=== PATIENT | male | born 1935 | race Caucasian/White ===

== ENCOUNTER 2016-08-14 10:29 | Observation (INO) | payer OTHER, BC ==
[2016-08-14] MEDS ORDERED: ASPIRIN 81 MG CHEWABLE TABLETS PO ONE (11:07)
--- NOTE | 2016-08-14 11:07 | PDOC ---
History of Present Illness <Terrell Artis - Last Filed: 08/14/16 15:07> - General History Source: Patient, Primary Care Provider Exam Limitations: No Limitations <Miguel Michael - Last Filed: 08/14/16 16:36> - General Chief Complaint: Chest Pain Stated Complaint: CHEST PRESSURE, NAUSEA Time Seen by Provider: 08/14/16 10:57 - History of Present Illness Initial Comments: 08/14/16 13:35 The patient is a 80 year old male, with a significant past medical history of CAD (11 stents), CHF, diabetes, HTN, hypercholesterolemia, BPH, who presents to the emergency department with chest pain and nausea since last night. He describes his chest pain as a pressure, ranging from mild to moderate, lasting 2 -3 minutes before resolving. He denies radiation or modifying factors. He reports that he saw Dr. Wynne this morning around 10am and an EKG was performed which was nonischemic according to the patient. Dr. Wynne told the patient that he wanted some cardiac enzymes and fluids due to the patient's nausea, and sent the patient to the ED for further evaluation. The patient also reports that he has shortness of breath that has been going on for the last couple of days. He states that he has been noticing some mild lower extremity swelling due to non- compliance with his Lasix. He states that he had similar symptoms last time he had a cardiac stent (3 years ago). He denies any recent illness. The patient denies palpitations, headache and dizziness. Denies fever, chills, vomit, diarrhea and constipation. Denies dysuria, frequency, urgency and hematuria. Allergies: None Past surgical history: 11 cardiac stents Social history: Social alcohol use. Cigarette use (50 daily). No drug use reported PMD - Dr. Varghese Palumbo [facility] - Dr. Lobo Wynne (Miguel Michael) Past History - Past Medical History Anemia: No Asthma: No Cancer: No Cardiac Disorders: Yes (CAD) CVA: No COPD: No CHF: Yes Dementia: No Diabetes: Yes GI Disorders: Yes Disorders: Yes (BPH) HTN: Yes Hypercholesterolemia: Yes Liver Disease: No Seizures: No Thyroid Disease: No - Surgical History Abdominal Surgery: No Appendectomy: No Cardiac Surgery: Yes (CARDIAC STENTS X 11, 1 stent on 02/09/15) Cholecystectomy: No Lung Surgery: No Neurologic Surgery: No Orthopedic Surgery: Yes - Immunization History Immunization Up to Date: Yes - Psycho/Social/Smoking Cessation Hx Anxiety: No Suicidal Ideation: No Smoking History: Former smoker Have you smoked in the past 12 months: No Number of Cigarettes Smoked Daily: 50 If you are a former smoker, when did you quit?: 45 YRS Information on smoking cessation initiated: No 'Breaking Loose' booklet given: 05/01/15 Hx Alcohol Use: Yes (SOCIAL) Drug/Substance Use Hx: No Substance Use Type: None Hx Substance Use Treatment: No <Terrell Artis - Last Filed: 08/14/16 15:07> <Miguel Michael - Last Filed: 08/14/16 16:36> - Past Medical History Allergies/Adverse Reactions: Allergies Allergy/AdvReac Type Severity Reaction Status Date / Time No Known Allergies Allergy Verified 08/14/16 10:37 Home Medications: Ambulatory Orders Aspirin [ASA -] 81 mg PO DAILY 08/14/16 Ezetimibe 10 mg PO DAILY 08/14/16 Folic Acid - 1 mg PO DAILY 08/14/16 Furosemide [Lasix -] 20 mg PO ASDIR 08/14/16 Gabapentin 600 mg PO BID 08/14/16 Methotrexate Sodium [Methotrexate] 6 tab PO ASDIR 08/14/16 Methylprednisolone [Medrol -] 1 mg PO ASDIR 08/14/16 Methylprednisolone [Medrol -] 2 mg PO ASDIR 08/14/16 Ranolazine [Ranexa] 500 mg PO BID 08/14/16 Tamsulosin HCl [Flomax] 0.4 mg PO HS 08/14/16 Timolol 0.5% [Timoptic] 1 drop OD DAILY 08/14/16 Travoprost [Travatan Z] 5 ml OU HS 08/14/16 Cardiac Specific PMH - Complaint Specific PMHX Pacemaker: No <Terrell Artis - Last Filed: 08/14/16 15:07> Review of Systems <Terrell Artis - Last Filed: 08/14/16 15:07> - Review of Systems Able to Perform ROS?: Yes <Miguel Michael - Last Filed: 08/14/16 16:36> - Review of Systems Comments:: 08/14/16 13:36 CONSTITUTIONAL: No reported: Fever, Chills, Diaphoresis, Generalized Weakness, Malaise, Loss of Appetite HEENT: No reported: Rhinorrhea, Nasal Congestion, Throat Pain, Throat Swelling, Difficulty Swallowing, Mouth Swelling, Ear Pain, Eye Pain, Visual Changes CARDIOVASCULAR: Reported: Chest pain. No reported: Syncope, Palpitations, Irregular Heart Rate, Lightheadedness, Peripheral Edema RESPIRATORY: Reported: Shortness of breath. No reported: Cough, SOB with Exertion, Orthopnea, Wheezing, Stridor, Hemoptysis GASTROINTESTINAL: Reported: Nausea. No reported: Abdominal pain, Abdominal Distension, Vomiting, Diarrhea, Constipation, Melena, Hematochezia GENITOURINARY: No reported: Dysuria, Frequency, Urgency, Hesitancy, Flank Pain, Genital Pain MUSCULOSKELETAL: No reported: Myalgia, Arthralgia, Joint Swelling, Back pain, Neck Pain SKIN: No reported: Rash, Itching, Pallor HEMEATOLOGIC/IMMUNOLOGIC: No reported: Easy Bleeding, Easy Bruising, Lymphadenopathy, Frequent infections ENDOCRINE: No reported: Unexplained Weight Gain, Unexplained Weight Loss, Heat Intolerance , Cold Intolerance NEUROLOGIC: No reported: Headache, Focal Weakness, Paresthesias, Vertigo, Lightheadedness, Unsteady Gait, Seizure, Mental Status Changes, Incontinence PSYCHIATRIC: No reported: Anxiety, Depression (Miguel Michael) *Physical Exam <Terrell Artis - Last Filed: 08/14/16 15:07> <Miguel Michael - Last Filed: 08/14/16 16:36> - Vital Signs Last Vital Signs Temp Pulse Resp BP Pulse Ox 98 F 75 16 134/72 98 08/14/16 10:33 08/14/16 11:25 08/14/16 11:25 08/14/16 11:25 08/14/16 11:25 - Physical Exam Comments: 08/14/16 13:36 GENERAL: The patient is awake, alert, and fully oriented, Nontoxic - in no acute distress. HEAD: Normocephalic, atraumatic. EYES: extraocular movements intact, sclera anicteric, conjunctiva clear. ENT: Normal voice, Moist mucous membranes. NECK: Normal range of motion, supple LUNGS: Breath sounds equal, clear to auscultation bilaterally. No wheezes, no rhonchi, no rales. HEART: Regular rate and rhythm, without murmur, rub or gallop. ABDOMEN: Soft, nontender, normoactive bowel sounds. No guarding, no rebound.No CVA tenderness EXTREMITIES: Normal range of motion, trace LE edema. no calf tenderness NEUROLOGICAL: No facial assymetry, Normal speech, PSYCH: Normal mood, normal affect. SKIN: Warm, Dry, normal turgor, (Miguel Michael) Heart Score/ECG Review <Terrell Artis - Last Filed: 08/14/16 15:07> <Miguel Michael - Last Filed: 08/14/16 16:36> - ECG Impressions Comment:: 08/14/16 11:43 Twelve-lead EKG was performed and reviewed by me. There is normal sinus rhythm with a normal rate. Rate of 66 Left axis deviation Artifacts present No ST changes suggestive of acute ischemia No significant change when compared with EKG dated 06/25/2015 (Terrell Artis) ED Treatment Course - LABORATORY CBC & Chemistry Diagram: 08/14/16 11:39 08/14/16 11:27 <Terrell Artis - Last Filed: 08/14/16 15:07> - LABORATORY CBC & Chemistry Diagram: 08/14/16 11:39 08/14/16 11:27 <Miguel Michael - Last Filed: 08/14/16 16:36> - ADDITIONAL ORDERS Additional order review: Laboratory Results 08/14/16 08/14/16 11:27 11:27 INR 1.07 Sodium 140 Potassium 3.7 Chloride 102 Carbon Dioxide 29 Anion Gap 9 BUN 16 D Creatinine 1.0 D Creat Clearance w eGFR > 60 Random Glucose 96 Calcium 8.7 Magnesium 2.0 Total Bilirubin 1.0 D AST 24 D ALT 28 D Alkaline Phosphatase 78 Creatine Kinase 112 Troponin I < 0.02 Total Protein 5.8 L Albumin 3.3 L D 08/14/16 11:39 RBC 3.90 L D MCV 93.8 MCHC 33.1 RDW 16.8 H MPV 8.6 Neutrophils % 59.6 D Lymphocytes % 31.2 D Monocytes % 7.5 Eosinophils % 0.9 D Basophils % 0.8 - RADIOLOGY Radiograph Interpretation: 08/14/16 14:31 Chest X-Ray Reviewed by: Dr. Rhys Watkins Impression: Cardiomegaly. No evidence of active pulmonary disease. (Miugel Michael) - Medications Given in the ED: ED Medications Discontinued Medications Generic Name Dose Route Start Last Admin Trade Name Lynda PRN Reason Stop Dose Admin Al Hydroxide/Mg Hydroxide 30 ml 08/14/16 11:33 08/14/16 11:55 Mylanta Suspension - PO 08/14/16 11:34 30 ml ONCE ONE Administration Aspirin 162 mg 08/14/16 11:07 08/14/16 11:55 Asa - PO 08/14/16 11:08 162 mg ONCE ONE Administration Famotidine/Sodium Chloride 20 50 mls @ 100 mls/hr 08/14/16 11:33 08/14/16 11:55 mg/ Miscellaneous IVPB 08/14/16 12:02 100 mls/hr ONCE ONE Administration Metoclopramide HCl 10 mg 08/14/16 15:01 08/14/16 15:48 Reglan Injection - IVPUSH 08/14/16 15:02 10 mg ONCE ONE Administration Ondansetron HCl 4 mg 08/14/16 11:33 08/14/16 11:55 Zofran Injection IVPB 08/14/16 11:34 4 mg ONCE ONE Administration Medical Decision Making <Terrell Artis - Last Filed: 08/14/16 15:07> <Miguel Michael - Last Filed: 08/14/16 16:36> - Medical Decision Making 08/14/16 11:35 80y M hx of CAD s/p 11 stents, dm, htn, hl, chf, bph, GERD presents with persistent nausea x 3, associated with episode of chest pressure last night approx 9:45pm lasting for a few minutes associated with diaprhosis, pt does endorse some sob/sanders recently. PT went to dr. Del Cid office who referred him to the ED for further evaluation. Pts exam is unremarabkle and pt currently denies any cp, but does endorse persistent nausea. pts vitals are normal. differential includes possiuble acs, gerd/gastritis, will ck labs, trops, ekg, cxr, will give asa zofran pepcid/maalox will reassess and d/w dr. wynne regarding disposition PMD: Ann[place] A portion of this note was documented by scribe services under my direction. I have reviewed the details of the note, within reason, and agree with the documentation with the following case summary and management plan written by me 08/14/16 14:44 labs reviewed and are negative pt feeling better when reclined, but when he gets up and abmulates, he feels midl nausea w/o any chest pain -?anginal equivalent? will lkely admit to observation for further risk stratification. awaiting call back from dr. wynne. 08/14/16 15:[address] palumbo agree with observation for further risk stratification of acs Case discussed in detail with admitting physician including history, physical exam and ancillary studies. Admitting physician has assumed care for the patient, will follow all pending diagnostics and will complete the evaluation and treatment. (Terrell Artis) 08/14/16 16:35 De. Wynne was called regarding the patient at 1:26pm, 2:11pm and 3:06pm [phone] Dr. Palumbo was consulted regarding the patient at 3:04pm [phone] (Miguel Michael) *DC/Admit/Observation/Transfer - Discharge Dispostion Admit: Yes <Terrell Artis - Last Filed: 08/14/16 15:07> <Miguel Michael - Last Filed: 08/14/16 16:36> Diagnosis at time of Disposition: Chest pain Qualifiers: Chest pain type: unspecified Qualified Code(s): R07.9 - Chest pain, unspecified - Referrals - Attestations Scribe Attestion: 08/14/16 13:36 Documentation prepared by Miguel Michael, acting as medical office clerk for Terrell Artis MD (Miguel Michael)
[2016-08-14] MEDS ORDERED: MAG HYDROX/AL HYDROX/SIMETH 355 ML ORAL.SUSP PO ONE (11:33)
[2016-08-14] MEDS ORDERED: ONDANSETRON 4 MG/2 ML VIAL IVPB ONE (11:33)
[2016-08-14] MEDS ORDERED: FAMOTIDINE 20 MG/50 ML IVPB 20 MG in PREMIX 50 IVPB ONE (11:33)
[2016-08-14 11:46] LABS: BASOPHIL 0.8 % (0-2.0); EOSINOPHIL 0.9 % (0-4.5); MCH 31.1 pg (25.7-33.7); MCHC 33.1 g/dl (32.0-35.9); MEAN CELL VOLUME 93.8 fl (80-96); MEAN PLT VOLUME 8.6 fl (7.5-11.1); NEUTROPHILS 59.6 % (42.8-82.8); PLATELET COUNT 166 K/MM3 (134-434); RDW 16.8 % (11.9-15.9); WHITE BLOOD COUNT 5.5 K/mm3 (4.0-10.0)
[2016-08-14] MEDS ORDERED: ASPIRIN 81 MG CHEWABLE TABLETS ONE (11:46)
[2016-08-14] MEDS ORDERED: MAG HYDROX/AL HYDROX/SIMETH 30 ML UNIT-DOSE CUP ONE (11:47)
[2016-08-14] MEDS ORDERED: FAMOTIDINE 20 MG/50 ML IVPB 50 ML IVPB ONE (11:47)
[2016-08-14] MEDS ORDERED: ONDANSETRON 4 MG/2 ML VIAL ONE (11:47)
[2016-08-14 12:11] LABS: ALBUMIN 3.3 g/dl (3.4-5.0); ANION GAP 9 (8-16); CALCIUM 8.7 mg/dL (8.5-10.1); CO2 29 mmol/L (21-32); COCKROFT - GAULT 68; GLUCOSE,RANDOM 96 mg/dL (74-106); SGOT/AST 24 U/L (15-37); SGPT/ALT 28 U/L (12-78)
[2016-08-14 12:16] LABS: ALK PHOS 78 U/L (45-117); TOT PROT 5.8 g/dl (6.4-8.2); TROPONIN I < 0.02 ng/ml (0.00-0.05)
[2016-08-14 12:25] LABS: INR 1.07 (0.82-1.09); PROTHROMBIN TIME (PATIENT) 11.8 SEC (9.98-11.88)
[2016-08-14] MEDS ORDERED: METOCLOPRAMIDE HCL INJECTION 10 MG/2 ML VIAL IVPUSH ONE (15:01)
[2016-08-14] MEDS ORDERED: METOCLOPRAMIDE HCL INJECTION 10 MG/2 ML VIAL ONE (15:40)
--- NOTE | 2016-08-14 17:07 | EKG ---
Test Reason : Blood Pressure : / mmHG Vent. Rate : 066 BPM Atrial Rate : 066 BPM P-R Int : 174 ms QRS Dur : 086 ms QT Int : 386 ms P-R-T Axes : 050 -44 056 degrees QTc Int : 404 ms NORMAL SINUS RHYTHM LEFT AXIS DEVIATION POSSIBLE ANTERIOR INFARCT , AGE UNDETERMINED ABNORMAL ECG WHEN COMPARED WITH ECG OF 25-JUN-2015 23:35, T WAVE VARIATION Confirmed by MEREDITH MUIR MD ([id number]) on 08/14/2016 5:06:38 PM Referred By: Confirmed By:MEREDITH MUIR MD
--- NOTE | 2016-08-14 17:39 | PN ---
Progress Note (short form) - Note Progress Note: See office note (in chart). Seen in office today with 3d of persistent, severe nausea (no vomiting or abd pain). awoke with mild chest pressures x few min last night around 1-2am, with cold sweats; no ekg changes present today incr sob of late over baseline sx GERD/other GI vs atyp angina to ER for serial enzymes, iv zofran/reglan/other plan for nuclear stress test as inpatient or out (depending on clinical course) if enzymes negative VSs stable/WNL in ER labs unremarkable (enzymes neg x 1) plan: repeat enzymes at 6 hrs GI meds per ER and dr palumbo reassess in am (will keep npo after midnight in case want to keep here overnight and stress tomorrow) Laboratory Tests 08/14/16 08/14/16 11:27 11:39 WBC 5.5 D Hgb 12.1 D Plt Count 166 Sodium 140 Potassium 3.7 Carbon Dioxide 29 BUN 16 D Creatinine 1.0 D Total Bilirubin 1.0 D AST 24 D ALT 28 D Creatine Kinase 112 Troponin I < 0.02
[2016-08-14] MEDS ORDERED: METOCLOPRAMIDE HCL INJECTION 10 MG/2 ML VIAL IVPB PRN (18:17)
[2016-08-14 19:01] VITALS: BMI 30.1
[2016-08-14 20:50] LABS: AMYLASE 30 U/L (25-115)
[2016-08-14 20:55] LABS: TROPONIN I < 0.02 ng/ml (0.00-0.05)
[2016-08-14] MEDS: RANOLAZINE E.R. 500 MG TABLET (FP) PO SCH (21:20)
[2016-08-14] MEDS: GABAPENTIN 300 MG CAPSULE (FP) PO SCH (21:21)
[2016-08-14] MEDS: PANTOPRAZOLE SODIUM 40 MG/100 ML PRE-DOCKED IVPB SCH (21:21)
[2016-08-14] MEDS: TAMSULOSIN HCL 0.4 MG CAP.ER.24H (FP) PO SCH (21:21)
[2016-08-14] MEDS: LATANOPROST 0.005% OPHTH SOLN 2.5ML BOTTLE OU SCH (21:23)
[2016-08-14] MEDS ORDERED: PANTOPRAZOLE SODIUM 40 MG in SODIUM CHLORIDE 100 ML IVPB SCH (22:00)
[2016-08-15 06:41] LABS: BASOPHIL 0.8 % (0-2.0); EOSINOPHIL 1.2 % (0-4.5); MCH 31.3 pg (25.7-33.7); MCHC 33.4 g/dl (32.0-35.9); NEUTROPHILS 53.6 % (42.8-82.8); PLATELET COUNT 155 K/MM3 (134-434); RDW 16.6 % (11.9-15.9); WHITE BLOOD COUNT 6.3 K/mm3 (4.0-10.0)
[2016-08-15 07:18] LABS: ANION GAP 9 (8-16); BILIRUBIN,TOTAL 0.8 mg/dL (0.2-1.0); CALCIUM 8.4 mg/dL (8.5-10.1); CO2 30 mmol/L (21-32); COCKROFT - GAULT 67.04; GLUCOSE,RANDOM 89 mg/dL (74-106); SGOT/AST 24 U/L (15-37); SGPT/ALT 25 U/L (12-78); TOT PROT 5.4 g/dl (6.4-8.2)
[2016-08-15 07:20] LABS: ALK PHOS 70 U/L (45-117); TROPONIN I < 0.02 ng/ml (0.00-0.05)
--- NOTE | 2016-08-15 08:50 | HP ---
Admitting History and Physical - Admission History of Present Illness: 80 year old male, with a significant past medical history of CAD (11 stents), CHF, diabetes, HTN, hypercholesterolemia, BPH, who presents to the emergency department with chest pain and nausea since last night. He describes his chest pain as a pressure, ranging from mild to moderate, lasting 2-3 minutes before resolving. He denies radiation or modifying factors. He reports that he saw Dr. Wynne this morning around 10am and an EKG was performed which was nonischemic according to the patient. Dr. Wynne told the patient that he wanted some cardiac enzymes and fluids due to the patient's nausea, and sent the patient to the ED for further evaluation. The patient also reports that he has shortness of breath that has been going on for the last couple of days. He states that he has been noticing some mild lower extremity swelling due to non-compliance with his Lasix. He states that he had similar symptoms last time he had a cardiac stent (3 years ago). He denies any recent illness. THIS AM FEELS BETTER - Past Medical History Cardiovascular: Yes: CAD (s/p multiple stenting), CHF, HTN, Hyperlipdemia Gastrointestinal: Yes: GERD, Hemorrhoids, Other (RECTAL INCONTINENCE THAT HAS RESOLVED WITH FIBER) Renal/: Yes: BPH Musculoskeletal: Yes: Osteoarthritis Endocrine: Yes: Diabetes Mellitus - Past Surgical History Past Surgical History: Yes: Appendectomy, Tonsillectomy, Vein Stripping/Ligation - Smoking History Smoking history: Former smoker Have you smoked in the past 12 months: No Aproximately how many cigarettes per day: 50 If you are a former smoker, when did you quit?: 45 yrs ago - Alcohol/Substance Use Hx Alcohol Use: No - Social History ADL: Support Services History of Recent Travel: No Home Medications - Allergies Allergies/Adverse Reactions: Allergies Allergy/AdvReac Type Severity Reaction Status Date / Time No Known Allergies Allergy Verified 08/14/16 10:37 - Home Medications Home Medications: Ambulatory Orders Aspirin [ASA -] 81 mg PO DAILY 08/14/16 Ezetimibe 10 mg PO DAILY 08/14/16 Folic Acid - 1 mg PO DAILY 08/14/16 Furosemide [Lasix -] 20 mg PO ASDIR 08/14/16 Gabapentin 600 mg PO BID 08/14/16 Methotrexate Sodium [Methotrexate] 6 tab PO ASDIR 08/14/16 Methylprednisolone [Medrol -] 1 mg PO ASDIR 08/14/16 Methylprednisolone [Medrol -] 2 mg PO ASDIR 08/14/16 Ranolazine [Ranexa] 500 mg PO BID 08/14/16 Tamsulosin HCl [Flomax] 0.4 mg PO HS 08/14/16 Timolol 0.5% [Timoptic] 1 drop OD DAILY 08/14/16 Travoprost [Travatan Z] 5 ml OU HS 08/14/16 Review of Systems - Review of Systems Cardiovascular: reports: Chest Pain Respiratory: reports: SOB on Exertion Gastrointestinal: reports: Abdominal Pain, Indigestion, Nausea Genitourinary: reports: No Symptoms Musculoskeletal: reports: Back Pain, Joint Pain Physical Examination Vital Signs: Vital Signs Temperature 98.2 F 08/15/16 06:19 Pulse Rate 64 08/15/16 06:19 Respiratory Rate 18 08/15/16 06:19 Blood Pressure 133/66 08/15/16 06:19 O2 Sat by Pulse Oximetry (%) 99 08/14/16 21:00 Cardiovascular: Yes: Regular Rate and Rhythm Respiratory: Yes: Regular, CTA Bilaterally Gastrointestinal: Yes: Normal Bowel Sounds, Soft. No: Tenderness Edema: No Labs: CBC, BMP 08/15/16 05:35 08/15/16 05:35 Problem List - Problems (1) Chest pain Assessment/Plan: MAYBE ANGINAL R/O GI ETIOLOGY STRESS TEST CE NEG CARDIO ON BOARD Code(s): R07.9 - CHEST PAIN, UNSPECIFIED Qualifiers: Chest pain type: unspecified Qualified Code(s): R07.9 - Chest pain, unspecified (2) CAD (coronary artery disease) Assessment/Plan: ABOVE Code(s): I25.10 - ATHSCL HEART DISEASE OF [place] CORONARY ARTERY W/O ANG PCTRS Qualifiers: Coronary Disease-Associated Artery/Lesion type: unspecified vessel or lesion type [place] vs. transplanted heart: [place] heart Associated angina: with unspecified angina Qualified Code(s): I25.119 - Atherosclerotic heart disease of [place] coronary artery with unspecified angina pectoris (3) CHF (congestive heart failure) Assessment/Plan: STABLE Code(s): I50.9 - HEART FAILURE, UNSPECIFIED (4) DM2 (diabetes mellitus, type 2) Assessment/Plan: BGM Code(s): E11.9 - TYPE 2 DIABETES MELLITUS WITHOUT COMPLICATIONS Qualifiers: Diabetes mellitus complication status: with circulatory complication (5) Gastritis Assessment/Plan: PPI REGLAN Code(s): K29.70 - GASTRITIS, UNSPECIFIED, WITHOUT BLEEDING
[2016-08-15] MEDS: ASPIRIN 81 MG CHEWABLE TABLETS PO SCH ×2 (09:51→17:17)
[2016-08-15] MEDS: FOLIC ACID 1 MG TABLET (FP) PO SCH ×2 (09:51→17:16)
[2016-08-15] MEDS: TIMOLOL 0.5% OPHTHALMIC SOL 5 ML BOTTLE OD SCH (09:52)
[2016-08-15] MEDS: methylPREDNISolone 2 MG TABLET PO SCH ×2 (09:52→17:17)
[2016-08-15] MEDS: PANTOPRAZOLE SODIUM 40 MG/100 ML PRE-DOCKED IVPB SCH ×2 (09:52→21:18)
[2016-08-15] MEDS: RANOLAZINE E.R. 500 MG TABLET (FP) PO SCH ×2 (09:52→21:24)
[2016-08-15] MEDS: GABAPENTIN 300 MG CAPSULE (FP) PO SCH ×2 (09:52→21:18)
[2016-08-15] MEDS: EZETIMIBE 10 MG TABLET (FP) PO SCH ×2 (09:53→17:16)
[2016-08-15] MEDS ORDERED: DIPYRIDAMOLE STRESS TEST IVPB ONE (10:00)
[2016-08-15] MEDS ORDERED: WATER IVPB ONE (10:00)
[2016-08-15] MEDS ORDERED: DEXTROSE 5% IVPB ONE (10:00)
--- NOTE | 2016-08-15 15:42 | CON.CARD ---
Cardiology Consult (text) - Consultation Consultation Note: CC: nausea/vomiting/cp 80 yo with h/o CAD s/p multiple stents, dCHF, HTN, HL, DM, RA, duodenal ulcers, GERD with esophagitis, BPH, here with nausea/cp. very nauseated x 2 days, no vomiting + abdominal discomfort/bloating + episode of diaphoresis x 1 day with associated mild cp--central, mild pressure--resolved on its own after 2-3 min. no radiation (incl to head, neck, arm). Patient with decreased appetite x a few months. + 9 lb weight loss. (Off lasix for the past 2 weeks) He states that his nausea resolved after receiving IV protonix. No further recurrence of CP or nausea. denies palpitations, orthopnea, PND, SOB, transient neurologic symptoms. PMHx: Per HPI Past Surgical History: Appendectomy, Tonsillectomy, Vein Stripping/Ligation Social Hx: Former smoker, no alcohol or illicits. Family hx: No cardiomyopathy ROS: No headache, f/c/s, cough, congestion, visual disturbances, rashes. Ambulatory Orders Aspirin [ASA -] 81 mg PO DAILY 08/14/16 Ezetimibe 10 mg PO DAILY 08/14/16 Folic Acid - 1 mg PO DAILY 08/14/16 Furosemide [Lasix -] 20 mg PO ASDIR 08/14/16 Gabapentin 600 mg PO BID 08/14/16 Methotrexate Sodium [Methotrexate] 6 tab PO ASDIR 08/14/16 Methylprednisolone [Medrol -] 1 mg PO ASDIR 08/14/16 Methylprednisolone [Medrol -] 2 mg PO ASDIR 08/14/16 Ranolazine [Ranexa] 500 mg PO BID 08/14/16 Tamsulosin HCl [Flomax] 0.4 mg PO HS 08/14/16 Timolol 0.5% [Timoptic] 1 drop OD DAILY 08/14/16 Travoprost [Travatan Z] 5 ml OU 08/14/16 Current Medications Aspirin (Asa -) 81 mg PO DAILY [facility] Last Admin: 08/15/16 09:51 Dose: Not Given Ezetimibe (Zetia -) 10 mg PO DAILY [facility] Last Admin: 08/15/16 09:53 Dose: Not Given Folic Acid (Folic Acid -) 1 mg PO DAILY [facility] Last Admin: 08/15/16 09:51 Dose: Not Given Gabapentin (Neurontin -) 600 mg PO BID [facility] Last Admin: 08/15/16 09:52 Dose: Not Given Latanoprost (Xalatan 0.005% Eye Drops -) 1 drop OU HS [facility] Last Admin: 08/14/16 21:23 Dose: 1 drop Methylprednisolone (Medrol -) 2 mg PO DAILY [facility] Last Admin: 08/15/16 09:52 Dose: Not Given Metoclopramide HCl (Reglan Injection -) 10 mg IVPB Q6H PRN PRN Reason: NAUSEA AND/OR VOMITING Pantoprazole Sodium (Protonix 40mg Ivpb (Pre-Docked)) 40 mg IVPB BID [facility] Last Admin: 08/15/16 09:52 Dose: Not Given Ranolazine (Ranexa -) 500 mg PO BID [facility] Last Admin: 08/15/16 09:52 Dose: Not Given Tamsulosin HCl (Flomax -) 0.[address] [facility] Last Admin: 08/14/16 21:21 Dose: 0.4 mg Timolol Maleate (Timoptic 0.5%) 1 drop OD DAILY [facility] Last Admin: 08/15/16 09:52 Dose: Not Given Vital Signs - 24 hr 08/14/16 08/14/16 08/14/16 17:25 18:26 21:00 Temperature 98 F 98.1 F 98.2 F Pulse Rate 67 66 Pulse Rate [ 76 Right Radial] Respiratory 16 18 18 Rate Blood Pressure 146/72 159/75 Blood Pressure 136/60 [Left Arm] O2 Sat by Pulse 98 98 99 Oximetry (%) 08/15/16 08/15/16 08/15/16 01:58 06:19 09:20 Temperature 98.3 F 98.2 F 98.2 F Pulse Rate 76 64 72 Pulse Rate [ Right Radial] Respiratory 18 18 17 Rate Blood Pressure 116/65 133/66 122/66 Blood Pressure [Left Arm] O2 Sat by Pulse Oximetry (%) 08/15/16 08/15/16 10:20 14:10 Temperature 97.7 F Pulse Rate 78 Pulse Rate [ Right Radial] Respiratory 16 Rate Blood Pressure 126/65 Blood Pressure [Left Arm] O2 Sat by Pulse 98 Oximetry (%) Intake & Output 08/13/16 08/14/16 08/15/16 08/16/16 07:59 07:59 07:59 07:59 Intake Total 300 620 Balance 300 620 Weight 177 lb 6 oz Constitutional: No Distress, sleepy Eyes: No: Sclera Icterus HENT: No: Nasal Congestion Neck: No: Decreased ROM Respiratory: Yes: trace rales Gastrointestinal: Yes: Normal Bowel Sounds. No: Distention, Hepatomegaly, Palpable Mass, Tenderness Cardiovascular: Yes: Regular Rate and Rhythm JVD: No Carotid Bruit: No PMI: Non-Displaced Heart Sounds: Yes: S1, S2. No: Gallop Murmur: No: Systolic Murmur, Diastolic Murmur Musculoskeletal: Yes: Other (No kyphosis) Edema: no edema Peripheral Pulses: 2+ Left Carotid, 2+ Right Carotid, 2+ Left Doralis Pedis, 2+ Right Dorsalis Pedis Integumentary: No: Jaundice Neurological: Yes: Alert, Oriented (x3) Psychiatric: No: Agitated - Other Data Labs, Other Data: CBC, BMP 08/15/16 05:35 08/15/16 05:35 Laboratory Tests 08/14/16 08/14/16 08/15/16 11:27 19:30 05:35 Magnesium 2.0 Troponin I < 0.02 < 0.02 < 0.02 Albumin 3.0 L EKG: NSR, LAD, inf q waves. non-specific t wave ab tele: SR with brief episode of SVT, intermittent pvc. stress here: No ekg changes or anginal sx's. mod sized mild intensity posterolateral ischemia. EF 81 % LHC 02/13: EDP 16, EF nl; patent stents: pRCA, dLAD (30-50%), OM1, OM2; 70-80% pLAD ISR--Promus; 70-80% D1 (moderate size)--PTCA; residual diffuse mild dz all 3 vessels MIBI 2012 (franko): no STs; minimal apical ischemia; nl EF Echo 06/14: nl LV/EF; mild LVH; nl RV; valves WNL cath 2010 with Xience SRINIVAS to OM1 (70-80% ISR of prior Cypher stent) then unstable angina with cath 02/13 showing ISR of pLAD treated with SRINIVAS, ISR of D1 treated with PTCA alone; residual nonobstructive, diffuse dz: patent stents in pRCA, pLAD, dLAD, D1 and OM2 (was seeing Dr. Gale) Unstable angina with cath 02/13 showing ISR of pLAD treated with SRINIVAS, ISR of D1 treated with PTCA alone; no sig residual dz, all other stents patent Assessment/Plan 80 yo with h/o CAD s/p multiple stents, dCHF, HTN, HL, DM, RA, duodenal ulcers, GERD with esophagitis, BPH, here with nausea/cp. CAD, h/o mult stents: - Current sx's similar atypical for angina and resolved after IV PPI. However, symptoms similar to past anginal symtoms. Stress with mild area of posterolateral ischemia. - Discussed with patient. Low risk area of ischemia with uncertainty regarding anginal nature of symptoms and not on maximal anti-anginal therapy. There is risk of DAPT at his age. - Will first give trial of increased anginal therapy. Increase ranexa to 1000 mg bid. Had fatigue to bystolic but previously tolerated metoprolol. Also with ectopy, run of SVT on tele. Will start low dose metoprolol. - con't ASA, zetia. Off statin due to myalgias. - Monitor for recurrence presumed diastolic dysfunction - currently euvolemic off of lasix. HTN: -controlled off anti-hypertensive. Monitor on metoprolol. HPL: - previous statin dosing limited by severe muscle pains, continue zetia.
[2016-08-15] MEDS ORDERED: PT OWN MED DRAWER 7, Y5N ONE ×2 (17:08→21:12)
--- NOTE | 2016-08-15 20:53 | CON.GI ---
Consult Consult Specialty:: Gastroenterology - History of Present Illness Chief Complaint: chief complaint of nausea chest pain History of Present Illness: This is an 80-year-old white male with a history of coronary artery disease ( status post 11 stents) congestive heart failure duodenal ulcers gastritis and esophagitis admitted to the hospital with nausea for a couple of days (started on Mother's Day)that progressed to chest pain shortness of breath lasted for about 2-3 minutes. Patient went to see his ballroom dance instructor Dr. Wynne who advised the patient to come to the emergency room and get admitted for fluids and troponin checks.. The patient just returned for his new from his nuclear stress test. He states that his nausea has resolved and is feeling a little bit better. He did not vomit any blood there is no melena or rectal bleeding he currently has no abdominal pain. - History Source History Provided By: Patient Limitations to Obtaining History: No Limitations - Past Medical History Cardio/Vascular: Yes: CAD (s/p multiple stenting), CHF, HTN, Hyperlipdemia Gastrointestinal: Yes: Constipation, GERD (esophagitis), Hemorrhoids, Other ( RECTAL INCONTINENCE THAT HAS RESOLVED WITH FIBER) Renal/: Yes: BPH Musculoskeletal: Yes: Osteoarthritis Endocrine: Yes: Diabetes Mellitus - Past Surgical History Past Surgical History: Yes: Appendectomy, Tonsillectomy, Vein Stripping/Ligation - Alcohol/Substance Use Hx Alcohol Use: No - Smoking History Smoking history: Former smoker Have you smoked in the past 12 months: No Aproximately how many cigarettes per day: 50 If you are a former smoker, when did you quit?: 45 yrs ago - Social History Usual Living Arrangement: With Spouse ADL: Support Services History of Recent Travel: No Home Medications - Allergies Allergies/Adverse Reactions: Allergies Allergy/AdvReac Type Severity Reaction Status Date / Time No Known Allergies Allergy Verified 08/14/16 10:37 - Home Medications Home Medications: Ambulatory Orders Aspirin [ASA -] 81 mg PO DAILY 08/14/16 Ezetimibe 10 mg PO DAILY 08/14/16 Folic Acid - 1 mg PO DAILY 08/14/16 Furosemide [Lasix -] 20 mg PO ASDIR 08/14/16 Gabapentin 600 mg PO BID 08/14/16 Methotrexate Sodium [Methotrexate] 6 tab PO ASDIR 08/14/16 Methylprednisolone [Medrol -] 1 mg PO ASDIR 08/14/16 Methylprednisolone [Medrol -] 2 mg PO ASDIR 08/14/16 Ranolazine [Ranexa] 500 mg PO BID 08/14/16 Tamsulosin HCl [Flomax] 0.4 mg PO HS 08/14/16 Timolol 0.5% [Timoptic] 1 drop OD DAILY 08/14/16 Travoprost [Travatan Z] 5 ml OU HS 08/14/16 Family Disease History - Family Disease History Family History: Denies Review of Systems - Review of Systems Constitutional: reports: Loss of Appetite, Weakness Eyes: reports: No Symptoms HENT: reports: No Symptoms Neck: reports: No Symptoms Cardiovascular: reports: Chest Pain, Shortness of Breath Respiratory: reports: No Symptoms Gastrointestinal: reports: Abdominal Pain, Nausea Genitourinary: reports: No Symptoms Musculoskeletal: reports: No Symptoms Integumentary: reports: No Symptoms Neurological: reports: No Symptoms Endocrine: reports: No Symptoms Hematology/Lymphatic: reports: No Symptoms Psychiatric: reports: No Symptoms Physical Exam-GI Vital Signs: Vital Signs Temperature 98.4 F 08/15/16 18:00 Pulse Rate 76 08/15/16 18:00 Respiratory Rate 18 08/15/16 18:00 Blood Pressure 135/76 08/15/16 18:00 O2 Sat by Pulse Oximetry (%) 98 08/15/16 10:20 Constitutional: Yes: No Distress, Calm Eyes: Yes: Conjunctiva Clear HENT: Yes: Atraumatic Neck: Yes: Supple Cardiovascular: Yes: Regular Rate and Rhythm, Murmur Respiratory: Yes: Regular Gastrointestinal Inspection: Yes: Distention ...Auscultate: Yes: Normoactive Bowel Sounds ...Palpate: Yes: Soft Extremities: Yes: WNL Neurological: Yes: WNL Psychiatric: Yes: WNL Labs: CBC, BMP 08/15/16 05:35 08/15/16 05:35 INR, PTT INR 1.07 (0.82-1.09) 08/14/16 11:27 Laboratory Tests 08/14/16 08/14/16 08/14/16 11:27 11:27 19:30 WBC RBC Hgb Hct MCV MCHC RDW Plt Count MPV Neutrophils % Lymphocytes % Monocytes % Eosinophils % Basophils % INR 1.07 Sodium Potassium Chloride Carbon Dioxide Anion Gap BUN Creatinine Creat Clearance w eGFR Random Glucose Calcium Magnesium Total Bilirubin AST ALT Alkaline Phosphatase Troponin I < 0.02 < 0.02 Total Amylase 30 Lipase 67 L 08/15/16 08/15/16 05:35 05:35 WBC 6.3 RBC 3.80 L Hgb 11.9 Hct 35.7 MCV 94.0 MCHC 33.4 RDW 16.6 H Plt Count 155 MPV 9.0 Neutrophils % 53.6 Lymphocytes % 35.6 Monocytes % 8.8 Eosinophils % 1.2 Basophils % 0.8 INR Sodium 144 Potassium 4.1 Chloride 105 Carbon Dioxide 30 Anion Gap 9 BUN 14 Creatinine 1.0 Creat Clearance w eGFR > 60 Random Glucose 89 Calcium 8.4 L Magnesium 2.0 Total Bilirubin 0.8 AST 24 ALT 25 Alkaline Phosphatase 70 Troponin I < 0.02 Total Amylase Lipase Imaging - Results Other: Pending Problem List - Problems (1) Nausea Assessment/Plan: I believe the nausea and chest pain are cardiac in origin. I cannot however rule out gastroparesis given his long-standing diabetes and the presentation of his symptoms. He just had a nuclear stress test were waiting for the results of that study. In the meantime I have placed an order for gastric emptying scan that can be performed tomorrow. In the meantime I would continue the current management Code(s): R11.0 - NAUSEA (2) Chest pain Assessment/Plan: possible cardiac in origin. Could be some reflux symptomatology also. Await the results of nuclear stress test. Code(s): R07.9 - CHEST PAIN, UNSPECIFIED Qualifiers: Chest pain type: unspecified Qualified Code(s): R07.9 - Chest pain, unspecified
[2016-08-15] MEDS: LATANOPROST 0.005% OPHTH SOLN 2.5ML BOTTLE OU SCH (21:18)
[2016-08-15] MEDS: TAMSULOSIN HCL 0.4 MG CAP.ER.24H (FP) PO SCH (21:18)
--- NOTE | 2016-08-16 08:09 | DS ---
Physical Examination Vital Signs: Vital Signs Temperature 98.6 F 08/16/16 05:43 Pulse Rate 60 08/16/16 05:43 Respiratory Rate 18 08/16/16 05:43 Blood Pressure 134/58 08/16/16 05:43 O2 Sat by Pulse Oximetry (%) 99 08/15/16 21:00 Findings/Remarks: FEELS BETTER WANTS TO GO HOME Cardiovascular: Yes: Regular Rate and Rhythm Respiratory: Yes: Regular, CTA Bilaterally Gastrointestinal: Yes: Normal Bowel Sounds, Soft. No: Tenderness Labs: CBC, BMP 08/15/16 05:35 08/15/16 05:35 Discharge Summary Reason For Visit: CHEST PAIN Current Active Problems Chest pain (Acute) Gastritis (Acute) Nausea (Acute) Hospital Course: 80 year old male, with a significant past medical history of CAD (11 stents), CHF, diabetes, HTN, hypercholesterolemia, BPH, who presents to the emergency department with chest pain and nausea since last night. He describes his chest pain as a pressure, ranging from mild to moderate, lasting 2-3 minutes before resolving. He denies radiation or modifying factors. He reports that he saw Dr. Wynne this morning around 10am and an EKG was performed which was nonischemic according to the patient. Dr. Wynne told the patient that he wanted some cardiac enzymes and fluids due to the patient's nausea, and sent the patient to the ED for further evaluation. The patient also reports that he has shortness of breath that has been going on for the last couple of days. He states that he has been noticing some mild lower extremity swelling due to non-compliance with his Lasix. He states that he had similar symptoms last time he had a cardiac stent (3 years ago). He denies any recent illness. THIS AM FEELS BETTER - Past Medical History Cardiovascular: Yes: CAD (s/p multiple stenting), CHF, HTN, Hyperlipdemia Gastrointestinal: Yes: GERD, Hemorrhoids, Other (RECTAL INCONTINENCE THAT HAS RESOLVED WITH FIBER) Renal/: Yes: BPH Musculoskeletal: Yes: Osteoarthritis Endocrine: Yes: Diabetes Mellitus - Past Surgical History Past Surgical History: Yes: Appendectomy, Tonsillectomy, Vein Stripping/Ligation - Problems (1) Chest pain Assessment/Plan: MAYBE ANGINAL R/O GI ETIOLOGY STRESS TEST CE NEG CARDIO ON BOARD Code(s): R07.9 - CHEST PAIN, UNSPECIFIED Qualifiers: Chest pain type: unspecified Qualified Code(s): R07.9 - Chest pain, unspecified (2) CAD (coronary artery disease) Assessment/Plan: CARDIO CONSULT 80 yo with h/o CAD s/p multiple stents, dCHF, HTN, HL, DM, RA, duodenal ulcers, GERD with esophagitis, BPH, here with nausea/cp. CAD, h/o mult stents: - Current sx's similar atypical for angina and resolved after IV PPI. However, symptoms similar to past anginal symtoms. Stress with mild area of posterolateral ischemia. - Discussed with patient. Low risk area of ischemia with uncertainty regarding anginal nature of symptoms and not on maximal anti-anginal therapy. There is risk of DAPT at his age. - Will first give trial of increased anginal therapy. Increase ranexa to 1000 mg bid. Had fatigue to bystolic but previously tolerated metoprolol. Also with ectopy, run of SVT on tele. Will start low dose metoprolol. - con't ASA, zetia. Off statin due to myalgias. - Monitor for recurrence Code(s): I25.10 - ATHSCL HEART DISEASE OF [place] CORONARY ARTERY W/O ANG PCTRS Qualifiers: Coronary Disease-Associated Artery/Lesion type: unspecified vessel or lesion type [place] vs. transplanted heart: [place] heart Associated angina: with unspecified angina Qualified Code(s): I25.119 - Atherosclerotic heart disease of [place] coronary artery with unspecified angina pectoris (3) CHF (congestive heart failure) Assessment/Plan: STABLE Code(s): I50.9 - HEART FAILURE, UNSPECIFIED (4) DM2 (diabetes mellitus, type 2) Assessment/Plan: BGM Code(s): E11.9 - TYPE 2 DIABETES MELLITUS WITHOUT COMPLICATIONS Qualifiers: Diabetes mellitus complication status: with circulatory complication (5) Gastritis--NAUSEA --RESOLVED Assessment/Plan: PPI GI CONSULT Assessment/Plan: I believe the nausea and chest pain are cardiac in origin. I cannot however rule out gastroparesis given his long-standing diabetes and the presentation of his symptoms. He just had a nuclear stress test were waiting for the results of that study. In the meantime I have placed an order for gastric emptying scan that can be performed tomorrow. In the meantime I would continue the current management Code(s): K29.70 - GASTRITIS, UNSPECIFIED, WITHOUT BLEEDING Condition: Improved - Instructions Referrals: Varghese Barakat MD [Primary Care Provider] - Disposition: HOME - Home Medications Comprehensive Discharge Medication List: Ambulatory Orders Aspirin [ASA -] 81 mg PO DAILY 08/14/16 Ezetimibe 10 mg PO DAILY 08/14/16 Folic Acid - 1 mg PO DAILY 08/14/16 Furosemide [Lasix -] 20 mg PO ASDIR 08/14/16 Gabapentin 600 mg PO BID 08/14/16 Methotrexate Sodium [Methotrexate] 6 tab PO ASDIR 08/14/16 Methylprednisolone [Medrol -] 1 mg PO ASDIR 08/14/16 Methylprednisolone [Medrol -] 2 mg PO ASDIR 08/14/16 Tamsulosin HCl [Flomax] 0.4 mg PO HS 08/14/16 Timolol 0.5% [Timoptic] 1 drop OD DAILY 08/14/16 Travoprost [Travatan Z] 5 ml OU HS 08/14/16 Metoprolol Succinate [Toprol XL -] 25 mg PO DAILY #30 tab 08/16/16 Pantoprazole Sodium [Protonix -] 40 mg PO DAILY #30 tab 08/16/16 Ranolazine [Ranexa -] 1,000 mg PO BID #60 tab 08/16/16
[2016-08-16] MEDS ORDERED: PT OWN MED DRAWER 7, Y5N ONE ×4 (09:11→11:59)
[2016-08-16 09:37] VITALS: BP 113/64; PULSE 78; TEMP 98.4
[2016-08-16] MEDS: RANOLAZINE E.R. 500 MG TABLET (FP) PO SCH (09:38)
[2016-08-16] MEDS: ASPIRIN 81 MG CHEWABLE TABLETS PO SCH (09:39)
[2016-08-16] MEDS: EZETIMIBE 10 MG TABLET (FP) PO SCH (09:39)
[2016-08-16] MEDS: GABAPENTIN 300 MG CAPSULE (FP) PO SCH (09:39)
[2016-08-16] MEDS: methylPREDNISolone 2 MG TABLET PO SCH (09:40)
[2016-08-16] MEDS: FOLIC ACID 1 MG TABLET (FP) PO SCH (09:44)
[2016-08-16] MEDS: TIMOLOL 0.5% OPHTHALMIC SOL 5 ML BOTTLE OD SCH (09:50)
[2016-08-16] MEDS ORDERED: METOPROLOL SUCCINATE 25 MG TAB.SR.24H (FP) PO SCH (10:00)
[2016-08-16] MEDS ORDERED: PANTOPRAZOLE 40 MG TABLET (FP) PO SCH (10:00)
--- NOTE | 2016-08-16 10:48 | PN ---
Progress Note (short form) - Note Progress Note: s: no cp sob palps dizzy; abd pain resolved as well with iv ppi o: Vital Signs Period Temp Pulse Resp BP Sys/Jeffrey Pulse Ox Last 24 Hr 97.7 F-98.6 F 60-78 16-18 113-153/58-83 99 Constitutional: No Distress Eyes: No: Sclera Icterus Respiratory: Yes: cta bl nl eff Gastrointestinal: Yes: Normal Bowel Sounds. No: Distention, Hepatomegaly, Palpable Mass, Tenderness Cardiovascular: Yes: Regular Rate and Rhythm JVD: No Heart Sounds: Yes: S1, S2. No: Gallop Murmur: No: Systolic Murmur, Diastolic Murmur Edema: no edema Integumentary: No: Jaundice diaphoresis Neurological: Yes: Alert, Oriented (x3) Psychiatric: No: Agitated Current Medications Generic Name Dose Route Start Last Admin Trade Name Freq PRN Reason Stop Dose Admin Aspirin 81 mg 08/15/16 10:00 08/16/16 09:39 Asa - PO 81 mg DAILY BLADIMIR Administration Ezetimibe 10 mg 08/15/16 10:00 08/16/16 09:39 Zetia - PO 10 mg DAILY BLADIMIR Administration Folic Acid 1 mg 08/15/16 10:00 08/16/16 09:44 Folic Acid - PO 1 mg DAILY BLADIMIR Administration Gabapentin 600 mg 08/14/16 22:00 08/16/16 09:39 Neurontin - PO 600 mg BID BLADIMIR Administration Latanoprost 1 drop 08/14/16 22:00 08/15/16 21:18 Xalatan 0.005% Eye Drops - OU 1 drop HS BLADIMIR Administration Methylprednisolone 2 mg 08/15/16 10:00 08/16/16 09:40 Medrol - PO 2 mg DAILY BLADIMIR Administration Metoprolol Succinate 25 mg 08/16/16 10:00 08/16/16 09:39 Toprol Xl - PO 25 mg DAILY BLADIMIR Administration Pantoprazole Sodium 40 mg 08/16/16 10:00 08/16/16 09:39 Protonix - PO 40 mg DAILY BLADIMIR Administration Ranolazine 1,000 mg 08/15/16 22:00 08/16/16 09:38 Ranexa - PO 1,000 mg BID BLADIMIR Administration Tamsulosin HCl 0.4 mg 08/14/16 22:00 08/15/16 21:18 Flomax - PO 0.4 mg HS BLADIMIR Administration Timolol Maleate 1 drop 08/15/16 10:00 08/16/16 09:50 Timoptic 0.5% OD 1 drop DAILY BLADIMIR Administration - Other Data Labs, Other Data: CBC, BMP 08/15/16 05:35 08/15/16 05:35 EKG: NSR, LAD, inf q waves. non-specific t wave ab tele: SR with brief episode of SVT, intermittent pvc. stress here: No ekg changes or anginal sx's. mod sized mild intensity posterolateral ischemia. EF 81 % LHC 02/13: EDP 16, EF nl; patent stents: pRCA, dLAD (30-50%), OM1, OM2; 70-80% pLAD ISR--Promus; 70-80% D1 (moderate size)--PTCA; residual diffuse mild dz all 3 vessels MIBI 2012 (franko): no STs; minimal apical ischemia; nl EF Echo 06/14: nl LV/EF; mild LVH; nl RV; valves WNL cath 2010 with Xience SRINIVAS to OM1 (70-80% ISR of prior [place] stent) then unstable angina with cath 02/13 showing ISR of pLAD treated with SRINIVAS, ISR of D1 treated with PTCA alone; residual nonobstructive, diffuse dz: patent stents in pRCA, pLAD, dLAD, D1 and OM2 (was seeing Dr. Gale) Unstable angina with cath 02/13 showing ISR of pLAD treated with SRINIVAS, ISR of D1 treated with PTCA alone; no sig residual dz, all other stents patent tele: sr Assessment/Plan 80 yo with h/o CAD s/p multiple stents, dCHF, HTN, HL, DM, RA, duodenal ulcers, GERD with esophagitis, BPH, here with nausea/cp. CAD, h/o mult stents: - Current sx's similar atypical for angina and resolved after IV PPI. However, symptoms similar to past anginal symtoms. Stress with mild area of posterolateral ischemia. - Discussed with patient. Low risk area of ischemia with uncertainty regarding anginal nature of symptoms and not on maximal anti-anginal therapy. There is risk of DAPT at his age. - Will first give trial of increased anginal therapy. Increase ranexa to 1000 mg bid. Had fatigue to bystolic but previously tolerated metoprolol so started here. - con't ASA, zetia. Off statin due to myalgias. - Monitor for recurrence. Feeling well today. presumed diastolic dysfunction - currently euvolemic off of lasix. HTN: -stable on meds HPL: - previous statin dosing limited by severe muscle pains, continue zetia. cardiac villarreal stable for dc, should f/u with cardiology in 2 weeks
== END 2016-08-16 14:03 | disposition home or self-care (01) ==
LOC: JER 10:29 → JERBED 15:06 → J4S 17:55
PROVIDERS: ADMIT Family Medicine; ATTEND Family Medicine
PROC: 3E033GC Introduction of Other Therapeutic Substance into Peripheral Vein, Percutaneous Approach (ICD-10-PCS; principal; 2016-08-14)
DX: R07.9 Chest pain, unspecified (principal); I10 Essential (primary) hypertension; I50.9 Heart failure, unspecified; I25.119 Atherosclerotic heart disease of native coronary artery with unspecified angina pectoris; Z95.5 Presence of coronary angioplasty implant and graft; E11.59 Type 2 diabetes mellitus with other circulatory complications; E78.00 Pure hypercholesterolemia, unspecified; K21.9 Gastro-esophageal reflux disease without esophagitis; K29.70 Gastritis, unspecified, without bleeding; N40.0 Benign prostatic hyperplasia without lower urinary tract symptoms; Z91.14 Patient's other noncompliance with medication regimen; Z87.891 Personal history of nicotine dependence; Z79.82 Long term (current) use of aspirin; Z90.89 Acquired absence of other organs; R11.0 Nausea
CPT/HCPCS: 36415; 71020-TC; 74020-TC; 74176; 78452-TC; 80053; 82150; 82550; 83690; 83735; 84484; 85025; 85610; 93005; 93010; 93017; 99285-25; A9502; G0378; J1245

== ENCOUNTER 2016-08-24 09:28 | Inpatient (IN) | payer OTHER, BC ==
[2016-08-24] MEDS ORDERED: SODIUM CHLORIDE 500 ML IV STA (10:41)
--- NOTE | 2016-08-24 10:41 | PDOC ---
History of Present Illness - General History Source: Patient Exam Limitations: No Limitations - History of Present Illness Initial Comments: 08/24/16 11:29 The patient is an 80-year-old male, with a significant past medical history of CAD (11 stents), CHF, diabetes, HTN, hypercholesterolemia, BPH, who was sent to the emergency department by his PCP (Dr. Palumbo) for lithotripsy or stone removal today. Pt was recently seen in the ED on 08/14/16 for chest pain with nuclear study. A CT scan was performed that revealed that the pt had a right renal stone. He reports receiving another sonogram yesterday that showed that the stone had moved and pt was placed on levaquin. He also reports experiencing intermittent right-sided abdominal pain for a few weeks now. Pt felt light- headed this morning as he was walking down a flight of stairs but his and grandson were there to grab him. He states that his symptoms are alleviated when he is lying down. Pts last meal was at 8:30 this morning. Pt reports having chills at baseline. The patient denied any fever, chills, nausea, vomiting, or diarrhea. Denies any dysuria or hematuria. Urology: Dr. Pina <Libia Diaz - Last Filed: 08/24/16 11:29> <Shilpi Sethi - Last Filed: 08/24/16 12:06> <Padmini Campos - Last Filed: 08/24/16 18:41> - General Chief Complaint: Pain Stated Complaint: PRE-OP (PCP SENT) Time Seen by Provider: 08/24/16 10:38 Past History <Libia Diaz - Last Filed: 08/24/16 11:29> <Shilpi Sethi - Last Filed: 08/24/16 12:06> - Past Medical History Anemia: No Asthma: No Cancer: No Cardiac Disorders: Yes (CAD) CVA: No COPD: No CHF: Yes Dementia: No Diabetes: Yes (NIDDM) GI Disorders: No Disorders: Yes (BPH) HTN: Yes Hypercholesterolemia: Yes Kidney Stones: Yes Liver Disease: No Seizures: No Thyroid Disease: No - Surgical History Abdominal Surgery: No Appendectomy: No Cardiac Surgery: Yes (CARDIAC STENTS X 11, 1 stent on 02/09/15) Cholecystectomy: No Lung Surgery: No Neurologic Surgery: No Orthopedic Surgery: Yes - Immunization History Immunization Up to Date: Yes - Psycho/Social/Smoking Cessation Hx Anxiety: No Suicidal Ideation: No Smoking History: Former smoker Have you smoked in the past 12 months: No Number of Cigarettes Smoked Daily: 50 If you are a former smoker, when did you quit?: 45 yrs ago Information on smoking cessation initiated: No 'Breaking Loose' booklet given: 05/01/15 Hx Alcohol Use: No Drug/Substance Use Hx: No Substance Use Type: None Hx Substance Use Treatment: No <Padmini Campos - Last Filed: 08/24/16 18:41> - Past Medical History Allergies/Adverse Reactions: Allergies Allergy/AdvReac Type Severity Reaction Status Date / Time No Known Allergies Allergy Verified 08/24/16 09:30 Home Medications: Ambulatory Orders Aspirin [ASA -] 81 mg PO DAILY 08/14/16 Ezetimibe 10 mg PO HS 08/14/16 Folic Acid - 1 mg PO DAILY 08/14/16 Furosemide [Lasix -] 20 mg PO ASDIR 08/14/16 Gabapentin 800 mg PO BID 08/14/16 Methotrexate Sodium [Methotrexate] 6 tab PO ASDIR 08/14/16 Methylprednisolone [Medrol -] 1 mg PO ASDIR 08/14/16 Methylprednisolone [Medrol -] 2 mg PO ASDIR 08/14/16 Tamsulosin HCl [Flomax] 0.4 mg PO HS 08/14/16 Travoprost [Travatan Z] 5 ml OU HS 08/14/16 Metoprolol Succinate [Toprol XL -] 25 mg PO DAILY #30 tab 08/16/16 Pantoprazole Sodium [Protonix -] 40 mg PO DAILY #30 tab 08/16/16 Ranolazine [Ranexa -] 1,000 mg PO BID #60 tab 08/16/16 Ibuprofen [Motrin -] 400 mg PO PRN 08/24/16 Review of Systems - Review of Systems Able to Perform ROS?: Yes Comments:: 08/24/16 11:31 GENERAL/CONSTITUTIONAL: No fever. No weakness. (+)Chills HEAD, EYES, EARS, NOSE AND THROAT: No change in vision. No ear pain or discharge. No sore throat. CARDIOVASCULAR: No chest pain or shortness of breath. RESPIRATORY: No cough, wheezing, or hemoptysis. GASTROINTESTINAL: No nausea, vomiting, diarrhea or constipation. (+) right- sided abdominal pain GENITOURINARY: No dysuria, frequency, or change in urination. MUSCULOSKELETAL: No joint or muscle swelling or pain. No neck or back pain. SKIN: No rash NEUROLOGIC: No headache, vertigo, loss of consciousness, or change in strength/ sensation. (+)light-headedness ENDOCRINE: No increased thirst. No abnormal weight change. HEMATOLOGIC/LYMPHATIC: No anemia, easy bleeding, or history of blood clots. ALLERGIC/IMMUNOLOGIC: No hives or skin allergy. <Libia Diaz - Last Filed: 08/24/16 11:29> *Physical Exam - Vital Signs Last Vital Signs Temp Pulse Resp BP Pulse Ox 97.6 F 56 L 18 113/60 94 L 08/24/16 09:31 08/24/16 11:06 08/24/16 11:06 08/24/16 11:06 08/24/16 11:06 - Physical Exam Comments: 08/24/16 11:38 GENERAL: Awake, alert, and fully oriented, in no acute distress HEAD: No signs of trauma EYES: PERRLA, EOMI, sclera anicteric, conjunctiva clear ENT: Auricles normal inspection, hearing grossly normal, nares patent, oropharynx clear without exudates. Moist mucosa. NECK: Normal ROM, supple, no lymphadenopathy, JVD, or masses LUNGS: Breath sounds equal, clear to auscultation bilaterally. No wheezes, and no crackles HEART: Regular rate and rhythm, normal S1 and S2, no murmurs, rubs or gallops ABDOMEN: Soft, nontender, normoactive bowel sounds. No guarding, no rebound. No masses EXTREMITIES: (+)1+ nonpitting edema bilaterally NEUROLOGICAL: Normal speech. SKIN: Warm, Dry, normal turgor, no rashes or lesions noted <Libia Diaz - Last Filed: 08/24/16 11:29> - Vital Signs Last Vital Signs Temp Pulse Resp BP Pulse Ox 97.6 F 63 16 95/53 100 08/24/16 09:31 08/24/16 09:31 08/24/16 09:31 08/24/16 09:31 08/24/16 09:31 <Shilpi Sethi - Last Filed: 08/24/16 12:06> - Vital Signs Last Vital Signs Temp Pulse Resp BP Pulse Ox 97.6 F 63 16 95/53 100 08/24/16 09:31 08/24/16 09:31 08/24/16 09:31 08/24/16 09:31 08/24/16 09:31 <Padmini Campos - Last Filed: 08/24/16 18:41> Heart Score/ECG Review #1 General ECG Interpretation: Sinus Rhythm (sinus bradycardia 54 bpm), Normal Rate , Normal Intervals, No acute ischemic changes <Shilpi Sethi - Last Filed: 08/24/16 12:06> ED Treatment Course - LABORATORY CBC & Chemistry Diagram: 08/24/16 10:48 08/24/16 10:48 - ADDITIONAL ORDERS Additional order review: 08/24/16 10:48 RBC 3.85 L MCV 93.0 MCHC 33.8 RDW 16.5 H MPV 9.0 Neutrophils % 61.8 Lymphocytes % 29.2 Monocytes % 7.3 Eosinophils % 0.8 Basophils % 0.9 - Medications Given in the ED: ED Medications Discontinued Medications Generic Name Dose Route Start Last Admin Trade Name Freq PRN Reason Stop Dose Admin Sodium Chloride 500 mls @ 1,000 mls/hr 08/24/16 10:41 08/24/16 11:16 Normal Saline - IV 08/24/16 11:10 1,000 mls/hr ASDIR STA Administration <Libia Diaz - Last Filed: 08/24/16 11:29> - LABORATORY CBC & Chemistry Diagram: 08/24/16 10:48 08/24/16 10:48 <Shilpi Sethi - Last Filed: 08/24/16 12:06> - LABORATORY CBC & Chemistry Diagram: 08/24/16 10:48 08/24/16 10:48 <Padmini Campos - Last Filed: 08/24/16 18:41> Medical Decision Making - Medical Decision Making 08/24/16 10:59 80 yo h/o CAD multiplet stents, DM HLD HTN CHF on lasix, here today for lithotripsy or stone retrieval. pt recently was evaluated for chest pain with nuclear study, and subsequently a ct a/p was incicently found to have a right renal stone. pt states has been having right sided abd pain intermittently for weeks. no f/c no current cp no sob. today did feel lightheaded with near syncopal episode while walking down stairs, sat down and sxs resolved. no hematuria no dysuria. yesterday had a ultrasound in urologist office, noted stone had moved. 5mm stone right side. no current c/o pain. did get dose of levaquin yesterday . last meal this am 8:30 on exam awake , alert, NAD lungs CTAB no wheeze no crackles. heart RRR no m/r/ g. abd soft NT no CVA tendernes. skin warm and dry. legs bilat nonpitting edema. PLan: will d/w pt urologist, iv hydration due to low bp, ekg cardiac labs, ua urine culture r/o coexisting infection. likely admit dr. palumbo for management of stone. 08/24/16 12:06 <Shilpi Sethi - Last Filed: 08/24/16 12:06> *DC/Admit/Observation/Transfer - Attestations Scribe Attestion: 08/24/16 11:40 Documentation prepared by Libia Diaz, acting as medical insurance clerk for Shilpi Sethi MD. <Libia Diaz - Last Filed: 08/24/16 11:29> - Discharge Dispostion Admit: Yes <Shilpi Sethi - Last Filed: 08/24/16 12:06> <Padmini Campos - Last Filed: 08/24/16 18:41> Diagnosis at time of Disposition: Renal colic on right side - Referrals
[2016-08-24 11:22] LABS: BASOPHIL 0.9 % (0-2.0); EOSINOPHIL 0.8 % (0-4.5); MCH 31.4 pg (25.7-33.7); MCHC 33.8 g/dl (32.0-35.9); NEUTROPHILS 61.8 % (42.8-82.8); PLATELET COUNT 153 K/MM3 (134-434); RDW 16.5 % (11.9-15.9)
[2016-08-24 11:56] LABS: ALBUMIN 3.4 g/dl (3.4-5.0); ANION GAP 8 (8-16); BILIRUBIN,TOTAL 0.5 mg/dL (0.2-1.0); CALCIUM 8.8 mg/dL (8.5-10.1); CO2 32 mmol/L (21-32); COCKROFT - GAULT 47.78; CREATININE 1.4 mg/dL (0.7-1.3); GLUCOSE,RANDOM 106 mg/dL (74-106); SGPT/ALT 28 U/L (12-78); TOT PROT 6.4 g/dl (6.4-8.2)
[2016-08-24 11:59] LABS: ALK PHOS 80 U/L (45-117); TROPONIN I < 0.02 ng/ml (0.00-0.05)
[2016-08-24 12:09] LABS: SGOT/AST 34 U/L (15-37)
[2016-08-24 12:15] LABS: INR 1.14 (0.82-1.09); PROTHROMBIN TIME (PATIENT) 12.6 SEC (9.98-11.88)
[2016-08-24 12:18] LABS: ACTIVATED PTT 28.2 SECONDS (26.9-34.4)
[2016-08-24 14:39] VITALS: BMI 28.5
[2016-08-24 16:59] LABS: URINE APPEARANCE CLEAR; URINE BILIRUBIN NEGATIVE (NEGATIVE); URINE BLOOD NEGATIVE (NEGATIVE); URINE COLOR AMBER; URINE GLUCOSE (UA) NEGATIVE (NEGATIVE); URINE KETONE NEGATIVE (NEGATIVE); URINE NITRITE NEGATIVE (NEGATIVE); URINE PROTEIN NEGATIVE (NEGATIVE); URINE UROBILINOGEN NEGATIVE E.U./dl (0.2-1.0)
[2016-08-24 17:00] LABS: URINE LEUK ESTERASE 1+ (NEGATIVE)
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
[2016-08-24 17:41] LABS: URINE BACTERIA RARE /hpf (NONE SEEN); URINE RBC 2 /hpf (0-3); URINE WBC 24 /hpf (3-5)
[2016-08-24] MEDS ORDERED: FUROSEMIDE 20 MG TABLET (FP) PO SCH ×2 (17:45→19:45)
[2016-08-24] MEDS ORDERED: METHOTREXATE 2.5 MG TABLET PO SCH ×3 (17:45→23:00)
[2016-08-24] MEDS ORDERED: IBUPROFEN 400 MG TABLET (FP) PO SCH ×2 (17:45→19:45)
--- NOTE | 2016-08-24 18:09 | CONSULT ---
Consult - text type - Consultation Consultation Note: Patient with right hydro with obstructive stone with worsening renal function taken emergently to the operating room discussed with patient and family x 30 minutes.
[2016-08-24] MEDS ORDERED: PROPOFOL 20 ML ONE (18:10)
[2016-08-24] MEDS ORDERED: KETOROLAC TROMETHAMINE 30 MG/1 ML VIAL ONE (18:10)
[2016-08-24] MEDS ORDERED: DEXAMETHASONE SOD PHOSPHATE 4 MG/1 ML VIAL ONE (18:10)
[2016-08-24] MEDS ORDERED: SUCCINYLCHOLINE CHLORIDE 200 MG/10 ML VIAL ONE (18:11)
[2016-08-24] MEDS ORDERED: ceFAZolin SODIUM 1 GM VIAL IVPB ONE (18:27)
[2016-08-24] MEDS ORDERED: LEVOFLOXACIN 500 MG PREMIX BAG IVPB ONE (18:40)
[2016-08-24] MEDS ORDERED: ePHEDrine SULFATE 50 MG/1 ML AMPULE ONE (19:04)
--- NOTE | 2016-08-24 19:33 | OP ---
Operative Note - Note: Operative Date: 08/24/16 Pre-Operative Diagnosis: right hydronephrosis/right ureteral stone/acute renal insufficiency Operation: cystoscopy/right retrograde pyelogram/right ureteroscopic laser lithotripsy/right ureteral stone basketing/right ureteral stent placement Findings: 8+mm right upper ureteral stone with high grade hydronephrosis Post-Operative Diagnosis: Same as Pre-op Surgeon: Jason Pina Anesthesia: General Drains & Tubes with Location: 6fr/24cm right ureteral stent
[2016-08-24] MEDS ORDERED: ONDANSETRON 4 MG/2 ML VIAL IVPUSH PRN (19:39)
[2016-08-24] MEDS ORDERED: PROMETHAZINE HCL 25 MG/1 ML VIAL IVPUSH PRN (19:39)
[2016-08-24] MEDS ORDERED: oxyCODONE HCL 5 MG TABLET PO PRN (19:39)
[2016-08-24] MEDS ORDERED: EZETIMIBE 10 MG TABLET (FP) PO SCH ×2 (22:00)
[2016-08-24] MEDS ORDERED: TAMSULOSIN HCL 0.4 MG CAP.ER.24H (FP) PO SCH ×2 (22:00)
[2016-08-24] MEDS ORDERED: LATANOPROST 0.005% OPHTH SOLN 2.5ML BOTTLE OU SCH ×2 (22:00)
[2016-08-24] MEDS ORDERED: GABAPENTIN 400 MG CAPSULE (FP) PO SCH (22:00)
[2016-08-24] MEDS ORDERED: RANOLAZINE E.R. 500 MG TABLET (FP) PO SCH (22:00)
[2016-08-24] MEDS ORDERED: PATIENT'S OWN MEDICATION (NON-FORMULARY) (Gabapentin [Gabapentin] 800 MG) PO SCH (22:00)
[2016-08-24] MEDS ORDERED: PATIENT'S OWN MEDICATION (NON-FORMULARY) (Travoprost [Travatan Z] 5 ML) OU SCH (22:00)
[2016-08-24] MEDS: GABAPENTIN 400 MG CAPSULE (FP) PO SCH (22:50)
[2016-08-24] MEDS: RANOLAZINE E.R. 500 MG TABLET (FP) PO SCH (22:51)
[2016-08-25 07:48] VITALS: TEMP 97.8
[2016-08-25 08:30] LABS: MCH 31.4 pg (25.7-33.7); MCHC 34.4 g/dl (32.0-35.9); MEAN CELL VOLUME 91.5 fl (80-96); MEAN PLT VOLUME 8.8 fl (7.5-11.1); PLATELET COUNT 164 K/MM3 (134-434); RDW 16.5 % (11.9-15.9); WHITE BLOOD COUNT 6.9 K/mm3 (4.0-10.0)
[2016-08-25 09:45] VITALS: PULSE 80
[2016-08-25] MEDS ORDERED: PANTOPRAZOLE 40 MG TABLET (FP) PO SCH ×2 (10:00)
[2016-08-25] MEDS ORDERED: SIMBRINZA OS SCH (10:00)
[2016-08-25] MEDS ORDERED: METOPROLOL SUCCINATE 25 MG TAB.SR.24H (FP) PO SCH ×2 (10:00)
[2016-08-25] MEDS ORDERED: FOLIC ACID 1 MG TABLET (FP) PO SCH ×2 (10:00)
[2016-08-25] MEDS ORDERED: ASPIRIN 81 MG CHEWABLE TABLETS PO SCH ×2 (10:00)
[2016-08-25 10:06] LABS: ALBUMIN 3.1 g/dl (3.4-5.0); BILIRUBIN,TOTAL 0.6 mg/dL (0.2-1.0); CALCIUM 8.9 mg/dL (8.5-10.1); MAGNESIUM 1.9 mg/dL (1.8-2.4); TOT PROT 5.7 g/dl (6.4-8.2)
--- NOTE | 2016-08-25 10:23 | CONSULT ---
Consult - text type - Consultation Consultation Note: s/p right stent and stone basketing/ doing well cleared for discharge.
[2016-08-25 10:56] LABS: COCKROFT - GAULT 42.85; CREATININE 1.6 mg/dL (0.7-1.3)
--- NOTE | 2016-08-25 10:57 | OP ---
DATE OF OPERATION: 08/24/2016 PREOPERATIVE DIAGNOSES: Right ureteral stone, right hydronephrosis, acute renal insufficiency. POSTOPERATIVE DIAGNOSES: Right ureteral stone, right hydronephrosis, acute renal insufficiency. PROCEDURE: Cystoscopy, right retrograde pyelogram, right ureteroscopic laser lithotripsy, right ureteroscopic stone basketing, right ureteral stent placement. ATTENDING: Bakari Warren MD ANESTHESIA: General. OPERATION: Patient was brought in the operating room and placed in the supine position on the operating room table. General anesthesia and preoperative antibiotics were administered. The patient was then placed in the dorsal lithotomy position and prepped and draped in the usual sterile manner. Cystoscopy was performed and an obstructive prostate with 2+ bladder trabeculation was noted. No evidence of stones or neoplasm within the bladder was seen. A retrograde pyelogram showed a filling defect in the upper ureter with significant hydroureteronephrosis. A wire was placed up to the kidney under fluoroscopic guidance. Ureteroscopy was then performed and a filling defect previously noted was consistent with an 8-plus-mm right upper ureteral stone. Because of the size of the stone, it was decided to laser lithotripsy the stone and remove it in fragments. The holmium laser was utilized and under direct vision via the ureteroscope the stone was fragmented. With adequate fragmentation, the ureteral stone basketing was performed under direct visualization with all fragments removed. At this point, the ureteroscope was removed and a 6-[place] 24-cm stent was placed over the wire utilizing the Seldinger technique. No complications were noted. The disposition of the patient was to the recovery room. BAKARI WARREN M.D. [id number]
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
[2016-08-25] MEDS: RANOLAZINE E.R. 500 MG TABLET (FP) PO SCH (12:13)
[2016-08-25] MEDS: GABAPENTIN 400 MG CAPSULE (FP) PO SCH (12:15)
[2016-08-25 12:28] VITALS: BP 97/50
--- NOTE | 2016-08-25 18:22 | PN ---
Progress Note (short form) - Note Progress Note: Anesthesiology post op note: Patient seen at bedside, no acute distress. s/p cystoscopy lithtripsy under general anesthesia post op day one. The patient reported no adverse effects from the anesthetic other than one episode of nausea over night that resolved without intervention. Dept of anesthesia will sign off care at this time.
[2016-08-26] MEDS ORDERED: methylPREDNISolone 2 MG TABLET PO SCH ×2 (10:00)
--- NOTE | 2016-08-26 21:55 | EKG ---
Test Reason : Blood Pressure : / mmHG Vent. Rate : 054 BPM Atrial Rate : 054 BPM P-R Int : 192 ms QRS Dur : 106 ms QT Int : 454 ms P-R-T Axes : 022 -30 036 degrees QTc Int : 430 ms SINUS BRADYCARDIA LEFT AXIS DEVIATION INFERIOR INFARCT , AGE UNDETERMINED NONSPECIFIC T WAVE ABNORMALITY ABNORMAL ECG WHEN COMPARED WITH ECG OF 14-AUG-2016 10:41, NONSPECIFIC T WAVE ABNORMALITY NOW EVIDENT IN ANTERIOR LEADS Confirmed by BYRON CONTE, MICHELLE ([id number]) on 08/26/2016 9:55:13 PM Referred By: Confirmed By:MICHELLE MATTHEWS MD
--- NOTE | 2016-08-29 13:24 | PATH ---
Surgical Pathology Report Patient Name: SABRINA GREEN Med. Rec. #: [id number] /Age/Gender: 1935 (Age: 80) / M Account: [id number] Location: [address] [place] [address]/[facility] Taken: 08/24/2016 Received: 08/28/2016 Reported: 08/29/2016 Physicians: Jason Pina Specimen(s) Received RIGHT URETERAL STONES Clinical History Right hydronephrosis, acute renal insufficiency, right ureteral stone Final Diagnosis STONES, RIGHT URETER, EXTRACTION: CALCULI (GROSS EXAM). SPECIMEN SENT FOR CHEMICAL ANALYSIS. Electronically Signed Brandon Villalba M.D. Gross Description Received fresh labeled "right ureteral stone" is a 0.6 x 0.4 x 0.1 cm aggregate of ryder irregular calculi. The specimen is sent for chemical analysis. /08/28/2016 saudi/08/28/2016
== END 2016-08-25 14:50 | disposition home or self-care (01) | DRG 669 ==
LOC: JER 09:28 → JERBED 11:28 → J5S 13:51
PROVIDERS: ADMIT Family Medicine; ATTEND Family Medicine
PROC: 0T768DZ Dilation of Right Ureter with Intraluminal Device, Via Natural or Artificial Opening Endoscopic (ICD-10-PCS; 2016-08-24)
PROC: BT1DZZZ Fluoroscopy of Right Kidney, Ureter and Bladder (ICD-10-PCS; 2016-08-24)
PROC: 0TC68ZZ Extirpation of Matter from Right Ureter, Via Natural or Artificial Opening Endoscopic (ICD-10-PCS; principal; 2016-08-24 18:07)
DX: N13.2 Hydronephrosis with renal and ureteral calculous obstruction (principal); I25.10 Atherosclerotic heart disease of native coronary artery without angina pectoris; I11.0 Hypertensive heart disease with heart failure; I50.9 Heart failure, unspecified; E11.9 Type 2 diabetes mellitus without complications; N40.0 Benign prostatic hyperplasia without lower urinary tract symptoms; I25.2 Old myocardial infarction; K21.9 Gastro-esophageal reflux disease without esophagitis; M06.80 Other specified rheumatoid arthritis, unspecified site; M48.00 Spinal stenosis, site unspecified; K59.09 Other constipation; K64.8 Other hemorrhoids; M19.90 Unspecified osteoarthritis, unspecified site; E53.8 Deficiency of other specified B group vitamins; Z87.891 Personal history of nicotine dependence; Z95.5 Presence of coronary angioplasty implant and graft; N28.9 Disorder of kidney and ureter, unspecified
CPT/HCPCS: 36415; 71010-TC; 78708-TC; 80053; 81003; 81015; 82360; 82550; 83735; 84484; 85025; 85027; 85610; 85730; 86850; 86900; 86901; 88300-TC; 93005; 93010; 94760; 99285-25; A9562

== ENCOUNTER 2017-03-31 12:27 | Inpatient (IN) | payer OTHER, BC ==
--- NOTE | 2017-03-31 12:46 | PDOC ---
History of Present Illness - History of Present Illness Initial Comments: 03/31/17 13:29 81 y/o M with a PMH of appendectomy, CAD (11 stents), CHF, DM, HTN, HLD, BPH, CO presents to the ED with pleuritic chest pain today. He reports associated SOB and nausea. He states he woke up with this pain. The pain radiates up to his neck and jaw and down his left arm. The pain is similar to his last CO. Denies fever, chills. Denies headache, dizziness. PCP: Dr. Baraakt Room Service Food Service Attendant: Dr. Ricci Azar; former smoker <Francisca Farnsworth - Last Filed: 03/31/17 14:05> - General History Source: Patient, Family, Old Records Exam Limitations: No Limitations <Mik Gonzales - Last Filed: 03/31/17 16:44> - General Chief Complaint: Chest Pain Stated Complaint: CHEST PAIN Time Seen by Provider: 03/31/17 12:34 Past History <Francisca Farnsworth - Last Filed: 03/31/17 14:05> - Past Medical History Anemia: No Asthma: No Cancer: No Cardiac Disorders: Yes (CAD) CVA: No COPD: No CHF: Yes Dementia: No Diabetes: Yes (NIDDM) GI Disorders: No Disorders: Yes (BPH) HTN: Yes Hypercholesterolemia: Yes Kidney Stones: Yes Liver Disease: No Seizures: No Thyroid Disease: No - Surgical History Abdominal Surgery: No Appendectomy: No Cardiac Surgery: Yes (CARDIAC STENTS X 11, 1 stent on 02/09/15) Cholecystectomy: No Lung Surgery: No Neurologic Surgery: No Orthopedic Surgery: Yes - Immunization History Immunization Up to Date: Yes - Suicide/Smoking/Psychosocial Hx Smoking History: Former smoker Have you smoked in the past 12 months: No Number of Cigarettes Smoked Daily: 50 If you are a former smoker, when did you quit?: 45 yrs ago 'Breaking Loose' booklet given: 05/01/15 Hx Alcohol Use: No Drug/Substance Use Hx: No Substance Use Type: None Hx Substance Use Treatment: No <Mik Gonzales - Last Filed: 03/31/17 16:44> - Past Medical History Allergies/Adverse Reactions: Allergies Allergy/AdvReac Type Severity Reaction Status Date / Time No Known Allergies Allergy Verified 03/31/17 12:49 Home Medications: Ambulatory Orders Aspirin [ASA -] 81 mg PO DAILY 08/14/16 Ezetimibe 10 mg PO HS 08/14/16 Folic Acid - 1 mg PO DAILY 08/14/16 Furosemide [Lasix -] 20 mg PO ASDIR 08/14/16 Gabapentin 800 mg PO BID 08/14/16 Methotrexate Sodium [Methotrexate] 6 tab PO ASDIR 08/14/16 Methylprednisolone [Medrol -] 2 mg PO ASDIR 08/14/16 Tamsulosin HCl [Flomax] 0.4 mg PO HS 08/14/16 Travoprost [Travatan Z] 5 ml OU HS 08/14/16 Ranolazine [Ranexa -] 1,000 mg PO BID #60 tab 08/16/16 Brinzolamide/Brimonidine Tart [Simbrinza 1%-0.2% Eye Drops] 1 drop OS BID Levomefolate/B6/B12/Algal Oil [Foltanx Rf Capsule] 1 each PO BID 03/31/17 Review of Systems - Review of Systems Comments:: 03/31/17 13:29 GENERAL/CONSTITUTIONAL: No fever or chills. No weakness. HEAD, EYES, EARS, NOSE AND THROAT: No change in vision. No ear pain or discharge. No sore throat. CARDIOVASCULAR: (+) chest pain, shortness of breath RESPIRATORY: No cough, wheezing, or hemoptysis. GASTROINTESTINAL: (+) nausea, No vomiting, diarrhea or constipation. GENITOURINARY: No dysuria, frequency, or change in urination. MUSCULOSKELETAL: No joint or muscle swelling or pain. No neck or back pain. SKIN: No rash NEUROLOGIC: No headache, vertigo, loss of consciousness, or change in strength/ sensation. ENDOCRINE: No increased thirst. No abnormal weight change. HEMATOLOGIC/LYMPHATIC: No anemia, easy bleeding, or history of blood clots. ALLERGIC/IMMUNOLOGIC: No hives or skin allergy. <Francisca Farnsworth - Last Filed: 03/31/17 14:05> *Physical Exam - Vital Signs Last Vital Signs Temp Pulse Resp BP Pulse Ox 97.5 F L 58 L 26 H 153/87 100 03/31/17 12:27 03/31/17 12:27 03/31/17 12:27 03/31/17 12:27 03/31/17 12:27 - Physical Exam Comments: 03/31/17 13:29 GENERAL: Awake, alert, and fully oriented, in no acute distress HEAD: No signs of trauma EYES: PERRLA, EOMI, sclera anicteric, conjunctiva clear ENT: Auricles normal inspection, hearing grossly normal, nares patent, oropharynx clear without exudates. Moist mucosa NECK: Normal ROM, supple, no lymphadenopathy, JVD, or masses LUNGS: Breath sounds equal, clear to auscultation bilaterally. No wheezes, and no crackles HEART: Regular rate and rhythm, normal S1 and S2, no murmurs, rubs or gallops ABDOMEN: Soft, nontender, normoactive bowel sounds. No guarding, no rebound. No masses EXTREMITIES: Normal range of motion, no edema. No clubbing or cyanosis. No cords, erythema, or tenderness NEUROLOGICAL: Cranial nerves II through XII grossly intact. Normal speech, normal gait SKIN: Warm, Dry, normal turgor, no rashes or lesions noted. <Francisca Farnsworth - Last Filed: 03/31/17 14:05> Heart Score/ECG Review - History History: Highly suspicious - Electrocardiogram EKG: Non specific repolarization disturbance - Age Age: >/= 65 - Risk Factors Based on the list above the patient has:: >/=3 risk factors or Hx atherosclerotic disease #1 ECG reviewed & interpreted by me at: 12:45 03/31/17 12:45 NSR 64, T wave flat II, III, avF, V2-V6, no std/rafia, QTC 478 msec <Mik Gonzales - Last Filed: 03/31/17 16:44> ED Treatment Course - LABORATORY CBC & Chemistry Diagram: 03/31/17 13:05 03/31/17 13:05 - ADDITIONAL ORDERS Additional order review: 03/31/17 13:05 RBC 4.31 MCV 92.0 MCHC 32.7 RDW 16.9 H MPV 9.0 Neutrophils % 71.9 Lymphocytes % 18.7 D Monocytes % 8.1 Eosinophils % 0.9 Basophils % 0.4 - Medications Given in the ED: ED Medications Discontinued Medications Generic Name Dose Route Start Last Admin Trade Name Freq PRN Reason Stop Dose Admin Nitroglycerin 0.4 mg 03/31/17 13:11 03/31/17 13:21 Nitrostat - SL 03/31/17 13:12 0.4 mg ONCE ONE Administration Ondansetron HCl 4 mg 03/31/17 13:11 03/31/17 13:21 Zofran Injection IVPB 03/31/17 13:12 4 mg ONCE ONE Administration - Additional Consults Time Called: 13:55 (paged Dr. Wynne. Dr Sanford choe.) Time Called: 14:06 (paged Dr. Barakat) <Francisca Farnsworth - Last Filed: 03/31/17 14:05> - LABORATORY CBC & Chemistry Diagram: 03/31/17 13:05 03/31/17 13:05 - RADIOLOGY Radiology Studies Ordered: Category Date Time Status CHEST X-RAY PORTABLE* [RAD] Stat Radiology 03/31/17 12:44 Ordered <Mik Gonzales - Last Filed: 03/31/17 16:44> Medical Decision Making - Medical Decision Making 03/31/17 12:45 A portion of this note was documented by scribe services under my direction. I have reviewed the details of the note, within reason, and agree with the documentation with the following case summary and management plan written by me. Patient treated in the ED. Patient arrives by ambulance to the emergency department. Nursing notes are reviewed and incorporated into the medical decision-making. Vital signs reviewed. Peripheral IV access obtained by the nurse, laboratory studies are drawn and sent, reviewed and interpreted by myself. 81-year-old male with past medical history of hypertension, diabetes, hyperlipidemia, congestive heart failure, coronary disease status post 11 stents , kidney stones, basal cell carcinoma status post removal presents to the emergency department for chest pressure on the left side. The patient reports that he woke up with this pain. States it feels like his last CO radiates up to his neck and jaw and left arm reports associated short of breath and nausea. States that the pain is constant. Denies recent illnesses, fevers, chills, cough. Patient's manager administrative services is Dr. Wynne. Patient's history and prior medical history is concerning for rule out myocardial infarction. We'll obtain troponin, chest x-ray. Patient took a baby aspirin and EMS had completed the aspirin. Ultimately, we'll need to consult patient's cardiology is Dr. Wynne. 03/31/17 14:09 Chest xray reviewed. Enlarged heart, no acute findings. CBC, BMP 03/31/17 13:05 03/31/17 13:05 CMP Sodium 140 mmol/L (136-145) 03/31/17 13:05 Potassium 3.8 mmol/L (3.5-5.1) 03/31/17 13:05 Chloride 102 mmol/L (98-107) 03/31/17 13:05 Carbon Dioxide 28 mmol/L (21-32) 03/31/17 13:05 Anion Gap 10 (8-16) 03/31/17 13:05 BUN 25 mg/dL (7-18) H D 03/31/17 13:05 Creatinine 1.2 mg/dL (0.7-1.3) D 03/31/17 13:05 Creat Clearance w eGFR 58.11 (>60) 03/31/17 13:05 Random Glucose 118 mg/dL (74-106) H D 03/31/17 13:05 Calcium 8.8 mg/dL (8.5-10.1) 03/31/17 13:05 Phosphorus 2.9 mg/dL (2.5-4.9) 03/31/17 13:05 Magnesium 2.0 mg/dL (1.8-2.4) 03/31/17 13:05 Total Bilirubin 0.7 mg/dL (0.2-1.0) 03/31/17 13:05 AST 19 U/L (15-37) 03/31/17 13:05 ALT 24 U/L (12-78) 03/31/17 13:05 Alkaline Phosphatase 90 U/L (45-117) 03/31/17 13:05 Creatine Kinase 53 IU/L (39-308) 03/31/17 13:05 Troponin I < 0.02 ng/ml (0.00-0.05) 03/31/17 13:05 Total Protein 6.9 g/dl (6.4-8.2) D 03/31/17 13:05 Albumin 3.6 g/dl (3.4-5.0) 03/31/17 13:05 Lipase 83 U/L (73-393) 03/31/17 13:05 Pt's chest pain improved drastically with nitroglycerin. Case discussed Dr. Alfonso who recommends adding 75 mg plavix. Plavix was ordered. States she will follow along as cards consult. Case discussed with Dr. Barakat's PALEOLOGIST. Case accepted to telemetry admission. Case discussed in detail with admitting physician including history, physical exam and ancillary studies. Admitting physician has assumed care for the patient, will follow all pending diagnostics and will complete the evaluation and treatment. 03/31/17 16:44 Pt still with nausea. Will order RUQ ultrasound as well. <Mik Gonzales - Last Filed: 03/31/17 16:44> *DC/Admit/Observation/Transfer - Attestations Scribe Attestion: 03/31/17 13:30 Documentation prepared by Francisca Farnsworth, acting as medical record clerk for Mik Gonzales MD. <Francisca Farnsworth - Last Filed: 03/31/17 14:05> - Discharge Dispostion Admit: Yes <Mik Gonzales - Last Filed: 03/31/17 16:44> Diagnosis at time of Disposition: Chest pain Qualifiers: Chest pain type: unspecified Qualified Code(s): R07.9 - Chest pain, unspecified - Discharge Dispostion Condition at time of disposition: Stable
[2017-03-31 12:49] VITALS: BMI 29.2
[2017-03-31 13:11] LABS: BASO % 0.4 % (0-2.0); EOS % 0.9 % (0-4.5); HEMATOCRIT 39.7 % (35.4-49); LYMPH % 18.7 % (8-40); MCH 30.1 pg (25.7-33.7); MCHC 32.7 g/dl (32.0-35.9); MONO % 8.1 % (3.8-10.2); NEUT % 71.9 % (42.8-82.8); PLATELET COUNT 145 K/MM3 (134-434); RBC 4.31 M/mm3 (4.00-5.60); RDW 16.9 % (11.9-15.9); WHITE BLOOD COUNT 10.4 K/mm3 (4.0-10.0)
[2017-03-31] MEDS ORDERED: NITROGLYCERIN SUBLINGUAL 1/150 0.4 MG TAB SL ONE ×2 (13:11→13:33)
[2017-03-31] MEDS ORDERED: ONDANSETRON 4 MG/2 ML VIAL IVPB ONE ×2 (13:11→13:33)
[2017-03-31] MEDS ORDERED: NITROGLYCERIN SUBLINGUAL 1/150 0.4 MG TAB ONE (13:14)
[2017-03-31] MEDS ORDERED: ONDANSETRON 4 MG/2 ML VIAL ONE ×2 (13:14→13:34)
[2017-03-31 13:43] LABS: ALBUMIN 3.6 g/dl (3.4-5.0); ANION GAP 10 (8-16); BILIRUBIN,TOTAL 0.7 mg/dL (0.2-1.0); BLOOD UREA NITROGEN 25 mg/dL (7-18); CALCIUM 8.8 mg/dL (8.5-10.1); CHLORIDE 102 mmol/L (98-107); CO2 28 mmol/L (21-32); CREATININE 1.2 mg/dL (0.7-1.3); GLUCOSE,RANDOM 118 mg/dL (74-106); LIPASE 83 U/L (73-393); PHOSPHOROUS 2.9 mg/dL (2.5-4.9); POTASSIUM 3.8 mmol/L (3.5-5.1); SGOT/AST 19 U/L (15-37); SGPT/ALT 24 U/L (12-78); SODIUM 140 mmol/L (136-145); TOT PROT 6.9 g/dl (6.4-8.2)
[2017-03-31 13:44] LABS: ALK PHOS 90 U/L (45-117)
[2017-03-31 14:06] LABS: INR 1.01 (0.82-1.09)
[2017-03-31] MEDS ORDERED: CLOPIDOGREL BISULFATE 75 MG TABLET (FP) PO ONE ×2 (14:10→17:21)
[2017-03-31] MEDS ORDERED: CLOPIDOGREL BISULFATE 75 MG TABLET (FP) ONE (14:14)
--- NOTE | 2017-03-31 14:48 | EKG ---
Test Reason : Blood Pressure : / mmHG Vent. Rate : 063 BPM Atrial Rate : 063 BPM P-R Int : 178 ms QRS Dur : 088 ms QT Int : 450 ms P-R-T Axes : 023 -28 031 degrees QTc Int : 460 ms NORMAL SINUS RHYTHM NONSPECIFIC T WAVE ABNORMALITY ABNORMAL ECG WHEN COMPARED WITH ECG OF 24-AUG-2016 11:43, NO SIGNIFICANT CHANGE WAS FOUND BASELINE ARTIFACT Confirmed by BOAZ CONTE, NEELIMA ([id number]) on 03/31/2017 2:47:55 PM Referred By: Confirmed By:NEELIMA SANDRA MD
[2017-03-31] MEDS ORDERED: morphine CARPU-JECT 2 MG/1 ML DISP.SYRIN IVPUSH ONE ×3 (14:52→17:06)
[2017-03-31] MEDS ORDERED: morphine CARPU-JECT 10 MG/1 ML DISP.SYRIN ONE ×2 (14:54→16:38)
[2017-03-31] MEDS ORDERED: SODIUM CHLORIDE 250 ML IV STA (15:01)
[2017-03-31] MEDS ORDERED: NITROGLYCERIN SUBLINGUAL 1/150 0.4 MG TAB SL PRN (17:05)
[2017-03-31] MEDS ORDERED: methylPREDNISolone 2 MG TABLET PO SCH (17:15)
[2017-03-31] MEDS ORDERED: CLOPIDOGREL BISULFATE 75 MG TABLET (FP) PO STA (17:21)
--- NOTE | 2017-03-31 17:58 | CON.CARD ---
Cardiology Consult (text) - Consultation Consultation Note: CC: cp/weakness 81 yo with h/o CAD s/p multiple stents, dCHF, HTN, HL, DM, RA, duodenal ulcers, GERD with esophagitis, BPH, here with cp. Per report patient woke up with CP. The pain radiated up to his neck and jaw and down his left arm. The pain was similar to his last MT. Associated SOB and nausea. Per report, in ER, pain improved with SL NTG x 2. Patient with hx of multiple ISR, given additional plavix. In ER patient also required multiple doses of zofran for nausea. SBP came down to 90's after NTG --> given 500 cc bolus. Subsequently patient also given morphine 2 mg IV x 3. Upon evaluation on floor patient denies CP but endorses profound weakness. Appears lethargic, but not confused. Febrile. BP, HR, O2 sat checked and within normal limits. EKG repeated, no sig change. Unclear if patient weak/ lethargic from morphine or from fever. Limited hx but patient denies palpitations, orthopnea, PND, SOB, le edema, bleeding, transient neurologic symptoms. PMHx: Per HPI Past Surgical History: Appendectomy, Tonsillectomy, Vein Stripping/Ligation Social Hx: Former smoker, no alcohol or illicits. Family hx: No cardiomyopathy ROS: Per hpi. Per report patient denied headache, f/c/s, diarhea, cough, congestion, visual disturbances, rashes. history limited due to weakness. Ambulatory Orders Aspirin [ASA -] 81 mg PO DAILY 08/14/16 Ezetimibe 10 mg PO HS 08/14/16 Folic Acid - 1 mg PO DAILY 08/14/16 Furosemide [Lasix -] 20 mg PO ASDIR 08/14/16 Gabapentin 800 mg PO BID 08/14/16 Methotrexate Sodium [Methotrexate] 6 tab PO ASDIR 08/14/16 Methylprednisolone [Medrol -] 2 mg PO ASDIR 08/14/16 Tamsulosin HCl [Flomax] 0.4 mg PO HS 08/14/16 Travoprost [Travatan Z] 5 ml OU HS 08/14/16 Ranolazine [Ranexa -] 1,000 mg PO BID #60 tab 08/16/16 Brinzolamide/Brimonidine Tart [Simbrinza 1%-0.2% Eye Drops] 1 drop OS BID Levomefolate/B6/B12/Algal Oil [Foltanx Rf Capsule] 1 each PO BID 03/31/17 Current Medications Aspirin (Asa -) 81 mg PO DAILY [facility] Clopidogrel Bisulfate (Plavix -) 75 mg PO DAILY [facility] Ezetimibe (Zetia -) 10 mg PO HS [facility] Folic Acid (Folic Acid -) 1 mg PO DAILY [facility] Gabapentin (Neurontin -) 800 mg PO BID [facility] Heparin Sodium (Porcine) (Heparin -) 5,000 unit SQ BID [facility] Methotrexate (Mexate -) 15 mg PO ASDIR [facility] Metoprolol Tartrate (Lopressor -) 25 mg PO BID [facility] Nitroglycerin (Nitrostat -) 0.4 mg SL Q5M PRN PRN Reason: FOR CHEST PAIN Non-Formulary Medication (Brinzolamide/Brimonidine Tart [Simbrinza 1%-0.2% Eye Drops]) 1 drop OS BID [facility] Non-Formulary Medication (Levomefolate/B6/B12/Algal Oil [Foltanx Rf Capsule]) 1 each PO BID [facility] Non-Formulary Medication (Travoprost [Travatan Z]) 5 ml OU HS [facility] Pantoprazole Sodium (Protonix -) 40 mg PO DAILY [facility] Ranolazine (Ranexa -) 1,000 mg PO BID [facility] Tamsulosin HCl (Flomax -) 0.4 mg PO HS [facility] Vital Signs - 24 hr 03/31/17 03/31/17 03/31/17 12:27 13:25 13:42 Temperature 97.5 F L Pulse Rate 58 L Pulse Rate [ 68 Apical] Respiratory 26 H 18 Rate Blood Pressure 153/87 Blood Pressure 116/69 [Left Arm] O2 Sat by Pulse 100 100 Oximetry (%) 03/31/17 03/31/17 03/31/17 13:59 15:00 16:25 Temperature Pulse Rate Pulse Rate [ 65 65 68 Apical] Respiratory 19 18 18 Rate Blood Pressure Blood Pressure 95/61 99/49 104/64 [Left Arm] O2 Sat by Pulse 94 L 95 98 Oximetry (%) 03/31/17 17:26 Temperature 101.7 F H Pulse Rate 80 Pulse Rate [ Apical] Respiratory 20 Rate Blood Pressure 123/62 Blood Pressure [Left Arm] O2 Sat by Pulse Oximetry (%) Intake & Output 03/29/17 03/30/17 03/31/17 04/01/17 07:59 07:59 07:59 07:59 Weight 181 lb Constitutional: No Distress, weak, lethargic Eyes: No: Sclera Icterus HENT: No: Nasal Congestion Neck: No: Decreased ROM Respiratory: Yes: bibasilar rales, nl effort Gastrointestinal: Yes: Normal Bowel Sounds. No: Distention, Hepatomegaly, Palpable Mass, Tenderness Cardiovascular: Yes: Regular Rate and Rhythm JVD: No Carotid Bruit: No PMI: Non-Displaced Heart Sounds: Yes: S1, S2. No: Gallop Murmur: No: Systolic Murmur, Diastolic Murmur Musculoskeletal: Yes: Other (No kyphosis) Edema: no edema Peripheral Pulses: 2+ Left Carotid, 2+ Right Carotid, 2+ Left Doralis Pedis, 2+ Right Dorsalis Pedis Integumentary: No: Jaundice Neurological: Yes: lethargic, Oriented Psychiatric: No: Agitated - Other Data Labs, Other Data: CBC, BMP 03/31/17 13:05 03/31/17 13:05 Laboratory Tests 03/31/17 03/31/17 03/31/17 13:05 13:05 21:00 INR 1.01 Magnesium 2.0 Total Bilirubin 0.7 AST 19 ALT 24 Alkaline Phosphatase 90 Creatine Kinase 53 53 Troponin I < 0.02 < 0.02 B-Natriuretic Peptide 567.09 H Albumin 3.6 Lipase 83 EKG: NSR, Leftward axis, inf q waves. inferior q waves. non-specific t wave flattening, similar to priors. tele: SR with brief episode of SVT, intermittent pvc. cxr: per report basilar atelectasis. by my review, increased lung markings ( infiltrate vs. congestion?), Lt base not well seen. stress SJR 07/2016: No ekg changes or anginal sx's. mod sized mild intensity posterolateral ischemia. EF 81 % LHC 02/13: EDP 16, EF nl; patent stents: pRCA, dLAD (30-50%), OM1, OM2; 70-80% pLAD ISR--Promus; 70-80% D1 (moderate size)--PTCA; residual diffuse mild dz all 3 vessels MIBI 2012 (franko): no STs; minimal apical ischemia; nl EF Echo 3/16: nl LV/EF; mild LVH; nl RV; valves WNL cath 2010 with Xience SRINIVAS to OM1 (70-80% ISR of prior Cypher stent) then unstable angina with cath 02/13 (for unstable angina): ISR of pLAD treated with SRINIVAS, ISR of D1 treated with PTCA alone; no sig residual disease. patent stents in pRCA, pLAD, dLAD, D1 and OM2 (was seeing Dr. Gale) Assessment/Plan 81 yo with h/o CAD s/p multiple stents, dCHF, HTN, HL, DM, RA, duodenal ulcers, GERD with esophagitis, BPH, here with cp. CP - ischemic work up as mentioned below - now also febrile, concern for infectious etiology. Unclear if weakness/ decrease in bp from infection vs. medications (morphine, ntg). Monitor closely for further decompensation - patient also with h/o CP 2/2 GI etiology/gerd. home meds per pmd. CAD, h/o mult stents: - 07/2016 Stress with mild area of low risk ischemia. Patient thought to be high risk for recurrent ISR based on past behavior. Given low risk ischemia, plan has been for medical managment unless symptoms became refractory to medical mgm't. - per report patient p/w cp similar to prior anginal sx's and responsive to ntg. Currently cp free s/p ntg, morphine. - On asa therapy, given additional plavix in ER. Con't DAPT until ruled out for MT. If no elevation in enzymes can resume ASA monotherapy (last stent 2014 ). - CE's neg x 1, EKG without acute ischemic changes. Con't regina. - con't zetia. Off statin due to myalgias. - con't home anti-anginal regimen: ranexa to 1000 mg bid. Con't lopressor, bp currently running on low end, monitor closely for worsening hypotension. Will clarify dosing with office records. presumed diastolic dysfunction - appears euvolemic. would defer lasix in setting of fever and low bp's. HTN: - meds as above. HPL: - previous statin dosing limited by severe muscle pains, continue zetia.
[2017-03-31] MEDS ORDERED: ALBUTEROL SO4 0.083% IH SOL 2.5 MG/3 ML VIAL.NEB. NEB PRN (19:09)
[2017-03-31] MEDS: PANTOPRAZOLE 40 MG TABLET (FP) PO SCH (19:16)
[2017-03-31] MEDS: ACETAMINOPHEN 325 MG TABLET (FP) PO PRN (19:32)
--- NOTE | 2017-03-31 21:26 | HP ---
Admitting History and Physical - Primary Care Physician PCP: Varghese Barakat - Admission Chief Complaint: Chest Pain History Source: Medical Record Limitations to Obtaining History: Clinical Condition - Past Medical History Cardiovascular: Yes: CAD (s/p multiple stenting), CHF, HTN, Hyperlipdemia, SD Gastrointestinal: Yes: Constipation, GERD (esophagitis), Hemorrhoids, Other ( RECTAL INCONTINENCE THAT HAS RESOLVED WITH FIBER) Renal/: Yes: BPH, Renal Calculi Heme/Onc: Yes: Other (Folic acid deficiency) Musculoskeletal: Yes: Osteoarthritis, Other (RA, Spinal stenosis) Endocrine: Yes: Diabetes Mellitus Dermatology: Yes: Basal Cell - Past Surgical History Past Surgical History: Yes: Appendectomy, Stent (x 11), Tonsillectomy, Vein Stripping/Ligation - Smoking History Smoking history: Former smoker Have you smoked in the past 12 months: No Aproximately how many cigarettes per day: 50 If you are a former smoker, when did you quit?: 45 yrs ago - Alcohol/Substance Use Hx Alcohol Use: No History of Substance Use: reports: None - Social History ADL: Support Services History of Recent Travel: No Home Medications - Allergies Allergies/Adverse Reactions: Allergies Allergy/AdvReac Type Severity Reaction Status Date / Time No Known Allergies Allergy Verified 03/31/17 12:49 - Home Medications Home Medications: Ambulatory Orders Aspirin [ASA -] 81 mg PO DAILY 08/14/16 Ezetimibe 10 mg PO HS 08/14/16 Folic Acid - 1 mg PO DAILY 08/14/16 Furosemide [Lasix -] 20 mg PO ASDIR 08/14/16 Gabapentin 800 mg PO BID 08/14/16 Methotrexate Sodium [Methotrexate] 6 tab PO ASDIR 08/14/16 Methylprednisolone [Medrol -] 2 mg PO ASDIR 08/14/16 Tamsulosin HCl [Flomax] 0.4 mg PO HS 08/14/16 Travoprost [Travatan Z] 5 ml OU HS 08/14/16 Ranolazine [Ranexa -] 1,000 mg PO BID #60 tab 08/16/16 Brinzolamide/Brimonidine Tart [Simbrinza 1%-0.2% Eye Drops] 1 drop OS BID Levomefolate/B6/B12/Algal Oil [Foltanx Rf Capsule] 1 each PO BID 03/31/17 Family Disease History - Family Disease History Family Disease History: Heart Disease: Father (SD), Mother (HTN, HYPERLIPIDEMIA , DEMENTIA) Review of Systems Findings/Remarks: 81 y/o M with a PMH of appendectomy, CAD (11 stents), CHF, DM, HTN, HLD, BPH, SD presents to the ED with pleuritic chest pain today. He reports associated SOB and nausea. He states he woke up with this pain. The pain radiates up to his neck and jaw and down his left arm. The pain is similar to his last SD. Denies fever, chills. Denies headache, dizziness. - Review of Systems Constitutional: reports: No Symptoms Eyes: reports: No Symptoms HENT: reports: No Symptoms Neck: reports: No Symptoms Cardiovascular: reports: Chest Pain, Shortness of Breath Respiratory: reports: SOB, SOB on Exertion Gastrointestinal: reports: Nausea Genitourinary: reports: No Symptoms Breasts: reports: No Symptoms Reported Musculoskeletal: reports: No Symptoms Integumentary: reports: No Symptoms Neurological: reports: No Symptoms Endocrine: reports: No Symptoms Hematology/Lymphatic: reports: No Symptoms Psychiatric: reports: No Symptoms Physical Examination Vital Signs: Vital Signs Temperature 101.7 F H 03/31/17 17:26 Pulse Rate 80 03/31/17 17:26 Respiratory Rate 20 03/31/17 17:26 Blood Pressure 123/62 03/31/17 17:26 O2 Sat by Pulse Oximetry (%) 98 03/31/17 18:05 Constitutional: Yes: Well Nourished, No Distress, Calm Cardiovascular: Yes: Regular Rate and Rhythm Respiratory: Yes: Regular Gastrointestinal: Yes: Normal Bowel Sounds Musculoskeletal: Yes: WNL Extremities: Yes: WNL Edema: No Peripheral Pulses WNL: Yes Neurological: Yes: Alert, Oriented Psychiatric: Yes: Alert, Oriented Labs: CBC, BMP 03/31/17 13:05 03/31/17 13:05 Imaging - Results Chest X-ray: Report Reviewed Problem List - Problems (1) Chest pain Assessment/Plan: -cardiology consult -repeat EKG -tele monitoring -Trop Q8H -Nitro and morphine PRN -Nasal o2 -BB Code(s): R07.9 - CHEST PAIN, UNSPECIFIED Qualifiers: Chest pain type: unspecified Qualified Code(s): R07.9 - Chest pain, unspecified (2) Atelectasis pulmonary Assessment/Plan: -atelectasis on CXR -chest pain pulmonary etiology? -Pulmonary consult -neb tx prn if SOB Code(s): J98.11 - ATELECTASIS (3) CAD (coronary artery disease) Assessment/Plan: -although an extensive cardiac history, CK/Trops negative -seen by Cardiology -Plavix, aspirin, BB, statin Code(s): I25.10 - ATHSCL HEART DISEASE OF [place] CORONARY ARTERY W/O ANG PCTRS Qualifiers: Coronary Disease-Associated Artery/Lesion type: unspecified vessel or lesion type [place] vs. transplanted heart: [place] heart Associated angina: with unspecified angina Qualified Code(s): I25.119 - Atherosclerotic heart disease of [place] coronary artery with unspecified angina pectoris (4) Leukocytosis Assessment/Plan: -repeat labs in AM -afebrile earlier, now febrile -tylenol for fever over 100.0 F, cooling blanket for fever over 102.0F -repeat CXR in AM -repeat labs in AM -, UC Code(s): D72.829 - ELEVATED WHITE BLOOD CELL COUNT, UNSPECIFIED (5) Nausea Assessment/Plan: -U/S abd pending Code(s): R11.0 - NAUSEA Assessment/Plan see problem list DVT and GI prophylaxis
[2017-03-31 21:36] LABS: N-TERMINAL BNP 567.09 pg/ml (5-450)
[2017-03-31] MEDS ORDERED: PATIENT'S OWN MEDICATION (NON-FORMULARY) (Gabapentin [Gabapentin] 800 MG) PO SCH (22:00)
[2017-03-31] MEDS: TAMSULOSIN HCL 0.4 MG CAP.ER.24H (FP) PO SCH (22:13)
[2017-03-31] MEDS: GABAPENTIN 400 MG CAPSULE (FP) PO SCH (22:13)
[2017-03-31] MEDS: HEPARIN NA (PORCINE) 5,000 UNITS/ML 1ML VIAL SQ SCH (22:13)
[2017-03-31] MEDS: RANOLAZINE E.R. 1,000 MG TABLET (FP) PO SCH (22:13)
[2017-03-31] MEDS: METOPROLOL TARTRATE 25 MG TABLET (FP) PO SCH (22:13)
[2017-03-31] MEDS: EZETIMIBE 10 MG TABLET (FP) PO SCH (22:14)
[2017-04-01 02:15] LABS: URINE APPEARANCE SLCLOUDY; URINE BILIRUBIN NEGATIVE (NEGATIVE); URINE BLOOD NEGATIVE (NEGATIVE); URINE COLOR AMBER; URINE GLUCOSE (UA) NEGATIVE (NEGATIVE); URINE KETONE NEGATIVE (NEGATIVE); URINE LEUK ESTERASE NEGATIVE (NEGATIVE); URINE NITRITE NEGATIVE (NEGATIVE); URINE PROTEIN NEGATIVE (NEGATIVE); URINE UROBILINOGEN NEGATIVE mg/dL (0.2-1.0)
[2017-04-01 07:37] LABS: BASO % 0.3 % (0-2.0); EOS % 0.2 % (0-4.5); HEMATOCRIT 38.6 % (35.4-49); HEMOGLOBIN 12.4 GM/dL (11.7-16.9); LYMPH % 19.4 % (8-40); MCH 29.9 pg (25.7-33.7); MCHC 32.1 g/dl (32.0-35.9); MEAN CELL VOLUME 93.1 fl (80-96); MEAN PLT VOLUME 9.7 fl (7.5-11.1); MONO % 7.6 % (3.8-10.2); NEUT % 72.5 % (42.8-82.8); PLATELET COUNT 126 K/MM3 (134-434); RBC 4.14 M/mm3 (4.00-5.60); RDW 16.9 % (11.9-15.9); WHITE BLOOD COUNT 9.7 K/mm3 (4.0-10.0)
[2017-04-01 08:04] LABS: ALBUMIN 3.1 g/dl (3.4-5.0); ANION GAP 10 (8-16); BLOOD UREA NITROGEN 34 mg/dL (7-18); CHLORIDE 103 mmol/L (98-107); CO2 26 mmol/L (21-32); GLUCOSE,RANDOM 122 mg/dL (74-106); POTASSIUM 4.1 mmol/L (3.5-5.1); SGOT/AST 20 U/L (15-37); SGPT/ALT 19 U/L (12-78); SODIUM 139 mmol/L (136-145)
[2017-04-01 08:06] LABS: ALK PHOS 72 U/L (45-117); BILIRUBIN,TOTAL 0.8 mg/dL (0.2-1.0); CALCIUM 8.2 mg/dL (8.5-10.1); CREATININE 1.6 mg/dL (0.7-1.3); MAGNESIUM 2.1 mg/dL (1.8-2.4); TOT PROT 6.1 g/dl (6.4-8.2)
[2017-04-01] MEDS ORDERED: ASPIRIN 81 MG CHEWABLE TABLETS PO SCH (10:00)
[2017-04-01] MEDS ORDERED: CLOPIDOGREL BISULFATE 75 MG TABLET (FP) PO SCH ×2 (10:00)
[2017-04-01] MEDS: METOPROLOL TARTRATE 25 MG TABLET (FP) PO SCH ×2 (10:20→22:18)
[2017-04-01] MEDS: RANOLAZINE E.R. 1,000 MG TABLET (FP) PO SCH ×2 (10:20→22:18)
[2017-04-01] MEDS: GABAPENTIN 400 MG CAPSULE (FP) PO SCH ×2 (10:20→22:18)
[2017-04-01] MEDS: PANTOPRAZOLE 40 MG TABLET (FP) PO SCH (10:20)
[2017-04-01] MEDS: ACETAMINOPHEN 325 MG TABLET (FP) PO PRN (10:20)
[2017-04-01] MEDS: FOLIC ACID 1 MG TABLET (FP) PO SCH (10:22)
[2017-04-01] MEDS: ASPIRIN 81 MG CHEWABLE TABLETS PO SCH (10:22)
[2017-04-01] MEDS: HEPARIN NA (PORCINE) 5,000 UNITS/ML 1ML VIAL SQ SCH ×2 (10:22→22:19)
--- NOTE | 2017-04-01 11:37 | PN ---
Progress Note, Physician Chief Complaint: ID Full note dicated Severe onset of headaches with anterior chest pain with pleuritic and positional component with SOB NO couph but febrile 102 Declined Iinfluenza vaccine previuosly. - Current Medication List Current Medications: Active Medications Acetaminophen (Tylenol -) 650 mg PO Q4H PRN PRN Reason: FEVER OR PAIN Last Admin: 04/01/17 10:20 Dose: 650 mg Albuterol Sulfate (Ventolin 0.083% Nebulizer Soln -) 1 amp NEB Q4H PRN PRN Reason: SHORT OF BREATH/WHEEZING Last Admin: 03/31/17 22:10 Dose: 1 amp Aspirin (Asa -) 81 mg PO DAILY [facility] Last Admin: 04/01/17 10:22 Dose: 81 mg Ezetimibe (Zetia -) 10 mg PO HS [facility] Last Admin: 03/31/17 22:14 Dose: 10 mg Folic Acid (Folic Acid -) 1 mg PO DAILY [facility] Last Admin: 04/01/17 10:22 Dose: 1 mg Gabapentin (Neurontin -) 800 mg PO BID [facility] Last Admin: 04/01/17 10:20 Dose: 800 mg Heparin Sodium (Porcine) (Heparin -) 5,000 unit SQ BID [facility] Last Admin: 04/01/17 10:22 Dose: 5,000 unit Methotrexate (Mexate -) 15 mg PO ASDIR [facility] Metoprolol Tartrate (Lopressor -) 25 mg PO BID [facility] Last Admin: 04/01/17 10:20 Dose: 25 mg Nitroglycerin (Nitrostat -) 0.4 mg SL Q5M PRN PRN Reason: FOR CHEST PAIN Non-Formulary Medication (Brinzolamide/Brimonidine Tart [Simbrinza 1%-0.2% Eye Drops]) 1 drop OS BID [facility] Non-Formulary Medication (Levomefolate/B6/B12/Algal Oil [Foltanx Rf Capsule]) 1 each PO BID [facility] Non-Formulary Medication (Travoprost [Travatan Z]) 5 ml OU HS [facility] Pantoprazole Sodium (Protonix -) 40 mg PO DAILY [facility] Last Admin: 04/01/17 10:20 Dose: 40 mg Ranolazine (Ranexa -) 1,000 mg PO BID [facility] Last Admin: 04/01/17 10:20 Dose: 1,000 mg Tamsulosin HCl (Flomax -) 0.4 mg PO HS [facility] Last Admin: 03/31/17 22:13 Dose: 0.4 mg - Objective Vital Signs: Vital Signs Temperature 98.1 F 04/01/17 09:17 Pulse Rate 63 04/01/17 09:17 Respiratory Rate 20 04/01/17 09:17 Blood Pressure 114/57 04/01/17 09:17 O2 Sat by Pulse Oximetry (%) 97 03/31/17 21:00 Constitutional: Yes: No Distress HENT: Yes: Other (Dentures) Cardiovascular: Yes: Regular Rate and Rhythm, S2, Other. No: Murmur Respiratory: Yes: WNL, Regular, CTA Bilaterally, Rales, Other (Bilateral rales) Gastrointestinal: Yes: Soft. No: Tenderness, Epigastrium Edema: No Labs: CBC, BMP 04/01/17 06:25 04/01/17 06:25 INR, PTT INR 1.01 (0.82-1.09) 03/31/17 13:05 Problem List - Problems (1) Fever Code(s): R50.9 - FEVER, UNSPECIFIED Qualifiers: Fever type: unspecified Qualified Code(s): R50.9 - Fever, unspecified (2) Pneumonia Code(s): J18.9 - PNEUMONIA, UNSPECIFIED ORGANISM Qualifiers: Pneumonia type: due to unspecified organism Laterality: right Lung location: lower lobe of lung Qualified Code(s): J18.9 - Pneumonia, unspecified organism Assessment/Plan Microbiology Laboratory Tests 03/31/17 04/01/17 04/01/17 13:05 01:40 06:25 WBC 10.4 H D 9.7 RBC 4.31 Hgb 12.4 Plt Count 145 126 L BUN Creat Clearance w eGFR Total Bilirubin AST ALT Alkaline Phosphatase Ur Leukocyte Esterase Negative 04/01/17 06:25 WBC RBC Hgb Plt Count BUN 34 H D Creat Clearance w eGFR 41.69 Total Bilirubin 0.8 AST 20 ALT 19 D Alkaline Phosphatase 72 Ur Leukocyte Esterase Assessment Suspect pneumonia rule out pleural effusion Influenza ?? Plan Start Oseltamivir Ceftriaxone and Azithromycin CT imaging chest Discussed with cardiology CRP LGA Influenza screening Martin CONTE
--- NOTE | 2017-04-01 12:05 | PN ---
Progress Note (short form) - Note Progress Note: s: no palps, sob , dizzy; +pleuritic cp, +cough Current Medications Generic Name Dose Route Start Last Admin Trade Name Freq PRN Reason Stop Dose Admin Acetaminophen 650 mg 03/31/17 19:04 04/01/17 10:20 Tylenol - PO 650 mg Q4H PRN Administration FEVER OR PAIN Albuterol Sulfate 1 amp 03/31/17 19:09 03/31/17 22:10 Ventolin 0.083% Nebulizer Soln - NEB 1 amp Q4H PRN Administration SHORT OF BREATH/WHEEZING Aspirin 81 mg 03/31/17 18:06 04/01/17 10:22 Asa - PO 81 mg DAILY [facility] Administration Ezetimibe 10 mg 03/31/17 22:00 03/31/17 22:14 Zetia - PO 10 mg HS [facility] Administration Folic Acid 1 mg 04/01/17 10:00 04/01/17 10:22 Folic Acid - PO 1 mg DAILY [facility] Administration Gabapentin 800 mg 03/31/17 22:00 04/01/17 10:20 Neurontin - PO 800 mg BID [facility] Administration Heparin Sodium (Porcine) 5,000 unit 03/31/17 22:00 04/01/17 10:22 Heparin - SQ 5,000 unit BID [facility] Administration Ceftriaxone Sodium 2 gm/ 100 mls @ 200 mls/hr 04/02/17 10:00 Dextrose IVPB DAILY [facility] Azithromycin 500 mg/ Dextrose 250 mls @ 250 mls/hr 04/02/17 10:00 IVPB DAILY [facility] Methotrexate 15 mg 03/31/17 17:15 Mexate - PO ASDIR [facility] Metoprolol Tartrate 25 mg 03/31/17 22:00 04/01/17 10:20 Lopressor - PO 25 mg BID [facility] Administration Nitroglycerin 0.4 mg 03/31/17 17:05 Nitrostat - SL Q5M PRN FOR CHEST PAIN Non-Formulary Medication 1 drop 03/31/17 22:00 Brinzolamide/Brimonidine Tart [Simbrinza 1%-0.2% Eye Drops] OS BID [facility] Non-Formulary Medication 1 each 03/31/17 22:00 Levomefolate/B6/B12/Algal Oil [Foltanx Rf Capsule] PO BID [facility] Non-Formulary Medication 5 ml 03/31/17 22:00 Travoprost [Travatan Z] OU HS [facility] Oseltamivir Phosphate 75 mg 04/02/17 10:00 Tamiflu - PO 04/07/17 09:59 DAILY [facility] Pantoprazole Sodium 40 mg 03/31/17 17:30 04/01/17 10:20 Protonix - PO 40 mg DAILY [facility] Administration Ranolazine 1,000 mg 03/31/17 22:00 04/01/17 10:20 Ranexa - PO 1,000 mg BID [facility] Administration Tamsulosin HCl 0.4 mg 03/31/17 22:00 03/31/17 22:13 Flomax - PO 0.4 mg HS [facility] Administration Vital Signs Period Temp Pulse Resp BP Sys/Jeffrey Pulse Ox Last 24 Hr 97.5 F-101.7 F 56-81 18-26 88-153/43-87 94-100 Constitutional: No Distress, weak, lethargic Eyes: No: Sclera Icterus Respiratory: Yes: cta bl nl effort Gastrointestinal: Yes: Normal Bowel Sounds. No: Distention, Hepatomegaly, Palpable Mass, Tenderness Cardiovascular: Yes: Regular Rate and Rhythm JVD: No Heart Sounds: Yes: S1, S2. No: Gallop Murmur: No: Systolic Murmur, Diastolic Murmur Edema: no edema Integumentary: No: Jaundice Neurological: Yes: lethargic, Oriented Psychiatric: No: Agitated - Other Data Labs, Other Data: CBC, BMP 04/01/17 06:25 04/01/17 06:25 EKG: NSR, Leftward axis, inf q waves. inferior q waves. non-specific t wave flattening, similar to priors. tele: SR cxr: per report basilar atelectasis. by my review, increased lung markings ( infiltrate vs. congestion?), Lt base not well seen. stress SJR 07/2016: No ekg changes or anginal sx's. mod sized mild intensity posterolateral ischemia. EF 81 % LHC 02/13: EDP 16, EF nl; patent stents: pRCA, dLAD (30-50%), OM1, OM2; 70-80% pLAD ISR--Promus; 70-80% D1 (moderate size)--PTCA; residual diffuse mild dz all 3 vessels MIBI 2012 (franko): no STs; minimal apical ischemia; nl EF Echo 06/14: nl LV/EF; mild LVH; nl RV; valves WNL cath 2010 with Xience SRINIVAS to OM1 (70-80% ISR of prior Cypher stent) then unstable angina with cath 02/13 (for unstable angina): ISR of pLAD treated with SRINIVAS, ISR of D1 treated with PTCA alone; no sig residual disease. patent stents in pRCA, pLAD, dLAD, D1 and OM2 (was seeing Dr. Gale) Assessment/Plan 81 yo with h/o CAD s/p multiple stents, dCHF, HTN, HL, DM, RA, duodenal ulcers, GERD with esophagitis, BPH, here with cp. CAD, h/o mult stents, cp, pna: - 07/2016 Stress with mild area of low risk ischemia. Patient thought to be high risk for recurrent ISR based on past behavior. Given low risk ischemia, plan has been for medical managment unless symptoms became refractory to medical mgm't. - CE's neg, EKG without acute ischemic changes. sxs are pleuritic, seem related to PNA. - con't zetia. Off statin due to myalgias. - con't home anti-anginal regimen - abx per ID presumed diastolic dysfunction - appears euvolemic. would defer lasix in setting of fever and low bp's. HTN: - meds as above. HPL: - previous statin dosing limited by severe muscle pains, continue zetia.
--- NOTE | 2017-04-01 12:08 | CONS ---
DATE OF CONSULTATION: DATE OF DICTATION: 04/01/2017 This is an 81-year-old male with a history of severe coronary artery disease with 11 stents, and diabetes and hypertension, admitted after he experienced what he described as sudden onset of left anterior chest pain which started in the moment as a severe headache and then spread down to his anterior chest and back. He also noted associated shortness of breath but denied any fevers, chills, or cough. He was given 2 sublingual nitroglycerin in the emergency room and experienced severe nausea, requiring multiple doses of Zofran. EKG reported no significant change from previous. The patient was noted to be 102 upon admission. I am asked to see him for further evaluation regarding fever. He elected not to get an influenza vaccine this and past seasons. He lives at home with his , who is well and not ill. He has a pet dog and no history of recent travel. He does not drink and is a former heavy smoker, but gave this up years ago. PAST MEDICAL HISTORY: CHF, coronary stents, hypertension, hyperlipidemia, diabetes, rheumatoid arthritis, duodenal ulcers. MEDICATIONS: Aspirin, ezetimibe, folic acid, Lasix, gabapentin, methotrexate, tamsulosin, Ranexa. ALLERGIES: None known. SOCIAL HISTORY: He lives with his , , former smoker, no alcohol. Family history reviewed and noncontributory. REVIEW OF SYSTEMS: Respiratory: Shortness of breath on admission. No cough, hemoptysis. Chest: Positive left anterior chest pain radiating to his back, pleuritic component. Gastrointestinal: Positive nausea. No abdominal pain, diarrhea, vomiting. Genitourinary: No dysuria, hematuria, or urinary frequency. PHYSICAL EXAMINATION: General: He was an alert male in no acute distress. Vital Signs: The temperature max was 101.7, pulse 63, blood pressure 114/57, respirations 20. Neck: Supple. Lungs: Clear to percussion with bilateral rales at the bases. Heart: S1, S2. Regular rhythm without audible murmur. Abdomen: Soft, nontender, without hepatosplenomegaly. Extremities: Without clubbing, cyanosis or edema. White count 10.4, hemoglobin 13, platelets 145, normal differential. BUN 34, creatinine 1.6, liver enzymes within normal limits. Troponin less than 0.02. Urinalysis: Screening negative for leukocyte esterase. Two sets of blood cultures thus far no growth. Urine culture pending. Chest x-ray reviewed shows increased markings in the right base with possible left infiltrate versus effusion. ASSESSMENT: An 81-year-old male with abrupt onset of headache and severe pleuritic chest pain associated with fever and shortness of breath. Clinical findings seem most consistent with an infectious etiology, probable pneumonia from a community setting. Discussed with Cardiology, Dr. Groves, who does not feel his pain is cardiac at this time, though certainly given his history, the possibility of coronary-related pain considered. PLAN: Will treat him empirically with ceftriaxone and azithromycin. Blood cultures pending. Obtain Legionella urinary antigen, CRP. Will send him for a CT scan of his chest to see if there is pleural effusion and further delineate the infiltrates. Lastly, will treat him for influenza based on clinical picture of fever, headaches. ISSA MATA M.D. [id number]
--- NOTE | 2017-04-01 12:25 | CON.PULM ---
Consult Consult Specialty:: PULMONARY Referred by:: PAULIE Reason for Consultation:: CHEST PAIN - History of Present Illness Chief Complaint: HEADACHE/CHEST PAIN History of Present Illness: 81 y/o M with a PMH of appendectomy, CAD (11 stents), CHF, DM, HTN, HLD, BPH , ME presents to the ED with pleuritic chest pain today. He reports associated SOB and nausea. He states he woke up with this pain. The pain radiates up to his neck and jaw and down his left arm. The pain is similar to his last ME. Patient states he has mid sternal chest discomfort with deep breath and improving headache. Former smoker quit 55 years ago, worked as postal service mail processor in residential. - History Source History Provided By: Patient, Medical Record Limitations to Obtaining History: No Limitations - Past Medical History Cardio/Vascular: Yes: CAD (s/p multiple stenting), CHF, HTN, Hyperlipdemia, ME Gastrointestinal: Yes: Constipation, GERD (esophagitis), Hemorrhoids, Other ( RECTAL INCONTINENCE THAT HAS RESOLVED WITH FIBER) Renal/: Yes: BPH, Renal Calculi Musculoskeletal: Yes: Osteoarthritis, Other (RA, Spinal stenosis) Endocrine: Yes: Diabetes Mellitus Dermatology: Yes: Basal Cell - Past Surgical History Past Surgical History: Yes: Appendectomy, Stent (x 11), Tonsillectomy, Vein Stripping/Ligation - Alcohol/Substance Use Hx Alcohol Use: No History of Substance Use: reports: None - Smoking History Smoking history: Former smoker Have you smoked in the past 12 months: No Aproximately how many cigarettes per day: 50 If you are a former smoker, when did you quit?: 45 yrs ago - Social History Usual Living Arrangement: With Spouse ADL: Support Services History of Recent Travel: No Home Medications - Allergies Allergies/Adverse Reactions: Allergies Allergy/AdvReac Type Severity Reaction Status Date / Time No Known Allergies Allergy Verified 03/31/17 12:49 - Home Medications Home Medications: Ambulatory Orders Aspirin [ASA -] 81 mg PO DAILY 08/14/16 Ezetimibe 10 mg PO HS 08/14/16 Folic Acid - 1 mg PO DAILY 08/14/16 Furosemide [Lasix -] 20 mg PO ASDIR 08/14/16 Gabapentin 800 mg PO BID 08/14/16 Methotrexate Sodium [Methotrexate] 6 tab PO ASDIR 08/14/16 Methylprednisolone [Medrol -] 2 mg PO ASDIR 08/14/16 Tamsulosin HCl [Flomax] 0.4 mg PO HS 08/14/16 Travoprost [Travatan Z] 5 ml OU HS 08/14/16 Ranolazine [Ranexa -] 1,000 mg PO BID #60 tab 08/16/16 Brinzolamide/Brimonidine Tart [Simbrinza 1%-0.2% Eye Drops] 1 drop OS BID Levomefolate/B6/B12/Algal Oil [Foltanx Rf Capsule] 1 each PO BID 03/31/17 Family Disease History - Family Disease History Family Disease History: Heart Disease: Father (ME), Mother (HTN, HYPERLIPIDEMIA , DEMENTIA) Review of Systems - Review of Systems Constitutional: reports: Fever Eyes: reports: Blind Spots HENT: reports: Difficult Swallowing Neck: reports: Decreased ROM Cardiovascular: reports: Chest Pain, Shortness of Breath Respiratory: reports: Cough, Exercise Intolerance, SOB, SOB on Exertion. denies : Hemoptysis, Wheezing Gastrointestinal: denies: Abdominal Pain Genitourinary: reports: Burning Breasts: reports: No Symptoms Reported Musculoskeletal: reports: No Symptoms Integumentary: reports: No Symptoms Neurological: reports: No Symptoms Endocrine: reports: No Symptoms Physical Exam Vital Sings: Vital Signs Temperature 98.1 F 04/01/17 09:17 Pulse Rate 63 04/01/17 09:17 Respiratory Rate 20 04/01/17 09:17 Blood Pressure 114/57 04/01/17 09:17 O2 Sat by Pulse Oximetry (%) 97 03/31/17 21:00 Constitutional: Yes: Calm Eyes: Yes: EOM Intact HENT: Yes: Normocephalic Neck: Yes: Trachea Midline Cardiovascular: Yes: Regular Rate and Rhythm, S1, S2 Respiratory: Yes: CTA Bilaterally (left base), Diminished Gastrointestinal: Yes: Normal Bowel Sounds Edema: No Neurological: Yes: Alert Labs: CBC, BMP 04/01/17 06:25 04/01/17 06:25 reviewed Imaging - Results Chest X-ray: Report Reviewed, Image Reviewed EKG: Report Reviewed, Image Reviewed Problem List - Problems (1) Pneumonia Code(s): J18.9 - PNEUMONIA, UNSPECIFIED ORGANISM (2) Chest pain Code(s): R07.9 - CHEST PAIN, UNSPECIFIED Qualifiers: Chest pain type: unspecified Qualified Code(s): R07.9 - Chest pain, unspecified (3) CAD (coronary artery disease) Code(s): I25.10 - ATHSCL HEART DISEASE OF [place] CORONARY ARTERY W/O ANG PCTRS Qualifiers: Coronary Disease-Associated Artery/Lesion type: unspecified vessel or lesion type [place] vs. transplanted heart: [place] heart Associated angina: with unspecified angina Qualified Code(s): I25.119 - Atherosclerotic heart disease of [place] coronary artery with unspecified angina pectoris (4) CHF (congestive heart failure) Code(s): I50.9 - HEART FAILURE, UNSPECIFIED Assessment/Plan FEVER/CXR FINDINGS AND ELEVATED WBC COUNT POINT TO A CABP HOWEVER PLEURITIC NATURE OF CHEST PAIN LENDS A MODERATE INDEX OF SUSPICION FOR PE NL TROPS AND EKG SPEAK AGAINST ACS AGREE WITH PANCULTURE/INFLU SWAB/URINARY ANTIGENS EMPIRIC ANTIBIOTICS/ID FOLLOW UP WOULD SUGGEST CTA WHEN CR IMPROVES(INITIALLY 1.2 NOW 1.6) D-DIMER WOULD ONLY BE HELPFUL IF NORMAL SINUS XRAY [place] BRONCHODILATORS/O2 SUPPLEMENTATION NEEDED WILL FOLLOW Deepika CAST MD
--- NOTE | 2017-04-01 12:38 | PN ---
Progress Note, Physician History of Present Illness: pain on deep inspiration - Current Medication List Current Medications: Active Medications Acetaminophen (Tylenol -) 650 mg PO Q4H PRN PRN Reason: FEVER OR PAIN Last Admin: 04/01/17 10:20 Dose: 650 mg Albuterol Sulfate (Ventolin 0.083% Nebulizer Soln -) 1 amp NEB Q4H PRN PRN Reason: SHORT OF BREATH/WHEEZING Last Admin: 03/31/17 22:10 Dose: 1 amp Aspirin (Asa -) 81 mg PO DAILY [facility] Last Admin: 04/01/17 10:22 Dose: 81 mg Ezetimibe (Zetia -) 10 mg PO HS [facility] Last Admin: 03/31/17 22:14 Dose: 10 mg Folic Acid (Folic Acid -) 1 mg PO DAILY [facility] Last Admin: 04/01/17 10:22 Dose: 1 mg Gabapentin (Neurontin -) 800 mg PO BID [facility] Last Admin: 04/01/17 10:20 Dose: 800 mg Heparin Sodium (Porcine) (Heparin -) 5,000 unit SQ BID [facility] Last Admin: 04/01/17 10:22 Dose: 5,000 unit CEFTRIAXONE IN IS-OSM DEXTROSE (Ceftriaxone 2 Gm-D5w Bag) 2 gm in 50 mls @ 200 mls/hr IVPB DAILY [facility] Azithromycin 500 mg/ Dextrose 250 mls @ 250 mls/hr IVPB DAILY [facility] Methotrexate (Mexate -) 15 mg PO ASDIR [facility] Metoprolol Tartrate (Lopressor -) 25 mg PO BID [facility] Last Admin: 04/01/17 10:20 Dose: 25 mg Nitroglycerin (Nitrostat -) 0.4 mg SL Q5M PRN PRN Reason: FOR CHEST PAIN Non-Formulary Medication (Brinzolamide/Brimonidine Tart [Simbrinza 1%-0.2% Eye Drops]) 1 drop OS BID [facility] Non-Formulary Medication (Levomefolate/B6/B12/Algal Oil [Foltanx Rf Capsule]) 1 each PO BID [facility] Non-Formulary Medication (Travoprost [Travatan Z]) 5 ml OU HS [facility] Oseltamivir Phosphate (Tamiflu -) 75 mg PO DAILY [facility] Stop: 04/10/17 10:01 Pantoprazole Sodium (Protonix -) 40 mg PO DAILY [facility] Last Admin: 04/01/17 10:20 Dose: 40 mg Ranolazine (Ranexa -) 1,000 mg PO BID [facility] Last Admin: 04/01/17 10:20 Dose: 1,000 mg Tamsulosin HCl (Flomax -) 0.4 mg PO HS [facility] Last Admin: 03/31/17 22:13 Dose: 0.4 mg - Objective Vital Signs: Vital Signs Temperature 98.1 F 04/01/17 09:17 Pulse Rate 63 04/01/17 09:17 Respiratory Rate 20 04/01/17 09:17 Blood Pressure 114/57 04/01/17 09:17 O2 Sat by Pulse Oximetry (%) 97 03/31/17 21:00 Cardiovascular: Yes: Murmur, S1, S2 Respiratory: Yes: Diminished, Rales Gastrointestinal: Yes: Normal Bowel Sounds, Soft Edema: No Labs: CBC, BMP 04/01/17 06:25 04/01/17 06:25 INR, PTT INR 1.01 (0.82-1.09) 03/31/17 13:05 Assessment/Plan - Problems (1) Chest pain Assessment/Plan: -cardiology consult -repeat EKG -tele monitoring -Trop X6C--Rkcvtfju -Nitro and morphine PRN -Nasal o2 -BB Code(s): R07.9 - CHEST PAIN, UNSPECIFIED Qualifiers: Chest pain type: unspecified Qualified Code(s): R07.9 - Chest pain, unspecified (2) Atelectasis pulmonary Assessment/Plan: -atelectasis on CXR--ct of chest -chest pain pulmonary etiology? -Pulmonary consult notes' -IV Abx -neb tx prn if SOB Code(s): J98.11 - ATELECTASIS (3) CAD (coronary artery disease) Assessment/Plan: -although an extensive cardiac history, CK/Trops negative -seen by Cardiology -Plavix, aspirin, BB, statin Code(s): I25.10 - ATHSCL HEART DISEASE OF [place] CORONARY ARTERY W/O ANG PCTRS Qualifiers: Coronary Disease-Associated Artery/Lesion type: unspecified vessel or lesion type [place] vs. transplanted heart: [place] heart Associated angina: with unspecified angina Qualified Code(s): I25.119 - Atherosclerotic heart disease of [place] coronary artery with unspecified angina pectoris (4) Leukocytosis Assessment/Plan: -repeat labs in AM -afebrile earlier, now febrile -tylenol for fever over 100.0 F, cooling blanket for fever over 102.0F -repeat CXR in AM -repeat labs in AM -BC, UC -On IV Abx Code(s): D72.829 - ELEVATED WHITE BLOOD CELL COUNT, UNSPECIFIED (5) Nausea Assessment/Plan: -U/S abd pending Code(s): R11.0 - NAUSEA
--- NOTE | 2017-04-01 14:14 | EKG ---
Test Reason : Blood Pressure : / mmHG Vent. Rate : 076 BPM Atrial Rate : 076 BPM P-R Int : 174 ms QRS Dur : 100 ms QT Int : 380 ms P-R-T Axes : 037 -35 028 degrees QTc Int : 427 ms NORMAL SINUS RHYTHM LEFT AXIS DEVIATION INFERIOR INFARCT (CITED ON OR BEFORE 31-MAR-2017) ABNORMAL ECG WHEN COMPARED WITH ECG OF 31-MAR-2017 18:26, NO SIGNIFICANT CHANGE WAS FOUND Confirmed by NEELIMA SANDRA MD ([id number]) on 04/01/2017 2:14:06 PM Referred By: Confirmed By:NEELIMA SANDRA MD
--- NOTE | 2017-04-01 14:15 | EKG ---
Test Reason : Blood Pressure : / mmHG Vent. Rate : 080 BPM Atrial Rate : 080 BPM P-R Int : 184 ms QRS Dur : 100 ms QT Int : 380 ms P-R-T Axes : 041 -36 023 degrees QTc Int : 438 ms NORMAL SINUS RHYTHM LEFT AXIS DEVIATION INFERIOR INFARCT , AGE UNDETERMINED ABNORMAL ECG WHEN COMPARED WITH ECG OF 31-MAR-2017 12:47, NO SIGNIFICANT CHANGE WAS FOUND Confirmed by BOAZ CONTE, NEELIMA ([id number]) on 04/01/2017 2:14:36 PM Referred By: REGIS Confirmed By:NEELIMA SANDRA MD
[2017-04-01] MEDS: [UNRECOGNIZED DRUG - OTHER] PO SCH ×3 (15:46→22:19)
[2017-04-01] MEDS: LEVOMEFOLATE PO SCH ×3 (15:46→22:19)
[2017-04-01] MEDS: ALGAL OIL PO SCH ×3 (15:46→22:19)
[2017-04-01] MEDS: B12 PO SCH ×3 (15:46→22:19)
[2017-04-01] MEDS: B6 PO SCH ×3 (15:46→22:19)
[2017-04-01] MEDS ORDERED: PT OWN MED DRAWER 7, Y5N ONE (16:23)
[2017-04-01] MEDS: PATIENT'S OWN MEDICATION (NON-FORMULARY) (Brinzolamide/Brimonidine Tart [Simbrinza 1%-0.2% OS SCH ×2 (16:32→22:27)
[2017-04-01] MEDS: PATIENT'S OWN MEDICATION (NON-FORMULARY) (Travoprost [Travatan Z] 5 ML) OU SCH ×2 (16:33→22:19)
[2017-04-01] MEDS: CEFTRIAXONE IN IS-OSM DEXTROSE 2 GM/50 ML BAG IVPB SCH (16:34)
[2017-04-01] MEDS: OSELTAMIVIR PHOSPHATE 75 MG CAPSULE PO SCH (16:34)
[2017-04-01] MEDS: AZITHROMYCIN IVPB 500 MG in DEXTROSE 5%-WATER - 250 ML IVPB SCH (16:56)
[2017-04-01] MEDS: TAMSULOSIN HCL 0.4 MG CAP.ER.24H (FP) PO SCH (22:18)
[2017-04-01] MEDS: EZETIMIBE 10 MG TABLET (FP) PO SCH (22:18)
--- NOTE | 2017-04-02 10:14 | PN ---
Progress Note, Physician History of Present Illness: c/o sob no cp - Current Medication List Current Medications: Active Medications Acetaminophen (Tylenol -) 650 mg PO Q4H PRN PRN Reason: FEVER OR PAIN Last Admin: 04/01/17 10:20 Dose: 650 mg Albuterol Sulfate (Ventolin 0.083% Nebulizer Soln -) 1 amp NEB Q4H PRN PRN Reason: SHORT OF BREATH/WHEEZING Last Admin: 03/31/17 22:10 Dose: 1 amp Aspirin (Asa -) 81 mg PO DAILY [facility] Last Admin: 04/01/17 10:22 Dose: 81 mg Ezetimibe (Zetia -) 10 mg PO HS [facility] Last Admin: 04/01/17 22:18 Dose: 10 mg Folic Acid (Folic Acid -) 1 mg PO DAILY [facility] Last Admin: 04/01/17 10:22 Dose: 1 mg Gabapentin (Neurontin -) 800 mg PO BID [facility] Last Admin: 04/01/17 22:18 Dose: 800 mg Heparin Sodium (Porcine) (Heparin -) 5,000 unit SQ BID [facility] Last Admin: 04/01/17 22:19 Dose: 5,000 unit CEFTRIAXONE IN IS-OSM DEXTROSE (Ceftriaxone 2 Gm-D5w Bag) 2 gm in 50 mls @ 200 mls/hr IVPB DAILY [facility] Last Admin: 04/01/17 16:34 Dose: 200 mls/hr Azithromycin 500 mg/ Dextrose 250 mls @ 250 mls/hr IVPB DAILY [facility] Last Admin: 04/01/17 16:56 Dose: 250 mls/hr Methotrexate (Mexate -) 15 mg PO Sa@1000 [facility] Metoprolol Tartrate (Lopressor -) 25 mg PO BID [facility] Last Admin: 04/01/17 22:18 Dose: 25 mg Nitroglycerin (Nitrostat -) 0.4 mg SL Q5M PRN PRN Reason: FOR CHEST PAIN Non-Formulary Medication (Brinzolamide/Brimonidine Tart [Simbrinza 1%-0.2% Eye Drops]) 1 drop OS BID [facility] Last Admin: 04/01/17 22:27 Dose: 1 drop Non-Formulary Medication (Levomefolate/B6/B12/Algal Oil [Foltanx Rf Capsule]) 1 each PO BID [facility] Last Admin: 04/01/17 22:19 Dose: 1 each Non-Formulary Medication (Travoprost [Travatan Z]) 5 ml OU HS [facility] Last Admin: 04/01/17 22:19 Dose: 5 ml Oseltamivir Phosphate (Tamiflu -) 75 mg PO DAILY [facility] Stop: 04/10/17 10:01 Last Admin: 04/01/17 16:34 Dose: 75 mg Pantoprazole Sodium (Protonix -) 40 mg PO DAILY [facility] Last Admin: 04/01/17 10:20 Dose: 40 mg Ranolazine (Ranexa -) 1,000 mg PO BID [facility] Last Admin: 04/01/17 22:18 Dose: 1,000 mg Tamsulosin HCl (Flomax -) 0.4 mg PO HS [facility] Last Admin: 04/01/17 22:18 Dose: 0.4 mg - Objective Vital Signs: Vital Signs Temperature 98.0 F 04/02/17 02:00 Pulse Rate 66 04/02/17 05:49 Respiratory Rate 20 04/02/17 05:49 Blood Pressure 94/53 04/02/17 05:49 O2 Sat by Pulse Oximetry (%) 97 04/01/17 21:00 Cardiovascular: Yes: S1, S2 Respiratory: Yes: On Nasal O2, Rales Gastrointestinal: Yes: Normal Bowel Sounds, Soft Labs: CBC, BMP 04/01/17 06:25 04/01/17 06:25 INR, PTT INR 1.01 (0.82-1.09) 03/31/17 13:05 Assessment/Plan - Problems (1) Chest pain Assessment/Plan: -cardiology consult -repeat EKG no change -tele monitoring -Trop L3B--[place] -Nitro and morphine PRN -Nasal o2 -BB Code(s): R07.9 - CHEST PAIN, UNSPECIFIED Qualifiers: Chest pain type: unspecified Qualified Code(s): R07.9 - Chest pain, unspecified (2) Atelectasis pulmonary Assessment/Plan: -atelectasis on CXR--ct of chest -chest pain pulmonary etiology? -Pulmonary consult noted -IV Abx for possible PNA -neb tx prn if SOB Code(s): J98.11 - ATELECTASIS (3) CAD (coronary artery disease) Assessment/Plan: -although an extensive cardiac history, CK/Trops negative -seen by Cardiology -Plavix, aspirin, BB, statin Code(s): I25.10 - ATHSCL HEART DISEASE OF [place] CORONARY ARTERY W/O ANG PCTRS Qualifiers: Coronary Disease-Associated Artery/Lesion type: unspecified vessel or lesion type [place] vs. transplanted heart: [place] heart Associated angina: with unspecified angina Qualified Code(s): I25.119 - Atherosclerotic heart disease of [place] coronary artery with unspecified angina pectoris (4) Leukocytosis Assessment/Plan: -repeat labs in AM -afebrile earlier, now febrile -tylenol for fever over 100.0 F, cooling blanket for fever over 102.0F -repeat labs -, -On IV Abx Code(s): D72.829 - ELEVATED WHITE BLOOD CELL COUNT, UNSPECIFIED (5) Nausea Assessment/Plan: -U/S abd pending Code(s): R11.0 - NAUSEA
[2017-04-02] MEDS ORDERED: PT OWN MED DRAWER 7, Y5N ONE ×2 (10:26→18:00)
[2017-04-02] MEDS: PATIENT'S OWN MEDICATION (NON-FORMULARY) (Brinzolamide/Brimonidine Tart [Simbrinza 1%-0.2% OS SCH ×2 (10:46→22:13)
[2017-04-02] MEDS: HEPARIN NA (PORCINE) 5,000 UNITS/ML 1ML VIAL SQ SCH ×2 (10:46→22:14)
[2017-04-02] MEDS: RANOLAZINE E.R. 1,000 MG TABLET (FP) PO SCH ×2 (10:46→22:15)
[2017-04-02] MEDS: ASPIRIN 81 MG CHEWABLE TABLETS PO SCH (10:46)
[2017-04-02] MEDS: GABAPENTIN 400 MG CAPSULE (FP) PO SCH ×2 (10:47→22:15)
[2017-04-02] MEDS: CEFTRIAXONE IN IS-OSM DEXTROSE 2 GM/50 ML BAG IVPB SCH (10:47)
[2017-04-02] MEDS: METOPROLOL TARTRATE 25 MG TABLET (FP) PO SCH ×2 (10:47→22:15)
[2017-04-02] MEDS: FOLIC ACID 1 MG TABLET (FP) PO SCH (10:47)
[2017-04-02] MEDS: PANTOPRAZOLE 40 MG TABLET (FP) PO SCH (10:47)
[2017-04-02] MEDS: LEVOMEFOLATE PO SCH ×2 (10:48→22:15)
[2017-04-02] MEDS: B6 PO SCH ×2 (10:48→22:15)
[2017-04-02] MEDS: ALGAL OIL PO SCH ×2 (10:48→22:15)
[2017-04-02] MEDS: OSELTAMIVIR PHOSPHATE 75 MG CAPSULE PO SCH (10:48)
[2017-04-02] MEDS: B12 PO SCH ×2 (10:48→22:15)
[2017-04-02] MEDS: [UNRECOGNIZED DRUG - OTHER] PO SCH ×2 (10:48→22:15)
[2017-04-02] MEDS ORDERED: FUROSEMIDE 40 MG/4 ML INJECTABLE VIAL ONE (11:07)
--- NOTE | 2017-04-02 11:13 | PN ---
Progress Note, Physician History of Present Illness: PULMONARY ALERT,FEELING BETTER,-CP,-SOB - Current Medication List Current Medications: Active Medications Acetaminophen (Tylenol -) 650 mg PO Q4H PRN PRN Reason: FEVER OR PAIN Last Admin: 04/01/17 10:20 Dose: 650 mg Albuterol Sulfate (Ventolin 0.083% Nebulizer Soln -) 1 amp NEB Q4H PRN PRN Reason: SHORT OF BREATH/WHEEZING Last Admin: 03/31/17 22:10 Dose: 1 amp Aspirin (Asa -) 81 mg PO DAILY [facility] Last Admin: 04/02/17 10:46 Dose: 81 mg Ezetimibe (Zetia -) 10 mg PO HS [facility] Last Admin: 04/01/17 22:18 Dose: 10 mg Folic Acid (Folic Acid -) 1 mg PO DAILY [facility] Last Admin: 04/02/17 10:47 Dose: 1 mg Furosemide (Lasix Injection -) 40 mg IVPUSH ONCE ONE Stop: 04/02/17 11:16 Gabapentin (Neurontin -) 800 mg PO BID [facility] Last Admin: 04/02/17 10:47 Dose: 800 mg Heparin Sodium (Porcine) (Heparin -) 5,000 unit SQ BID [facility] Last Admin: 04/02/17 10:46 Dose: 5,000 unit CEFTRIAXONE IN IS-OSM DEXTROSE (Ceftriaxone 2 Gm-D5w Bag) 2 gm in 50 mls @ 200 mls/hr IVPB DAILY [facility] Last Admin: 04/02/17 10:47 Dose: 200 mls/hr Azithromycin 500 mg/ Dextrose 250 mls @ 250 mls/hr IVPB DAILY [facility] Last Admin: 04/01/17 16:56 Dose: 250 mls/hr Methotrexate (Mexate -) 15 mg PO Sa@1000 [facility] Metoprolol Tartrate (Lopressor -) 25 mg PO BID [facility] Last Admin: 04/02/17 10:47 Dose: 25 mg Nitroglycerin (Nitrostat -) 0.4 mg SL Q5M PRN PRN Reason: FOR CHEST PAIN Non-Formulary Medication (Brinzolamide/Brimonidine Tart [Simbrinza 1%-0.2% Eye Drops]) 1 drop OS BID [facility] Last Admin: 04/02/17 10:46 Dose: 1 drop Non-Formulary Medication (Levomefolate/B6/B12/Algal Oil [Foltanx Rf Capsule]) 1 each PO BID [facility] Last Admin: 04/02/17 10:48 Dose: 1 each Non-Formulary Medication (Travoprost [Travatan Z]) 5 ml OU HS [facility] Last Admin: 04/01/17 22:19 Dose: 5 ml Oseltamivir Phosphate (Tamiflu -) 75 mg PO DAILY [facility] Stop: 04/10/17 10:01 Last Admin: 04/02/17 10:48 Dose: 75 mg Pantoprazole Sodium (Protonix -) 40 mg PO DAILY [facility] Last Admin: 04/02/17 10:47 Dose: 40 mg Ranolazine (Ranexa -) 1,000 mg PO BID [facility] Last Admin: 04/02/17 10:46 Dose: 1,000 mg Tamsulosin HCl (Flomax -) 0.4 mg PO HS [facility] Last Admin: 04/01/17 22:18 Dose: 0.4 mg - Objective Vital Signs: Vital Signs Temperature 98.0 F 04/02/17 02:00 Pulse Rate 66 04/02/17 05:49 Respiratory Rate 20 04/02/17 05:49 Blood Pressure 94/53 04/02/17 05:49 O2 Sat by Pulse Oximetry (%) 97 04/01/17 21:00 Constitutional: Yes: Well Nourished, Calm Eyes: Yes: WNL HENT: Yes: WNL Neck: Yes: WNL Cardiovascular: Yes: Regular Rate and Rhythm, S1, S2 Respiratory: Yes: Rhonchi (FEW RHONCHI) Gastrointestinal: Yes: Normal Bowel Sounds, Soft Extremities: Yes: WNL Edema: No Labs: CBC, BMP 04/01/17 06:25 04/01/17 06:25 INR, PTT INR 1.01 (0.82-1.09) 03/31/17 13:05 Assessment/Plan Problem List - Problems (1) Pneumonia Code(s): J18.9 - PNEUMONIA, UNSPECIFIED ORGANISM (2) Chest pain Code(s): R07.9 - CHEST PAIN, UNSPECIFIED Qualifiers: Chest pain type: unspecified Qualified Code(s): R07.9 - Chest pain, unspecified (3) CAD (coronary artery disease) Code(s): I25.10 - ATHSCL HEART DISEASE OF [place] CORONARY ARTERY W/O ANG PCTRS Qualifiers: Coronary Disease-Associated Artery/Lesion type: unspecified vessel or lesion type [place] vs. transplanted heart: [place] heart Associated angina: with unspecified angina Qualified Code(s): I25.119 - Atherosclerotic heart disease of [place] coronary artery with unspecified angina pectoris (4) CHF (congestive heart failure) Code(s): I50.9 - HEART FAILURE, UNSPECIFIED Assessment/Plan CABP ASHD S/P STENTS CHF CP HTN EMPIRIC ANTIBIOTICS/ID FOLLOW UP WOULD SUGGEST CTA WHEN RENAL FUNCTION IMPROVES BRONCHODILATORS O[address] PERES
[2017-04-02] MEDS ORDERED: FUROSEMIDE 40 MG/4 ML INJECTABLE VIAL IVPUSH ONE (11:15)
[2017-04-02] MEDS: AZITHROMYCIN IVPB 500 MG in DEXTROSE 5%-WATER - 250 ML IVPB SCH (11:17)
--- NOTE | 2017-04-02 12:31 | PN ---
Progress Note (short form) - Note Progress Note: CC: cp s: no palps, sob , dizzy; +pleuritic cp, +cough Current Medications Acetaminophen (Tylenol -) 650 mg PO Q4H PRN PRN Reason: FEVER OR PAIN Last Admin: 04/01/17 10:20 Dose: 650 mg Albuterol Sulfate (Ventolin 0.083% Nebulizer Soln -) 1 amp NEB Q4H PRN PRN Reason: SHORT OF BREATH/WHEEZING Last Admin: 03/31/17 22:10 Dose: 1 amp Aspirin (Asa -) 81 mg PO DAILY [facility] Last Admin: 04/02/17 10:46 Dose: 81 mg Ezetimibe (Zetia -) 10 mg PO HS [facility] Last Admin: 04/01/17 22:18 Dose: 10 mg Folic Acid (Folic Acid -) 1 mg PO DAILY [facility] Last Admin: 04/02/17 10:47 Dose: 1 mg Gabapentin (Neurontin -) 800 mg PO BID [facility] Last Admin: 04/02/17 10:47 Dose: 800 mg Heparin Sodium (Porcine) (Heparin -) 5,000 unit SQ BID [facility] Last Admin: 04/02/17 10:46 Dose: 5,000 unit CEFTRIAXONE IN IS-OSM DEXTROSE (Ceftriaxone 2 Gm-D5w Bag) 2 gm in 50 mls @ 200 mls/hr IVPB DAILY [facility] Last Admin: 04/02/17 10:47 Dose: 200 mls/hr Azithromycin 500 mg/ Dextrose 250 mls @ 250 mls/hr IVPB DAILY [facility] Last Admin: 04/02/17 11:17 Dose: 250 mls/hr Methotrexate (Mexate -) 15 mg PO Sa@1000 [facility] Metoprolol Tartrate (Lopressor -) 25 mg PO BID [facility] Last Admin: 04/02/17 10:47 Dose: 25 mg Nitroglycerin (Nitrostat -) 0.4 mg SL Q5M PRN PRN Reason: FOR CHEST PAIN Non-Formulary Medication (Brinzolamide/Brimonidine Tart [Simbrinza 1%-0.2% Eye Drops]) 1 drop OS BID [facility] Last Admin: 04/02/17 10:46 Dose: 1 drop Non-Formulary Medication (Levomefolate/B6/B12/Algal Oil [Foltanx Rf Capsule]) 1 each PO BID [facility] Last Admin: 04/02/17 10:48 Dose: 1 each Non-Formulary Medication (Travoprost [Travatan Z]) 5 ml OU HS [facility] Last Admin: 04/01/17 22:19 Dose: 5 ml Oseltamivir Phosphate (Tamiflu -) 75 mg PO DAILY [facility] Stop: 04/10/17 10:01 Last Admin: 04/02/17 10:48 Dose: 75 mg Pantoprazole Sodium (Protonix -) 40 mg PO DAILY [facility] Last Admin: 04/02/17 10:47 Dose: 40 mg Ranolazine (Ranexa -) 1,000 mg PO BID [facility] Last Admin: 04/02/17 10:46 Dose: 1,000 mg Tamsulosin HCl (Flomax -) 0.4 mg PO HS [facility] Last Admin: 04/01/17 22:18 Dose: 0.4 mg Vital Signs - 24 hr 04/01/17 04/01/17 04/01/17 14:00 18:00 21:00 Temperature 98.2 F 97.3 F L Pulse Rate 57 L 58 L Respiratory 20 20 Rate Blood Pressure 102/50 118/56 O2 Sat by Pulse 97 Oximetry (%) 04/01/17 04/02/17 04/02/17 22:00 02:00 05:49 Temperature 98.4 F 98.0 F Pulse Rate 64 68 66 Respiratory 20 20 20 Rate Blood Pressure 121/54 87/47 94/53 O2 Sat by Pulse Oximetry (%) 04/02/17 04/02/17 09:00 10:00 Temperature 98.8 F Pulse Rate 68 Respiratory 20 20 Rate Blood Pressure 101/57 O2 Sat by Pulse 94 L Oximetry (%) Intake & Output 03/31/17 04/01/17 04/02/17 04/03/17 07:59 07:59 07:59 07:59 Intake Total 200 300 Output Total 200 Balance 0 300 Weight 177 lb 175 lb 4 oz Constitutional: No Distress, weak, lethargic Eyes: No: Sclera Icterus Respiratory: Yes: cta bl nl effort Gastrointestinal: Yes: Normal Bowel Sounds. No: Distention, Hepatomegaly, Palpable Mass, Tenderness Cardiovascular: Yes: Regular Rate and Rhythm JVD: No Heart Sounds: Yes: S1, S2. No: Gallop Murmur: No: Systolic Murmur, Diastolic Murmur Edema: no edema Integumentary: No: Jaundice Neurological: Yes: lethargic, Oriented Psychiatric: No: Agitated - Other Data Labs, Other Data: no CBC, BMP EKG: NSR, Leftward axis, inf q waves. inferior q waves. non-specific t wave flattening, similar to priors. tele: SR/SB chest CT: pending cxr: per report basilar atelectasis. by my review, increased lung markings ( infiltrate vs. congestion?), Lt base not well seen. stress SJR 07/2016: No ekg changes or anginal sx's. mod sized mild intensity posterolateral ischemia. EF 81 % LHC 02/13: EDP 16, EF nl; patent stents: pRCA, dLAD (30-50%), OM1, OM2; 70-80% pLAD ISR--Promus; 70-80% D1 (moderate size)--PTCA; residual diffuse mild dz all 3 vessels MIBI 2012 (franko): no STs; minimal apical ischemia; nl EF Echo 06/14: nl LV/EF; mild LVH; nl RV; valves WNL cath 2010 with Xience SRINIVAS to OM1 (70-80% ISR of prior [place] stent) then unstable angina with cath 02/13 (for unstable angina): ISR of pLAD treated with SRINIVAS, ISR of D1 treated with PTCA alone; no sig residual disease. patent stents in pRCA, pLAD, dLAD, D1 and OM2 (was seeing Dr. Gale) Assessment/Plan 81 yo with h/o CAD s/p multiple stents, dCHF, HTN, HL, DM, RA, duodenal ulcers, GERD with esophagitis, BPH, here with cp. CAD, h/o mult stents, cp, pna: - 07/2016 Stress with mild area of low risk ischemia. Patient thought to be high risk for recurrent ISR based on past behavior. Given low risk ischemia, plan has been for medical managment unless symptoms became refractory to medical mgm't. - CE's neg, EKG without acute ischemic changes. sxs are pleuritic, seem related to PNA. Chest CT pending. - con't asa, zetia. Off statin due to myalgias. - con't home anti-anginal regimen - abx per ID presumed diastolic dysfunction - appears euvolemic. would defer lasix in setting of fever and low bp's, possible pna. HTN: - meds as above (bp on low end will decrease lopressor dose). HPL: - previous statin dosing limited by severe muscle pains, continue zetia.
--- NOTE | 2017-04-02 16:31 | PN ---
Progress Note, Physician History of Present Illness: Feeling better reports less dyspnea/ cough/ pleuritic chest pain Temps, WBC down Blood c/s , legionella/pneumococcal ag, Flu screen negative - Current Medication List Current Medications: Active Medications Acetaminophen (Tylenol -) 650 mg PO Q4H PRN PRN Reason: FEVER OR PAIN Last Admin: 04/01/17 10:20 Dose: 650 mg Albuterol Sulfate (Ventolin 0.083% Nebulizer Soln -) 1 amp NEB Q4H PRN PRN Reason: SHORT OF BREATH/WHEEZING Last Admin: 03/31/17 22:10 Dose: 1 amp Aspirin (Asa -) 81 mg PO DAILY [facility] Last Admin: 04/02/17 10:46 Dose: 81 mg Ezetimibe (Zetia -) 10 mg PO HS [facility] Last Admin: 04/01/17 22:18 Dose: 10 mg Folic Acid (Folic Acid -) 1 mg PO DAILY [facility] Last Admin: 04/02/17 10:47 Dose: 1 mg Gabapentin (Neurontin -) 800 mg PO BID [facility] Last Admin: 04/02/17 10:47 Dose: 800 mg Heparin Sodium (Porcine) (Heparin -) 5,000 unit SQ BID [facility] Last Admin: 04/02/17 10:46 Dose: 5,000 unit CEFTRIAXONE IN IS-OSM DEXTROSE (Ceftriaxone 2 Gm-D5w Bag) 2 gm in 50 mls @ 200 mls/hr IVPB DAILY [facility] Last Admin: 04/02/17 10:47 Dose: 200 mls/hr Azithromycin 500 mg/ Dextrose 250 mls @ 250 mls/hr IVPB DAILY [facility] Last Admin: 04/02/17 11:17 Dose: 250 mls/hr Methotrexate (Mexate -) 15 mg PO Sa@1000 [facility] Metoprolol Tartrate (Lopressor -) 25 mg PO BID [facility] Last Admin: 04/02/17 10:47 Dose: 25 mg Nitroglycerin (Nitrostat -) 0.4 mg SL Q5M PRN PRN Reason: FOR CHEST PAIN Non-Formulary Medication (Brinzolamide/Brimonidine Tart [Simbrinza 1%-0.2% Eye Drops]) 1 drop OS BID [facility] Last Admin: 04/02/17 10:46 Dose: 1 drop Non-Formulary Medication (Levomefolate/B6/B12/Algal Oil [Foltanx Rf Capsule]) 1 each PO BID [facility] Last Admin: 04/02/17 10:48 Dose: 1 each Non-Formulary Medication (Travoprost [Travatan Z]) 5 ml OU HS [facility] Last Admin: 04/01/17 22:19 Dose: 5 ml Oseltamivir Phosphate (Tamiflu -) 75 mg PO DAILY [facility] Stop: 04/10/17 10:01 Last Admin: 04/02/17 10:48 Dose: 75 mg Pantoprazole Sodium (Protonix -) 40 mg PO DAILY [facility] Last Admin: 04/02/17 10:47 Dose: 40 mg Ranolazine (Ranexa -) 1,000 mg PO BID [facility] Last Admin: 04/02/17 10:46 Dose: 1,000 mg Tamsulosin HCl (Flomax -) 0.4 mg PO HS [facility] Last Admin: 04/01/17 22:18 Dose: 0.4 mg - Objective Vital Signs: Vital Signs Temperature 97.7 F 04/02/17 14:00 Pulse Rate 58 L 04/02/17 14:00 Respiratory Rate 20 04/02/17 10:00 Blood Pressure 100/51 04/02/17 14:00 O2 Sat by Pulse Oximetry (%) 94 L 04/02/17 09:00 Constitutional: Yes: No Distress Cardiovascular: Yes: Regular Rate and Rhythm, S1, S2 Respiratory: Yes: Other (+ Crepitations at bases bilaterally) Gastrointestinal: Yes: Normal Bowel Sounds, Soft. No: Tenderness Edema: Yes Labs: CBC, BMP 04/01/17 06:25 04/01/17 06:25 INR, PTT INR 1.01 (0.82-1.09) 03/31/17 13:05 Assessment/Plan Bibasilar pneumonia Fever/ leukocytosis- improved ? Influenza Continue ceftriaxone/ zithromax/ Tamiflu
[2017-04-02] MEDS: TAMSULOSIN HCL 0.4 MG CAP.ER.24H (FP) PO SCH (22:13)
[2017-04-02] MEDS: PATIENT'S OWN MEDICATION (NON-FORMULARY) (Travoprost [Travatan Z] 5 ML) OU SCH (22:16)
[2017-04-02] MEDS: EZETIMIBE 10 MG TABLET (FP) PO SCH (22:16)
--- NOTE | 2017-04-03 09:10 | PN ---
Progress Note, Physician History of Present Illness: c/o less sob no cp - Current Medication List Current Medications: Active Medications Acetaminophen (Tylenol -) 650 mg PO Q4H PRN PRN Reason: FEVER OR PAIN Last Admin: 04/01/17 10:20 Dose: 650 mg Albuterol Sulfate (Ventolin 0.083% Nebulizer Soln -) 1 amp NEB Q4H PRN PRN Reason: SHORT OF BREATH/WHEEZING Last Admin: 03/31/17 22:10 Dose: 1 amp Aspirin (Asa -) 81 mg PO DAILY [facility] Last Admin: 04/02/17 10:46 Dose: 81 mg Ezetimibe (Zetia -) 10 mg PO HS [facility] Last Admin: 04/02/17 22:16 Dose: 10 mg Folic Acid (Folic Acid -) 1 mg PO DAILY [facility] Last Admin: 04/02/17 10:47 Dose: 1 mg Gabapentin (Neurontin -) 800 mg PO BID [facility] Last Admin: 04/02/17 22:15 Dose: 800 mg Heparin Sodium (Porcine) (Heparin -) 5,000 unit SQ BID [facility] Last Admin: 04/02/17 22:14 Dose: 5,000 unit CEFTRIAXONE IN IS-OSM DEXTROSE (Ceftriaxone 2 Gm-D5w Bag) 2 gm in 50 mls @ 200 mls/hr IVPB DAILY [facility] Last Admin: 04/02/17 10:47 Dose: 200 mls/hr Azithromycin 500 mg/ Dextrose 250 mls @ 250 mls/hr IVPB DAILY [facility] Last Admin: 04/02/17 11:17 Dose: 250 mls/hr Methotrexate (Mexate -) 15 mg PO Sa@1000 [facility] Metoprolol Tartrate (Lopressor -) 12.5 mg PO BID [facility] Nitroglycerin (Nitrostat -) 0.4 mg SL Q5M PRN PRN Reason: FOR CHEST PAIN Non-Formulary Medication (Brinzolamide/Brimonidine Tart [Simbrinza 1%-0.2% Eye Drops]) 1 drop OS BID [facility] Last Admin: 04/02/17 22:13 Dose: 1 drop Non-Formulary Medication (Levomefolate/B6/B12/Algal Oil [Foltanx Rf Capsule]) 1 each PO BID [facility] Last Admin: 04/02/17 22:15 Dose: 1 each Non-Formulary Medication (Travoprost [Travatan Z]) 5 ml OU HS [facility] Last Admin: 04/02/17 22:16 Dose: 5 ml Oseltamivir Phosphate (Tamiflu -) 75 mg PO DAILY [facility] Stop: 04/10/17 10:01 Last Admin: 04/02/17 10:48 Dose: 75 mg Pantoprazole Sodium (Protonix -) 40 mg PO DAILY [facility] Last Admin: 04/02/17 10:47 Dose: 40 mg Ranolazine (Ranexa -) 1,000 mg PO BID [facility] Last Admin: 04/02/17 22:15 Dose: 1,000 mg Tamsulosin HCl (Flomax -) 0.4 mg PO HS [facility] Last Admin: 04/02/17 22:13 Dose: 0.4 mg - Objective Vital Signs: Vital Signs Temperature 98.6 F 04/03/17 06:00 Pulse Rate 58 L 04/03/17 06:00 Respiratory Rate 20 04/03/17 06:00 Blood Pressure 126/59 04/03/17 06:00 O2 Sat by Pulse Oximetry (%) 95 04/02/17 21:00 Cardiovascular: Yes: S1, S2 Respiratory: Yes: On Nasal O2, Rales Gastrointestinal: Yes: Normal Bowel Sounds, Soft Labs: CBC, BMP 04/01/17 06:25 04/01/17 06:25 INR, PTT INR 1.01 (0.82-1.09) 03/31/17 13:05 Assessment/Plan - Problems (1) Chest pain Assessment/Plan: -cardiology consult -repeat EKG no change -tele monitoring -Trop H0K--Ptefcjkx -Nitro and morphine PRN -Nasal o2 -BB Code(s): R07.9 - CHEST PAIN, UNSPECIFIED Qualifiers: Chest pain type: unspecified Qualified Code(s): R07.9 - Chest pain, unspecified (2) Atelectasis pulmonary Assessment/Plan: -atelectasis on CXR--ct of chest--c/w pneumonia -chest pain pulmonary etiology? -Pulmonary consult noted -IV Abx for possible PNA -neb tx prn if SOB Code(s): J98.11 - ATELECTASIS (3) CAD (coronary artery disease) Assessment/Plan: -although an extensive cardiac history, CK/Trops negative -seen by Cardiology -Plavix, aspirin, BB, statin Code(s): I25.10 - ATHSCL HEART DISEASE OF [place] CORONARY ARTERY W/O ANG PCTRS Qualifiers: Coronary Disease-Associated Artery/Lesion type: unspecified vessel or lesion type [place] vs. transplanted heart: [place] heart Associated angina: with unspecified angina Qualified Code(s): I25.119 - Atherosclerotic heart disease of [place] coronary artery with unspecified angina pectoris (4) Leukocytosis Assessment/Plan: -repeat labs NL Laboratory Tests 03/31/17 04/01/17 13:05 06:25 WBC 10.4 H D 9.7 -febrile earlier, now febrile -tylenol for fever over 100.0 F, cooling blanket for fever over 102.0F -repeat labs -BC, UC NEGATIVE -On IV Abx Code(s): D72.829 - ELEVATED WHITE BLOOD CELL COUNT, UNSPECIFIED (5) Nausea Assessment/Plan: -U/S abd pending Code(s): R11.0 - NAUSEA (6) Pneumonia Assessment/Plan: -IV ABX
[2017-04-03] MEDS: CEFTRIAXONE IN IS-OSM DEXTROSE 2 GM/50 ML BAG IVPB SCH (10:27)
[2017-04-03] MEDS: AZITHROMYCIN IVPB 500 MG in DEXTROSE 5%-WATER - 250 ML IVPB SCH (10:27)
[2017-04-03] MEDS: ASPIRIN 81 MG CHEWABLE TABLETS PO SCH (10:28)
[2017-04-03] MEDS: ALGAL OIL PO SCH ×2 (10:28→22:12)
[2017-04-03] MEDS: HEPARIN NA (PORCINE) 5,000 UNITS/ML 1ML VIAL SQ SCH ×2 (10:28→22:14)
[2017-04-03] MEDS: B6 PO SCH ×2 (10:28→22:12)
[2017-04-03] MEDS: [UNRECOGNIZED DRUG - OTHER] PO SCH ×2 (10:28→22:12)
[2017-04-03] MEDS: B12 PO SCH ×2 (10:28→22:12)
[2017-04-03] MEDS: LEVOMEFOLATE PO SCH ×2 (10:28→22:12)
[2017-04-03] MEDS: RANOLAZINE E.R. 1,000 MG TABLET (FP) PO SCH ×2 (10:28→22:12)
[2017-04-03] MEDS: PANTOPRAZOLE 40 MG TABLET (FP) PO SCH (10:28)
[2017-04-03] MEDS: FOLIC ACID 1 MG TABLET (FP) PO SCH (10:29)
[2017-04-03] MEDS: GABAPENTIN 400 MG CAPSULE (FP) PO SCH ×2 (10:29→22:12)
[2017-04-03] MEDS ORDERED: PT OWN MED DRAWER 7, Y5N ONE ×2 (10:35→11:00)
[2017-04-03] MEDS: OSELTAMIVIR PHOSPHATE 75 MG CAPSULE PO SCH (10:36)
[2017-04-03] MEDS: PATIENT'S OWN MEDICATION (NON-FORMULARY) (Brinzolamide/Brimonidine Tart [Simbrinza 1%-0.2% OS SCH ×2 (10:37→22:14)
[2017-04-03] MEDS: METOPROLOL TARTRATE 25 MG TABLET (FP) PO SCH ×2 (10:45→22:12)
--- NOTE | 2017-04-03 11:11 | PN ---
Progress Note, Physician History of Present Illness: pulmonary alert,oob-chair,feeling better,-cp,-sob - Current Medication List Current Medications: Active Medications Acetaminophen (Tylenol -) 650 mg PO Q4H PRN PRN Reason: FEVER OR PAIN Last Admin: 04/01/17 10:20 Dose: 650 mg Albuterol Sulfate (Ventolin 0.083% Nebulizer Soln -) 1 amp NEB Q4H PRN PRN Reason: SHORT OF BREATH/WHEEZING Last Admin: 03/31/17 22:10 Dose: 1 amp Aspirin (Asa -) 81 mg PO DAILY [facility] Last Admin: 04/03/17 10:28 Dose: 81 mg Ezetimibe (Zetia -) 10 mg PO HS [facility] Last Admin: 04/02/17 22:16 Dose: 10 mg Folic Acid (Folic Acid -) 1 mg PO DAILY [facility] Last Admin: 04/03/17 10:29 Dose: 1 mg Gabapentin (Neurontin -) 800 mg PO BID [facility] Last Admin: 04/03/17 10:29 Dose: 800 mg Heparin Sodium (Porcine) (Heparin -) 5,000 unit SQ BID [facility] Last Admin: 04/03/17 10:28 Dose: 5,000 unit CEFTRIAXONE IN IS-OSM DEXTROSE (Ceftriaxone 2 Gm-D5w Bag) 2 gm in 50 mls @ 200 mls/hr IVPB DAILY [facility] Last Admin: 04/03/17 10:27 Dose: 200 mls/hr Azithromycin 500 mg/ Dextrose 250 mls @ 250 mls/hr IVPB DAILY [facility] Last Admin: 04/03/17 10:27 Dose: 250 mls/hr Methotrexate (Mexate -) 15 mg PO Sa@1000 [facility] Metoprolol Tartrate (Lopressor -) 12.5 mg PO BID [facility] Last Admin: 04/03/17 10:45 Dose: Not Given Nitroglycerin (Nitrostat -) 0.4 mg SL Q5M PRN PRN Reason: FOR CHEST PAIN Non-Formulary Medication (Brinzolamide/Brimonidine Tart [Simbrinza 1%-0.2% Eye Drops]) 1 drop OS BID [facility] Last Admin: 04/03/17 10:37 Dose: 1 drop Non-Formulary Medication (Levomefolate/B6/B12/Algal Oil [Foltanx Rf Capsule]) 1 each PO BID [facility] Last Admin: 04/03/17 10:28 Dose: 1 each Non-Formulary Medication (Travoprost [Travatan Z]) 5 ml OU HS [facility] Last Admin: 04/02/17 22:16 Dose: 5 ml Oseltamivir Phosphate (Tamiflu -) 75 mg PO DAILY [facility] Stop: 04/10/17 10:01 Last Admin: 04/03/17 10:36 Dose: 75 mg Pantoprazole Sodium (Protonix -) 40 mg PO DAILY [facility] Last Admin: 04/03/17 10:28 Dose: 40 mg Ranolazine (Ranexa -) 1,000 mg PO BID [facility] Last Admin: 04/03/17 10:28 Dose: 1,000 mg Tamsulosin HCl (Flomax -) 0.4 mg PO HS [facility] Last Admin: 04/02/17 22:13 Dose: 0.4 mg - Objective Vital Signs: Vital Signs Temperature 98.6 F 04/03/17 06:00 Pulse Rate 58 L 04/03/17 06:00 Respiratory Rate 20 04/03/17 06:00 Blood Pressure 126/59 04/03/17 06:00 O2 Sat by Pulse Oximetry (%) 95 04/02/17 21:00 Constitutional: Yes: Well Nourished, Calm Eyes: Yes: WNL HENT: Yes: WNL Neck: Yes: WNL Cardiovascular: Yes: Regular Rate and Rhythm, S1, S2 Respiratory: Yes: CTA Bilaterally Gastrointestinal: Yes: Normal Bowel Sounds, Soft Extremities: Yes: WNL Edema: No Labs: Assessment/Plan Problem List - Problems (1) Pneumonia Code(s): J18.9 - PNEUMONIA, UNSPECIFIED ORGANISM (2) Chest pain Code(s): R07.9 - CHEST PAIN, UNSPECIFIED Qualifiers: Chest pain type: unspecified Qualified Code(s): R07.9 - Chest pain, unspecified (3) CAD (coronary artery disease) Code(s): I25.10 - ATHSCL HEART DISEASE OF [place] CORONARY ARTERY W/O ANG PCTRS Qualifiers: Coronary Disease-Associated Artery/Lesion type: unspecified vessel or lesion type [place] vs. transplanted heart: [place] heart Associated angina: with unspecified angina Qualified Code(s): I25.119 - Atherosclerotic heart disease of [place] coronary artery with unspecified angina pectoris (4) CHF (congestive heart failure) Code(s): I50.9 - HEART FAILURE, UNSPECIFIED Assessment/Plan CABP ASHD S/P STENTS CHF CP HTN EMPIRIC ANTIBIOTICS/ID FOLLOW UP BRONCHODILATORS O[address] PERES
--- NOTE | 2017-04-03 11:48 | PN ---
Progress Note (short form) - Note Progress Note: s: no palps, sob , dizzy, cp Current Medications Generic Name Dose Route Start Last Admin Trade Name Freq PRN Reason Stop Dose Admin Acetaminophen 650 mg 03/31/17 19:04 04/01/17 10:20 Tylenol - PO 650 mg Q4H PRN Administration FEVER OR PAIN Albuterol Sulfate 1 amp 03/31/17 19:09 03/31/17 22:10 Ventolin 0.083% Nebulizer Soln - NEB 1 amp Q4H PRN Administration SHORT OF BREATH/WHEEZING Aspirin 81 mg 03/31/17 18:06 04/03/17 10:28 Asa - PO 81 mg DAILY [facility] Administration Ezetimibe 10 mg 03/31/17 22:00 04/02/17 22:16 Zetia - PO 10 mg HS [facility] Administration Folic Acid 1 mg 04/01/17 10:00 04/03/17 10:29 Folic Acid - PO 1 mg DAILY [facility] Administration Gabapentin 800 mg 03/31/17 22:00 04/03/17 10:29 Neurontin - PO 800 mg BID [facility] Administration Heparin Sodium (Porcine) 5,000 unit 03/31/17 22:00 04/03/17 10:28 Heparin - SQ 5,000 unit BID [facility] Administration CEFTRIAXONE IN IS-OSM DEXTROSE 2 gm in 50 mls @ 200 mls/hr 04/01/17 12:45 06/16 10:27 Ceftriaxone 2 Gm-D5w Bag IVPB 200 mls/hr DAILY [facility] Administration Azithromycin 500 mg/ Dextrose 250 mls @ 250 mls/hr 04/01/17 12:45 04/03/17 10 :27 IVPB 250 mls/hr DAILY [facility] Administration Methotrexate 15 mg 04/06/17 10:00 Mexate - PO Sa@1000 [facility] Metoprolol Tartrate 12.5 mg 04/03/17 10:00 04/03/17 10:45 Lopressor - PO Not Given BID [facility] Nitroglycerin 0.4 mg 03/31/17 17:05 Nitrostat - SL Q5M PRN FOR CHEST PAIN Non-Formulary Medication 1 drop 03/31/17 22:00 04/03/17 10:37 Brinzolamide/Brimonidine Tart [Simbrinza 1%-0.2% Eye Drops] OS 1 drop BID [facility] Administration Non-Formulary Medication 1 each 03/31/17 22:00 04/03/17 10:28 Levomefolate/B6/B12/Algal Oil [Foltanx Rf Capsule] PO 1 each BID [facility] Administration Non-Formulary Medication 5 ml 03/31/17 22:00 04/02/17 22:16 Travoprost [Travatan Z] OU 5 ml HS [facility] Administration Oseltamivir Phosphate 75 mg 04/01/17 12:45 04/03/17 10:36 Tamiflu - PO 04/10/17 10:01 75 mg DAILY [facility] Administration Pantoprazole Sodium 40 mg 03/31/17 17:30 04/03/17 10:28 Protonix - PO 40 mg DAILY [facility] Administration Ranolazine 1,000 mg 03/31/17 22:00 04/03/17 10:28 Ranexa - PO 1,000 mg BID [facility] Administration Tamsulosin HCl 0.4 mg 03/31/17 22:00 04/02/17 22:13 Flomax - PO 0.4 mg HS [facility] Administration Vital Signs Period Temp Pulse Resp BP Sys/Jeffrey Pulse Ox Last 24 Hr 97.4 F-99.0 F 57-64 20-26 100-126/51-72 95-95 Constitutional: No Distress Eyes: No: Sclera Icterus Respiratory: Yes: cta bl nl effort Gastrointestinal: Yes: Normal Bowel Sounds. No: Distention, Hepatomegaly, Palpable Mass, Tenderness Cardiovascular: Yes: Regular Rate and Rhythm JVD: No Heart Sounds: Yes: S1, S2. No: Gallop Murmur: No: Systolic Murmur, Diastolic Murmur Edema: no edema Integumentary: No: Jaundice Neurological: Yes: lethargic, Oriented Psychiatric: No: Agitated - Other Data Labs, Other Data: CBC, BMP 04/01/17 06:25 04/01/17 06:25 EKG: NSR, Leftward axis, inf q waves. inferior q waves. non-specific t wave flattening, similar to priors. tele: SR cxr: per report basilar atelectasis. by my review, increased lung markings ( infiltrate vs. congestion?), Lt base not well seen. stress SJR 07/2016: No ekg changes or anginal sx's. mod sized mild intensity posterolateral ischemia. EF 81 % LHC 02/13: EDP 16, EF nl; patent stents: pRCA, dLAD (30-50%), OM1, OM2; 70-80% pLAD ISR--Promus; 70-80% D1 (moderate size)--PTCA; residual diffuse mild dz all 3 vessels MIBI 2012 (franko): no STs; minimal apical ischemia; nl EF Echo 06/14: nl LV/EF; mild LVH; nl RV; valves WNL echo 04/2017: mild lvh, nl lv/rv, nl rvsp, no sig valve path cath 2010 with Xience SRINIVAS to OM1 (70-80% ISR of prior Cypher stent) then unstable angina with cath 02/13 (for unstable angina): ISR of pLAD treated with SRINIVAS, ISR of D1 treated with PTCA alone; no sig residual disease. patent stents in pRCA, pLAD, dLAD, D1 and OM2 (was seeing Dr. Gale) Assessment/Plan 81 yo with h/o CAD s/p multiple stents, dCHF, HTN, HL, DM, RA, duodenal ulcers, GERD with esophagitis, BPH, here with cp. CAD, h/o mult stents, cp, pna: - 07/2016 Stress with mild area of low risk ischemia. Patient thought to be high risk for recurrent ISR based on past behavior. Given low risk ischemia, plan has been for medical managment unless symptoms became refractory to medical mgm't. - CE's neg, EKG without acute ischemic changes. sxs are pleuritic, seem related to PNA, cp now resolved. - con't zetia. Off statin due to myalgias. - con't home anti-anginal regimen - abx per ID presumed diastolic dysfunction - appears euvolemic. would defer lasix in setting of pna, low bp HTN: - meds as above. HPL: - previous statin dosing limited by severe muscle pains, continue zetia. dc tele
--- NOTE | 2017-04-03 12:53 | PN ---
Progress Note, Physician History of Present Illness: Feels and looks better reports less dyspnea/ cough. No pleuritic chest pain Temps, WBC down Blood c/s , legionella/pneumococcal ag, Flu screen negative - Current Medication List Current Medications: Active Medications Acetaminophen (Tylenol -) 650 mg PO Q4H PRN PRN Reason: FEVER OR PAIN Last Admin: 04/01/17 10:20 Dose: 650 mg Albuterol Sulfate (Ventolin 0.083% Nebulizer Soln -) 1 amp NEB Q4H PRN PRN Reason: SHORT OF BREATH/WHEEZING Last Admin: 03/31/17 22:10 Dose: 1 amp Aspirin (Asa -) 81 mg PO DAILY [facility] Last Admin: 04/03/17 10:28 Dose: 81 mg Ezetimibe (Zetia -) 10 mg PO HS [facility] Last Admin: 04/02/17 22:16 Dose: 10 mg Folic Acid (Folic Acid -) 1 mg PO DAILY [facility] Last Admin: 04/03/17 10:29 Dose: 1 mg Gabapentin (Neurontin -) 800 mg PO BID [facility] Last Admin: 04/03/17 10:29 Dose: 800 mg Heparin Sodium (Porcine) (Heparin -) 5,000 unit SQ BID [facility] Last Admin: 04/03/17 10:28 Dose: 5,000 unit CEFTRIAXONE IN IS-OSM DEXTROSE (Ceftriaxone 2 Gm-D5w Bag) 2 gm in 50 mls @ 200 mls/hr IVPB DAILY [facility] Last Admin: 04/03/17 10:27 Dose: 200 mls/hr Azithromycin 500 mg/ Dextrose 250 mls @ 250 mls/hr IVPB DAILY [facility] Last Admin: 04/03/17 10:27 Dose: 250 mls/hr Methotrexate (Mexate -) 15 mg PO Sa@1000 [facility] Metoprolol Tartrate (Lopressor -) 12.5 mg PO BID [facility] Last Admin: 04/03/17 10:45 Dose: Not Given Nitroglycerin (Nitrostat -) 0.4 mg SL Q5M PRN PRN Reason: FOR CHEST PAIN Non-Formulary Medication (Brinzolamide/Brimonidine Tart [Simbrinza 1%-0.2% Eye Drops]) 1 drop OS BID [facility] Last Admin: 04/03/17 10:37 Dose: 1 drop Non-Formulary Medication (Levomefolate/B6/B12/Algal Oil [Foltanx Rf Capsule]) 1 each PO BID [facility] Last Admin: 04/03/17 10:28 Dose: 1 each Non-Formulary Medication (Travoprost [Travatan Z]) 5 ml OU HS [facility] Last Admin: 04/02/17 22:16 Dose: 5 ml Oseltamivir Phosphate (Tamiflu -) 75 mg PO DAILY [facility] Stop: 04/10/17 10:01 Last Admin: 04/03/17 10:36 Dose: 75 mg Pantoprazole Sodium (Protonix -) 40 mg PO DAILY [facility] Last Admin: 04/03/17 10:28 Dose: 40 mg Ranolazine (Ranexa -) 1,000 mg PO BID [facility] Last Admin: 04/03/17 10:28 Dose: 1,000 mg Tamsulosin HCl (Flomax -) 0.4 mg PO HS [facility] Last Admin: 04/02/17 22:13 Dose: 0.4 mg - Objective Vital Signs: Vital Signs Temperature 97.4 F L 04/03/17 10:00 Pulse Rate 64 04/03/17 10:00 Respiratory Rate 26 H 04/03/17 10:00 Blood Pressure 104/58 04/03/17 10:00 O2 Sat by Pulse Oximetry (%) 95 04/03/17 09:00 Constitutional: Yes: No Distress Eyes: Yes: Conjunctiva Clear Cardiovascular: Yes: Regular Rate and Rhythm, S1, S2 Respiratory: Yes: CTA Bilaterally Gastrointestinal: Yes: Normal Bowel Sounds, Soft Edema: Yes Edema: LLE: 1+, RLE: 1+ Labs: CBC, BMP 04/01/17 06:25 04/01/17 06:25 INR, PTT INR 1.01 (0.82-1.09) 03/31/17 13:05 Assessment/Plan Bibasilar pneumonia clinically improved Fever/ leukocytosis- improved ? Influenza Continue ceftriaxone/ zithromax/ Tamiflu
[2017-04-03] MEDS: TAMSULOSIN HCL 0.4 MG CAP.ER.24H (FP) PO SCH (22:12)
[2017-04-03] MEDS: PATIENT'S OWN MEDICATION (NON-FORMULARY) (Travoprost [Travatan Z] 5 ML) OU SCH (22:13)
[2017-04-03] MEDS: EZETIMIBE 10 MG TABLET (FP) PO SCH (22:14)
[2017-04-04] MEDS: GABAPENTIN 400 MG CAPSULE (FP) PO SCH ×2 (10:20→21:26)
[2017-04-04] MEDS: METOPROLOL TARTRATE 25 MG TABLET (FP) PO SCH ×2 (10:21→21:26)
[2017-04-04] MEDS: PANTOPRAZOLE 40 MG TABLET (FP) PO SCH (10:22)
[2017-04-04] MEDS: CEFTRIAXONE IN IS-OSM DEXTROSE 2 GM/50 ML BAG IVPB SCH (10:22)
[2017-04-04] MEDS: ASPIRIN 81 MG CHEWABLE TABLETS PO SCH (10:22)
[2017-04-04] MEDS: FOLIC ACID 1 MG TABLET (FP) PO SCH (10:22)
[2017-04-04] MEDS: RANOLAZINE E.R. 1,000 MG TABLET (FP) PO SCH ×2 (10:22→21:26)
[2017-04-04] MEDS: HEPARIN NA (PORCINE) 5,000 UNITS/ML 1ML VIAL SQ SCH ×2 (10:22→21:29)
[2017-04-04] MEDS: LEVOMEFOLATE PO SCH ×2 (10:26→21:28)
[2017-04-04] MEDS: ALGAL OIL PO SCH ×2 (10:26→21:28)
[2017-04-04] MEDS: [UNRECOGNIZED DRUG - OTHER] PO SCH ×2 (10:26→21:28)
[2017-04-04] MEDS: B6 PO SCH ×2 (10:26→21:28)
[2017-04-04] MEDS: B12 PO SCH ×2 (10:26→21:28)
--- NOTE | 2017-04-04 11:07 | PN ---
Progress Note, Physician History of Present Illness: PULMONARY ALERT,OOB-CHAIR,+C/O BANKS,-SOB AT REST,-CP - Current Medication List Current Medications: Active Medications Acetaminophen (Tylenol -) 650 mg PO Q4H PRN PRN Reason: FEVER OR PAIN Last Admin: 04/01/17 10:20 Dose: 650 mg Albuterol Sulfate (Ventolin 0.083% Nebulizer Soln -) 1 amp NEB Q4H PRN PRN Reason: SHORT OF BREATH/WHEEZING Last Admin: 03/31/17 22:10 Dose: 1 amp Aspirin (Asa -) 81 mg PO DAILY [facility] Last Admin: 04/04/17 10:22 Dose: 81 mg Ezetimibe (Zetia -) 10 mg PO HS [facility] Last Admin: 04/03/17 22:14 Dose: 10 mg Folic Acid (Folic Acid -) 1 mg PO DAILY [facility] Last Admin: 04/04/17 10:22 Dose: 1 mg Gabapentin (Neurontin -) 800 mg PO BID [facility] Last Admin: 04/04/17 10:20 Dose: 800 mg Heparin Sodium (Porcine) (Heparin -) 5,000 unit SQ BID [facility] Last Admin: 04/04/17 10:22 Dose: 5,000 unit CEFTRIAXONE IN IS-OSM DEXTROSE (Ceftriaxone 2 Gm-D5w Bag) 2 gm in 50 mls @ 200 mls/hr IVPB DAILY [facility] Last Admin: 04/04/17 10:22 Dose: 200 mls/hr Azithromycin 500 mg/ Dextrose 250 mls @ 250 mls/hr IVPB DAILY [facility] Last Admin: 04/03/17 10:27 Dose: 250 mls/hr Methotrexate (Mexate -) 15 mg PO Sa@1000 [facility] Metoprolol Tartrate (Lopressor -) 12.5 mg PO BID [facility] Last Admin: 04/04/17 10:21 Dose: 12.5 mg Nitroglycerin (Nitrostat -) 0.4 mg SL Q5M PRN PRN Reason: FOR CHEST PAIN Non-Formulary Medication (Brinzolamide/Brimonidine Tart [Simbrinza 1%-0.2% Eye Drops]) 1 drop OS BID [facility] Last Admin: 04/03/17 22:14 Dose: 1 drop Non-Formulary Medication (Levomefolate/B6/B12/Algal Oil [Foltanx Rf Capsule]) 1 each PO BID [facility] Last Admin: 04/04/17 10:26 Dose: 1 each Non-Formulary Medication (Travoprost [Travatan Z]) 5 ml OU HS [facility] Last Admin: 04/03/17 22:13 Dose: 5 ml Oseltamivir Phosphate (Tamiflu -) 75 mg PO DAILY [facility] Stop: 04/10/17 10:01 Last Admin: 04/03/17 10:36 Dose: 75 mg Pantoprazole Sodium (Protonix -) 40 mg PO DAILY [facility] Last Admin: 04/04/17 10:22 Dose: 40 mg Ranolazine (Ranexa -) 1,000 mg PO BID [facility] Last Admin: 04/04/17 10:22 Dose: 1,000 mg Tamsulosin HCl (Flomax -) 0.4 mg PO HS [facility] Last Admin: 04/03/17 22:12 Dose: 0.4 mg - Objective Vital Signs: Vital Signs Temperature 97.3 F L 04/04/17 01:00 Pulse Rate 69 04/04/17 05:00 Respiratory Rate 20 04/04/17 05:00 Blood Pressure 131/62 04/04/17 05:00 O2 Sat by Pulse Oximetry (%) 94 L 04/03/17 20:58 Constitutional: Yes: Well Nourished, Calm Eyes: Yes: WNL HENT: Yes: WNL Neck: Yes: WNL Cardiovascular: Yes: Regular Rate and Rhythm, S1, S2 Respiratory: Yes: Diminished, Rales (FEW BIBASILAR CRACKLES) Gastrointestinal: Yes: Normal Bowel Sounds, Soft Extremities: Yes: WNL Edema: No Labs: CBC, BMP Assessment/Plan Problem List - Problems (1) Pneumonia Code(s): J18.9 - PNEUMONIA, UNSPECIFIED ORGANISM (2) Chest pain Code(s): R07.9 - CHEST PAIN, UNSPECIFIED Qualifiers: Chest pain type: unspecified Qualified Code(s): R07.9 - Chest pain, unspecified (3) CAD (coronary artery disease) Code(s): I25.10 - ATHSCL HEART DISEASE OF [place] CORONARY ARTERY W/O ANG PCTRS Qualifiers: Coronary Disease-Associated Artery/Lesion type: unspecified vessel or lesion type [place] vs. transplanted heart: [place] heart Associated angina: with unspecified angina Qualified Code(s): I25.119 - Atherosclerotic heart disease of [place] coronary artery with unspecified angina pectoris (4) CHF (congestive heart failure) Code(s): I50.9 - HEART FAILURE, UNSPECIFIED Assessment/Plan CABP ASHD S/P STENTS CHF CP HTN ANTIBIOTICS PER ID INHALED BRONCHODILATORS O2 SUPPLEMENTATION [address]ED DR PERES
[2017-04-04] MEDS: OSELTAMIVIR PHOSPHATE 75 MG CAPSULE PO SCH (11:22)
--- NOTE | 2017-04-04 11:22 | PN ---
Progress Note, Physician History of Present Illness: OOB in chair Feels better No c/o dyspnea/ cough. No pleuritic chest pain Temps, WBC down Blood c/s , legionella/pneumococcal ag, Flu screen negative - Current Medication List Current Medications: Active Medications Acetaminophen (Tylenol -) 650 mg PO Q4H PRN PRN Reason: FEVER OR PAIN Last Admin: 04/01/17 10:20 Dose: 650 mg Albuterol Sulfate (Ventolin 0.083% Nebulizer Soln -) 1 amp NEB Q4H PRN PRN Reason: SHORT OF BREATH/WHEEZING Last Admin: 03/31/17 22:10 Dose: 1 amp Aspirin (Asa -) 81 mg PO DAILY [facility] Last Admin: 04/04/17 10:22 Dose: 81 mg Ezetimibe (Zetia -) 10 mg PO HS [facility] Last Admin: 04/03/17 22:14 Dose: 10 mg Folic Acid (Folic Acid -) 1 mg PO DAILY [facility] Last Admin: 04/04/17 10:22 Dose: 1 mg Gabapentin (Neurontin -) 800 mg PO BID [facility] Last Admin: 04/04/17 10:20 Dose: 800 mg Heparin Sodium (Porcine) (Heparin -) 5,000 unit SQ BID [facility] Last Admin: 04/04/17 10:22 Dose: 5,000 unit CEFTRIAXONE IN IS-OSM DEXTROSE (Ceftriaxone 2 Gm-D5w Bag) 2 gm in 50 mls @ 200 mls/hr IVPB DAILY [facility] Last Admin: 04/04/17 10:22 Dose: 200 mls/hr Azithromycin 500 mg/ Dextrose 250 mls @ 250 mls/hr IVPB DAILY [facility] Last Admin: 04/03/17 10:27 Dose: 250 mls/hr Methotrexate (Mexate -) 15 mg PO Sa@1000 [facility] Metoprolol Tartrate (Lopressor -) 12.5 mg PO BID [facility] Last Admin: 04/04/17 10:21 Dose: 12.5 mg Nitroglycerin (Nitrostat -) 0.4 mg SL Q5M PRN PRN Reason: FOR CHEST PAIN Non-Formulary Medication (Brinzolamide/Brimonidine Tart [Simbrinza 1%-0.2% Eye Drops]) 1 drop OS BID [facility] Last Admin: 04/03/17 22:14 Dose: 1 drop Non-Formulary Medication (Levomefolate/B6/B12/Algal Oil [Foltanx Rf Capsule]) 1 each PO BID [facility] Last Admin: 04/04/17 10:26 Dose: 1 each Non-Formulary Medication (Travoprost [Travatan Z]) 5 ml OU HS [facility] Last Admin: 04/03/17 22:13 Dose: 5 ml Oseltamivir Phosphate (Tamiflu -) 75 mg PO DAILY [facility] Stop: 04/10/17 10:01 Last Admin: 04/03/17 10:36 Dose: 75 mg Pantoprazole Sodium (Protonix -) 40 mg PO DAILY [facility] Last Admin: 04/04/17 10:22 Dose: 40 mg Ranolazine (Ranexa -) 1,000 mg PO BID [facility] Last Admin: 04/04/17 10:22 Dose: 1,000 mg Tamsulosin HCl (Flomax -) 0.4 mg PO HS [facility] Last Admin: 04/03/17 22:12 Dose: 0.4 mg - Objective Vital Signs: Vital Signs Temperature 97.3 F L 04/04/17 01:00 Pulse Rate 69 04/04/17 05:00 Respiratory Rate 20 04/04/17 05:00 Blood Pressure 131/62 04/04/17 05:00 O2 Sat by Pulse Oximetry (%) 94 L 04/03/17 20:58 Constitutional: Yes: No Distress Eyes: Yes: Conjunctiva Clear Cardiovascular: Yes: Regular Rate and Rhythm, S1, S2 Respiratory: Yes: Other (+ fine crepitations at bases bilaterally) Gastrointestinal: Yes: Normal Bowel Sounds, Soft, Abdomen, Obese. No: Tenderness Edema: Yes Edema: LLE: 1+, RLE: 1+ Labs: CBC, BMP 04/01/17 06:25 04/01/17 06:25 INR, PTT INR 1.01 (0.82-1.09) 03/31/17 13:05 Assessment/Plan Bibasilar pneumonia clinically improved Fever/ leukocytosis- improved ? Influenza Continue ceftriaxone/ zithromax/ Tamiflu
[2017-04-04] MEDS: PATIENT'S OWN MEDICATION (NON-FORMULARY) (Brinzolamide/Brimonidine Tart [Simbrinza 1%-0.2% OS SCH ×2 (11:25→21:28)
--- NOTE | 2017-04-04 11:46 | PN ---
Progress Note, Physician Chief Complaint: SOB,chest pain History of Present Illness: sitting in chair, NAD self ambulatory, walked in the hallway earlier, tiring easily seen by Cardiology, Pulmonary and ID on IV abx and tamiflu - Current Medication List Current Medications: Active Medications Acetaminophen (Tylenol -) 650 mg PO Q4H PRN PRN Reason: FEVER OR PAIN Last Admin: 04/01/17 10:20 Dose: 650 mg Albuterol Sulfate (Ventolin 0.083% Nebulizer Soln -) 1 amp NEB Q4H PRN PRN Reason: SHORT OF BREATH/WHEEZING Last Admin: 03/31/17 22:10 Dose: 1 amp Aspirin (Asa -) 81 mg PO DAILY [facility] Last Admin: 04/04/17 10:22 Dose: 81 mg Ezetimibe (Zetia -) 10 mg PO HS [facility] Last Admin: 04/03/17 22:14 Dose: 10 mg Folic Acid (Folic Acid -) 1 mg PO DAILY [facility] Last Admin: 04/04/17 10:22 Dose: 1 mg Gabapentin (Neurontin -) 800 mg PO BID [facility] Last Admin: 04/04/17 10:20 Dose: 800 mg Heparin Sodium (Porcine) (Heparin -) 5,000 unit SQ BID [facility] Last Admin: 04/04/17 10:22 Dose: 5,000 unit CEFTRIAXONE IN IS-OSM DEXTROSE (Ceftriaxone 2 Gm-D5w Bag) 2 gm in 50 mls @ 200 mls/hr IVPB DAILY [facility] Last Admin: 04/04/17 10:22 Dose: 200 mls/hr Azithromycin 500 mg/ Dextrose 250 mls @ 250 mls/hr IVPB DAILY [facility] Last Admin: 04/03/17 10:27 Dose: 250 mls/hr Methotrexate (Mexate -) 15 mg PO Sa@1000 [facility] Metoprolol Tartrate (Lopressor -) 12.5 mg PO BID [facility] Last Admin: 04/04/17 10:21 Dose: 12.5 mg Nitroglycerin (Nitrostat -) 0.4 mg SL Q5M PRN PRN Reason: FOR CHEST PAIN Non-Formulary Medication (Brinzolamide/Brimonidine Tart [Simbrinza 1%-0.2% Eye Drops]) 1 drop OS BID [facility] Last Admin: 04/04/17 11:25 Dose: 1 drop Non-Formulary Medication (Levomefolate/B6/B12/Algal Oil [Foltanx Rf Capsule]) 1 each PO BID [facility] Last Admin: 04/04/17 10:26 Dose: 1 each Non-Formulary Medication (Travoprost [Travatan Z]) 5 ml OU HS [facility] Last Admin: 04/03/17 22:13 Dose: 5 ml Oseltamivir Phosphate (Tamiflu -) 75 mg PO DAILY [facility] Stop: 04/10/17 10:01 Last Admin: 04/04/17 11:22 Dose: 75 mg Pantoprazole Sodium (Protonix -) 40 mg PO DAILY [facility] Last Admin: 04/04/17 10:22 Dose: 40 mg Ranolazine (Ranexa -) 1,000 mg PO BID [facility] Last Admin: 04/04/17 10:22 Dose: 1,000 mg Tamsulosin HCl (Flomax -) 0.4 mg PO HS [facility] Last Admin: 04/03/17 22:12 Dose: 0.4 mg - Objective Vital Signs: Vital Signs Temperature 97.3 F L 04/04/17 01:00 Pulse Rate 69 04/04/17 05:00 Respiratory Rate 20 04/04/17 05:00 Blood Pressure 131/62 04/04/17 05:00 O2 Sat by Pulse Oximetry (%) 94 L 04/03/17 20:58 Constitutional: Yes: Well Nourished, No Distress, Calm Cardiovascular: Yes: Regular Rate and Rhythm Respiratory: Yes: Regular Gastrointestinal: Yes: WNL Musculoskeletal: Yes: WNL Extremities: Yes: WNL Edema: No Peripheral Pulses WNL: Yes Neurological: Yes: Alert, Oriented Psychiatric: Yes: Alert, Oriented Labs: CBC, BMP 04/01/17 06:25 04/01/17 06:25 INR, PTT INR 1.01 (0.82-1.09) 03/31/17 13:05 Problem List - Problems (1) Chest pain Assessment/Plan: -cardiology consult appreciated -Atypical CP- resolved now Code(s): R07.9 - CHEST PAIN, UNSPECIFIED Qualifiers: Chest pain type: unspecified Qualified Code(s): R07.9 - Chest pain, unspecified (2) Atelectasis pulmonary Assessment/Plan: -atelectasis on CXR -CT chest confirmed PNE -chest pain pulmonary etiology- resolved now -Pulmonary consult appreciated -neb tx prn if SOB Code(s): J98.11 - ATELECTASIS (3) CAD (coronary artery disease) Assessment/Plan: -although an extensive cardiac history, CK/Trops negative -seen by Cardiology -On Zetia, aspirin, BB, had statin intolerance in the past Code(s): I25.10 - ATHSCL HEART DISEASE OF [place] CORONARY ARTERY W/O ANG PCTRS Qualifiers: Coronary Disease-Associated Artery/Lesion type: unspecified vessel or lesion type [place] vs. transplanted heart: [place] heart Associated angina: with unspecified angina Qualified Code(s): I25.119 - Atherosclerotic heart disease of [place] coronary artery with unspecified angina pectoris (4) Leukocytosis Assessment/Plan: -normalised -afebrile Code(s): D72.829 - ELEVATED WHITE BLOOD CELL COUNT, UNSPECIFIED (5) Nausea Assessment/Plan: -negative Code(s): R11.0 - NAUSEA Assessment/Plan see problem list DVT and GI prophylaxis
--- NOTE | 2017-04-04 12:05 | PN ---
Progress Note (short form) - Note Progress Note: s: no palps, sob , dizzy, cp Current Medications Generic Name Dose Route Start Last Admin Trade Name Freq PRN Reason Stop Dose Admin Acetaminophen 650 mg 03/31/17 19:04 04/01/17 10:20 Tylenol - PO 650 mg Q4H PRN Administration FEVER OR PAIN Albuterol Sulfate 1 amp 03/31/17 19:09 03/31/17 22:10 Ventolin 0.083% Nebulizer Soln - NEB 1 amp Q4H PRN Administration SHORT OF BREATH/WHEEZING Aspirin 81 mg 03/31/17 18:06 04/04/17 10:22 Asa - PO 81 mg DAILY [facility] Administration Ezetimibe 10 mg 03/31/17 22:00 04/03/17 22:14 Zetia - PO 10 mg HS [facility] Administration Folic Acid 1 mg 04/01/17 10:00 04/04/17 10:22 Folic Acid - PO 1 mg DAILY [facility] Administration Gabapentin 800 mg 03/31/17 22:00 04/04/17 10:20 Neurontin - PO 800 mg BID [facility] Administration Heparin Sodium (Porcine) 5,000 unit 03/31/17 22:00 04/04/17 10:22 Heparin - SQ 5,000 unit BID [facility] Administration CEFTRIAXONE IN IS-OSM DEXTROSE 2 gm in 50 mls @ 200 mls/hr 04/01/17 12:45 07/17 10:22 Ceftriaxone 2 Gm-D5w Bag IVPB 200 mls/hr DAILY [facility] Administration Azithromycin 500 mg/ Dextrose 250 mls @ 250 mls/hr 04/01/17 12:45 04/03/17 10 :27 IVPB 250 mls/hr DAILY [facility] Administration Methotrexate 15 mg 04/06/17 10:00 Mexate - PO Sa@1000 [facility] Metoprolol Tartrate 12.5 mg 04/03/17 10:00 04/04/17 10:21 Lopressor - PO 12.5 mg BID [facility] Administration Nitroglycerin 0.4 mg 03/31/17 17:05 Nitrostat - SL Q5M PRN FOR CHEST PAIN Non-Formulary Medication 1 drop 03/31/17 22:00 04/04/17 11:25 Brinzolamide/Brimonidine Tart [Simbrinza 1%-0.2% Eye Drops] OS 1 drop BID [facility] Administration Non-Formulary Medication 1 each 03/31/17 22:00 04/04/17 10:26 Levomefolate/B6/B12/Algal Oil [Foltanx Rf Capsule] PO 1 each BID [facility] Administration Non-Formulary Medication 5 ml 03/31/17 22:00 04/03/17 22:13 Travoprost [Travatan Z] OU 5 ml HS [facility] Administration Oseltamivir Phosphate 75 mg 04/01/17 12:45 04/04/17 11:22 Tamiflu - PO 04/10/17 10:01 75 mg DAILY [facility] Administration Pantoprazole Sodium 40 mg 03/31/17 17:30 04/04/17 10:22 Protonix - PO 40 mg DAILY [facility] Administration Ranolazine 1,000 mg 03/31/17 22:00 04/04/17 10:22 Ranexa - PO 1,000 mg BID [facility] Administration Tamsulosin HCl 0.4 mg 03/31/17 22:00 04/03/17 22:12 Flomax - PO 0.4 mg HS [facility] Administration Vital Signs Period Temp Pulse Resp BP Sys/Jeffrey Pulse Ox Last 24 Hr 97.3 F-98.2 F 62-82 20-20 110-131/41-69 94 Constitutional: No Distress Eyes: No: Sclera Icterus Respiratory: Yes: cta bl nl effort Gastrointestinal: Yes: Normal Bowel Sounds. No: Distention, Hepatomegaly, Palpable Mass, Tenderness Cardiovascular: Yes: Regular Rate and Rhythm JVD: No Heart Sounds: Yes: S1, S2. No: Gallop Murmur: No: Systolic Murmur, Diastolic Murmur Edema: no edema Integumentary: No: Jaundice Neurological: Yes: lethargic, Oriented Psychiatric: No: Agitated - Other Data Labs, Other Data: CBC WBC 9.7 K/mm3 (4.0-10.0) 04/01/17 06:25 RBC 4.14 M/mm3 (4.00-5.60) 04/01/17 06:25 Hgb 12.4 GM/dL (11.7-16.9) 04/01/17 06:25 Hct 38.6 % (35.4-49) 04/01/17 06:25 MCV 93.1 fl (80-96) 04/01/17 06:25 MCH 29.9 pg (25.7-33.7) 04/01/17 06:25 MCHC 32.1 g/dl (32.0-35.9) 04/01/17 06:25 RDW 16.9 % (11.9-15.9) H 04/01/17 06:25 Plt Count 126 K/MM3 (134-434) L 04/01/17 06:25 MPV 9.7 fl (7.5-11.1) 04/01/17 06:25 Neutrophils % 72.5 % (42.8-82.8) 04/01/17 06:25 Lymphocytes % 19.4 % (8-40) 04/01/17 06:25 Monocytes % 7.6 % (3.8-10.2) 04/01/17 06:25 Eosinophils % 0.2 % (0-4.5) 04/01/17 06:25 Basophils % 0.3 % (0-2.0) 04/01/17 06:25 EKG: NSR, Leftward axis, inf q waves. inferior q waves. non-specific t wave flattening, similar to priors. tele: sr cxr: per report basilar atelectasis. by my review, increased lung markings ( infiltrate vs. congestion?), Lt base not well seen. stress SJR 07/2016: No ekg changes or anginal sx's. mod sized mild intensity posterolateral ischemia. EF 81 % [facility] 02/13: EDP 16, EF nl; patent stents: pRCA, dLAD (30-50%), OM1, OM2; 70-80% pLAD ISR--Promus; 70-80% D1 (moderate size)--PTCA; residual diffuse mild dz all 3 vessels MIBI 2012 (franko): no STs; minimal apical ischemia; nl EF Echo 06/14: nl LV/EF; mild LVH; nl RV; valves WNL echo 04/2017: mild lvh, nl lv/rv, nl rvsp, no sig valve path cath 2010 with Xience SRINIVAS to OM1 (70-80% ISR of prior Cypher stent) then unstable angina with cath 02/13 (for unstable angina): ISR of pLAD treated with SRINIVAS, ISR of D1 treated with PTCA alone; no sig residual disease. patent stents in pRCA, pLAD, dLAD, D1 and OM2 (was seeing Dr. Gale) Assessment/Plan 81 yo with h/o CAD s/p multiple stents, dCHF, HTN, HL, DM, RA, duodenal ulcers, GERD with esophagitis, BPH, here with cp. CAD, h/o mult stents, cp, pna: - 07/2016 Stress with mild area of low risk ischemia. Patient thought to be high risk for recurrent ISR based on past behavior. Given low risk ischemia, plan has been for medical managment unless symptoms became refractory to medical mgm't. - CE's neg, EKG without acute ischemic changes. sxs are pleuritic, seem related to PNA, cp now resolved. - con't zetia. Off statin due to myalgias. - con't home anti-anginal regimen - abx per ID presumed diastolic dysfunction - appears euvolemic. would defer lasix in setting of pna, low bp HTN: - meds as above. HPL: - previous statin dosing limited by severe muscle pains, continue zetia. dc tele
[2017-04-04 12:06] LABS: BASO % 0.8 % (0-2.0); HEMOGLOBIN 11.7 GM/dL (11.7-16.9); LYMPH % 35.4 % (8-40); MCH 29.8 pg (25.7-33.7); MCHC 32.6 g/dl (32.0-35.9); MEAN CELL VOLUME 91.6 fl (80-96); MEAN PLT VOLUME 8.7 fl (7.5-11.1); MONO % 10.9 % (3.8-10.2); NEUT % 49.9 % (42.8-82.8); PLATELET COUNT 178 K/MM3 (134-434); RBC 3.93 M/mm3 (4.00-5.60); RDW 16.1 % (11.9-15.9); WHITE BLOOD COUNT 5.2 K/mm3 (4.0-10.0)
[2017-04-04 12:30] LABS: ALBUMIN 2.7 g/dl (3.4-5.0); ALK PHOS 70 U/L (45-117); ANION GAP 4 (8-16); BILIRUBIN,TOTAL 0.4 mg/dL (0.2-1.0); BLOOD UREA NITROGEN 18 mg/dL (7-18); CALCIUM 8.4 mg/dL (8.5-10.1); CHLORIDE 103 mmol/L (98-107); CO2 31 mmol/L (21-32); CREATININE 1.1 mg/dL (0.7-1.3); GLUCOSE,RANDOM 111 mg/dL (74-106); POTASSIUM 3.5 mmol/L (3.5-5.1); SGOT/AST 20 U/L (15-37); SGPT/ALT 21 U/L (12-78); SODIUM 138 mmol/L (136-145); TOT PROT 6.3 g/dl (6.4-8.2)
[2017-04-04] MEDS: TAMSULOSIN HCL 0.4 MG CAP.ER.24H (FP) PO SCH (21:26)
[2017-04-04] MEDS: EZETIMIBE 10 MG TABLET (FP) PO SCH (21:27)
[2017-04-04] MEDS: PATIENT'S OWN MEDICATION (NON-FORMULARY) (Travoprost [Travatan Z] 5 ML) OU SCH (21:28)
[2017-04-05] MEDS ORDERED: PT OWN MED DRAWER 7, Y5N ONE (05:52)
--- NOTE | 2017-04-05 08:47 | DS ---
Physical Examination Vital Signs: Vital Signs Temperature 98.0 F 04/05/17 05:48 Pulse Rate 65 04/05/17 05:48 Respiratory Rate 20 04/05/17 05:48 Blood Pressure 141/65 04/05/17 05:48 O2 Sat by Pulse Oximetry (%) 94 L 04/03/17 20:58 Findings/Remarks: feels better Cardiovascular: Yes: S1, S2 Respiratory: Yes: Regular, CTA Bilaterally Gastrointestinal: Yes: Normal Bowel Sounds, Soft Labs: CBC, BMP 04/04/17 12:02 04/04/17 12:02 Discharge Summary Reason For Visit: CHEST PAIN Current Active Problems Chest pain (Acute) Leukocytosis (Acute) Pneumonia (Acute) Hospital Course: - Problems (1) Chest pain Assessment/Plan: -cardiology consult appreciated -Atypical CP- resolved now Code(s): R07.9 - CHEST PAIN, UNSPECIFIED Qualifiers: Chest pain type: unspecified Qualified Code(s): R07.9 - Chest pain, unspecified (2) Atelectasis pulmonary Assessment/Plan: -atelectasis on CXR -CT chest confirmed PNE--po abx -chest pain pulmonary etiology- resolved now -Pulmonary consult appreciated -neb tx prn if SOB Code(s): J98.11 - ATELECTASIS (3) CAD (coronary artery disease) Assessment/Plan: -although an extensive cardiac history, CK/Trops negative -seen by Cardiology -On Zetia, aspirin, BB, had statin intolerance in the past Code(s): I25.10 - ATHSCL HEART DISEASE OF [place] CORONARY ARTERY W/O ANG PCTRS Qualifiers: Coronary Disease-Associated Artery/Lesion type: unspecified vessel or lesion type [place] vs. transplanted heart: [place] heart Associated angina: with unspecified angina Qualified Code(s): I25.119 - Atherosclerotic heart disease of [place] coronary artery with unspecified angina pectoris (4) Leukocytosis Assessment/Plan: -normalised -afebrile Code(s): D72.829 - ELEVATED WHITE BLOOD CELL COUNT, UNSPECIFIED (5) Nausea Assessment/Plan: -negative Code(s): R11.0 - NAUSEA Condition: Improved - Instructions Referrals: Varghese Barakat MD [Primary Care Provider] - 1 Week Disposition: HOME - Home Medications Comprehensive Discharge Medication List: Ambulatory Orders Aspirin [ASA -] 81 mg PO DAILY 08/14/16 Ezetimibe 10 mg PO HS 08/14/16 Folic Acid - 1 mg PO DAILY 08/14/16 Furosemide [Lasix -] 20 mg PO [facility] 08/14/16 Gabapentin 800 mg PO BID 08/14/16 Methotrexate Sodium [Methotrexate] 6 tab PO [facility] 08/14/16 Methylprednisolone [Medrol -] 2 mg PO ASDIR 08/14/16 Tamsulosin HCl [Flomax] 0.4 mg PO HS 08/14/16 Travoprost [Travatan Z] 5 ml OU HS 08/14/16 Ranolazine [Ranexa -] 1,000 mg PO BID #60 tab 08/16/16 Brinzolamide/Brimonidine Tart [Simbrinza 1%-0.2% Eye Drops] 1 drop OS BID Levomefolate/B6/B12/Algal Oil [Foltanx Rf Capsule] 1 each PO BID 03/31/17 Acetaminophen [Tylenol .Regular Strength -] 650 mg PO Q4H PRN tablet 04/05/17 Cefuroxime Axetil [Ceftin -] 500 mg PO Q12H #10 tablet 04/05/17 Pantoprazole Sodium [Protonix -] 40 mg PO DAILY #30 tablet.ec 04/05/17
[2017-04-05] MEDS: OSELTAMIVIR PHOSPHATE 75 MG CAPSULE PO SCH (09:43)
[2017-04-05] MEDS: [UNRECOGNIZED DRUG - OTHER] PO SCH (09:43)
[2017-04-05] MEDS: PANTOPRAZOLE 40 MG TABLET (FP) PO SCH (09:43)
[2017-04-05] MEDS: ALGAL OIL PO SCH (09:43)
[2017-04-05] MEDS: FOLIC ACID 1 MG TABLET (FP) PO SCH (09:43)
[2017-04-05] MEDS: B12 PO SCH (09:43)
[2017-04-05] MEDS: ASPIRIN 81 MG CHEWABLE TABLETS PO SCH (09:43)
[2017-04-05] MEDS: METOPROLOL TARTRATE 25 MG TABLET (FP) PO SCH (09:43)
[2017-04-05] MEDS: LEVOMEFOLATE PO SCH (09:43)
[2017-04-05] MEDS: GABAPENTIN 400 MG CAPSULE (FP) PO SCH (09:43)
[2017-04-05] MEDS: RANOLAZINE E.R. 1,000 MG TABLET (FP) PO SCH (09:43)
[2017-04-05] MEDS: B6 PO SCH (09:43)
[2017-04-05] MEDS: PATIENT'S OWN MEDICATION (NON-FORMULARY) (Brinzolamide/Brimonidine Tart [Simbrinza 1%-0.2% OS SCH (09:44)
[2017-04-05 10:02] VITALS: BP 128/60; PULSE 68; TEMP 98
[2017-04-06] MEDS ORDERED: METHOTREXATE 2.5 MG TABLET PO SCH (10:00)
== END 2017-04-05 10:21 | disposition home or self-care (01) | DRG 194 ==
LOC: JER 12:27 → JERBED 14:12 → J4W 18:04
PROVIDERS: ADMIT Family Medicine; ATTEND Family Medicine
DX: J18.9 Pneumonia, unspecified organism (principal); I50.32 Chronic diastolic (congestive) heart failure; J98.11 Atelectasis; I25.10 Atherosclerotic heart disease of native coronary artery without angina pectoris; N40.0 Benign prostatic hyperplasia without lower urinary tract symptoms; E78.5 Hyperlipidemia, unspecified; I25.2 Old myocardial infarction; I11.0 Hypertensive heart disease with heart failure; E11.9 Type 2 diabetes mellitus without complications; Z87.891 Personal history of nicotine dependence; K21.9 Gastro-esophageal reflux disease without esophagitis; D72.829 Elevated white blood cell count, unspecified; R11.0 Nausea; M06.9 Rheumatoid arthritis, unspecified
CPT/HCPCS: 36415; 71010-TC; 71045-TC; 71250-TC; 76705-TC; 80053; 81003; 82550; 82553; 83690; 83735; 83880; 84100; 84484; 85025; 85610; 85730; 86140; 87040; 87086; 87804; 87899; 93005; 93010; 93306-TC; 94640; 97116-GP; 97161-GP; 99285-25; J1644

== ENCOUNTER 2017-04-21 15:39 | Inpatient (IN) | payer OTHER, BC ==
[2017-04-21 16:36] VITALS: BMI 26.6
[2017-04-21] MEDS ORDERED: SODIUM CHLORIDE 0.9% 1000 ML INFUS.BAG IV ONE (16:50)
[2017-04-21 17:32] LABS: BASO % 0.4 % (0-2.0); EOS % 0.1 % (0-4.5); HEMATOCRIT 35.5 % (35.4-49); HEMOGLOBIN 11.6 GM/dL (11.7-16.9); LYMPH % 17.8 % (8-40); MCH 29.1 pg (25.7-33.7); MCHC 32.7 g/dl (32.0-35.9); MEAN CELL VOLUME 88.9 fl (80-96); MEAN PLT VOLUME 8.9 fl (7.5-11.1); MONO % 9.1 % (3.8-10.2); NEUT % 72.6 % (42.8-82.8); PLATELET COUNT 360 K/MM3 (134-434); RBC 3.99 M/mm3 (4.00-5.60); RDW 16.1 % (11.9-15.9); WHITE BLOOD COUNT 9.1 K/mm3 (4.0-10.0)
--- NOTE | 2017-04-21 17:41 | PDOC ---
Attending Attestation - HPI HPI: 04/21/17 18:16 The patient is a 81 year old male, with a significant past medical history of CAD (stents x11), Appendectomy, CHF, DM, HTN, HLD, [place], BPH , who presents to the emergency department with chest pain for about a week. The patient reports having a constant chest pain localized in the center of his chest that is not made worse with exertion. He also notes recent weight loss and being unable to tolerate food secondary to nausea. He denies any recent fevers, chills, headache or dizziness. He denies any recent vomit, diarrhea or constipation. He denies any recent chest pain. He denies any recent dysuria, frequency, urgency or hematuria. Past surgical history: See HPI PCP: Director Health: Social: Former Smoker - Medical Decision Making 04/21/17 18:16 Documentation prepared by Paras Rogers, acting as medical science liaison for Mercy Mariano MD, MD/DO. <Paras Rogers - Last Filed: 04/21/17 18:17> - Physicial Exam PE: 04/29/17 07:16 Agree with resident exam. Patient is in no acute distress. Lungs are clear. Heart regular rate and rhythm. - Medical Decision Making 04/29/17 07:17 Pt presents to the ED complaining of chest pain, decreased appetite and nausea. Patient is at high risk for cardiac disease---will admit to rule out ACS. Also concerned for recurrent PNA, CHF, gastritis, billiary disease. Unlikely PE or aortic dissection. <Mercy Mariano - Last Filed: 04/29/17 07:19>
[2017-04-21] MEDS ORDERED: FAMOTIDINE 20 MG/50 ML IVPB 20 MG/50 ML MG IVPB ONE ×2 (17:45→17:52)
[2017-04-21 17:46] LABS: INR 1.32 (0.82-1.09); PROTHROMBIN TIME (PATIENT) 14.9 SEC (9.98-11.88)
[2017-04-21 17:48] LABS: ACTIVATED PTT 29.4 SECONDS (26.9-34.4)
[2017-04-21 18:24] LABS: ARTERIAL BLD GAS O2 SATURATION 97.9 % (90-98.9); ARTERIAL BLOOD GAS BASE EXCESS -0.3 meq/l (-2-2); ARTERIAL BLOOD GAS PCO2 30.5 mmHg (35-45); ARTERIAL BLOOD GAS PO2 95.7 mmHg (68-100); ARTERIAL BLOOD GAS pH 7.47 (7.35-7.45); CARBOXYHEMOGLOBIN 1.6 gm% (0.5-2.0)
[2017-04-21 18:24] LABS: ALBUMIN 2.7 g/dl (3.4-5.0); ANION GAP 10 (8-16); BLOOD UREA NITROGEN 19 mg/dL (7-18); CHLORIDE 101 mmol/L (98-107); CO2 25 mmol/L (21-32); GLUCOSE,RANDOM 110 mg/dL (74-106); POTASSIUM 4.3 mmol/L (3.5-5.1); SGOT/AST 45 U/L (15-37); SGPT/ALT 39 U/L (12-78); SODIUM 136 mmol/L (136-145)
[2017-04-21 18:27] LABS: ALK PHOS 87 U/L (45-117); BILIRUBIN,TOTAL 0.9 mg/dL (0.2-1.0); TOT PROT 6.9 g/dl (6.4-8.2)
[2017-04-21 18:27] LABS: ALLENS TEST POSITIVE
--- NOTE | 2017-04-21 18:41 | PDOC ---
History of Present Illness - General Chief Complaint: Chest Pain Stated Complaint: CHEST PAIN Time Seen by Provider: 04/21/17 16:26 History Source: Patient Exam Limitations: No Limitations - History of Present Illness Initial Comments: 04/21/17 18:30 The patient is an 81M with a PMH of CAD (11 stents), CHF, DM, HTN, HLD, BPH, AL who presents to the ED with 1 week of nausea. The patient states that he has been unable to eat anything for the past few days. The patient is also endorsing a chest pressure which is retrosternal, does not radiate, and has been present for a few days. He denies active chest pain. He denies any fever, chills, constipation, SOB. He states that he was recently diagnosed with PNA and treated with an antibiotic which he is not sure about. Past History - Past Medical History Allergies/Adverse Reactions: Allergies Allergy/AdvReac Type Severity Reaction Status Date / Time Cshrcfs-Wfa-Dic Reductase AdvReac Severe Verified 04/04/17 11:45 Inhibitor Home Medications: Ambulatory Orders Aspirin [ASA -] 81 mg PO DAILY 08/14/16 Folic Acid - 1 mg PO DAILY 08/14/16 Furosemide [Lasix -] 20 mg PO ASDIR 08/14/16 Gabapentin 800 mg PO BID 08/14/16 Methotrexate Sodium [Methotrexate] 6 tab PO ASDIR 08/14/16 Methylprednisolone [Medrol -] 2 mg PO ASDIR 08/14/16 Tamsulosin HCl [Flomax] 0.4 mg PO HS 08/14/16 Travoprost [Travatan Z] 5 ml OU HS 08/14/16 Ranolazine [Ranexa -] 1,000 mg PO BID #60 tab 08/16/16 Brinzolamide/Brimonidine Tart [Simbrinza 1%-0.2% Eye Drops] 1 drop OS BID Levomefolate/B6/B12/Algal Oil [Foltanx Rf Capsule] 1 each PO BID 03/31/17 Acetaminophen [Tylenol .Regular Strength -] 650 mg PO Q4H PRN tablet 04/05/17 Pantoprazole Sodium [Protonix -] 40 mg PO DAILY #30 tablet.ec 04/05/17 Metoprolol Succinate [Toprol Xl] 25 mg PO DAILY 04/21/17 Rabeprazole Sodium [Aciphex] 20 mg PO DAILY 04/21/17 Anemia: No Asthma: No Cancer: No Cardiac Disorders: Yes (CAD) CVA: No COPD: No CHF: Yes Dementia: No Diabetes: Yes (NIDDM) GI Disorders: No Disorders: Yes (BPH) HTN: Yes Hypercholesterolemia: Yes Kidney Stones: Yes Liver Disease: No Seizures: No Thyroid Disease: No - Surgical History Abdominal Surgery: No Appendectomy: No Cardiac Surgery: Yes (CARDIAC STENTS X 11, 1 stent on 02/09/15) Cholecystectomy: No Gastric Stapling: No GI Surgery: No Lung Surgery: No Neurologic Surgery: No Orthopedic Surgery: Yes - Immunization History Immunization Up to Date: Yes - Suicide/Smoking/Psychosocial Hx Smoking History: Former smoker Have you smoked in the past 12 months: No Number of Cigarettes Smoked Daily: 50 If you are a former smoker, when did you quit?: 45 yrs ago Information on smoking cessation initiated: No 'Breaking Loose' booklet given: 05/01/15 Hx Alcohol Use: No Drug/Substance Use Hx: No Substance Use Type: None Hx Substance Use Treatment: No Review of Systems - Review of Systems Able to Perform ROS?: Yes Comments:: 04/21/17 18:42 GENERAL/CONSTITUTIONAL: No fever or chills. No weakness. HEAD, EYES, EARS, NOSE AND THROAT: No change in vision. No ear pain or discharge. No sore throat. GASTROINTESTINAL: Positive for nausea and vomiting. No diarrhea, constipation, or abdominal pain. GENITOURINARY: No dysuria, frequency, hematuria, or change in urination. CARDIOVASCULAR: Positive for chest pressure. No chest pain, palpitations, or lightheadedness. RESPIRATORY: No cough, wheezing, shortness of breath, or hemoptysis. MUSCULOSKELETAL: No joint or muscle swelling or pain. No neck or back pain. SKIN: No rash or lesions. NEUROLOGIC: No headache, numbness, tingling, weakness, loss of consciousness, or change in strength/sensation. ENDOCRINE: No increased thirst. No abnormal weight change. HEMATOLOGIC/LYMPHATIC: No anemia, easy bleeding, or history of blood clots. ALLERGIC/IMMUNOLOGIC: No hives or skin allergy. Is the patient limited Wallisian proficient: No *Physical Exam - Vital Signs Last Vital Signs Temp Pulse Resp BP Pulse Ox 97.8 F 72 22 131/74 98 04/21/17 16:20 04/21/17 18:00 04/21/17 18:00 04/21/17 18:00 04/21/17 18:00 - Physical Exam Comments: 04/21/17 18:43 GENERAL: Well developed, well nourished. Awake and alert. No acute distress. HEENT: Normocephalic, atraumatic. Hearing grossly normal. Moist mucous membranes. PERRLA, EOMI. No conjunctival pallor. NECK: Supple. Full ROM. No JVD. CARDIOVASCULAR: Regular rate and rhythm. No murmurs, rubs, or gallops. PULMONARY: No evidence of respiratory distress. Lungs clear to auscultation bilaterally. No wheezing, rales or rhonchi. ABDOMINAL: Soft. Non-tender. Non-distended. No rebound or guarding. GENITOURINARY: No CVA tenderness bilaterally. MUSCULOSKELETAL: Normal range of motion at all joints. No bony deformities or tenderness. EXTREMITIES: No cyanosis. No clubbing. No edema. No calf tenderness. SKIN: Warm and dry. Normal capillary refill. No rashes. No jaundice. NEUROLOGICAL: Alert, awake, appropriate. Cranial nerves 2-12 intact. Normal speech. PSYCHIATRIC: Cooperative. Good eye contact. Appropriate mood and affect. Heart Score/ECG Review #1 ECG reviewed & interpreted by me at: 16:35 Compared to previous ECG there are: Changes noted (New T wave inversions in V3- V6) ED Treatment Course - LABORATORY CBC & Chemistry Diagram: 04/21/17 17:06 04/21/17 17:06 - ADDITIONAL ORDERS Additional order review: Laboratory Results 04/21/17 04/21/17 04/21/17 18:11 17:13 17:06 PT with INR 14.90 H INR 1.32 H D PTT (Actin FS) 29.4 Anticoagulation Therapy No Result Required. Puncture Site Right radial ABG pH 7.47 H ABG pCO2 at Pt Temp 30.5 L ABG pO2 at Pt Temp 95.7 ABG HCO3 22.1 ABG O2 Sat (Measured) 97.9 ABG O2 Content 16.4 ABG Base Excess -0.3 Jeremy Test Positive Carboxyhemoglobin 1.6 Methemoglobin 0.6 O2 Delivery Device Nasal cannula Oxygen Flow Rate 2l Vent Mode No Result Required. Vent Rate No Result Required. Mechanical Rate No Result Required. Pressure Support Vent No Result Required. Lactic Acid 1.3 04/21/17 17:06 RBC 3.99 L MCV 88.9 MCHC 32.7 RDW 16.1 H MPV 8.9 Neutrophils % 72.6 D Lymphocytes % 17.8 D Monocytes % 9.1 Eosinophils % 0.1 D Basophils % 0.4 - RADIOLOGY Radiology Studies Ordered: Category Date Time Status CHEST X-RAY PORTABLE* [RAD] Stat Radiology 04/21/17 16:50 Taken - Medications Given in the ED: ED Medications Discontinued Medications Generic Name Dose Route Start Last Admin Trade Name Freq PRN Reason Stop Dose Admin Famotidine/Sodium Chloride 20 mg in 50 mls @ 100 mls/hr 04/21/17 17:45 18:01 Pepcid 20 Mg Premixed Ivpb - IVPB 04/21/17 18:14 100 mls/hr ONCE ONE Administration Sodium Chloride 1,000 ml 04/21/17 16:50 04/21/17 17:51 Normal Saline - IV 04/21/17 16:51 1,000 ml ONCE ONE Administration Medical Decision Making - Medical Decision Making 04/21/17 19:06 The patient is an 81M with an extensive cardiac PMH who presents with intractable nausea, inability to eat, and chest pressure. I am concerned for a worsening cardiac process. Pending labs/imaging. Labs imaging have returned. Microblogged for admission to hospital. 04/21/17 19:25 Dr. Gonzáles accepts admission to a [facility] bed. *DC/Admit/Observation/Transfer Diagnosis at time of Disposition: Intractable nausea and vomiting Qualifiers: Vomiting type: unspecified Qualified Code(s): R11.2 - Nausea with vomiting, unspecified - Discharge Dispostion Condition at time of disposition: Stable Admit: Yes - Referrals Referrals: Varghese Barakat MD [Primary Care Provider] - - Patient Instructions - Post Discharge Activity
[2017-04-21] MEDS ORDERED: ASPIRIN COATED 81 MG TABLET.EC PO ONE (19:15)
--- NOTE | 2017-04-21 19:35 | PN ---
Teaching Attending Note Name of Resident: Shaan Damon ATTENDING PHYSICIAN STATEMENT I saw and evaluated the patient. I reviewed the resident's note and discussed the case with the resident. I agree with the resident's findings and plan as documented. SUBJECTIVE: 81 yo M with pmhx. of CAD s/p 11 stents, appendectomy, CHF, RA, DM, HTN, HLD, IA , BPH who presents with chest pain for one more week. Chest pain is in the center and has been there for one week. States his chest pain has now resolved. Denies any nausea and vomiting. OBJECTIVE: Physical: VS: Vital Signs Period Temp Pulse Resp BP Sys/Jeffrey Pulse Ox Last 24 Hr 97.8 F 72-74 18-22 124-131/74-78 98-100 GEN: NAD, Resting in bed, AA0X3 HEENT: NCAT, PERRL, Throat without erythema or exudates CARD: RRR S1, S2 RESP: Decreased breath sounds at bases ABD: BSx4, NTD to palpation, soft, non-distended EXT: Trace pitting edema CBCD WBC 9.1 K/mm3 (4.0-10.0) D 04/21/17 17:06 RBC 3.99 M/mm3 (4.00-5.60) L 04/21/17 17:06 Hgb 11.6 GM/dL (11.7-16.9) L 04/21/17 17:06 Hct 35.5 % (35.4-49) 04/21/17 17:06 MCV 88.9 fl (80-96) 04/21/17 17:06 MCHC 32.7 g/dl (32.0-35.9) 04/21/17 17:06 RDW 16.1 % (11.9-15.9) H 04/21/17 17:06 Plt Count 360 K/MM3 (134-434) D 04/21/17 17:06 MPV 8.9 fl (7.5-11.1) 04/21/17 17:06 CMP Sodium 136 mmol/L (136-145) 04/21/17 17:06 Potassium 4.3 mmol/L (3.5-5.1) D 04/21/17 17:06 Chloride 101 mmol/L (98-107) 04/21/17 17:06 Carbon Dioxide 25 mmol/L (21-32) 04/21/17 17:06 Anion Gap 10 (8-16) 04/21/17 17:06 BUN 19 mg/dL (7-18) H 04/21/17 17:06 Creatinine 1.0 mg/dL (0.7-1.3) 04/21/17 17:06 Creat Clearance w eGFR > 60 (>60) 04/21/17 17:06 Random Glucose 110 mg/dL (74-106) H 04/21/17 17:06 Calcium 8.0 mg/dL (8.5-10.1) L 04/21/17 17:06 Total Bilirubin 0.9 mg/dL (0.2-1.0) D 04/21/17 17:06 AST 45 U/L (15-37) H D 04/21/17 17:06 ALT 39 U/L (12-78) D 04/21/17 17:06 Alkaline Phosphatase 87 U/L (45-117) D 04/21/17 17:06 Total Protein 6.9 g/dl (6.4-8.2) 04/21/17 17:06 Albumin 2.7 g/dl (3.4-5.0) L 04/21/17 17:06 CARDIAC ENZYMES Creatine Kinase 49 IU/L (39-308) 04/21/17 17:06 Troponin I < 0.02 ng/ml (0.00-0.05) 04/21/17 17:06 CXR- Cardiomegaly, EKG- TWI V3-V6, Prolonged QtC HEART: 6 ECHO 04/18- EF 68%m Mild LVH, mild Home Medications Medication Instructions Recorded Aspirin [ASA -] 81 mg PO DAILY 08/14/16 Folic Acid - 1 mg PO DAILY 08/14/16 Furosemide [Lasix -] 20 mg PO ASDIR 08/14/16 Gabapentin 800 mg PO BID 08/14/16 Methotrexate Sodium [Methotrexate] 6 tab PO ASDIR 08/14/16 Methylprednisolone [Medrol -] 2 mg PO ASDIR 08/14/16 Tamsulosin HCl [Flomax] 0.4 mg PO HS 08/14/16 Travoprost [Travatan Z] 5 ml OU HS 08/14/16 Ranolazine [Ranexa -] 1,000 mg PO BID #60 tab 08/16/16 Brinzolamide/Brimonidine Tart 1 drop OS BID 08/25/16 [Simbrinza 1%-0.2% Eye Drops] Levomefolate/B6/B12/Algal Oil 1 each PO BID 03/31/17 [Foltanx Rf Capsule] Acetaminophen [Tylenol .Regular 650 mg PO Q4H PRN tablet 04/05/17 Strength -] Pantoprazole Sodium [Protonix -] 40 mg PO DAILY #30 tablet.ec 04/05/17 Metoprolol Succinate [Toprol Xl] 25 mg PO DAILY 04/21/17 Rabeprazole Sodium [Aciphex] 20 mg PO DAILY 04/21/17 ASSESSMENT AND PLAN: 81 yo M with pmhx. of CAD s/p 11 stents, appendectomy, CHF, DM, HTN, HLD, IA, BPH who presents with chest pain for one more wee 1.) Chest Pain- RO ACS - Trend Trop/EKG - ASA - Statin Allergy - Recent Echo 04/18- A Above - C/W toprol - Zetia - Cardio consult - 02 - Morphine prn - C/W Ranexa 2.) Shortness of Breath - Acute Diastolic CHF Exacerbation -C/W Lasix congestion on cxr - Lasix 20 IV with close monitoring - Wells Score 0 - Last Echo as above 3.) RA - C/W Home meds - FS / RAISS due to steriods 4.) Prolonged QtC - Avoid QT Prolonging agents - Monitor on Tele 5.) HTN - C/W Toprol 6.) DM - FS - RAISS Monitor on Tele OBS
[2017-04-21] MEDS ORDERED: ASPIRIN 325 MG ENTERIC COATED TABLET (FP) ONE (19:51)
--- NOTE | 2017-04-21 20:58 | HP ---
CHIEF COMPLAINT: chest pressure PCP:Yuval Cardiology: Ricci HISTORY OF PRESENT ILLNESS: Pt is an 81 year old man with PMH CAD (s/p 11 stents), CHF, HTN, HLD, DM who presents to ED with nausea and vomiting since 10 Apr 2017 and with chest pressure today. Pt states he was admitted to [facility] with PNA on Apr and went home with 7d ABx. 2 days after finishing the ABx he began feeling SOB, nauseated , and has been vomiting since then. Vomit has been nonbloody and nonbilious. Pt has been able to eat and drink small amounts and had some food today. His chest pressure started today while he was lying down and has been constant, nonradiating, and unrelated to activity. He states he has had cardiac symptoms in the past, and this chest pressure feels different. No other complaints. Pt denies diarrhea, fever, chills, cough, headache, body aches. ER course was notable for: (1) WBC 9.1, Hb 11.6, Tn neg (2) CXR: large cardiac shadow, hilar fullness, ? L pleural effusion, EKG: lateral TWI (3) ASA 325 given Recent Travel: denies PAST MEDICAL HISTORY: CAD (s/p 11 stents), CF, HTN, HLD, DM, BPH, Kidney stones, RA, basal cell CA (s/ p Mohs surgery with flap from chin), L4-L5 spinal stenosis (followed by Dr. Barragan), GERD PAST SURGICAL HISTORY: Social History: Smokin cig/day, quit 45-50 years ago Alcohol: denies Drugs: denies Family History: denies Allergies Ufyntsz-Evt-Eiz Reductase Inhibitor Adverse Reaction (Severe, Verified 04/04/17 11:45) HOME MEDICATIONS: Home Medications Medication Instructions Recorded Aspirin [ASA -] 81 mg PO DAILY 08/14/16 Folic Acid - 1 mg PO DAILY 08/14/16 Furosemide [Lasix -] 20 mg PO ASDIR 08/14/16 Gabapentin 800 mg PO BID 08/14/16 Methotrexate Sodium [Methotrexate] 6 tab PO ASDIR 08/14/16 Methylprednisolone [Medrol -] 2 mg PO ASDIR 08/14/16 Tamsulosin HCl [Flomax] 0.4 mg PO HS 08/14/16 Travoprost [Travatan Z] 5 ml OU HS 08/14/16 Ranolazine [Ranexa -] 1,000 mg PO BID #60 tab 08/16/16 Brinzolamide/Brimonidine Tart 1 drop OS BID 08/25/16 [Simbrinza 1%-0.2% Eye Drops] Levomefolate/B6/B12/Algal Oil 1 each PO BID 03/31/17 [Foltanx Rf Capsule] Acetaminophen [Tylenol .Regular 650 mg PO Q4H PRN tablet 04/05/17 Strength -] Pantoprazole Sodium [Protonix -] 40 mg PO DAILY #30 tablet.ec 04/05/17 Metoprolol Succinate [Toprol Xl] 25 mg PO DAILY 04/21/17 Rabeprazole Sodium [Aciphex] 20 mg PO DAILY 04/21/17 REVIEW OF SYSTEMS CONSTITUTIONAL: loss of appetite Absent: fever, chills, diaphoresis, generalized weakness, malaise, , weight change HEENT: rhinorrhea, nasal congestion Absent: , throat pain, throat swelling, difficulty swallowing, mouth swelling, ear pain, eye pain, visual changes CARDIOVASCULAR: chest pressure, peripheral edema (pt normally has edema for which Dr. Wynne is giving him Lasix) Absent: chest pain, syncope, palpitations, irregular heart rate, lightheadedness RESPIRATORY: shortness of breath Absent: cough, , dyspnea with exertion, orthopnea, wheezing, stridor, hemoptysis GASTROINTESTINAL:nausea, vomiting Absent: abdominal pain, abdominal distension, , diarrhea, constipation, melena, hematochezia GENITOURINARY: Absent: dysuria, frequency, urgency, hesitancy, hematuria, flank pain, genital pain MUSCULOSKELETAL: Absent: myalgia, arthralgia, joint swelling, back pain, neck pain SKIN: Absent: rash, itching, pallor HEMATOLOGIC/IMMUNOLOGIC: Absent: easy bleeding, easy bruising, lymphadenopathy, frequent infections ENDOCRINE: Absent: unexplained weight gain, unexplained weight loss, heat intolerance, cold intolerance NEUROLOGIC: Absent: headache, focal weakness or paresthesias, dizziness, unsteady gait, seizure, mental status changes, bladder or bowel incontinence PSYCHIATRIC: Absent: anxiety, depression, suicidal or homicidal ideation, hallucinations. PHYSICAL EXAMINATION Vital Signs - 24 hr 04/21/17 04/21/17 04/21/17 16:20 17:00 18:00 Temperature 97.8 F Pulse Rate 74 Pulse Rate [ 72 Radial] Respiratory 18 22 Rate Blood Pressure 124/78 Blood Pressure 131/74 [Left Arm] O2 Sat by Pulse 100 98 98 Oximetry (%) 04/21/17 20:09 Temperature Pulse Rate Pulse Rate [ 67 Radial] Respiratory 20 Rate Blood Pressure Blood Pressure 137/77 [Left Arm] O2 Sat by Pulse 98 Oximetry (%) GENERAL: Awake, alert, and fully oriented, in no acute distress. HEAD: Normal with no signs of trauma. EYES: Pupils equal, round and reactive to light, extraocular movements intact, sclera anicteric, conjunctiva clear. No lid lag. EARS, NOSE, THROAT: Healing lesion from previous surgery on R tip of nose, oropharynx clear without exudates. Moist mucous membranes. NECK: Normal range of motion, supple without lymphadenopathy, JVD, or masses. No carotid bruits LUNGS: Breath sounds equal, clear to auscultation bilaterally. No wheezes, and no crackles appreciated. No accessory muscle use. HEART: Regular rate and rhythm, normal S1 and S2 without murmur, rub or gallop. ABDOMEN: Soft, nontender, not distended, normoactive bowel sounds, no guarding, no rebound, no masses. No hepatomegaly or splenomegaly. MUSCULOSKELETAL: Normal range of motion at all joints. No bony deformities or tenderness. No CVA tenderness. UPPER EXTREMITIES: 2+ pulses, warm, well-perfused. No cyanosis. No clubbing. No peripheral edema. LOWER EXTREMITIES: 2+ DP left, 1+ DP right, warm, well-perfused. No calf tenderness. Trace peripheral edema. NEUROLOGICAL: Cranial nerves II-XII intact. Normal speech. PSYCHIATRIC: Cooperative. Good eye contact. Appropriate mood and affect. SKIN: Warm, dry, normal turgor, no rashes or lesions noted, normal capillary refill. Laboratory Results - last 24 hr 04/21/17 04/21/17 04/21/17 17:06 17:06 17:06 WBC 9.1 D RBC 3.99 L Hgb 11.6 L Hct 35.5 MCV 88.9 MCH 29.1 MCHC 32.7 RDW 16.1 H Plt Count 360 D MPV 8.9 Neutrophils % 72.6 D Lymphocytes % 17.8 D Monocytes % 9.1 Eosinophils % 0.1 D Basophils % 0.4 PT with INR 14.90 H INR 1.32 H D PTT (Actin FS) 29.4 Anticoagulation Therapy Puncture Site ABG pH ABG pCO2 at Pt Temp ABG pO2 at Pt Temp ABG HCO3 ABG O2 Sat (Measured) ABG O2 Content ABG Base Excess Jeremy Test Carboxyhemoglobin Methemoglobin O2 Delivery Device Oxygen Flow Rate Vent Mode Vent Rate Mechanical Rate Pressure Support Vent Sodium 136 Potassium 4.3 D Chloride 101 Carbon Dioxide 25 Anion Gap 10 BUN 19 H Creatinine 1.0 Creat Clearance w eGFR > 60 Random Glucose 110 H Lactic Acid Calcium 8.0 L Total Bilirubin 0.9 D AST 45 H D ALT 39 D Alkaline Phosphatase 87 D Creatine Kinase 49 Troponin I < 0.02 Total Protein 6.9 Albumin 2.7 L Blood Type Antibody Screen 04/21/17 04/21/17 04/21/17 17:06 17:13 18:11 WBC RBC Hgb Hct MCV MCH MCHC RDW Plt Count MPV Neutrophils % Lymphocytes % Monocytes % Eosinophils % Basophils % PT with INR INR PTT (Actin FS) Anticoagulation Therapy No Result Required. Puncture Site Right radial ABG pH 7.47 H ABG pCO2 at Pt Temp 30.5 L ABG pO2 at Pt Temp 95.7 ABG HCO3 22.1 ABG O2 Sat (Measured) 97.9 ABG O2 Content 16.4 ABG Base Excess -0.3 Jeremy Test Positive Carboxyhemoglobin 1.6 Methemoglobin 0.6 O2 Delivery Device Nasal cannula Oxygen Flow Rate 2l Vent Mode No Result Required. Vent Rate No Result Required. Mechanical Rate No Result Required. Pressure Support Vent No Result Required. Sodium Potassium Chloride Carbon Dioxide Anion Gap BUN Creatinine Creat Clearance w eGFR Random Glucose Lactic Acid 1.3 Calcium Total Bilirubin AST ALT Alkaline Phosphatase Creatine Kinase Troponin I Total Protein Albumin Blood Type A POSITIVE Antibody Screen Negative ASSESSMENT/PLAN: Pt is a pleasant 81 y/o M with extensive cardiac history who presents to ED with 10d nausea/vomiting and 1 day constant chest pressure. #CAD R/O ACS -pt states chest pressure is unlike previous cardiac symptoms and has subsided -EKG with lateral TWI -CXR with signs of congestion -Tn neg x1 -Echo in Apr 2017 showing mild LV concentric hypertrophy with normal LV and RV function -Pt took ASA 81 this morning and received 325mg in ED -ASA 81qDaily -c/w Ranexa -f/u troponin -monitor EKG -admit to Tele #CHF -pt complains of SOB -congestion on CXR -on Lasix 20mg PO. 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 He is amenable to trying here. -Lasix IV 20mg -f/u BNP #DM -BGM ACHS -ISS #RA -Pt on Methotrexate 15mg (6x 2.5mg) q weekly on Sat -Pt on Methylprednisolone alternating 1mg and 2mg dose daily #HTN -BP controlled now -c/w home meds Toprol & Lasix #BPH -c/w Tamsulosin #GERD -c/w protonix,Rabeprazole #FEN -not on fluids -lytes wnl -DM diet #PPx -Hep SubQ #Dispo -admit to Tele Shaan Damon MD PGY-1 IM Visit type - Emergency Visit Emergency Visit: Yes ED Registration Date: 04/21/17 Care time: The patient presented to the Emergency Department on the above date and was hospitalized for further evaluation of their emergent condition. - New Patient This patient is new to me today: Yes Date on this admission: 04/21/17 - Critical Care Critical Care patient: No
[2017-04-21] MEDS ORDERED: methylPREDNISolone 2 MG TABLET PO SCH (21:00)
[2017-04-21] MEDS ORDERED: FUROSEMIDE 40 MG/4 ML INJECTABLE VIAL IVPUSH ONE (21:15)
[2017-04-21 21:19] LABS: URINE APPEARANCE CLEAR; URINE BILIRUBIN NEGATIVE (NEGATIVE); URINE BLOOD NEGATIVE (NEGATIVE); URINE COLOR AMBER; URINE GLUCOSE (UA) NEGATIVE (NEGATIVE); URINE KETONE TRACE (NEGATIVE); URINE LEUK ESTERASE NEGATIVE (NEGATIVE); URINE NITRITE NEGATIVE (NEGATIVE); URINE PROTEIN NEGATIVE (NEGATIVE); URINE UROBILINOGEN NEGATIVE mg/dL (0.2-1.0)
[2017-04-21] MEDS ORDERED: B12 PO SCH (22:00)
[2017-04-21] MEDS: INSULIN SLIDING SCALE (NOVOLOG) 1 VIAL SQ SCH (22:00)
[2017-04-21] MEDS ORDERED: [UNRECOGNIZED DRUG - OTHER] PO SCH (22:00)
[2017-04-21] MEDS ORDERED: ALGAL OIL PO SCH (22:00)
[2017-04-21] MEDS ORDERED: LEVOMEFOLATE PO SCH (22:00)
[2017-04-21] MEDS ORDERED: B6 PO SCH (22:00)
[2017-04-21] MEDS: HEPARIN NA (PORCINE) 5,000 UNITS/ML 1ML VIAL SQ SCH (23:00)
[2017-04-21] MEDS: GABAPENTIN 400 MG CAPSULE (FP) PO SCH (23:00)
[2017-04-21] MEDS: RANOLAZINE E.R. 500 MG TABLET (FP) PO SCH (23:00)
[2017-04-21] MEDS: LATANOPROST 0.005% OPHTH SOLN 2.5ML BOTTLE OU SCH (23:00)
[2017-04-22] MEDS ORDERED: ASPIRIN 325 MG TABLET ONE (00:48)
[2017-04-22] MEDS ORDERED: ATORVASTATIN CA 40 MG TABLET (FP) ONE (00:48)
[2017-04-22] MEDS ORDERED: LABETALOL HCL 100 MG TABLET (FP) ONE (00:48)
[2017-04-22] MEDS ORDERED: hydrALAZINE HCL 25 MG TABLET (FP) ONE (00:48)
[2017-04-22] MEDS ORDERED: HEPARIN NA (PORCINE) 5,000 UNITS/ML 1ML VIAL ONE ×4 (00:49→23:01)
[2017-04-22] MEDS ORDERED: FUROSEMIDE 40 MG/4 ML INJECTABLE VIAL ONE (01:54)
[2017-04-22] MEDS ORDERED: INSULIN (NOVOLOG) ASPART 100 UNITS/ML 10ML VIAL ONE ×2 (02:58→17:00)
[2017-04-22] MEDS: INSULIN SLIDING SCALE (NOVOLOG) 1 VIAL SQ SCH ×4 (06:28→23:10)
[2017-04-22] MEDS: HEPARIN NA (PORCINE) 5,000 UNITS/ML 1ML VIAL SQ SCH ×3 (06:30→23:00)
[2017-04-22 07:35] LABS: BASO % 0.6 % (0-2.0); EOS % 0.9 % (0-4.5); HEMATOCRIT 35.1 % (35.4-49); HEMOGLOBIN 11.5 GM/dL (11.7-16.9); MCH 29.1 pg (25.7-33.7); MCHC 32.6 g/dl (32.0-35.9); MEAN CELL VOLUME 89.2 fl (80-96); MEAN PLT VOLUME 8.6 fl (7.5-11.1); NEUT % 61.5 % (42.8-82.8); PLATELET COUNT 312 K/MM3 (134-434); RBC 3.94 M/mm3 (4.00-5.60); WHITE BLOOD COUNT 7.7 K/mm3 (4.0-10.0)
[2017-04-22 08:03] LABS: ALBUMIN 2.6 g/dl (3.4-5.0); ANION GAP 9 (8-16); BLOOD UREA NITROGEN 17 mg/dL (7-18); CALCIUM 8.3 mg/dL (8.5-10.1); CHLORIDE 104 mmol/L (98-107); CHOLESTEROL 183 mg/dL (50-200); CO2 26 mmol/L (21-32); GLUCOSE,RANDOM 95 mg/dL (74-106); MAGNESIUM 1.9 mg/dL (1.8-2.4); PHOSPHOROUS 3.7 mg/dL (2.5-4.9); POTASSIUM 4.1 mmol/L (3.5-5.1); SGOT/AST 32 U/L (15-37); SGPT/ALT 35 U/L (12-78); SODIUM 139 mmol/L (136-145); TOT PROT 6.4 g/dl (6.4-8.2); TRIGLYCERIDES 154 mg/dL (35-160)
[2017-04-22 08:04] LABS: ALK PHOS 75 U/L (45-117); BILIRUBIN,TOTAL 0.7 mg/dL (0.2-1.0); HDL CHOLESTEROL 40 mg/dL (40-60); LDL CHOLESTEROL (ONLY SJRH) 110 mg/dL (5-100)
--- NOTE | 2017-04-22 08:54 | EKG ---
Test Reason : Blood Pressure : / mmHG Vent. Rate : 075 BPM Atrial Rate : 075 BPM P-R Int : 162 ms QRS Dur : 092 ms QT Int : 434 ms P-R-T Axes : 000 -38 270 degrees QTc Int : 484 ms NORMAL SINUS RHYTHM LEFT AXIS DEVIATION PROLONGED QT ABNORMAL ECG WHEN COMPARED WITH ECG OF 31-MAR-2017 19:54, SIGNIFICANT CHANGES HAVE OCCURRED Confirmed by Mega Ojeda ([id number]) on 04/22/2017 8:54:16 AM Referred By: Confirmed By:Mega Ojeda
--- NOTE | 2017-04-22 09:24 | CON.CARD ---
Consult Consult Specialty:: cardio Referred by:: deepali Reason for Consultation:: cp - History of Present Illness Chief Complaint: nausea, vomiting History of Present Illness: 81 yo male here with nausea and vomiting (nonbloody and nonbilious). began noticing frequent nausea, with occasional dry heaves about 2 wks ago. notes profuse sinus congestion/phlegm during this time, dripping down his throat. has had some episodes vomiting as well. +recent weight loss and being unable to tolerate food secondary to nausea. during this time he has also noticed episodic sob, and daily chest pressure in center of chest. the cp is present every day, pretty much all day he says--no radiation, no burning/acid feeling. no severe cp episodes, doesn't feel like prior angina (radiated to head/neck). no cp today so far. hasn't tried SL nitro prn at home PMH: CAD HTN HPL GERD, sweeney's h/o PUD RA - Past Medical History Cardio/Vascular: Yes: CAD (s/p multiple stenting), CHF, HTN, Hyperlipdemia, MT Gastrointestinal: Yes: Constipation, GERD (esophagitis), Hemorrhoids, Other ( RECTAL INCONTINENCE THAT HAS RESOLVED WITH FIBER) Renal/: Yes: BPH, Renal Calculi Musculoskeletal: Yes: Osteoarthritis, Other (RA, Spinal stenosis) Endocrine: Yes: Diabetes Mellitus Dermatology: Yes: Basal Cell - Past Surgical History Past Surgical History: Yes: Appendectomy, Stent (x 11), Tonsillectomy, Vein Stripping/Ligation - Alcohol/Substance Use Hx Alcohol Use: No History of Substance Use: reports: None - Smoking History Smoking history: Former smoker Have you smoked in the past 12 months: No Aproximately how many cigarettes per day: 50 If you are a former smoker, when did you quit?: 45 yrs ago - Social History Usual Living Arrangement: With Spouse ADL: Support Services History of Recent Travel: No Home Medications - Allergies Allergies/Adverse Reactions: Allergies Allergy/AdvReac Type Severity Reaction Status Date / Time [id number] Reductase AdvReac Severe Verified 04/04/17 11:45 Inhibitor - Home Medications Home Medications: Ambulatory Orders Aspirin [ASA -] 81 mg PO DAILY 08/14/16 Folic Acid - 1 mg PO DAILY 08/14/16 Furosemide [Lasix -] 20 mg PO ASDIR 08/14/16 Gabapentin 800 mg PO BID 08/14/16 Methotrexate Sodium [Methotrexate] 6 tab PO ASDIR 08/14/16 Methylprednisolone [Medrol -] 2 mg PO ASDIR 08/14/16 Tamsulosin HCl [Flomax] 0.4 mg PO HS 08/14/16 Travoprost [Travatan Z] 5 ml OU HS 08/14/16 Ranolazine [Ranexa -] 1,000 mg PO BID #60 tab 08/16/16 Brinzolamide/Brimonidine Tart [Simbrinza 1%-0.2% Eye Drops] 1 drop OS BID Levomefolate/B6/B12/Algal Oil [Foltanx Rf Capsule] 1 each PO BID 03/31/17 Acetaminophen [Tylenol .Regular Strength -] 650 mg PO Q4H PRN tablet 04/05/17 Pantoprazole Sodium [Protonix -] 40 mg PO DAILY #30 tablet.ec 04/05/17 Metoprolol Succinate [Toprol Xl] 25 mg PO DAILY 04/21/17 Rabeprazole Sodium [Aciphex] 20 mg PO DAILY 04/21/17 Family Disease History - Family Disease History Family Disease History: Heart Disease: Father (MT), Mother (HTN, HYPERLIPIDEMIA , DEMENTIA) Review of Systems - Review of Systems Constitutional: denies: Chills, Fever Eyes: denies: Eye Pain HENT: denies: Nasal Congestion Neck: denies: Stiffness Cardiovascular: denies: Palpitations Respiratory: denies: Orthopnea, PND Gastrointestinal: denies: Diarrhea, Rectal Bleeding Genitourinary: denies: Burning, Hematuria Musculoskeletal: denies: Muscle Pain Integumentary: denies: Rash Neurological: denies: Numbness, Seizure, Syncope Endocrine: denies: Excessive Sweating Hematology/Lymphatic: denies: Excessive Bleeding Vital Signs: Vital Signs Temperature 97.7 F 04/22/17 06:00 Pulse Rate 76 04/22/17 08:00 Respiratory Rate 18 04/22/17 08:00 Blood Pressure 145/79 04/22/17 08:00 O2 Sat by Pulse Oximetry (%) 98 04/22/17 08:00 Constitutional: Yes: Well Nourished, No Distress Eyes: No: Sclera Icterus HENT: No: Nasal Congestion Neck: No: Decreased ROM Respiratory: Yes: CTA Bilaterally, Rales (bases). No: Accessory Muscle Use, Wheezes Gastrointestinal: Yes: Normal Bowel Sounds. No: Distention, Hepatomegaly, Palpable Mass, Tenderness Cardiovascular: Yes: Regular Rate and Rhythm JVD: No Carotid Bruit: No PMI: Non-Displaced Heart Sounds: Yes: S1, S2. No: Gallop Murmur: No: Systolic Murmur, Diastolic Murmur Musculoskeletal: Yes: Other (No kyphosis) Extremities: No: Cool, Cyanosis Edema: No Peripheral Pulses: 2+ Left Carotid, 2+ Right Carotid, 2+ Left Doralis Pedis, 2+ Right Dorsalis Pedis Integumentary: No: Jaundice Neurological: Yes: Alert, Oriented (x3) Psychiatric: No: Agitated - Other Data Labs, Other Data: CBC, BMP 04/22/17 06:52 04/22/17 06:52 INR, PTT INR 1.32 (0.82-1.09) H D 04/21/17 17:06 Troponin, BNP 04/21/17 04/22/17 04/22/17 17:06 02:00 02:00 Troponin I < 0.02 < 0.02 B-Natriuretic Peptide 607.21 H Troponin, BNP 04/21/17 04/22/17 04/22/17 17:06 02:00 02:00 Troponin I < 0.02 < 0.02 B-Natriuretic Peptide 607.21 H Laboratory Tests 04/21/17 04/22/17 04/22/17 17:06 02:00 06:52 WBC 7.7 Hgb 11.5 L Plt Count 312 Sodium Potassium Carbon Dioxide BUN Creatinine AST ALT Troponin I < 0.02 < 0.02 04/22/17 06:52 WBC Hgb Plt Count Sodium 139 Potassium 4.1 Carbon Dioxide 26 BUN 17 Creatinine 1.0 AST 32 D ALT 35 Troponin I Assessment/Plan MPI in [facility] 07/2016: No ekg changes or anginal sx's. mod sized mild intensity posterolateral ischemia. EF 81 % Echo 04/2017: mild lvh, nl lv/rv, nl rvsp, no sig valve path [facility] 02/13: EDP 16, EF nl; patent stents: pRCA, dLAD (30-50%), OM1, OM2; 70-80% pLAD ISR--Promus; 70-80% D1 (moderate size)--PTCA; residual diffuse mild dz all 3 vessels EKG 04/21 (16:22): NSR, diffuse ST-Ts anterior and inferior, new vs prior rpt 04/22 x 2: same as 04/21 CXR 04/21 images and report reviewed: decr inspiratory effort vs prior--? incr in prior baseline interstitial markings vs tissue crowding. vs 04/01, L base eff vs atx same, R small effusion present CT chest 04/18: bibasilar consolidation/air bronchogram, small bilat effusions Assessment/Plan 81 yo with h/o CAD s/p multiple stents, dCHF, HTN, HL, DM, RA, duodenal ulcers, GERD with esophagitis, BPH, here with cp. atypical CP, nausea and vomiting/hx GERD with Sweeney's/h/o CAD with mult prior stents: - last cath 2014 with ISR of pLAD s/p Promus SRINIVAS, and stenosis of D1 s/p PTCA at that time (moderate sized diag vessel) - 07/2016 stress with low risk ischemia findings (mild posterolateral), equivocal sx's at that time, ? anginal. medically managed given >10 prior stents , including previous ISR's requiring re-intervention (ranexa incr'd, toprol added)--no angina since. - here with atyp cp in setting of nausea and vomiting, not like prior anginal sx 's. however diffuse, possibly ischemic ST-T changes vs prior. - trop neg x 2 - CT abdomen 02/15 unremarkable. check amylase/lipase - nausea/dry heaves > vomiting may be secondary to his described post-nasal drip. - will consider rpt cath in light of new ekg changes. however pt is clinically stable with no signif chf findings, no hypotension, no severe angina sx's, with negative troponins. - given h/o GERD with Sweeney's (says last EGD around 4.5 yrs ago, soon due for routine surveillance), rec he have GI consult here--prefer he have EGD prior to considering stent to r/o esophageal mass, PUD, or other hi risk for bleeding on prolonged DAPT therapy (d/w'd dr fischer). - con't zetia. h/o statin myalgias with all prior regimens tried, complicates tx (incl crestor 10). - will try crestor 5mg qd--if recurrent pains, will try livalo as outpt. - con't home regimen (ASA, toprol 25 qd, ranexa 1000 BID, zetia 10) ? diastolic dysfunction, venous ins'y with edema - uses prn low dose lasix (10-20mg qd) at home - CXR and bnp here underwhelming. small bilat effusions persist vs CT chest/CXR earlier this month, at which time may have been parapneumonic - BNP 600 (prior range 300-560). small R effusion, ? L as well (obscured). no volume on phys exam. - incr sob at home ? due to post-nasal drip? received lasix 20 ivp in ER. - defer further lasix, observe sx's/exam HTN: - well controlled, same meds
[2017-04-22] MEDS ORDERED: PATIENT'S OWN MEDICATION (NON-FORMULARY) (Rabeprazole Sodium [Aciphex] 20 MG) PO SCH (10:00)
[2017-04-22] MEDS: RANOLAZINE E.R. 500 MG TABLET (FP) PO SCH ×2 (10:37→23:00)
[2017-04-22] MEDS: GABAPENTIN 400 MG CAPSULE (FP) PO SCH ×2 (10:37→23:00)
[2017-04-22] MEDS: methylPREDNISolone 2 MG TABLET PO SCH (10:38)
[2017-04-22] MEDS: metoPROLOL SUCCINATE 25 MG TAB.SR.24H (FP) PO SCH (10:38)
[2017-04-22] MEDS: FOLIC ACID 1 MG TABLET (FP) PO SCH (10:38)
[2017-04-22] MEDS: TAMSULOSIN HCL 0.4 MG CAP.ER.24H (FP) PO SCH (10:38)
[2017-04-22] MEDS: PANTOPRAZOLE 40 MG TABLET (FP) PO SCH (10:38)
[2017-04-22] MEDS: ASPIRIN 81 MG CHEWABLE TABLETS PO SCH (10:38)
--- NOTE | 2017-04-22 12:04 | PN ---
Progress Note, Physician Chief Complaint: patient awake and alert seen in ED nasal congestion'came in for nausea vomitting and dry heaves - Current Medication List Current Medications: Active Medications Acetaminophen (Tylenol -) 650 mg PO Q4H PRN PRN Reason: FEVER Aspirin (Asa -) 81 mg PO DAILY [facility] Last Admin: 04/22/17 10:38 Dose: 81 mg Folic Acid (Folic Acid -) 1 mg PO DAILY [facility] Last Admin: 04/22/17 10:38 Dose: 1 mg Gabapentin (Neurontin -) 800 mg PO BID [facility] Last Admin: 04/22/17 10:37 Dose: 800 mg Heparin Sodium (Porcine) (Heparin -) 5,000 unit SQ TID [facility] Last Admin: 04/22/17 06:30 Dose: 5,000 unit Insulin Aspart (Novolog Vial Sliding Scale -) 1 vial SQ ACHS [facility] PRN Reason: Protocol Last Admin: 04/22/17 11:43 Dose: Not Given Latanoprost (Xalatan 0.005% Eye Drops -) 1 drop OU HS [facility] Last Admin: 04/21/17 23:00 Dose: Not Given Methotrexate (Mexate -) 15 mg PO Sa@1000 [facility] Methylprednisolone (Medrol -) 2 mg PO Q48H [facility] Last Admin: 04/22/17 10:38 Dose: 2 mg Methylprednisolone (Medrol -) 1 mg PO Q48H [facility] Metoprolol Succinate (Toprol Xl -) 25 mg PO DAILY [facility] Last Admin: 04/22/17 10:38 Dose: 25 mg Non-Formulary Medication (Brinzolamide/Brimonidine Tart [Simbrinza 1%-0.2% Eye Drops]) 1 drop OS BID [facility] Non-Formulary Medication (Levomefolate/B6/B12/Algal Oil [Foltanx Rf Capsule]) 1 each PO BID [facility] Pantoprazole Sodium (Protonix -) 40 mg PO DAILY [facility] Last Admin: 04/22/17 10:38 Dose: 40 mg Ranolazine (Ranexa -) 1,000 mg PO BID [facility] Last Admin: 04/22/17 10:37 Dose: 1,000 mg Rosuvastatin Calcium (Crestor -) 5 mg PO HS [facility] Tamsulosin HCl (Flomax -) 0.4 mg PO DAILY@0830 [facility] Last Admin: 04/22/17 10:38 Dose: 0.4 mg - Objective Vital Signs: Vital Signs Temperature 97.7 F 04/22/17 06:00 Pulse Rate 74 04/22/17 11:44 Respiratory Rate 18 04/22/17 11:44 Blood Pressure 128/70 04/22/17 11:44 O2 Sat by Pulse Oximetry (%) 100 04/22/17 11:44 Constitutional: Yes: Calm Cardiovascular: Yes: Regular Rate and Rhythm, S1, S2 Respiratory: Yes: CTA Bilaterally Gastrointestinal: Yes: Normal Bowel Sounds, Soft Neurological: Yes: Alert, Oriented Labs: CBC, BMP 04/22/17 06:52 04/22/17 06:52 INR, PTT INR 1.32 (0.82-1.09) H D 04/21/17 17:06 Problem List - Problems (1) Intractable nausea and vomiting Assessment/Plan: GI evaluation amylase lipase orderd ct unremarkable h/o gerd and barrets to get GI to see him for EGD prior to angio post nasal drip start claritin Code(s): R11.2 - NAUSEA WITH VOMITING, UNSPECIFIED Qualifiers: Vomiting type: unspecified Qualified Code(s): R11.2 - Nausea with vomiting , unspecified (2) CAD (coronary artery disease) Assessment/Plan: aspirin,toprol,crestor and ranexa seen by Cardio plan for repeat cath after EGD Code(s): I25.10 - ATHSCL HEART DISEASE OF [place] CORONARY ARTERY W/O ANG PCTRS Qualifiers: Coronary Disease-Associated Artery/Lesion type: unspecified vessel or lesion type [place] vs. transplanted heart: [place] heart Associated angina: with unspecified angina Qualified Code(s): I25.119 - Atherosclerotic heart disease of [place] coronary artery with unspecified angina pectoris (3) BPH (benign prostatic hyperplasia) Assessment/Plan: flomax Code(s): N40.0 - BENIGN PROSTATIC HYPERPLASIA WITHOUT LOWER URINRY TRACT SYMP (4) GERD (gastroesophageal reflux disease) Assessment/Plan: GI evaluation Code(s): K21.9 - GASTRO-ESOPHAGEAL REFLUX DISEASE WITHOUT ESOPHAGITIS
[2017-04-22 12:06] LABS: AMYLASE 25 U/L (25-115); LIPASE 76 U/L (73-393)
--- NOTE | 2017-04-22 15:10 | EKG ---
Test Reason : Blood Pressure : / mmHG Vent. Rate : 059 BPM Atrial Rate : 059 BPM P-R Int : 156 ms QRS Dur : 112 ms QT Int : 494 ms P-R-T Axes : 014 -24 -72 degrees QTc Int : 489 ms SINUS BRADYCARDIA WITH MARKED SINUS ARRHYTHMIA ABNORMAL ECG WHEN COMPARED WITH ECG OF 31-MAR-2017 19:54, T WAVE INVERSION NOW EVIDENT IN INFERIOR LEADS T WAVE INVERSION NOW EVIDENT IN ANTEROLATERAL LEADS QT HAS LENGTHENED Confirmed by Mega Ojeda ([id number]) on 04/22/2017 3:10:08 PM Referred By: Confirmed By:Mega Ojeda
[2017-04-22] MEDS: ROSUVASTATIN CA 5 MG TABLET (FP) PO SCH (22:57)
[2017-04-22] MEDS: LATANOPROST 0.005% OPHTH SOLN 2.5ML BOTTLE OU SCH (22:58)
[2017-04-23] MEDS: HEPARIN NA (PORCINE) 5,000 UNITS/ML 1ML VIAL SQ SCH ×3 (05:26→21:31)
[2017-04-23] MEDS: INSULIN SLIDING SCALE (NOVOLOG) 1 VIAL SQ SCH ×4 (06:03→21:36)
[2017-04-23 07:34] LABS: CHLORIDE 104 mmol/L (98-107); POTASSIUM 4.2 mmol/L (3.5-5.1); SODIUM 139 mmol/L (136-145)
--- NOTE | 2017-04-23 08:47 | PN ---
Progress Note, Physician - Current Medication List Current Medications: Active Medications Acetaminophen (Tylenol -) 650 mg PO Q4H PRN PRN Reason: FEVER Aspirin (Asa -) 81 mg PO DAILY [facility] Last Admin: 04/22/17 10:38 Dose: 81 mg Folic Acid (Folic Acid -) 1 mg PO DAILY [facility] Last Admin: 04/22/17 10:38 Dose: 1 mg Gabapentin (Neurontin -) 800 mg PO BID [facility] Last Admin: 04/22/17 23:00 Dose: 800 mg Heparin Sodium (Porcine) (Heparin -) 5,000 unit SQ TID [facility] Last Admin: 04/23/17 05:26 Dose: 5,000 unit Insulin Aspart (Novolog Vial Sliding Scale -) 1 vial SQ ACHS [facility] PRN Reason: Protocol Last Admin: 04/23/17 06:03 Dose: Not Given Latanoprost (Xalatan 0.005% Eye Drops -) 1 drop OU HS [facility] Last Admin: 04/22/17 22:58 Dose: 1 drop Loratadine (Claritin -) 10 mg PO DAILY [facility] Methotrexate (Mexate -) 15 mg PO Sa@1000 [facility] Methylprednisolone (Medrol -) 2 mg PO Q48H [facility] Last Admin: 04/22/17 10:38 Dose: 2 mg Methylprednisolone (Medrol -) 1 mg PO Q48H [facility] Metoprolol Succinate (Toprol Xl -) 25 mg PO DAILY [facility] Last Admin: 04/22/17 10:38 Dose: 25 mg Non-Formulary Medication (Brinzolamide/Brimonidine Tart [Simbrinza 1%-0.2% Eye Drops]) 1 drop OS BID [facility] Non-Formulary Medication (Levomefolate/B6/B12/Algal Oil [Foltanx Rf Capsule]) 1 each PO BID [facility] Pantoprazole Sodium (Protonix -) 40 mg PO DAILY [facility] Last Admin: 04/22/17 10:38 Dose: 40 mg Ranolazine (Ranexa -) 1,000 mg PO BID [facility] Last Admin: 04/22/17 23:00 Dose: 1,000 mg Rosuvastatin Calcium (Crestor -) 5 mg PO HS [facility] Last Admin: 04/22/17 22:57 Dose: 5 mg Tamsulosin HCl (Flomax -) 0.4 mg PO DAILY@0830 [facility] Last Admin: 04/22/17 10:38 Dose: 0.4 mg - Objective Vital Signs: Vital Signs Temperature 98.3 F 04/23/17 06:00 Pulse Rate 82 04/23/17 06:00 Respiratory Rate 20 04/23/17 06:00 Blood Pressure 124/58 04/23/17 06:00 O2 Sat by Pulse Oximetry (%) 95 04/23/17 00:42 Labs: CBC, BMP 04/22/17 06:52 04/23/17 05:35 INR, PTT INR 1.32 (0.82-1.09) H D 04/21/17 17:06 Problem List - Problems (1) Intractable nausea and vomiting Assessment/Plan: GI evaluation amylase lipase orderd ct unremarkable h/o gerd and barrets to get GI to see him for EGD prior to angio post nasal drip start claritin Code(s): R11.2 - NAUSEA WITH VOMITING, UNSPECIFIED Qualifiers: Vomiting type: unspecified Qualified Code(s): R11.2 - Nausea with vomiting , unspecified (2) GERD (gastroesophageal reflux disease) Assessment/Plan: as above Code(s): K21.9 - GASTRO-ESOPHAGEAL REFLUX DISEASE WITHOUT ESOPHAGITIS (3) Atelectasis of both lungs Assessment/Plan: ct scan noted id consult Code(s): J98.11 - ATELECTASIS (4) CAD (coronary artery disease) Assessment/Plan: same meds cardio consult noted for cath Code(s): I25.10 - ATHSCL HEART DISEASE OF [place] CORONARY ARTERY W/O ANG PCTRS Qualifiers: Coronary Disease-Associated Artery/Lesion type: unspecified vessel or lesion type [place] vs. transplanted heart: [place] heart Associated angina: with unspecified angina Qualified Code(s): I25.119 - Atherosclerotic heart disease of [place] coronary artery with unspecified angina pectoris (5) CHF (congestive heart failure) Assessment/Plan: continue with lasix Code(s): I50.9 - HEART FAILURE, UNSPECIFIED
[2017-04-23 09:12] LABS: ALBUMIN 2.5 g/dl (3.4-5.0); ALK PHOS 78 U/L (45-117); AMYLASE 22 U/L (25-115); ANION GAP 12 (8-16); BLOOD UREA NITROGEN 20 mg/dL (7-18); CALCIUM 8.4 mg/dL (8.5-10.1); CO2 26 mmol/L (21-32); GLUCOSE,RANDOM 84 mg/dL (74-106); LIPASE 65 U/L (73-393); TOT PROT 6.4 g/dl (6.4-8.2)
[2017-04-23 09:15] LABS: BILIRUBIN,TOTAL 0.6 mg/dL (0.2-1.0); SGOT/AST 47 U/L (15-37); SGPT/ALT 53 U/L (12-78)
[2017-04-23] MEDS: RANOLAZINE E.R. 500 MG TABLET (FP) PO SCH ×2 (10:20→21:29)
[2017-04-23] MEDS: metoPROLOL SUCCINATE 25 MG TAB.SR.24H (FP) PO SCH (10:21)
[2017-04-23] MEDS: LORATADINE 10 MG TABLET PO SCH (10:21)
[2017-04-23] MEDS: FOLIC ACID 1 MG TABLET (FP) PO SCH (10:21)
[2017-04-23] MEDS: TAMSULOSIN HCL 0.4 MG CAP.ER.24H (FP) PO SCH (10:21)
[2017-04-23] MEDS: PANTOPRAZOLE 40 MG TABLET (FP) PO SCH (10:21)
[2017-04-23] MEDS: ASPIRIN 81 MG CHEWABLE TABLETS PO SCH (10:21)
[2017-04-23] MEDS: GABAPENTIN 400 MG CAPSULE (FP) PO SCH ×2 (10:21→21:30)
[2017-04-23] MEDS: PATIENT'S OWN MEDICATION (NON-FORMULARY) (Brinzolamide/Brimonidine Tart [Simbrinza 1%-0.2% OS SCH ×2 (10:30→21:43)
--- NOTE | 2017-04-23 11:18 | PN ---
Progress Note (short form) - Note Progress Note: Chief Complaint: cp History of Present Illness: S: feels better today. no further chest pain. no vomiting today, still with mild nausea but was able to eat a little more today than yesterday. no sob, dizziness, palps Current Medications Acetaminophen (Tylenol -) 650 mg PO Q4H PRN PRN Reason: FEVER Aspirin (Asa -) 81 mg PO DAILY [facility] Last Admin: 04/23/17 10:21 Dose: 81 mg Folic Acid (Folic Acid -) 1 mg PO DAILY [facility] Last Admin: 04/23/17 10:21 Dose: 1 mg Gabapentin (Neurontin -) 800 mg PO BID [facility] Last Admin: 04/23/17 10:21 Dose: 800 mg Heparin Sodium (Porcine) (Heparin -) 5,000 unit SQ TID [facility] Last Admin: 04/23/17 05:26 Dose: 5,000 unit Insulin Aspart (Novolog Vial Sliding Scale -) 1 vial SQ ACHS [facility] PRN Reason: Protocol Last Admin: 04/23/17 06:03 Dose: Not Given Latanoprost (Xalatan 0.005% Eye Drops -) 1 drop OU HS [facility] Last Admin: 04/22/17 22:58 Dose: 1 drop Loratadine (Claritin -) 10 mg PO DAILY [facility] Last Admin: 04/23/17 10:21 Dose: 10 mg Methotrexate (Mexate -) 15 mg PO Sa@1000 [facility] Methylprednisolone (Medrol -) 2 mg PO Q48H [facility] Last Admin: 04/22/17 10:38 Dose: 2 mg Methylprednisolone (Medrol -) 1 mg PO Q48H [facility] Metoprolol Succinate (Toprol Xl -) 25 mg PO DAILY [facility] Last Admin: 04/23/17 10:21 Dose: 25 mg Non-Formulary Medication (Brinzolamide/Brimonidine Tart [Simbrinza 1%-0.2% Eye Drops]) 1 drop OS BID [facility] Last Admin: 04/23/17 10:30 Dose: 1 drop Non-Formulary Medication (Levomefolate/B6/B12/Algal Oil [Foltanx Rf Capsule]) 1 each PO BID [facility] Pantoprazole Sodium (Protonix -) 40 mg PO DAILY [facility] Last Admin: 04/23/17 10:21 Dose: 40 mg Ranolazine (Ranexa -) 1,000 mg PO BID [facility] Last Admin: 04/23/17 10:20 Dose: 1,000 mg Rosuvastatin Calcium (Crestor -) 5 mg PO HS [facility] Last Admin: 04/22/17 22:57 Dose: 5 mg Tamsulosin HCl (Flomax -) 0.4 mg PO DAILY@0830 [facility] Last Admin: 04/23/17 10:21 Dose: 0.4 mg Vital Signs - 24 hr 04/22/17 04/22/17 04/22/17 11:44 18:54 19:23 Temperature Pulse Rate Pulse Rate [ 74 72 78 Apical] Respiratory 18 16 21 Rate Blood Pressure Blood Pressure 128/70 134/70 104/55 [Left Arm] O2 Sat by Pulse 100 99 99 Oximetry (%) 04/22/17 04/22/17 04/23/17 21:54 23:51 00:42 Temperature 97.5 F L Pulse Rate 75 Pulse Rate [ 62 Apical] Respiratory 20 Rate Blood Pressure 126/61 Blood Pressure 145/72 [Left Arm] O2 Sat by Pulse 96 95 Oximetry (%) 04/23/17 04/23/17 04/23/17 06:00 09:55 10:15 Temperature 98.3 F 97 F L Pulse Rate 82 80 Pulse Rate [ Apical] Respiratory 20 20 Rate Blood Pressure 124/58 82/45 125/74 Blood Pressure [Left Arm] O2 Sat by Pulse Oximetry (%) Intake & Output 04/21/17 04/22/17 04/23/17 04/24/17 07:59 07:59 07:59 07:59 Intake Total 150 10 Output Total 250 Balance 150 -240 Weight 165 lb 165 lb 6.4 oz Constitutional: Yes: Well Nourished, No Distress Eyes: No: Sclera Icterus HENT: No: Nasal Congestion Neck: No: Decreased ROM Respiratory: Yes: CTA Bilaterally, Rales (bases). No: Accessory Muscle Use, Wheezes Gastrointestinal: Yes: Normal Bowel Sounds. No: Distention, Hepatomegaly, Palpable Mass, Tenderness Cardiovascular: Yes: Regular Rate and Rhythm JVD: No Carotid Bruit: No PMI: Non-Displaced Heart Sounds: Yes: S1, S2. No: Gallop Murmur: No: Systolic Murmur, Diastolic Murmur Musculoskeletal: Yes: Other (No kyphosis) Extremities: No: Cool, Cyanosis Edema: No Peripheral Pulses: 2+ Left Carotid, 2+ Right Carotid, 2+ Left Doralis Pedis, 2+ Right Dorsalis Pedis Integumentary: No: Jaundice Neurological: Yes: Alert, Oriented (x3) Psychiatric: No: Agitated - Other Data Labs, Other Data: CBC, BMP 04/22/17 06:52 04/23/17 05:35 Laboratory Tests 04/21/17 04/22/17 04/22/17 17:06 02:00 02:00 Magnesium Total Bilirubin AST 45 H D ALT Alkaline Phosphatase Troponin I < 0.02 < 0.02 B-Natriuretic Peptide 607.21 H Albumin Total Amylase Lipase 04/22/17 04/22/17 04/23/17 06:52 11:30 05:35 Magnesium 1.9 Total Bilirubin 0.6 AST 32 D 47 H D ALT 53 D Alkaline Phosphatase 78 Troponin I < 0.02 B-Natriuretic Peptide Albumin 2.5 L Total Amylase 22 L Lipase 65 L EKG 04/21 (16:22): NSR, diffuse ST-Ts anterior and inferior, new vs prior rpt 04/22 x 2: same as 04/21 tele: nsr, freq pac, pvc. ? rare sinus exit block (can't r/o 2nd degree mobitz) Echo 04/2017: mild lvh, nl lv/rv, nl rvsp, no sig valve path CXR 04/21 images and report reviewed: decr inspiratory effort vs prior--? incr in prior baseline interstitial markings vs tissue crowding. vs 04/01, L base eff vs atx same, R small effusion present CT chest 04/18: bibasilar consolidation/air bronchogram, small bilat effusions MPI in [facility] 07/2016: No ekg changes or anginal sx's. mod sized mild intensity posterolateral ischemia. EF 81 % [facility] 02/13: EDP 16, EF nl; patent stents: pRCA, dLAD (30-50%), OM1, OM2; 70-80% pLAD ISR--Promus; 70-80% D1 (moderate size)--PTCA; residual diffuse mild dz all 3 vessels Assessment/Plan 81 yo with h/o CAD s/p multiple stents, dCHF, HTN, HL, DM, RA, duodenal ulcers, GERD with esophagitis, BPH, here with nausea and vomiting (nonbloody and nonbilious) x 2 weeks, assoc with chest pressure. atypical CP, nausea and vomiting/hx GERD with Galvin's/h/o CAD with mult prior stents: - last cath 2014 with ISR of pLAD s/p Promus SRINIVAS, and stenosis of D1 s/p PTCA at that time (moderate sized diag vessel) - 07/2016 stress with low risk ischemia findings (mild posterolateral), equivocal sx's at that time, ? anginal. medically managed given >10 prior stents , including previous ISR's requiring re-intervention (ranexa incr'd, toprol added)--no angina since. - here with atyp cp in setting of nausea and vomiting, not like prior anginal sx 's. however diffuse, possibly ischemic ST-T changes vs prior. - trop neg x 2 - CT abdomen 02/15 unremarkable. amylase/lipase wnl. - nausea/dry heaves > vomiting may be secondary to his described post-nasal drip. - will consider rpt cath in light of new ekg changes. however pt is clinically stable with no signif chf findings, no hypotension, no severe angina sx's, with negative troponins. given h/o GERD with Galvin's (says last EGD around 4.5 yrs ago, soon due for routine surveillance), rec he have GI consult here ( pending)--prefer he have EGD prior to considering stent to r/o esophageal mass, PUD, or other hi risk for bleeding on prolonged DAPT therapy (d/w'd dr fischer). - con't zetia. h/o statin myalgias with all prior regimens tried, complicates tx (incl crestor 10). will try crestor 5mg qd--if recurrent pains, will try livalo as outpt. - con't home regimen (ASA, toprol 25 qd, ranexa 1000 BID, zetia 10) ? diastolic dysfunction, venous ins'y with edema - uses prn low dose lasix (10-20mg qd) at home - CXR and bnp here underwhelming. small bilat effusions persist vs CT chest/CXR earlier this month, at which time may have been parapneumonic - BNP 600 (prior range 300-560). small R effusion, ? L as well (obscured). no volume on phys exam. - incr sob at home ? due to post-nasal drip? received lasix 20 ivp in ER. - still with poor po intake in setting of nausea/vomiting. defer further lasix , observe sx's/exam HTN: - well controlled/running low on low dose toprol, con't to monitor.
[2017-04-23] MEDS: methylPREDNISolone 2 MG TABLET PO SCH (11:38)
--- NOTE | 2017-04-23 13:05 | CON.ID ---
Consult Consult Specialty:: infectious disease Referred by:: deepali Reason for Consultation:: possible pneumonia - History of Present Illness Chief Complaint: nausea, weight loss, chest discomfort History of Present Illness: 81 year old man recently hospitalized 03/31 to 04/05 fever cough sob treated for pneumonia and Influenza (empiric) with rocephin/zithromax and tamiflu, discharged on ceftin for one week he reports feeling well for one week after discharge- since that time he has had nausea and dry heaves, only chest disconfort no fevers or chills no cough he has lost 10 pounds no travel, is well no diarrhea, normal BM today pet dog - History Source History Provided By: Patient Limitations to Obtaining History: No Limitations - Past Medical History Cardio/Vascular: Yes: CAD (s/p multiple stenting), CHF, HTN, Hyperlipdemia, [place] Gastrointestinal: Yes: Constipation, GERD (esophagitis), Hemorrhoids, Other ( RECTAL INCONTINENCE THAT HAS RESOLVED WITH FIBER, duodenal ulcer, gastritis, esophagitis) Renal/: Yes: BPH, Renal Calculi Heme/Onc: Yes: Cancer (skin cancer) Musculoskeletal: Yes: Osteoarthritis, Other (, left humerus fracture) Endocrine: Yes: Diabetes Mellitus Dermatology: Yes: Basal Cell - Past Surgical History Past Surgical History: Yes: Appendectomy, Stent (x 11), Tonsillectomy, Vein Stripping/Ligation Additional Surgical History: amputation of - Alcohol/Substance Use Hx Alcohol Use: No (social) History of Substance Use: reports: None - Smoking History Smoking history: Former smoker Have you smoked in the past 12 months: No Aproximately how many cigarettes per day: 50 If you are a former smoker, when did you quit?: 45 yrs ago - Social History Usual Living Arrangement: With Spouse ADL: Support Services History of Recent Travel: No Home Medications - Allergies Allergies/Adverse Reactions: Allergies Allergy/AdvReac Type Severity Reaction Status Date / Time Bdgbrvg-Fpq-Dur Reductase AdvReac Severe Verified 04/04/17 11:45 Inhibitor - Home Medications Home Medications: Ambulatory Orders Aspirin [ASA -] 81 mg PO DAILY 08/14/16 Folic Acid - 1 mg PO ASDIR 08/14/16 Furosemide [Lasix -] 20 mg PO ASDIR 08/14/16 Gabapentin 800 mg PO BID 08/14/16 Methotrexate Sodium [Methotrexate] 6 tab PO WEEKLY 08/14/16 Methylprednisolone [Medrol -] 2 mg PO ASDIR 08/14/16 Tamsulosin HCl [Flomax] 0.4 mg PO HS 08/14/16 Travoprost [Travatan Z] 1 drop OU HS 08/14/16 Ranolazine [Ranexa -] 1,000 mg PO BID #60 tab 08/16/16 Brinzolamide/Brimonidine Tart [Simbrinza 1%-0.2% Eye Drops] 1 drop OS BID Levomefolate/B6/B12/Algal Oil [Foltanx Rf Capsule] 1 each PO BID 03/31/17 Acetaminophen [Tylenol .Regular Strength -] 650 mg PO Q4H PRN tablet 04/05/17 Pantoprazole Sodium [Protonix -] 40 mg PO DAILY #30 tablet.ec 04/05/17 Metoprolol Succinate [Toprol Xl] 25 mg PO DAILY 04/21/17 Rabeprazole Sodium [Aciphex] 20 mg PO DAILY 04/21/17 Antiox.mv No.10/Omeg3s/Lut/Melissa [I-Caps with Lutein-[place] 3 Sfg] 1 each PO DAILY 04/23/17 Beta-Carotene(A)-Vits C and E [E-400 C-500 & Beta Carotene] 1 tab PO DAILY 04/23 Cyanocobalamin [Vitamin B12 -] 1,000 mcg PO DAILY 04/23/17 Ezetimibe [Zetia] 10 mg PO HS 04/23/17 Magnesium Oxide [Mag-Ox -] 400 mg PO DAILY 04/23/17 Methylprednisolone [Medrol -] 1 mg PO ASDIR 04/23/17 Rosuvastatin Calcium [Crestor] 2.5 mg PO HS 04/23/17 Vitamin B Complex Vit C No.4 [Super B Complex] 1 tab PO DAILY 04/23/17 Family Disease History - Family Disease History Family Disease History: Heart Disease: Father (SD), Mother (HTN, HYPERLIPIDEMIA , DEMENTIA) Review of Systems - Review of Systems Constitutional: reports: Unintentional Wgt. Loss Eyes: reports: No Symptoms HENT: reports: No Symptoms. denies: Difficult Swallowing, Throat Pain Neck: reports: No Symptoms Cardiovascular: reports: Chest Pain. denies: Edema Respiratory: denies: Cough Gastrointestinal: reports: Nausea. denies: Abdominal Pain Genitourinary: reports: No Symptoms Physical Exam Vital Signs: Vital Signs Temperature 97 F L 04/23/17 10:15 Pulse Rate 80 04/23/17 10:15 Respiratory Rate 20 04/23/17 10:15 Blood Pressure 125/74 04/23/17 10:15 O2 Sat by Pulse Oximetry (%) 97 04/23/17 09:00 Constitutional: Yes: Well Nourished, No Distress, Calm Eyes: Yes: Conjunctiva Clear, EOM Intact HENT: Yes: Other (scar on nose from skin cancer) Neck: Yes: Supple, Trachea Midline Cardiovascular: Yes: Regular Rate and Rhythm Respiratory: Yes: Regular, CTA Bilaterally, Diminished (at the bases) Gastrointestinal: Yes: Normal Bowel Sounds, Soft. No: Distention, Tenderness ...Rectal Exam: Yes: Deferred Edema: No Labs: CBC, BMP 04/22/17 06:52 04/23/17 05:35 Microbiology 04/21/17 21:00 Urine - Urine Clean Catch Urine Culture - Final NO GROWTH OBTAINED 04/21/17 17:06 Blood - Peripheral Venous Blood Culture - Preliminary NO GROWTH OBTAINED AFTER 24 HOURS, INCUBATION TO CONTINUE FOR 4 DAYS. 04/21/17 17:13 Blood - Peripheral Venous Blood Culture - Preliminary NO GROWTH OBTAINED AFTER 24 HOURS, INCUBATION TO CONTINUE FOR 4 DAYS. Imaging - Results Chest X-ray: Report Reviewed Cat Scan: Report Reviewed (will review ct scan with radiologist- bilateral pleural effusions, no infiltrate, +compressive atelectasis) Problem List - Problems (1) Intractable nausea and vomiting Code(s): R11.2 - NAUSEA WITH VOMITING, UNSPECIFIED Qualifiers: Vomiting type: unspecified Qualified Code(s): R11.2 - Nausea with vomiting , unspecified (2) Chest pain Code(s): R07.9 - CHEST PAIN, UNSPECIFIED Qualifiers: Chest pain type: unspecified Qualified Code(s): R07.9 - Chest pain, unspecified (3) Atelectasis of both lungs Code(s): J98.11 - ATELECTASIS Assessment/Plan nothing to suggest active pulmonary infection incentive spirometry GI and cardiology evaluation pending no need for antibioitcs at this time, will review ct scan with radiologist- pleural effusions with compressive atelectasis , no infiltrates please call back if needed
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
[2017-04-23] MEDS ORDERED: INSULIN (NOVOLOG) ASPART 100 UNITS/ML 10ML VIAL ONE (21:20)
[2017-04-23] MEDS: ROSUVASTATIN CA 5 MG TABLET (FP) PO SCH (21:33)
[2017-04-23] MEDS ORDERED: PT OWN MED DRAWER 7, Y5N ONE ×2 (21:33→22:45)
[2017-04-23] MEDS: LATANOPROST 0.005% OPHTH SOLN 2.5ML BOTTLE OU SCH (21:43)
[2017-04-23] MEDS ORDERED: TRAVOPROST EYE OU SCH (22:00)
[2017-04-23] MEDS: TRAVOPROST EYE OU SCH (22:42)
[2017-04-24] MEDS ORDERED: DEXTROSE 5%-0.45% SALINE 1,000 ML IV SCH (00:01)
[2017-04-24] MEDS: HEPARIN NA (PORCINE) 5,000 UNITS/ML 1ML VIAL SQ SCH ×3 (06:25→21:24)
[2017-04-24] MEDS: INSULIN SLIDING SCALE (NOVOLOG) 1 VIAL SQ SCH ×4 (06:31→21:31)
--- NOTE | 2017-04-24 08:00 | EKG ---
Test Reason : Blood Pressure : / mmHG Vent. Rate : 054 BPM Atrial Rate : 054 BPM P-R Int : 178 ms QRS Dur : 098 ms QT Int : 466 ms P-R-T Axes : 032 -34 256 degrees QTc Int : 441 ms SINUS BRADYCARDIA WITH MARKED SINUS ARRHYTHMIA LEFT AXIS DEVIATION INFERIOR INFARCT , AGE UNDETERMINED ABNORMAL ECG WHEN COMPARED WITH ECG OF 22-APR-2017 02:38, NO SIGNIFICANT CHANGE WAS FOUND Confirmed by JANUSZ CONTE, VELASQUEZ ([id number]) on 04/24/2017 7:59:52 AM Referred By: Confirmed By:VELASQUEZ BOUDREAUX MD
--- NOTE | 2017-04-24 08:20 | PN ---
Progress Note, Physician - Current Medication List Current Medications: Active Medications Acetaminophen (Tylenol -) 650 mg PO Q4H PRN PRN Reason: FEVER Aspirin (Asa -) 81 mg PO DAILY [facility] Last Admin: 04/23/17 10:21 Dose: 81 mg Ezetimibe (Zetia -) 10 mg PO DAILY [facility] Folic Acid (Folic Acid -) 1 mg PO DAILY [facility] Last Admin: 04/23/17 10:21 Dose: 1 mg Gabapentin (Neurontin -) 800 mg PO BID [facility] Last Admin: 04/23/17 21:30 Dose: 800 mg Heparin Sodium (Porcine) (Heparin -) 5,000 unit SQ TID [facility] Last Admin: 04/24/17 06:25 Dose: Not Given Dextrose/Sodium Chloride (D5-1/2ns -) 1,000 mls @ 83 mls/hr IV ASDIR [facility] Last Admin: 04/24/17 00:00 Dose: 83 mls/hr Insulin Aspart (Novolog Vial Sliding Scale -) 1 vial SQ ACHS [facility] PRN Reason: Protocol Last Admin: 04/24/17 06:31 Dose: Not Given Loratadine (Claritin -) 10 mg PO DAILY [facility] Last Admin: 04/23/17 10:21 Dose: 10 mg Methotrexate (Mexate -) 15 mg PO Sa@1000 [facility] Methylprednisolone (Medrol -) 2 mg PO Q48H [facility] Last Admin: 04/22/17 10:38 Dose: 2 mg Methylprednisolone (Medrol -) 1 mg PO Q48H [facility] Last Admin: 04/23/17 11:38 Dose: 1 mg Metoprolol Succinate (Toprol Xl -) 25 mg PO DAILY [facility] Last Admin: 04/23/17 10:21 Dose: 25 mg Non-Formulary Medication (Brinzolamide/Brimonidine Tart [Simbrinza 1%-0.2% Eye Drops]) 1 drop OS BID [facility] Last Admin: 04/23/17 21:43 Dose: 1 drop Non-Formulary Medication (Levomefolate/B6/B12/Algal Oil [Foltanx Rf Capsule]) 1 each PO BID [facility] Travoprost Eye Drops (0.004%) 1 each OU HS [facility] Last Admin: 04/23/17 22:42 Dose: 1 each Pantoprazole Sodium (Protonix -) 40 mg PO DAILY [facility] Last Admin: 04/23/17 10:21 Dose: 40 mg Ranolazine (Ranexa -) 1,000 mg PO BID [facility] Last Admin: 04/23/17 21:29 Dose: 1,000 mg Rosuvastatin Calcium (Crestor -) 5 mg PO HS [facility] Last Admin: 04/23/17 21:33 Dose: 5 mg Tamsulosin HCl (Flomax -) 0.4 mg PO DAILY@0830 [facility] Last Admin: 04/23/17 10:21 Dose: 0.4 mg - Objective Vital Signs: Vital Signs Temperature 97.8 F 04/24/17 05:00 Pulse Rate 73 04/24/17 05:00 Respiratory Rate 20 04/24/17 05:00 Blood Pressure 120/62 04/24/17 05:00 O2 Sat by Pulse Oximetry (%) 93 L 04/23/17 21:00 Cardiovascular: Yes: S1, S2 Respiratory: Yes: Regular, CTA Bilaterally Gastrointestinal: Yes: Normal Bowel Sounds, Soft Labs: CBC, BMP 04/22/17 06:52 04/23/17 05:35 INR, PTT INR 1.32 (0.82-1.09) H D 04/21/17 17:06 Problem List - Problems (1) Intractable nausea and vomiting Assessment/Plan: Resolved GI evaluation noted for EGD amylase lipase NL ct unremarkable h/o gerd and barrets to get GI --for EGD prior to angio post nasal drip start claritin Code(s): R11.2 - NAUSEA WITH VOMITING, UNSPECIFIED Qualifiers: Vomiting type: unspecified Qualified Code(s): R11.2 - Nausea with vomiting , unspecified (2) GERD (gastroesophageal reflux disease) Assessment/Plan: as above Code(s): K21.9 - GASTRO-ESOPHAGEAL REFLUX DISEASE WITHOUT ESOPHAGITIS (3) Atelectasis of both lungs Assessment/Plan: ct scan noted id consult APPRECIATED IMPROVED INCENTIVE SPIROMETRY Code(s): J98.11 - ATELECTASIS (4) CAD (coronary artery disease) Assessment/Plan: same meds cardio consult noted for cath Code(s): I25.10 - ATHSCL HEART DISEASE OF [place] CORONARY ARTERY W/O ANG PCTRS Qualifiers: Coronary Disease-Associated Artery/Lesion type: unspecified vessel or lesion type [place] vs. transplanted heart: [place] heart Associated angina: with unspecified angina Qualified Code(s): I25.119 - Atherosclerotic heart disease of [place] coronary artery with unspecified angina pectoris (5) CHF (congestive heart failure) Assessment/Plan: continue with lasix Code(s): I50.9 - HEART FAILURE, UNSPECIFIED
[2017-04-24] MEDS: metoPROLOL SUCCINATE 25 MG TAB.SR.24H (FP) PO SCH (09:39)
[2017-04-24] MEDS: RANOLAZINE E.R. 500 MG TABLET (FP) PO SCH ×2 (09:39→21:21)
--- NOTE | 2017-04-24 11:53 | PN ---
Progress Note (short form) - Note Progress Note: GI Procedure NOte: Please see EGD report. No Galvin's esophagus or other etiology for nausea and dyspepsia found. Will order gastric emptying study. Discussed with Dr Groves.
--- NOTE | 2017-04-24 12:11 | PN ---
Progress Note (short form) - Note Progress Note: Chief Complaint: cp History of Present Illness: S: feels better today. no further chest pain. no vomiting today, no sob, dizziness, palps. had egd this am, unremarkable Current Medications Generic Name Dose Route Start Last Admin Trade Name Lynda PRN Reason Stop Dose Admin Acetaminophen 650 mg 04/21/17 20:55 Tylenol - PO Q4H PRN FEVER Aspirin 81 mg 04/22/17 10:00 04/23/17 10:21 Asa - PO 81 mg DAILY BLADIMIR Administration Ezetimibe 10 mg 04/24/17 10:00 Zetia - PO DAILY BLADIMIR Folic Acid 1 mg 04/22/17 10:00 04/23/17 10:21 Folic Acid - PO 1 mg DAILY BLADIMIR Administration Gabapentin 800 mg 04/21/17 22:00 04/23/17 21:30 Neurontin - PO 800 mg BID BLADIMIR Administration Heparin Sodium (Porcine) 5,000 unit 04/21/17 22:00 04/24/17 06:25 Heparin - SQ Not Given TID [facility] Dextrose/Sodium Chloride 1,000 mls @ 83 mls/hr 04/24/17 00:01 04/24/17 00:00 D5-1/2ns - IV 83 mls/hr ASDIR BLADIMIR Administration Insulin Aspart 1 vial 04/21/17 22:00 04/24/17 06:31 Novolog Vial Sliding Scale - SQ Not Given ACHS [facility] Protocol Loratadine 10 mg 04/23/17 10:00 04/23/17 10:21 Claritin - PO 10 mg DAILY BLADIMIR Administration Methotrexate 15 mg 04/27/17 10:00 Mexate - PO Sa@1000 [facility] Methylprednisolone 2 mg 04/22/17 10:00 04/22/17 10:38 Medrol - PO 2 mg Q48H BLADIMIR Administration Methylprednisolone 1 mg 04/23/17 10:00 04/23/17 11:38 Medrol - PO 1 mg Q48H BLAD[facility] Administration Metoprolol Succinate 25 mg 04/22/17 10:00 04/24/17 09:39 Toprol Xl - PO 25 mg DAILY BLADIMIR Administration Non-Formulary Medication 1 drop 04/23/17 10:00 04/23/17 21:43 Brinzolamide/Brimonidine Tart [Simbrinza 1%-0.2% Eye Drops] OS 1 drop BID BLADIMIR Administration Non-Formulary Medication 1 each 04/21/17 22:00 Levomefolate/B6/B12/Algal Oil [Foltanx Rf Capsule] PO BID [facility]AD[facility] Travoprost Eye Drops 1 each 04/23/17 22:00 04/23/17 22:42 0.004% OU 1 each HS BLADIMIR Administration Pantoprazole Sodium 40 mg 04/22/17 10:00 04/23/17 10:21 Protonix - PO 40 mg DAILY BLAD[facility]IR Administration Ranolazine 1,000 mg 04/21/17 22:00 04/24/17 09:39 Ranexa - PO 1,000 mg BID BLAD[facility]IR Administration Rosuvastatin Calcium 5 mg 04/22/17 22:00 04/23/17 21:33 Crestor - PO 5 mg HS BLADIMIR Administration Tamsulosin HCl 0.4 mg 04/22/17 08:30 04/23/17 10:21 Flomax - PO 0.4 mg DAILY@0830 BLAD[facility] Administration Vital Signs Period Temp Pulse Resp BP Sys/Jeffrey Pulse Ox Last 24 Hr 97 F-98.7 F 66-79 16-20 112-136/54-69 93-99 Constitutional: Yes: Well Nourished, No Distress Eyes: No: Sclera Icterus Respiratory: Yes: CTA Bilaterally. No: Accessory Muscle Use, Wheezes Gastrointestinal: Yes: Normal Bowel Sounds. No: Distention, Hepatomegaly, Palpable Mass, Tenderness Cardiovascular: Yes: Regular Rate and Rhythm JVD: No Heart Sounds: Yes: S1, S2. No: Gallop Murmur: No: Systolic Murmur, Diastolic Murmur Extremities: No: Cool, Cyanosis Edema: No Integumentary: No: Jaundice Neurological: Yes: Alert, Oriented (x3) Psychiatric: No: Agitated - Other Data Labs, Other Data: CBC, BMP 04/22/17 06:52 04/23/17 05:35 EKG 04/21 (16:22): NSR, diffuse ST-Ts anterior and inferior, new vs prior rpt 04/22 x 2: same as 04/21 tele: sr, brief atrial run Echo 04/2017: mild lvh, nl lv/rv, nl rvsp, no sig valve path CXR 04/21 images and report reviewed: decr inspiratory effort vs prior--? incr in prior baseline interstitial markings vs tissue crowding. vs 04/01, L base eff vs atx same, R small effusion present CT chest 04/18: bibasilar consolidation/air bronchogram, small bilat effusions MPI in [facility] 07/2016: No ekg changes or anginal sx's. mod sized mild intensity posterolateral ischemia. EF 81 % [facility] 02/13: EDP 16, EF nl; patent stents: pRCA, dLAD (30-50%), OM1, OM2; 70-80% pLAD ISR--Promus; 70-80% D1 (moderate size)--PTCA; residual diffuse mild dz all 3 vessels Assessment/Plan 81 yo with h/o CAD s/p multiple stents, dCHF, HTN, HL, DM, RA, duodenal ulcers, GERD with esophagitis, BPH, here with nausea and vomiting (nonbloody and nonbilious) x 2 weeks, assoc with chest pressure. atypical CP, nausea and vomiting/hx GERD with Galvin's/h/o CAD with mult prior stents: - last cath 2014 with ISR of pLAD s/p Promus SRINIVAS, and stenosis of D1 s/p PTCA at that time (moderate sized diag vessel) - 07/2016 stress with low risk ischemia findings (mild posterolateral), equivocal sx's at that time, ? anginal. medically managed given >10 prior stents , including previous ISR's requiring re-intervention (ranexa incr'd, toprol added)--no angina since. - here with atyp cp in setting of nausea and vomiting, not like prior anginal sx 's. however diffuse, possibly ischemic ST-T changes vs prior. - trop neg x 2 - CT abdomen 02/15 unremarkable. amylase/lipase wnl. - nausea/dry heaves > vomiting may be secondary to his described post-nasal drip. -egd done here today shows no significant abnormalities. D/w GI, plan is for gastric MT study next to see if gastroparesis could be causing his sxs. - will consider rpt cath in light of new ekg changes. however pt is clinically stable with no signif chf findings, no hypotension, no severe angina sx's, with negative troponins, so cath can be done electively. - con't zetia. h/o statin myalgias with all prior regimens tried, complicates tx (incl crestor 10). will try crestor 5mg qd--if recurrent pains, will try livalo as outpt. - con't home regimen (ASA, toprol 25 qd, ranexa 1000 BID, zetia 10) chronic diastolic dysfunction, venous ins'y with edema - uses prn low dose lasix (10-20mg qd) at home - CXR and bnp here underwhelming. small bilat effusions persist vs CT chest/CXR earlier this month, at which time may have been parapneumonic - BNP 600 (prior range 300-560). small R effusion, ? L as well (obscured). no volume on phys exam. - incr sob at home ? due to post-nasal drip? received lasix 20 ivp in ER. - still with poor po intake in setting of nausea/vomiting. defer further lasix for now HTN: -controlled
[2017-04-24] MEDS ORDERED: PT OWN MED DRAWER 7, Y5N ONE (14:14)
[2017-04-24] MEDS: LORATADINE 10 MG TABLET PO SCH (14:18)
[2017-04-24] MEDS: ASPIRIN 81 MG CHEWABLE TABLETS PO SCH (14:18)
[2017-04-24] MEDS: FOLIC ACID 1 MG TABLET (FP) PO SCH (14:18)
[2017-04-24] MEDS: TAMSULOSIN HCL 0.4 MG CAP.ER.24H (FP) PO SCH (14:18)
[2017-04-24] MEDS: PANTOPRAZOLE 40 MG TABLET (FP) PO SCH (14:18)
[2017-04-24] MEDS: EZETIMIBE 10 MG TABLET (FP) PO SCH (14:19)
[2017-04-24] MEDS: methylPREDNISolone 2 MG TABLET PO SCH (14:19)
[2017-04-24] MEDS: GABAPENTIN 400 MG CAPSULE (FP) PO SCH ×2 (14:27→21:21)
[2017-04-24] MEDS: PATIENT'S OWN MEDICATION (NON-FORMULARY) (Brinzolamide/Brimonidine Tart [Simbrinza 1%-0.2% OS SCH ×2 (14:28→21:22)
[2017-04-24] MEDS: ROSUVASTATIN CA 5 MG TABLET (FP) PO SCH (21:22)
[2017-04-24] MEDS: TRAVOPROST EYE OU SCH (21:23)
[2017-04-25] MEDS: INSULIN SLIDING SCALE (NOVOLOG) 1 VIAL SQ SCH ×4 (06:20→23:09)
[2017-04-25] MEDS: HEPARIN NA (PORCINE) 5,000 UNITS/ML 1ML VIAL SQ SCH ×3 (06:20→21:18)
--- NOTE | 2017-04-25 08:27 | PN ---
Progress Note, Physician History of Present Illness: feels better - Current Medication List Current Medications: Active Medications Acetaminophen (Tylenol -) 650 mg PO Q4H PRN PRN Reason: FEVER Aspirin (Asa -) 81 mg PO DAILY [facility] Last Admin: 04/24/17 14:18 Dose: 81 mg Ezetimibe (Zetia -) 10 mg PO DAILY [facility] Last Admin: 04/24/17 14:19 Dose: 10 mg Folic Acid (Folic Acid -) 1 mg PO DAILY [facility] Last Admin: 04/24/17 14:18 Dose: 1 mg Gabapentin (Neurontin -) 800 mg PO BID [facility] Last Admin: 04/24/17 21:21 Dose: 800 mg Heparin Sodium (Porcine) (Heparin -) 5,000 unit SQ TID [facility] Last Admin: 04/25/17 06:20 Dose: Not Given Insulin Aspart (Novolog Vial Sliding Scale -) 1 vial SQ ACHS [facility] PRN Reason: Protocol Last Admin: 04/25/17 06:20 Dose: Not Given Loratadine (Claritin -) 10 mg PO DAILY [facility] Last Admin: 04/24/17 14:18 Dose: 10 mg Methotrexate (Mexate -) 15 mg PO Sa@1000 [facility] Methylprednisolone (Medrol -) 2 mg PO Q48H [facility] Last Admin: 04/24/17 14:19 Dose: 2 mg Methylprednisolone (Medrol -) 1 mg PO Q48H [facility] Last Admin: 04/23/17 11:38 Dose: 1 mg Metoprolol Succinate (Toprol Xl -) 25 mg PO DAILY [facility] Last Admin: 04/24/17 09:39 Dose: 25 mg Non-Formulary Medication (Brinzolamide/Brimonidine Tart [Simbrinza 1%-0.2% Eye Drops]) 1 drop OS BID [facility] Last Admin: 04/24/17 21:22 Dose: 1 drop Non-Formulary Medication (Levomefolate/B6/B12/Algal Oil [Foltanx Rf Capsule]) 1 each PO BID [facility] Travoprost Eye Drops (0.004%) 1 each OU HS [facility] Last Admin: 04/24/17 21:23 Dose: 1 each Pantoprazole Sodium (Protonix -) 40 mg PO DAILY [facility] Last Admin: 04/24/17 14:18 Dose: 40 mg Ranolazine (Ranexa -) 1,000 mg PO BID [facility] Last Admin: 04/24/17 21:21 Dose: 1,000 mg Rosuvastatin Calcium (Crestor -) 5 mg PO HS [facility] Last Admin: 04/24/17 21:22 Dose: 5 mg Tamsulosin HCl (Flomax -) 0.4 mg PO DAILY@0830 [facility] Last Admin: 04/24/17 14:18 Dose: 0.4 mg - Objective Vital Signs: Vital Signs Temperature 98.2 F 04/25/17 05:58 Pulse Rate 67 04/25/17 05:58 Respiratory Rate 18 04/25/17 05:58 Blood Pressure 133/62 04/25/17 05:58 O2 Sat by Pulse Oximetry (%) 93 L 04/24/17 21:00 Cardiovascular: Yes: Regular Rate and Rhythm Respiratory: Yes: Regular, CTA Bilaterally Gastrointestinal: Yes: Normal Bowel Sounds, Soft. No: Tenderness Labs: CBC, BMP 04/22/17 06:52 04/23/17 05:35 INR, PTT INR 1.32 (0.82-1.09) H D 04/21/17 17:06 Problem List - Problems (1) Intractable nausea and vomiting Assessment/Plan: Resolved GI evaluation noted - EGD=nl amylase lipase NL ct unremarkable h/o gerd and barrets to get GI --nl egd-on ppi post nasal drip start claritin Code(s): R11.2 - NAUSEA WITH VOMITING, UNSPECIFIED Qualifiers: Vomiting type: unspecified Qualified Code(s): R11.2 - Nausea with vomiting , unspecified (2) GERD (gastroesophageal reflux disease) Assessment/Plan: as above Code(s): K21.9 - GASTRO-ESOPHAGEAL REFLUX DISEASE WITHOUT ESOPHAGITIS (3) Atelectasis of both lungs Assessment/Plan: ct scan noted id consult APPRECIATED IMPROVED INCENTIVE SPIROMETRY Code(s): J98.11 - ATELECTASIS (4) CAD (coronary artery disease) Assessment/Plan: same meds cardio consult noted for cath--to discuss with cardio timing Code(s): I25.10 - ATHSCL HEART DISEASE OF [place] CORONARY ARTERY W/O ANG PCTRS Qualifiers: Coronary Disease-Associated Artery/Lesion type: unspecified vessel or lesion type [place] vs. transplanted heart: [place] heart Associated angina: with unspecified angina Qualified Code(s): I25.119 - Atherosclerotic heart disease of [place] coronary artery with unspecified angina pectoris (5) CHF (congestive heart failure) Assessment/Plan: continue with las Code(s): I50.9 - HEART FAILURE, UNSPECIFIED
[2017-04-25] MEDS: RANOLAZINE E.R. 500 MG TABLET (FP) PO SCH (09:10)
[2017-04-25] MEDS: ASPIRIN 81 MG CHEWABLE TABLETS PO SCH (09:10)
[2017-04-25] MEDS: GABAPENTIN 400 MG CAPSULE (FP) PO SCH ×2 (09:10→21:18)
[2017-04-25] MEDS: TAMSULOSIN HCL 0.4 MG CAP.ER.24H (FP) PO SCH (09:10)
[2017-04-25] MEDS: FOLIC ACID 1 MG TABLET (FP) PO SCH (09:11)
[2017-04-25] MEDS: LORATADINE 10 MG TABLET PO SCH (09:11)
[2017-04-25] MEDS: PANTOPRAZOLE 40 MG TABLET (FP) PO SCH (09:11)
[2017-04-25] MEDS: metoPROLOL SUCCINATE 25 MG TAB.SR.24H (FP) PO SCH (09:11)
[2017-04-25] MEDS: EZETIMIBE 10 MG TABLET (FP) PO SCH (09:12)
[2017-04-25] MEDS: methylPREDNISolone 2 MG TABLET PO SCH (09:12)
[2017-04-25] MEDS: PATIENT'S OWN MEDICATION (NON-FORMULARY) (Brinzolamide/Brimonidine Tart [Simbrinza 1%-0.2% OS SCH ×2 (09:13→21:19)
--- NOTE | 2017-04-25 10:05 | PN ---
Progress Note (short form) - Note Progress Note: Chief Complaint: cp History of Present Illness: S: feels better today. no further chest pain. no vomiting today, no sob, dizziness, palps. Current Medications Generic Name Dose Route Start Last Admin Trade Name Freq PRN Reason Stop Dose Admin Acetaminophen 650 mg 04/21/17 20:55 Tylenol - PO Q4H PRN FEVER Aspirin 81 mg 04/22/17 10:00 04/25/17 09:10 Asa - PO 81 mg DAILY BLADIMIR Administration Ezetimibe 10 mg 04/24/17 10:00 04/25/17 09:12 Zetia - PO 10 mg DAILY BLADIMIR Administration Folic Acid 1 mg 04/22/17 10:00 04/25/17 09:11 Folic Acid - PO 1 mg DAILY BLADIMIR Administration Gabapentin 800 mg 04/21/17 22:00 04/25/17 09:10 Neurontin - PO 800 mg BID BLADIMIR Administration Heparin Sodium (Porcine) 5,000 unit 04/21/17 22:00 04/25/17 06:20 Heparin - SQ Not Given TID [facility] Insulin Aspart 1 vial 04/21/17 22:00 04/25/17 06:20 Novolog Vial Sliding Scale - SQ Not Given ACHS [facility] Protocol Loratadine 10 mg 04/23/17 10:00 04/25/17 09:11 Claritin - PO 10 mg DAILY BLAD[facility]IR Administration Methotrexate 15 mg 04/27/17 10:00 Mexate - PO Sa@1000 [facility] Methylprednisolone 2 mg 04/22/17 10:00 04/24/17 14:19 Medrol - PO 2 mg Q48H BLADIMIR Administration Methylprednisolone 1 mg 04/23/17 10:00 04/25/17 09:12 Medrol - PO 1 mg Q48H BLAD[facility]IR Administration Metoprolol Succinate 25 mg 04/22/17 10:00 04/25/17 09:11 Toprol Xl - PO 25 mg DAILY BLADIMIR Administration Non-Formulary Medication 1 drop 04/23/17 10:00 04/25/17 09:13 Brinzolamide/Brimonidine Tart [Simbrinza 1%-0.2% Eye Drops] OS 1 drop BID BLADIMIR Administration Non-Formulary Medication 1 each 04/21/17 22:00 Levomefolate/B6/B12/Algal Oil [Foltanx Rf Capsule] PO BID BLAD[facility]IR Travoprost Eye Drops 1 each 04/23/17 22:00 04/24/17 21:23 0.004% OU 1 each HS BLADIMIR Administration Pantoprazole Sodium 40 mg 04/22/17 10:00 04/25/17 09:11 Protonix - PO 40 mg DAILY BLADIMIR Administration Rosuvastatin Calcium 5 mg 04/22/17 22:00 04/24/17 21:22 Crestor - PO 5 mg HS BLADIMIR Administration Tamsulosin HCl 0.4 mg 04/22/17 08:30 04/25/17 09:10 Flomax - PO 0.4 mg DAILY@0830 BLADIMIR Administration Vital Signs Period Temp Pulse Resp BP Sys/Jeffrey Pulse Ox Last 24 Hr 97.9 F-99.3 F 66-80 14-20 109-136/54-70 86-99 Constitutional: Yes: Well Nourished, No Distress Eyes: No: Sclera Icterus Respiratory: Yes: CTA Bilaterally. No: Accessory Muscle Use, Wheezes Gastrointestinal: Yes: Normal Bowel Sounds. No: Distention, Hepatomegaly, Palpable Mass, Tenderness Cardiovascular: Yes: Regular Rate and Rhythm JVD: No Heart Sounds: Yes: S1, S2. No: Gallop Murmur: No: Systolic Murmur, Diastolic Murmur Extremities: No: Cool, Cyanosis Edema: No Integumentary: No: Jaundice Neurological: Yes: Alert, Oriented (x3) Psychiatric: No: Agitated - Other Data Labs, Other Data: CBC, BMP 04/22/17 06:52 04/23/17 05:35 EKG 04/21 (16:22): NSR, diffuse ST-Ts anterior and inferior, new vs prior rpt 04/22 x 2: same as 04/21 tele: sr, pvcs Echo 04/2017: mild lvh, nl lv/rv, nl rvsp, no sig valve path CXR 04/21 images and report reviewed: decr inspiratory effort vs prior--? incr in prior baseline interstitial markings vs tissue crowding. vs 04/01, L base eff vs atx same, R small effusion present CT chest 04/18: bibasilar consolidation/air bronchogram, small bilat effusions MPI in [facility] 07/2016: No ekg changes or anginal sx's. mod sized mild intensity posterolateral ischemia. EF 81 % [facility] 02/13: EDP 16, EF nl; patent stents: pRCA, dLAD (30-50%), OM1, OM2; 70-80% pLAD ISR--Promus; 70-80% D1 (moderate size)--PTCA; residual diffuse mild dz all 3 vessels Assessment/Plan 81 yo with h/o CAD s/p multiple stents, dCHF, HTN, HL, DM, RA, duodenal ulcers, GERD with esophagitis, BPH, here with nausea and vomiting (nonbloody and nonbilious) x 2 weeks, assoc with chest pressure. atypical CP, nausea and vomiting/hx GERD with Galvin's/h/o CAD with mult prior stents: - last cath 2014 with ISR of pLAD s/p Promus SRINIVAS, and stenosis of D1 s/p PTCA at that time (moderate sized diag vessel) - 07/2016 stress with low risk ischemia findings (mild posterolateral), equivocal sx's at that time, ? anginal. medically managed given >10 prior stents , including previous ISR's requiring re-intervention (ranexa incr'd, toprol added)--no angina since. - here with atyp cp in setting of nausea and vomiting, not like prior anginal sx 's. however diffuse, possibly ischemic ST-T changes vs prior. - trop neg x 2 - CT abdomen 02/15 unremarkable. amylase/lipase wnl. - nausea/dry heaves > vomiting may be secondary to his described post-nasal drip. -egd done here today shows no significant abnormalities. -other possibility of sxs suggested by GI is side effect from ranexa. This was recently increased so timing is appropriate. Will dc ranexa and monitor. - will consider rpt cath in light of new ekg changes. however pt is clinically stable with no signif chf findings, no hypotension, no severe angina sx's, with negative troponins, so cath can be done electively. - con't zetia. h/o statin myalgias with all prior regimens tried, complicates tx (incl crestor 10). will try crestor 5mg qd--if recurrent pains, will try livalo as outpt. - con't home regimen (ASA, toprol 25 qd, zetia 10) chronic diastolic dysfunction, venous ins'y with edema - uses prn low dose lasix (10-20mg qd) at home - CXR and bnp here underwhelming. small bilat effusions persist vs CT chest/CXR earlier this month, at which time may have been parapneumonic - BNP 600 (prior range 300-560). small R effusion, ? L as well (obscured). no volume on phys exam. - incr sob at home ? due to post-nasal drip? received lasix 20 ivp in ER. - still with poor po intake in setting of nausea/vomiting. defer further lasix for now HTN: -controlled cardiac villarreal remains stable
[2017-04-25] MEDS ORDERED: PT OWN MED DRAWER 7, Y5N ONE (11:36)
--- NOTE | 2017-04-25 15:06 | PATH ---
Surgical Pathology Report Patient Name: SABRINA GREEN [facility]. Rec. #: [id number] /Age/Gender: 1935 (Age: 81) / M Account: [id number] Location: [facility] Taken: 04/24/2017 Received: 04/24/2017 Reported: 04/25/2017 Physicians: Gricelda Prince M.D. Specimen(s) Received A: BX DUODENUM B: BX ANTRUM C: BX ESOPHAGUS Clinical History Preoperative diagnosis: Nausea Postoperative diagnosis: Hiatal hernia Final Diagnosis A. DUODENUM, SECOND PORTION AND BULB, BIOPSY: DUODENAL MUCOSA WITHOUT SIGNIFICANT PATHOLOGIC FINDINGS. B. STOMACH, ANTRUM, BIOPSY: GASTRIC ANTRAL MUCOSA WITH MILD CHRONIC GASTRITIS. IMMUNOHISTOCHEMICAL STAIN FOR H. PYLORI IS NEGATIVE. C. DISTAL ESOPHAGUS, BIOPSY: SQUAMOUS MUCOSA WITH FOCAL VASCULAR CONGESTION. NO COLUMNAR COMPONENT, INTESTINAL METAPLASIA OR DYSPLASIA IDENTIFIED. Electronically Signed Tiffany Emerson M.D. Gross Description A. Received in formalin, labeled "biopsy duodenum second portion and bulbt" are 3 ryder, irregular portions of soft tissue ranging from 0.3-0.4 cm. in greatest dimension. The specimens are submitted in toto in one cassette. B. Received in formalin, labeled "biopsy antrum" are 2 ryder, irregular portions of soft tissue measuring 0.2 and 0.3 cm. in greatest dimension. The specimens are submitted in toto in one cassette. C. Received in formalin, labeled "biopsy distal esophagus" are 2 ryder, irregular portions of soft tissue averaging 0.3 cm. in greatest dimension. The specimens are submitted in toto in one cassette. 04/24/2017 saudi04/24/2017
--- NOTE | 2017-04-25 17:56 | HOSP ---
Subjective - Review of Symptoms Events since last encounter: Code олег was initiated around 530pm. Per nurse, at bedside noticed acute change in mental status and speech, as well as L sided weakness. According to and nurse, he was at his baseline mental status throughout the day. Stat CT head and labs are ordered. Neurological: Yes: Weakness, Change in speech, Confusion Physical Examination Vital Signs: Vital Signs Temperature 99.0 F 04/25/17 14:46 Pulse Rate 78 04/25/17 14:46 Respiratory Rate 18 04/25/17 14:46 Blood Pressure 144/70 04/25/17 14:46 O2 Sat by Pulse Oximetry (%) 96 04/25/17 09:33 Cardiovascular: Yes: Regular Rate and Rhythm Respiratory: Yes: CTA Bilaterally Neurological: Yes: Aphasia, Confusion, Facial Droop (R), Weakness (L sided) ...Motor Strength: LUE (2/5), LLE (2/5) Labs: CBC, BMP 04/22/17 06:52 04/23/17 05:35 Hospitalist Encounter Assessment: Acute CVA - Stat CT - Urgent consult made to special education associate neurologist (Dr. Holloway) regarding tPA - Stat CBC, BMP, Mg2+, EKG - Lipid profile was order previously - Will follow Visit type - Emergency Visit Emergency Visit: No - New Patient This patient is new to me today: Yes Date on this admission: 04/25/17 - Critical Care Critical Care patient: No
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
[2017-04-25] MEDS ORDERED: ALTEPLASE 2 MG VIAL IVPUSH ONE (18:33)
[2017-04-25] MEDS ORDERED: ALTEPLASE 50 MG VIAL IVPB ONE (18:33)
[2017-04-25 18:44] LABS: BASO % 0.4 % (0-2.0); EOS % 0.3 % (0-4.5); HEMATOCRIT 32.5 % (35.4-49); MCH 29.7 pg (25.7-33.7); MCHC 33.8 g/dl (32.0-35.9); MEAN CELL VOLUME 87.9 fl (80-96); MEAN PLT VOLUME 8.8 fl (7.5-11.1); MONO % 10.5 % (3.8-10.2); NEUT % 68.8 % (42.8-82.8); PLATELET COUNT 249 K/MM3 (134-434); RDW 16.1 % (11.9-15.9); WHITE BLOOD COUNT 5.8 K/mm3 (4.0-10.0)
[2017-04-25 19:03] LABS: CHLORIDE 99 mmol/L (98-107); POTASSIUM 4.1 mmol/L (3.5-5.1); SODIUM 133 mmol/L (136-145)
[2017-04-25 19:11] LABS: ALBUMIN 2.5 g/dl (3.4-5.0); ALK PHOS 76 U/L (45-117); ANION GAP 8 (8-16); BILIRUBIN,TOTAL 0.5 mg/dL (0.2-1.0); BLOOD UREA NITROGEN 16 mg/dL (7-18); CALCIUM 7.8 mg/dL (8.5-10.1); CO2 26 mmol/L (21-32); CREATININE 1.1 mg/dL (0.7-1.3); GLUCOSE,RANDOM 119 mg/dL (74-106); MAGNESIUM 1.7 mg/dL (1.8-2.4); SGOT/AST 30 U/L (15-37); SGPT/ALT 36 U/L (12-78); TOT PROT 6.1 g/dl (6.4-8.2)
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
[2017-04-25] MEDS: TRAVOPROST EYE OU SCH (21:19)
[2017-04-25] MEDS ORDERED: VANCOMYCIN 1,000 MG in DEXTROSE 5%-WATER - 250 ML IVPB ONE (21:45)
[2017-04-26] MEDS: ROSUVASTATIN CA 5 MG TABLET (FP) PO SCH ×2 (00:43→21:29)
[2017-04-26] MEDS ORDERED: PIPERACILLIN/TAZOB 4.5 GM/100 ML PREMIX BAG IVPB SCH (02:00)
[2017-04-26] MEDS ORDERED: PIPERACILLIN/TAZOB 4.5 GM 4.5 GM in DEXTROSE 5%-WATER - 100 ML IVPB ONE (02:00)
[2017-04-26] MEDS: ACETAMINOPHEN 325 MG TABLET (FP) PO PRN ×2 (04:22→23:42)
[2017-04-26] MEDS: HEPARIN NA (PORCINE) 5,000 UNITS/ML 1ML VIAL SQ SCH ×3 (06:31→21:30)
[2017-04-26] MEDS: INSULIN SLIDING SCALE (NOVOLOG) 1 VIAL SQ SCH ×4 (07:00→23:40)
--- NOTE | 2017-04-26 08:07 | PN ---
Progress Note (short form) - Note Progress Note: Neurology addendum : MRI was reviewed yesterday by me-no signs of acute stroke. After MRI was complete, pt returned to neurological baseline. TPA was not given for the above reasons. ?TIA vs metabolic vs less likely seizure would do MRA head and Neck as well maraill follow Dr Holloawy Problem List - Problems (1) CVA (cerebral vascular accident) Code(s): I63.9 - CEREBRAL INFARCTION, UNSPECIFIED (2) Intractable nausea and vomiting Code(s): R11.2 - NAUSEA WITH VOMITING, UNSPECIFIED Qualifiers: Vomiting type: unspecified Qualified Code(s): R11.2 - Nausea with vomiting , unspecified (3) Weakness Code(s): R53.1 - WEAKNESS
[2017-04-26] MEDS: TAMSULOSIN HCL 0.4 MG CAP.ER.24H (FP) PO SCH (09:34)
[2017-04-26] MEDS: PATIENT'S OWN MEDICATION (NON-FORMULARY) (Brinzolamide/Brimonidine Tart [Simbrinza 1%-0.2% OS SCH ×2 (10:00→21:31)
--- NOTE | 2017-04-26 10:00 | PN ---
Progress Note, Physician History of Present Illness: feels better last nights events noted had change in ms--which has cleared - Current Medication List Current Medications: Active Medications Acetaminophen (Tylenol -) 650 mg PO Q4H PRN PRN Reason: FEVER Last Admin: 04/26/17 04:22 Dose: 650 mg Aspirin (Asa -) 81 mg PO DAILY [facility] Last Admin: 04/25/17 09:10 Dose: 81 mg Ezetimibe (Zetia -) 10 mg PO DAILY [facility] Last Admin: 04/25/17 09:12 Dose: 10 mg Folic Acid (Folic Acid -) 1 mg PO DAILY [facility] Last Admin: 04/25/17 09:11 Dose: 1 mg Gabapentin (Neurontin -) 800 mg PO BID [facility] Last Admin: 04/25/17 21:18 Dose: 800 mg Heparin Sodium (Porcine) (Heparin -) 5,000 unit SQ TID [facility] Last Admin: 04/26/17 06:31 Dose: 5,000 unit Insulin Aspart (Novolog Vial Sliding Scale -) 1 vial SQ ACHS [facility] PRN Reason: Protocol Last Admin: 04/26/17 07:00 Dose: Not Given Loratadine (Claritin -) 10 mg PO DAILY [facility] Last Admin: 04/25/17 09:11 Dose: 10 mg Methotrexate (Mexate -) 15 mg PO Sa@1000 [facility] Methylprednisolone (Medrol -) 2 mg PO Q48H [facility] Last Admin: 04/24/17 14:19 Dose: 2 mg Methylprednisolone (Medrol -) 1 mg PO Q48H [facility] Last Admin: 04/25/17 09:12 Dose: 1 mg Metoprolol Succinate (Toprol Xl -) 25 mg PO DAILY [facility] Last Admin: 04/25/17 09:11 Dose: 25 mg Non-Formulary Medication (Brinzolamide/Brimonidine Tart [Simbrinza 1%-0.2% Eye Drops]) 1 drop OS BID [facility] Last Admin: 04/25/17 21:19 Dose: 1 drop Non-Formulary Medication (Levomefolate/B6/B12/Algal Oil [Foltanx Rf Capsule]) 1 each PO BID [facility] Travoprost Eye Drops (0.004%) 1 each OU HS [facility] Last Admin: 04/25/17 21:19 Dose: 1 each Pantoprazole Sodium (Protonix -) 40 mg PO DAILY [facility] Last Admin: 04/25/17 09:11 Dose: 40 mg Piperacillin/Tazobactam/Dextrose (Zosyn 4.5gm Ivpb (Premix)) 4.5 gm IVPB Q8H- IV BLADIMIR Rosuvastatin Calcium (Crestor -) 5 mg PO HS [facility] Last Admin: 04/26/17 00:43 Dose: Not Given Tamsulosin HCl (Flomax -) 0.4 mg PO DAILY@0830 [facility] Last Admin: 04/26/17 09:34 Dose: 0.4 mg - Objective Vital Signs: Vital Signs Temperature 100.3 F H 04/26/17 06:23 Pulse Rate 73 04/26/17 08:00 Respiratory Rate 17 04/26/17 08:00 Blood Pressure 102/53 04/26/17 08:00 O2 Sat by Pulse Oximetry (%) 100 04/25/17 20:57 Cardiovascular: Yes: S1, S2 Respiratory: Yes: Regular, CTA Bilaterally Gastrointestinal: Yes: Normal Bowel Sounds, Soft. No: Tenderness Neurological: Yes: Alert, Oriented. No: Aphasia, Confusion Labs: CBC, BMP 04/25/17 18:10 04/25/17 18:10 INR, PTT INR 1.32 (0.82-1.09) H D 04/21/17 17:06 Problem List - Problems (1) TIA (transient ischemic attack) Assessment/Plan: ct of head and mri negative on asa neuro appreciated cardio f/u Code(s): G45.9 - TRANSIENT CEREBRAL ISCHEMIC ATTACK, UNSPECIFIED (2) Change in mental status Assessment/Plan: resolved as above on iv abx cultures id Code(s): R41.82 - ALTERED MENTAL STATUS, UNSPECIFIED (3) Intractable nausea and vomiting Assessment/Plan: Resolved GI evaluation noted - EGD=nl amylase lipase NL ct unremarkable h/o gerd and barrets to get GI --nl egd-on ppi post nasal drip start claritin Code(s): R11.2 - NAUSEA WITH VOMITING, UNSPECIFIED Qualifiers: Vomiting type: unspecified Qualified Code(s): R11.2 - Nausea with vomiting , unspecified (4) GERD (gastroesophageal reflux disease) Assessment/Plan: as above Code(s): K21.9 - GASTRO-ESOPHAGEAL REFLUX DISEASE WITHOUT ESOPHAGITIS (5) Atelectasis of both lungs Assessment/Plan: ct scan noted id consult APPRECIATED IMPROVED INCENTIVE SPIROMETRY Code(s): J98.11 - ATELECTASIS (6) CAD (coronary artery disease) Assessment/Plan: same meds cardio consult noted for cath--to discuss with cardio timing Code(s): I25.10 - ATHSCL HEART DISEASE OF [place] CORONARY ARTERY W/O ANG PCTRS Qualifiers: Coronary Disease-Associated Artery/Lesion type: unspecified vessel or lesion type [place] vs. transplanted heart: [place] heart Associated angina: with unspecified angina Qualified Code(s): I25.119 - Atherosclerotic heart disease of [place] coronary artery with unspecified angina pectoris (7) CHF (congestive heart failure) Assessment/Plan: continue with lasix Code(s): I50.9 - HEART FAILURE, UNSPECIFIED
[2017-04-26] MEDS: LORATADINE 10 MG TABLET PO SCH (10:14)
[2017-04-26] MEDS: ASPIRIN 81 MG CHEWABLE TABLETS PO SCH (10:14)
[2017-04-26] MEDS: GABAPENTIN 400 MG CAPSULE (FP) PO SCH ×2 (10:14→21:29)
[2017-04-26] MEDS: PANTOPRAZOLE 40 MG TABLET (FP) PO SCH (10:14)
[2017-04-26] MEDS: metoPROLOL SUCCINATE 25 MG TAB.SR.24H (FP) PO SCH (10:14)
[2017-04-26 10:15] LABS: BASO % 0.6 % (0-2.0); EOS % 0.1 % (0-4.5); HEMATOCRIT 33.2 % (35.4-49); HEMOGLOBIN 10.9 GM/dL (11.7-16.9); LYMPH % 20.4 % (8-40); MCHC 32.8 g/dl (32.0-35.9); MEAN CELL VOLUME 88.5 fl (80-96); MEAN PLT VOLUME 8.1 fl (7.5-11.1); MONO % 6.5 % (3.8-10.2); NEUT % 72.4 % (42.8-82.8); PLATELET COUNT 203 K/MM3 (134-434); RBC 3.75 M/mm3 (4.00-5.60); RDW 16.4 % (11.9-15.9); WHITE BLOOD COUNT 7.6 K/mm3 (4.0-10.0)
[2017-04-26] MEDS: methylPREDNISolone 2 MG TABLET PO SCH (10:15)
[2017-04-26] MEDS: EZETIMIBE 10 MG TABLET (FP) PO SCH (10:20)
[2017-04-26] MEDS: FOLIC ACID 1 MG TABLET (FP) PO SCH (10:21)
[2017-04-26 10:41] LABS: ALBUMIN 2.4 g/dl (3.4-5.0); ANION GAP 10 (8-16); BILIRUBIN,TOTAL 0.4 mg/dL (0.2-1.0); BLOOD UREA NITROGEN 14 mg/dL (7-18); CALCIUM 7.6 mg/dL (8.5-10.1); CHLORIDE 98 mmol/L (98-107); CO2 25 mmol/L (21-32); CREATININE 1.2 mg/dL (0.7-1.3); GLUCOSE,RANDOM 140 mg/dL (74-106); POTASSIUM 3.4 mmol/L (3.5-5.1); SGOT/AST 24 U/L (15-37); SGPT/ALT 32 U/L (12-78); SODIUM 133 mmol/L (136-145); TOT PROT 6.1 g/dl (6.4-8.2)
[2017-04-26 10:56] LABS: ALK PHOS 69 U/L (45-117)
--- NOTE | 2017-04-26 11:06 | PN ---
Progress Note (short form) - Note Progress Note: Chief Complaint: cp History of Present Illness: S: no further chest pain. no nausea/vomiting today, no sob, dizziness, palps. overnight had acute MS changes, evaluated by neuro, had unremarkable mri brain, sxs resolved, possible tia. ex cigs Current Medications Generic Name Dose Route Start Last Admin Trade Name Freq PRN Reason Stop Dose Admin Acetaminophen 650 mg 04/21/17 20:55 04/26/17 04:22 Tylenol - PO 650 mg Q4H PRN Administration FEVER Aspirin 81 mg 04/22/17 10:00 04/26/17 10:14 Asa - PO 81 mg DAILY BLADIMIR Administration Ezetimibe 10 mg 04/24/17 10:00 04/26/17 10:20 Zetia - PO 10 mg DAILY BLADIMIR Administration Folic Acid 1 mg 04/22/17 10:00 04/26/17 10:21 Folic Acid - PO 1 mg DAILY BLADIMIR Administration Gabapentin 800 mg 04/21/17 22:00 04/26/17 10:14 Neurontin - PO 800 mg BID BLADIMIR Administration Heparin Sodium (Porcine) 5,000 unit 04/21/17 22:00 04/26/17 06:31 Heparin - SQ 5,000 unit TID BLADIMIR Administration Insulin Aspart 1 vial 04/21/17 22:00 04/26/17 07:00 Novolog Vial Sliding Scale - SQ Not Given ACHS [facility] Protocol Loratadine 10 mg 04/23/17 10:00 04/26/17 10:14 Claritin - PO 10 mg DAILY BLADIMIR Administration Methotrexate 15 mg 04/27/17 10:00 Mexate - PO Sa@1000 BLADIMIR Methylprednisolone 2 mg 04/22/17 10:00 04/26/17 10:15 Medrol - PO 2 mg Q48H BLADIMIR Administration Methylprednisolone 1 mg 04/23/17 10:00 04/25/17 09:12 Medrol - PO 1 mg Q48H BLADIMIR Administration Metoprolol Succinate 25 mg 04/22/17 10:00 04/26/17 10:14 Toprol Xl - PO 25 mg DAILY BLADIMIR Administration Non-Formulary Medication 1 drop 04/23/17 10:00 04/25/17 21:19 Brinzolamide/Brimonidine Tart [Simbrinza 1%-0.2% Eye Drops] OS 1 drop BID BLADIMIR Administration Non-Formulary Medication 1 each 04/21/17 22:00 Levomefolate/B6/B12/Algal Oil [Foltanx Rf Capsule] PO BID BLADIMIR Travoprost Eye Drops 1 each 04/23/17 22:00 04/25/17 21:19 0.004% OU 1 each HS BLADIMIR Administration Pantoprazole Sodium 40 mg 04/22/17 10:00 04/26/17 10:14 Protonix - PO 40 mg DAILY BLADIMIR Administration Piperacillin/Tazobactam/Dextrose 4.5 gm 04/26/17 02:00 Zosyn 4.5gm Ivpb (Premix) IVPB Q8H-IV BLAD[facility]IR Rosuvastatin Calcium 5 mg 04/22/17 22:00 04/26/17 00:43 Crestor - PO Not Given HS BLADIMIR Tamsulosin HCl 0.4 mg 04/22/17 08:30 04/26/17 09:34 Flomax - PO 0.4 mg DAILY@0830 BLADIMIR Administration Vital Signs Temp 100.3 F H 04/26/17 06:23 Pulse 73 04/26/17 08:00 Resp 17 04/26/17 08:00 BP 102/53 04/26/17 08:00 Pulse Ox 100 04/25/17 20:57 Intake & Output 04/25/17 04/25/17 04/26/17 11:59 23:59 11:59 Intake Total 0 250 100 Output Total 800 Balance 0 250 -700 Weight 162 lb 14.746 oz Intake: IV 0 RAC 20 04/21/2017 0 IVPB 250 100 Output: Urine 800 Teran 400 Void 400 Other: Voiding Method Urinal Urinal # Unmeasured Voids Void 1 Weight Measurement Method Built in [facility] Constitutional: Yes: Well Nourished, No Distress Eyes: No: Sclera Icterus Respiratory: Yes: CTA Bilaterally. No: Accessory Muscle Use, Wheezes Gastrointestinal: Yes: Normal Bowel Sounds. No: Distention, Hepatomegaly, Palpable Mass, Tenderness Cardiovascular: Yes: Regular Rate and Rhythm JVD: No Heart Sounds: Yes: S1, S2. No: Gallop Murmur: No: Systolic Murmur, Diastolic Murmur Extremities: No: Cool, Cyanosis Edema: No Integumentary: No: Jaundice Neurological: Yes: Alert, Oriented (x3) Psychiatric: No: Agitated no carotid bruits - Other Data Labs, Other Data: Laboratory Last Values WBC 7.6 K/mm3 (4.0-10.0) D 04/26/17 10:00 RBC 3.75 M/mm3 (4.00-5.60) L 04/26/17 10:00 Hgb 10.9 GM/dL (11.7-16.9) L 04/26/17 10:00 Hct 33.2 % (35.4-49) L 04/26/17 10:00 MCV 88.5 fl (80-96) 04/26/17 10:00 MCH 29.0 pg (25.7-33.7) 04/26/17 10:00 MCHC 32.8 g/dl (32.0-35.9) 04/26/17 10:00 RDW 16.4 % (11.9-15.9) H 04/26/17 10:00 Plt Count 203 K/MM3 (134-434) 04/26/17 10:00 MPV 8.1 fl (7.5-11.1) 04/26/17 10:00 Neutrophils % 72.4 % (42.8-82.8) 04/26/17 10:00 Lymphocytes % 20.4 % (8-40) 04/26/17 10:00 Monocytes % 6.5 % (3.8-10.2) 04/26/17 10:00 Eosinophils % 0.1 % (0-4.5) 04/26/17 10:00 Basophils % 0.6 % (0-2.0) 04/26/17 10:00 PT with INR 14.90 SEC (9.98-11.88) H 04/21/17 17:06 INR 1.32 (0.82-1.09) H D 04/21/17 17:06 PTT (Actin FS) 29.4 SECONDS (26.9-34.4) 04/21/17 17:06 Anticoagulation Therapy No Result Required. 04/21/17 18:11 Puncture Site Right radial 04/21/17 18:11 ABG pH 7.47 (7.35-7.45) H 04/21/17 18:11 ABG pCO2 at Pt Temp 30.5 mmHg (35-45) L 04/21/17 18:11 ABG pO2 at Pt Temp 95.7 mmHg (68-100) 04/21/17 18:11 ABG HCO3 22.1 meq/L (22-26) 04/21/17 18:11 ABG O2 Sat (Measured) 97.9 % (90-98.9) 04/21/17 18:11 ABG O2 Content 16.4 % vol (15-22) 04/21/17 18:11 ABG Base Excess -0.3 meq/l (-2-2) 04/21/17 18:11 Jeremy Test Positive 04/21/17 18:11 Carboxyhemoglobin 1.6 gm% (0.5-2.0) 04/21/17 18:11 Methemoglobin 0.6 % (0.4-1.5) 04/21/17 18:11 O2 Delivery Device Nasal cannula 04/21/17 18:11 Oxygen Flow Rate 2l 04/21/17 18:11 Vent Mode No Result Required. 04/21/17 18:11 Vent Rate No Result Required. 04/21/17 18:11 Mechanical Rate No Result Required. 04/21/17 18:11 Pressure Support Vent No Result Required. 04/21/17 18:11 Sodium 133 mmol/L (136-145) L 04/25/17 18:10 Potassium 4.1 mmol/L (3.5-5.1) 04/25/17 18:10 Chloride 99 mmol/L (98-107) 04/25/17 18:10 Carbon Dioxide 26 mmol/L (21-32) 04/25/17 18:10 Anion Gap 8 (8-16) 04/25/17 18:10 BUN 16 mg/dL (7-18) 04/25/17 18:10 Creatinine 1.1 mg/dL (0.7-1.3) 04/25/17 18:10 Creat Clearance w eGFR > 60 (>60) 04/25/17 18:10 POC Glucometer 119.90347 UNITS (80-120) 04/26/17 06:54 Random Glucose 119 mg/dL (74-106) H D 04/25/17 18:10 Lactic Acid 1.1 mmol/L (0.0-2.0) 04/25/17 21:30 Calcium 7.8 mg/dL (8.5-10.1) L 04/25/17 18:10 Phosphorus 3.7 mg/dL (2.5-4.9) D 04/22/17 06:52 Magnesium 1.7 mg/dL (1.8-2.4) L 04/25/17 18:10 Total Bilirubin 0.5 mg/dL (0.2-1.0) 04/25/17 18:10 AST 30 U/L (15-37) D 04/25/17 18:10 ALT 36 U/L (12-78) D 04/25/17 18:10 Alkaline Phosphatase 76 U/L (45-117) 04/25/17 18:10 Creatine Kinase 85 IU/L (39-308) 04/22/17 11:30 Troponin I < 0.02 ng/ml (0.00-0.05) 04/22/17 11:30 B-Natriuretic Peptide 607.21 pg/ml (5-450) H 04/22/17 02:00 Total Protein 6.1 g/dl (6.4-8.2) L 04/25/17 18:10 Albumin 2.5 g/dl (3.4-5.0) L 04/25/17 18:10 Triglycerides 154 mg/dL (35-160) D 04/22/17 06:52 Cholesterol 183 mg/dL (50-200) 04/22/17 06:52 Total LDL Cholesterol 110 mg/dL (5-100) H 04/22/17 06:52 HDL Cholesterol 40 mg/dL (40-60) 04/22/17 06:52 Total Amylase 22 U/L (25-115) L 04/23/17 05:35 Lipase 65 U/L (73-393) L 04/23/17 05:35 Urine Color Guerita 04/21/17 21:00 Urine Appearance Clear 04/21/17 21:00 Urine pH 6.0 (5.0-8.0) 04/21/17 21:00 Ur Specific [place] 1.014 (1.001-1.035) 04/21/17 21:00 Urine Protein Negative (NEGATIVE) 04/21/17 21:00 Urine Glucose (UA) Negative (NEGATIVE) 04/21/17 21:00 Urine Ketones Trace (NEGATIVE) H 04/21/17 21:00 Urine Blood Negative (NEGATIVE) 04/21/17 21:00 Urine Nitrite Negative (NEGATIVE) 01/21/18 21:00 Urine Bilirubin Negative (NEGATIVE) 04/21/17 21:00 Urine Urobilinogen Negative mg/dL (0.2-1.0) 04/21/17 21:00 Ur Leukocyte Esterase Negative (NEGATIVE) 04/21/17 21:00 Blood Type A POSITIVE 04/21/17 17:06 Antibody Screen Negative 04/21/17 17:06 EKG 04/21 (16:22): NSR, diffuse ST-Ts anterior and inferior, new vs prior rpt 04/22 x 2: same as 04/21 tele: sr, pvcs Echo 04/2017: mild lvh, nl lv/rv, nl rvsp, no sig valve path CXR 04/21 images and report reviewed: decr inspiratory effort vs prior--? incr in prior baseline interstitial markings vs tissue crowding. vs 04/01, L base eff vs atx same, R small effusion present CT chest 04/18: bibasilar consolidation/air bronchogram, small bilat effusions MPI in [facility] 07/2016: No ekg changes or anginal sx's. mod sized mild intensity posterolateral ischemia. EF 81 % [facility] 02/13: EDP 16, EF nl; patent stents: pRCA, dLAD (30-50%), OM1, OM2; 70-80% pLAD ISR--Promus; 70-80% D1 (moderate size)--PTCA; residual diffuse mild dz all 3 vessels Assessment/Plan 81 yo with h/o CAD s/p multiple stents, dCHF, HTN, HL, DM, RA, duodenal ulcers, GERD with esophagitis, BPH, here with nausea and vomiting (nonbloody and nonbilious) x 2 weeks, assoc with chest pressure. atypical CP, nausea and vomiting/hx GERD with Galvin's/h/o CAD with mult prior stents: - last cath 2014 with ISR of pLAD s/p Promus SRINIVAS, and stenosis of D1 s/p PTCA at that time (moderate sized diag vessel) - 07/2016 stress with low risk ischemia findings (mild posterolateral), equivocal sx's at that time, ? anginal. medically managed given >10 prior stents , including previous ISR's requiring re-intervention (ranexa incr'd, toprol added)--no angina since. - here with atyp cp in setting of nausea and vomiting, not like prior anginal sx 's. however diffuse, possibly ischemic ST-T changes vs prior. - trop neg x 2 - CT abdomen 02/15 unremarkable. amylase/lipase wnl. - nausea/dry heaves > vomiting may be secondary to his described post-nasal drip. -egd done here today shows no significant abnormalities. -other possibility of sxs suggested by GI is side effect from ranexa. This was recently increased so timing is appropriate. Will dc ranexa (last dose 04/25 AM ) and monitor. - will consider rpt cath in light of new ekg changes. however pt is clinically stable with no signif chf findings, no hypotension, no severe angina sx's, with negative troponins, so cath can be done electively. - con't zetia. h/o statin myalgias with all prior regimens tried, complicates tx (incl crestor 10). will try crestor 5mg qd--if recurrent pains, will try livalo as outpt. - con't home regimen (ASA, toprol 25 qd, zetia 10) chronic diastolic dysfunction, venous ins'y with edema - uses prn low dose lasix (10-20mg qd) at home, no signs overload, continue same HTN: -controlled AMS: -acute ams 04/25 PM, evaluated by neuro and thought to be TIA vs metabolic vs seizure. Sxs resolved now. Plan per neuro.
--- NOTE | 2017-04-26 12:12 | PN ---
Teaching Attending Note Name of Resident: Bravo Hall ATTENDING PHYSICIAN STATEMENT I saw and evaluated the patient. I reviewed the resident's note and discussed the case with the resident. I agree with the resident's findings and plan as documented. SUBJECTIVE: Patient seen and examined in the ICU. Awake and alert. No MARTINEZ, BOV, dizziness, etc. Neuro exam now appears to be intact. No CP or SOB. Intake & Output 04/23/17 04/24/17 04/25/17 04/26/17 23:59 23:59 23:59 23:59 Intake Total 200 539.5 250 100 Output Total 525 225 800 Balance -325 314.5 250 -700 Weight 162 lb 14.746 oz Last Vital Signs Temp Pulse Resp BP Pulse Ox 100.3 F H 73 17 102/53 100 04/26/17 06:23 04/26/17 08:00 04/26/17 08:00 04/26/17 08:00 04/25/17 20:57 Active Medications Acetaminophen (Tylenol -) 650 mg PO Q4H PRN PRN Reason: FEVER Last Admin: 04/26/17 04:22 Dose: 650 mg Aspirin (Asa -) 81 mg PO DAILY [facility] Last Admin: 04/26/17 10:14 Dose: 81 mg Ezetimibe (Zetia -) 10 mg PO DAILY [facility] Last Admin: 04/26/17 10:20 Dose: 10 mg Folic Acid (Folic Acid -) 1 mg PO DAILY [facility] Last Admin: 04/26/17 10:21 Dose: 1 mg Gabapentin (Neurontin -) 800 mg PO BID [facility] Last Admin: 04/26/17 10:14 Dose: 800 mg Heparin Sodium (Porcine) (Heparin -) 5,000 unit SQ TID [facility] Last Admin: 04/26/17 06:31 Dose: 5,000 unit Insulin Aspart (Novolog Vial Sliding Scale -) 1 vial SQ ACHS [facility] PRN Reason: Protocol Last Admin: 04/26/17 07:00 Dose: Not Given Loratadine (Claritin -) 10 mg PO DAILY [facility] Last Admin: 04/26/17 10:14 Dose: 10 mg Methotrexate (Mexate -) 15 mg PO Sa@1000 [facility] Methylprednisolone (Medrol -) 2 mg PO Q48H [facility] Last Admin: 04/26/17 10:15 Dose: 2 mg Methylprednisolone (Medrol -) 1 mg PO Q48H [facility] Last Admin: 04/25/17 09:12 Dose: 1 mg Metoprolol Succinate (Toprol Xl -) 25 mg PO DAILY [facility] Last Admin: 04/26/17 10:14 Dose: 25 mg Non-Formulary Medication (Brinzolamide/Brimonidine Tart [Simbrinza 1%-0.2% Eye Drops]) 1 drop OS BID [facility] Last Admin: 04/25/17 21:19 Dose: 1 drop Travoprost Eye Drops (0.004%) 1 each OU HS [facility] Last Admin: 04/25/17 21:19 Dose: 1 each Pantoprazole Sodium (Protonix -) 40 mg PO DAILY [facility] Last Admin: 04/26/17 10:14 Dose: 40 mg Piperacillin/Tazobactam/Dextrose (Zosyn 4.5gm Ivpb (Premix)) 4.5 gm IVPB Q8H- IV [facility] Rosuvastatin Calcium (Crestor -) 5 mg PO HS [facility] Last Admin: 04/26/17 00:43 Dose: Not Given Tamsulosin HCl (Flomax -) 0.4 mg PO DAILY@0830 [facility] Last Admin: 04/26/17 09:34 Dose: 0.4 mg Constitutional: Yes: Well Nourished, No Distress, Calm Eyes: Yes: Conjunctiva Clear, EOM Intact HENT: Yes: Other (scar on nose from skin cancer) Neck: Yes: Supple, Trachea Midline Cardiovascular: Yes: Regular Rate and Rhythm Respiratory: Yes: Regular, CTA Bilaterally, Diminished (at the bases) Gastrointestinal: Yes: Normal Bowel Sounds, Soft. No: Distention, Tenderness ...Rectal Exam: Yes: Deferred Edema: No Labs: Laboratory Results - last 24 hr 04/25/17 04/25/17 04/25/17 11:54 17:10 18:10 WBC 5.8 RBC 3.70 L Hgb 11.0 L Hct 32.5 L MCV 87.9 MCH 29.7 MCHC 33.8 RDW 16.1 H Plt Count 249 D MPV 8.8 Neutrophils % 68.8 Lymphocytes % 20.0 D Monocytes % 10.5 H Eosinophils % 0.3 Basophils % 0.4 Sodium Potassium Chloride Carbon Dioxide Anion Gap BUN Creatinine Creat Clearance w eGFR POC Glucometer 111 122 Random Glucose Lactic Acid Calcium Magnesium Total Bilirubin AST ALT Alkaline Phosphatase Creatine Kinase Troponin I Total Protein Albumin TSH 04/25/17 04/25/17 04/25/17 18:10 21:30 22:58 WBC RBC Hgb Hct MCV MCH MCHC RDW Plt Count MPV Neutrophils % Lymphocytes % Monocytes % Eosinophils % Basophils % Sodium 133 L Potassium 4.1 Chloride 99 Carbon Dioxide 26 Anion Gap 8 BUN 16 Creatinine 1.1 Creat Clearance w eGFR > 60 POC Glucometer 155.76013 Random Glucose 119 H D Lactic Acid 1.1 Calcium 7.8 L Magnesium 1.7 L Total Bilirubin 0.5 AST 30 D ALT 36 D Alkaline Phosphatase 76 Creatine Kinase Troponin I Total Protein 6.1 L Albumin 2.5 L TSH 04/26/17 04/26/17 04/26/17 06:54 10:00 10:00 WBC 7.6 D RBC 3.75 L Hgb 10.9 L Hct 33.2 L MCV 88.5 MCH 29.0 MCHC 32.8 RDW 16.4 H Plt Count 203 MPV 8.1 Neutrophils % 72.4 Lymphocytes % 20.4 Monocytes % 6.5 Eosinophils % 0.1 Basophils % 0.6 Sodium 133 L Potassium 3.4 L Chloride 98 Carbon Dioxide 25 Anion Gap 10 BUN 14 Creatinine 1.2 Creat Clearance w eGFR 58.11 POC Glucometer 119.87195 Random Glucose 140 H Lactic Acid Calcium 7.6 L Magnesium Total Bilirubin 0.4 AST 24 ALT 32 Alkaline Phosphatase 69 Creatine Kinase 45 Troponin I 0.69 H* D Total Protein 6.1 L Albumin 2.4 L TSH 1.10 D 04/26/17 11:36 WBC RBC Hgb Hct MCV MCH MCHC RDW Plt Count MPV Neutrophils % Lymphocytes % Monocytes % Eosinophils % Basophils % Sodium Potassium Chloride Carbon Dioxide Anion Gap BUN Creatinine Creat Clearance w eGFR POC Glucometer 145.08713 Random Glucose Lactic Acid Calcium Magnesium Total Bilirubin AST ALT Alkaline Phosphatase Creatine Kinase Troponin I Total Protein Albumin TSH Problem List - Problems (1) Pneumonia Code(s): J18.9 - PNEUMONIA, UNSPECIFIED ORGANISM (2) Rheumatoid arthritis Code(s): M06.9 - RHEUMATOID ARTHRITIS, UNSPECIFIED (3) CHF (congestive heart failure) Code(s): I50.9 - HEART FAILURE, UNSPECIFIED (4) CAD (coronary artery disease) Code(s): I25.10 - ATHSCL HEART DISEASE OF [place] CORONARY ARTERY W/O ANG PCTRS Qualifiers: Coronary Disease-Associated Artery/Lesion type: unspecified vessel or lesion type [place] vs. transplanted heart: [place] heart Associated angina: with unspecified angina Qualified Code(s): I25.119 - Atherosclerotic heart disease of [place] coronary artery with unspecified angina pectoris (5) DM2 (diabetes mellitus, type 2) Code(s): E11.9 - TYPE 2 DIABETES MELLITUS WITHOUT COMPLICATIONS Qualifiers: Diabetes mellitus complication status: with circulatory complication Assessment/Plan ASSESS: This is an 81 y/o man w/ CAD (s/p 11 stents), CHF, HTN, HLD, DM, RA (on steroids & methotrexate), GERD, & Galvin's admitted to the hospital for N/V transferred now to the ICU for sudden AMS. Possible PNA. PLAN: O2 to maintain saturation BD TX Follow Neuro exam Strict I & O PO as tolerated Cardiology followup for (+) Troponin Cardiac Telemetry monitoring Dr Villalobos Critical care time spent in reviewing chart, evaluating patient and formulating plan - 36 minutes. -FiO2 for an SpO2 > 92% -Nebs -NOT a TPA candidate (MRI BRAIN 04/25: No intracranial hemorrhage or acute infarction. Minimal chronic small vessel ischemic changes) -F/u w/ NEURO Pt may NOT mount Fever or WBC (on steroids & methotrexate) -Redman-Clxr -Trend LA -Start Vanc & Zo -Add Tobra If decomps -Consider anti-Fungals -Consider D/c Immuno Suppression (Can cont Megha) -RHEUM -Consider bronch for Silver Gomori Stain -Stict I's & O's -Trend BUN/Cr -Monitor UOP -Replet e-lytes prn -Cont ASA -Cont BB -Cont Zetia -Cont Folic Acid -Low dose Lasix -CARDS -SQH -SCDs -PPI (GERD Alcides's, etc) Transfer to Med Surg for standard HAP Tx Thank you for this interesting consult. LORRI, MANAN-[facility] ICU PULM / CCM [id number] OBJECTIVE: ASSESSMENT AND PLAN:
--- NOTE | 2017-04-26 14:07 | PN ---
Physical Exam: SUBJECTIVE: Patient seen and examined No acute events overnight. Patient is awake and alert. Patient feels well this morning. Denies any numbness/tingling, chest pain, SOB. OBJECTIVE: Vital Signs Period Temp Pulse Resp BP Sys/Jeffrey Pulse Ox Last 24 Hr 98.5 F-101.6 F 70-80 17-22 102-154/53-91 96-100 GENERAL: Awake, alert, and fully oriented, in no acute distress. HEAD: Normal with no signs of trauma. EYES: Pupils equal, round and reactive to light, extraocular movements intact, sclera anicteric, conjunctiva clear. No lid lag. EARS, NOSE, THROAT: Healing lesion from previous surgery on R tip of nose, oropharynx clear without exudates. Moist mucous membranes. NECK: Normal range of motion, supple without lymphadenopathy, JVD, or masses. No carotid bruits LUNGS: Breath sounds equal, clear to auscultation bilaterally. No wheezes, and no crackles appreciated. No accessory muscle use. HEART: Regular rate and rhythm, normal S1 and S2 without murmur, rub or gallop. ABDOMEN: Soft, nontender, not distended, normoactive bowel sounds, no guarding, no rebound, no masses. No hepatomegaly or splenomegaly. MUSCULOSKELETAL: Normal range of motion at all joints. No bony deformities or tenderness. No CVA tenderness. UPPER EXTREMITIES: 2+ pulses, warm, well-perfused. No cyanosis. No clubbing. No peripheral edema. LOWER EXTREMITIES: 2+ DP left, 1+ DP right, warm, well-perfused. No calf tenderness. Trace peripheral edema. NEUROLOGICAL: Cranial nerves II-XII intact. Normal speech. PSYCHIATRIC: Cooperative. Good eye contact. Appropriate mood and affect. SKIN: Warm, dry, normal turgor, no rashes or lesions noted, normal capillary refill. Laboratory Results - last 24 hr 04/25/17 04/25/17 04/25/17 17:10 18:10 18:10 WBC 5.8 RBC 3.70 L Hgb 11.0 L Hct 32.5 L MCV 87.9 MCH 29.7 MCHC 33.8 RDW 16.1 H Plt Count 249 D MPV 8.8 Neutrophils % 68.8 Lymphocytes % 20.0 D Monocytes % 10.5 H Eosinophils % 0.3 Basophils % 0.4 Sodium 133 L Potassium 4.1 Chloride 99 Carbon Dioxide 26 Anion Gap 8 BUN 16 Creatinine 1.1 Creat Clearance w eGFR > 60 POC Glucometer 122 Random Glucose 119 H D Lactic Acid Calcium 7.8 L Magnesium 1.7 L Total Bilirubin 0.5 AST 30 D ALT 36 D Alkaline Phosphatase 76 Creatine Kinase Troponin I Total Protein 6.1 L Albumin 2.5 L TSH 04/25/17 04/25/17 04/26/17 21:30 22:58 06:54 WBC RBC Hgb Hct MCV MCH MCHC RDW Plt Count MPV Neutrophils % Lymphocytes % Monocytes % Eosinophils % Basophils % Sodium Potassium Chloride Carbon Dioxide Anion Gap BUN Creatinine Creat Clearance w eGFR POC Glucometer [phone] Random Glucose Lactic Acid 1.1 Calcium Magnesium Total Bilirubin AST ALT Alkaline Phosphatase Creatine Kinase Troponin I Total Protein Albumin TSH 04/26/17 04/26/17 04/26/17 10:00 10:00 11:36 WBC 7.6 D RBC 3.75 L Hgb 10.9 L Hct 33.2 L MCV 88.5 MCH 29.0 MCHC 32.8 RDW 16.4 H Plt Count 203 MPV 8.1 Neutrophils % 72.4 Lymphocytes % 20.4 Monocytes % 6.5 Eosinophils % 0.1 Basophils % 0.6 Sodium 133 L Potassium 3.4 L Chloride 98 Carbon Dioxide 25 Anion Gap 10 BUN 14 Creatinine 1.2 Creat Clearance w eGFR 58.11 POC Glucometer [phone] Random Glucose 140 H Lactic Acid Calcium 7.6 L Magnesium Total Bilirubin 0.4 AST 24 ALT 32 Alkaline Phosphatase 69 Creatine Kinase 45 Troponin I 0.69 H* D Total Protein 6.1 L Albumin 2.4 L TSH 1.10 D Active Medications Generic Name Dose Route Start Last Admin Trade Name Freq PRN Reason Stop Dose Admin Acetaminophen 650 mg 04/21/17 20:55 04/26/17 04:22 Tylenol - PO 650 mg Q4H PRN Administration FEVER Aspirin 81 mg 04/22/17 10:00 04/26/17 10:14 Asa - PO 81 mg DAILY BLADIMIR Administration Ezetimibe 10 mg 04/24/17 10:00 04/26/17 10:20 Zetia - PO 10 mg DAILY BLADIMIR Administration Folic Acid 1 mg 04/22/17 10:00 04/26/17 10:21 Folic Acid - PO 1 mg DAILY BLADIMIR Administration Gabapentin 800 mg 04/21/17 22:00 04/26/17 10:14 Neurontin - PO 800 mg BID BLADIMIR Administration Heparin Sodium (Porcine) 5,000 unit 04/21/17 22:00 04/26/17 06:31 Heparin - SQ 5,000 unit TID BLADIMIR Administration Insulin Aspart 1 vial 04/21/17 22:00 04/26/17 11:30 Novolog Vial Sliding Scale - SQ Not Given ACHS BLADIMIR Protocol Loratadine 10 mg 04/23/17 10:00 04/26/17 10:14 Claritin - PO 10 mg DAILY BLAD[facility]IR Administration Methotrexate 15 mg 04/27/17 10:00 Mexate - PO Sa@1000 BLADIMIR Methylprednisolone 2 mg 04/22/17 10:00 04/26/17 10:15 Medrol - PO 2 mg Q48H BLAD[facility]IR Administration Methylprednisolone 1 mg 04/23/17 10:00 04/25/17 09:12 Medrol - PO 1 mg Q48H BLAD[facility]IR Administration Metoprolol Succinate 25 mg 04/22/17 10:00 04/26/17 10:14 Toprol Xl - PO 25 mg DAILY BLAD[facility]IR Administration Non-Formulary Medication 1 drop 04/23/17 10:00 04/25/17 21:19 Brinzolamide/Brimonidine Tart [Simbrinza 1%-0.2% Eye Drops] OS 1 drop BID BLADIMIR Administration Travoprost Eye Drops 1 each 04/23/17 22:00 04/25/17 21:19 0.004% OU 1 each HS BLADIMIR Administration Pantoprazole Sodium 40 mg 04/22/17 10:00 04/26/17 10:14 Protonix - PO 40 mg DAILY BLAD[facility]IR Administration Piperacillin/Tazobactam/Dextrose 4.5 gm 04/26/17 02:00 Zosyn 4.5gm Ivpb (Premix) IVPB Q8H-IV [facility]AD[facility] Rosuvastatin Calcium 5 mg 04/22/17 22:00 04/26/17 00:43 Crestor - PO Not Given HS BLADIMIR Tamsulosin HCl 0.4 mg 04/22/17 08:30 04/26/17 09:34 Flomax - PO 0.4 mg DAILY@0830 BLAD[facility] Administration ASSESSMENT/PLAN: 81 year old M with pmh of CAD, CHF, DM, HTN HLD, RA, transferred to ICU for acute mental status change, ?stroke #Neuro TIA -Currently neurologically intact -Resolved -CT and MRI reveals no acute infarct -Dr Holloway on board #CV HTN HLD CAD CHF -Crestor 5 mg po daily -Lopressor 25 mg po daily -Cardiology on board, Dr. Wynne -Zetia 10 mg po daily -Asa 81 mg po daily #Pulm ?PNA -1 dose of vanc/zosyn given in ICU -ID on board, Dr. Salazar # BPH -Continue flomax 0.4 mg po daily #Rheum RA -Methotrexate 15 mg po weekly -medrol 1mg/2mg po 48 hr #Endo DM -BGM/ISS achs #FEN/GI -No IVF -wnl -Diabetic diet #PPx -Heparin 5000 units sq tid -Protonix 40 mg po daily Dispo: Transfer to telemetry Visit type - Emergency Visit Emergency Visit: Yes ED Registration Date: 04/21/17 Care time: The patient presented to the Emergency Department on the above date and was hospitalized for further evaluation of their emergent condition. - New Patient This patient is new to me today: Yes Date on this admission: 04/26/17 - Critical Care Critical Care patient: Yes Total Critical Care Time (in minutes): 35 Critical Care Statement: The care of this patient involved high complexity decision making to prevent further life threatening deterioration of the patient 's condition and/or to evaluate & treat vital organ system(s) failure or risk of failure.
--- NOTE | 2017-04-26 16:56 | PN ---
Progress Note (short form) - Note Progress Note: noted to have change in mental status with confusion and left sided weakness- MRI and CT scan negative he is in the ICU alert with resolution of symptoms now with cough and fever started on vanco/zosyn for HAP recent endoscopy 04/23 history of RA on MTX and steroids Vital Signs Period Temp Pulse Resp BP Sys/Jeffrey Pulse Ox Last 24 Hr 97.6 F-101.6 F 70-80 16-22 102-154/53-91 96-100 cor-rrr lungs decreased bs at bases abd soft,nt ext no edema CBC, BMP 04/26/17 10:00 04/26/17 10:00 Microbiology 04/21/17 17:06 Blood - Peripheral Venous Blood Culture - Preliminary NO GROWTH OBTAINED AFTER 96 HOURS, INCUBATION TO CONTINUE FOR 1 DAYS. 04/21/17 17:13 Blood - Peripheral Venous Blood Culture - Preliminary NO GROWTH OBTAINED AFTER 96 HOURS, INCUBATION TO CONTINUE FOR 1 DAYS. 04/21/17 21:00 Urine - Urine Clean Catch Urine Culture - Final NO GROWTH OBTAINED a/p cough/fever- possible HAP- recent admission for pneumonia agree with vanco/zosyn would influenza screen as well transient change in mental status resolved Problem List - Problems (1) Intractable nausea and vomiting Code(s): R11.2 - NAUSEA WITH VOMITING, UNSPECIFIED Qualifiers: Vomiting type: unspecified Qualified Code(s): R11.2 - Nausea with vomiting , unspecified (2) Chest pain Code(s): R07.9 - CHEST PAIN, UNSPECIFIED Qualifiers: Chest pain type: unspecified Qualified Code(s): R07.9 - Chest pain, unspecified (3) Atelectasis of both lungs Code(s): J98.11 - ATELECTASIS
[2017-04-26] MEDS ORDERED: VANCOMYCIN 1,250 MG in DEXTROSE 5%-WATER - 250 ML IVPB SCH (17:00)
[2017-04-26] MEDS ORDERED: PIPERACILLIN/TAZOB 4.5 GM/100 ML PRE-DOCKED IVPB SCH (17:00)
[2017-04-26] MEDS ORDERED: PT OWN MED DRAWER 7, Y5N ONE ×3 (17:37→20:30)
[2017-04-26] MEDS: PIPERACILLIN/TAZOB 4.5 GM 4.5 GM in DEXTROSE 5%-WATER - 100 ML IVPB SCH (17:40)
[2017-04-26] MEDS: TRAVOPROST EYE OU SCH (21:31)
[2017-04-27] MEDS ORDERED: PT OWN MED DRAWER 7, Y5N ONE (01:15)
[2017-04-27] MEDS: PIPERACILLIN/TAZOB 4.5 GM 4.5 GM in DEXTROSE 5%-WATER - 100 ML IVPB SCH (01:15)
[2017-04-27] MEDS: HEPARIN NA (PORCINE) 5,000 UNITS/ML 1ML VIAL SQ SCH ×3 (05:08→22:19)
[2017-04-27 06:24] LABS: BASO % 0.7 % (0-2.0); EOS % 0.4 % (0-4.5); HEMATOCRIT 35.2 % (35.4-49); HEMOGLOBIN 11.7 GM/dL (11.7-16.9); LYMPH % 24.2 % (8-40); MCH 29.3 pg (25.7-33.7); MCHC 33.2 g/dl (32.0-35.9); MEAN CELL VOLUME 88.3 fl (80-96); MEAN PLT VOLUME 8.9 fl (7.5-11.1); MONO % 7.4 % (3.8-10.2); NEUT % 67.3 % (42.8-82.8); PLATELET COUNT 225 K/MM3 (134-434); RBC 3.98 M/mm3 (4.00-5.60); RDW 16.9 % (11.9-15.9); WHITE BLOOD COUNT 6.6 K/mm3 (4.0-10.0)
[2017-04-27 06:54] LABS: ALBUMIN 2.5 g/dl (3.4-5.0); ALK PHOS 70 U/L (45-117); ANION GAP 8 (8-16); BILIRUBIN,TOTAL 0.5 mg/dL (0.2-1.0); BLOOD UREA NITROGEN 18 mg/dL (7-18); CALCIUM 7.7 mg/dL (8.5-10.1); CHLORIDE 98 mmol/L (98-107); CO2 27 mmol/L (21-32); CREATININE 1.3 mg/dL (0.7-1.3); GLUCOSE,RANDOM 104 mg/dL (74-106); MAGNESIUM 1.7 mg/dL (1.8-2.4); PHOSPHOROUS 4.1 mg/dL (2.5-4.9); POTASSIUM 3.6 mmol/L (3.5-5.1); SGOT/AST 33 U/L (15-37); SGPT/ALT 34 U/L (12-78); SODIUM 133 mmol/L (136-145); TOT PROT 6.4 g/dl (6.4-8.2)
--- NOTE | 2017-04-27 07:14 | PN ---
Progress Note, Physician Chief Complaint: ID Alert COY kenyon unable to produce sputum present Given Vancomycin and Zosyn - Current Medication List Current Medications: Active Medications Acetaminophen (Tylenol -) 650 mg PO Q4H PRN PRN Reason: FEVER Last Admin: 04/26/17 23:42 Dose: 650 mg Aspirin (Asa -) 81 mg PO DAILY [facility] Last Admin: 04/26/17 10:14 Dose: 81 mg Ezetimibe (Zetia -) 10 mg PO DAILY [facility] Last Admin: 04/26/17 10:20 Dose: 10 mg Folic Acid (Folic Acid -) 1 mg PO DAILY [facility] Last Admin: 04/26/17 10:21 Dose: 1 mg Gabapentin (Neurontin -) 800 mg PO BID [facility] Last Admin: 04/26/17 21:29 Dose: 800 mg Heparin Sodium (Porcine) (Heparin -) 5,000 unit SQ TID [facility] Last Admin: 04/27/17 05:08 Dose: 5,000 unit Vancomycin HCl 1,250 mg/ (Dextrose) 250 mls @ 166.667 mls/hr IVPB Q24H [facility] PRN Reason: Protocol Last Admin: 04/26/17 17:40 Dose: 166.667 mls/hr Piperacillin Sod/Tazobactam (Sod 4.5 gm/ Dextrose) 100 mls @ 200 mls/hr IVPB Q8H-IV [facility] Last Admin: 04/27/17 01:15 Dose: 200 mls/hr Insulin Aspart (Novolog Vial Sliding Scale -) 1 vial SQ ACHS [facility] PRN Reason: Protocol Last Admin: 04/26/17 23:40 Dose: Not Given Loratadine (Claritin -) 10 mg PO DAILY [facility] Last Admin: 04/26/17 10:14 Dose: 10 mg Methylprednisolone (Medrol -) 2 mg PO Q48H [facility] Last Admin: 04/26/17 10:15 Dose: 2 mg Methylprednisolone (Medrol -) 1 mg PO Q48H [facility] Last Admin: 04/25/17 09:12 Dose: 1 mg Metoprolol Succinate (Toprol Xl -) 25 mg PO DAILY [facility] Last Admin: 04/26/17 10:14 Dose: 25 mg Non-Formulary Medication (Brinzolamide/Brimonidine Tart [Simbrinza 1%-0.2% Eye Drops]) 1 drop OS BID [facility] Last Admin: 04/26/17 21:31 Dose: 1 drop Travoprost Eye Drops (0.004%) 1 each OU HS [facility] Last Admin: 04/26/17 21:31 Dose: 1 each Pantoprazole Sodium (Protonix -) 40 mg PO DAILY [facility] Last Admin: 04/26/17 10:14 Dose: 40 mg Rosuvastatin Calcium (Crestor -) 5 mg PO HS [facility] Last Admin: 04/26/17 21:29 Dose: 5 mg Tamsulosin HCl (Flomax -) 0.4 mg PO DAILY@0830 [facility] Last Admin: 04/26/17 09:34 Dose: 0.4 mg - Objective Vital Signs: Vital Signs Temperature 98.5 F 04/27/17 05:53 Pulse Rate 72 04/27/17 05:53 Respiratory Rate 18 04/27/17 05:53 Blood Pressure 102/55 04/27/17 05:53 O2 Sat by Pulse Oximetry (%) 98 04/26/17 19:39 Constitutional: Yes: No Distress HENT: Yes: WNL, Atraumatic Neck: Yes: WNL, Supple Cardiovascular: Yes: Regular Rate and Rhythm, S1, S2. No: Murmur Respiratory: Yes: WNL, Regular, CTA Bilaterally, Other (Definate rales LLL) Gastrointestinal: Yes: WNL, Normal Bowel Sounds, Soft. No: Tenderness Labs: CBC, BMP 04/27/17 06:10 INR, PTT INR 1.32 (0.82-1.09) H D 04/21/17 17:06 Problem List - Problems (1) Pneumonia Code(s): J18.9 - PNEUMONIA, UNSPECIFIED ORGANISM (2) Change in mental status Code(s): R41.82 - ALTERED MENTAL STATUS, UNSPECIFIED (3) CAD (coronary artery disease) Code(s): I25.10 - ATHSCL HEART DISEASE OF [place] CORONARY ARTERY W/O ANG PCTRS Qualifiers: Coronary Disease-Associated Artery/Lesion type: unspecified vessel or lesion type [place] vs. transplanted heart: [place] heart Associated angina: with unspecified angina Qualified Code(s): I25.119 - Atherosclerotic heart disease of [place] coronary artery with unspecified angina pectoris Assessment/Plan Microbiology 04/26/17 17:45 Nasopharyngeal Swab Influenza Types A,B Antigen (SONNY) - Final 04/26/17 17:45 Nasopharyngeal Swab - Final 04/21/17 21:00 Urine - Urine Clean Catch Urine Culture - Final NO GROWTH OBTAINED 04/21/17 17:13 Blood - Peripheral Venous Blood Culture - Final NO GROWTH AFTER 5 DAYS INCUBATION 04/21/17 17:06 Blood - Peripheral Venous Blood Culture - Final NO GROWTH AFTER 5 DAYS INCUBATION 04/25/17 21:30 Blood - Peripheral Venous Blood Culture - Preliminary NO GROWTH OBTAINED AFTER 24 HOURS, INCUBATION TO CONTINUE FOR 4 DAYS. 04/25/17 21:30 Blood - Peripheral Venous Blood Culture - Preliminary NO GROWTH OBTAINED AFTER 24 HOURS, INCUBATION TO CONTINUE FOR 4 DAYS. Laboratory Tests 04/26/17 04/27/17 04/27/17 10:00 06:10 06:10 WBC 6.6 Hgb 11.7 Hct 35.2 L Plt Count 225 BUN Pending Creatinine Pending Creat Clearance w eGFR 58.11 Pending Assessment Clinically patient has pneumonia LLL on treatment for "HAP" but other then alteration of mental status noted initially not currently acutely ill Rheumatoid arthritis getting Methotrexate low dose steroids Chest xray elevation hemidiaghram left Plan Going to stop Vancomcyin and Zosyn and substitute Ceftriaxone 1 gram daily Martin CONTE
[2017-04-27] MEDS: INSULIN SLIDING SCALE (NOVOLOG) 1 VIAL SQ SCH ×3 (07:26→22:14)
[2017-04-27] MEDS: TAMSULOSIN HCL 0.4 MG CAP.ER.24H (FP) PO SCH (08:48)
[2017-04-27] MEDS: metoPROLOL SUCCINATE 25 MG TAB.SR.24H (FP) PO SCH (09:53)
[2017-04-27] MEDS: PANTOPRAZOLE 40 MG TABLET (FP) PO SCH (09:53)
[2017-04-27] MEDS: GABAPENTIN 400 MG CAPSULE (FP) PO SCH ×2 (09:53→22:20)
[2017-04-27] MEDS: LORATADINE 10 MG TABLET PO SCH (09:54)
[2017-04-27] MEDS: FOLIC ACID 1 MG TABLET (FP) PO SCH (09:54)
[2017-04-27] MEDS: ASPIRIN 81 MG CHEWABLE TABLETS PO SCH (09:54)
[2017-04-27] MEDS ORDERED: METHOTREXATE 2.5 MG TABLET PO SCH (10:00)
[2017-04-27] MEDS: methylPREDNISolone 2 MG TABLET PO SCH (10:00)
[2017-04-27] MEDS: EZETIMIBE 10 MG TABLET (FP) PO SCH (10:01)
[2017-04-27] MEDS: PATIENT'S OWN MEDICATION (NON-FORMULARY) (Brinzolamide/Brimonidine Tart [Simbrinza 1%-0.2% OS SCH ×2 (10:03→22:19)
[2017-04-27] MEDS: CEFTRIAXONE 1 G/50 ML PREMIX 50 ML IVPB SCH (10:09)
--- NOTE | 2017-04-27 10:14 | PN ---
Progress Note (short form) - Note Progress Note: PULM/CCM Pt Seen & Examined in the ICU. CA+OX3, resting comfortable on NC, NAD. Abx de- escalated --> Ceftriax, pt remains off of Methotrexate. Pt is ready for transfer to [facility]. Active Medications Acetaminophen (Tylenol -) 650 mg PO Q4H PRN PRN Reason: FEVER Last Admin: 04/26/17 23:42 Dose: 650 mg Aspirin (Asa -) 81 mg PO DAILY [facility] Last Admin: 04/27/17 09:54 Dose: 81 mg Ezetimibe (Zetia -) 10 mg PO DAILY [facility] Last Admin: 04/27/17 10:01 Dose: 10 mg Folic Acid (Folic Acid -) 1 mg PO DAILY [facility] Last Admin: 04/27/17 09:54 Dose: 1 mg Gabapentin (Neurontin -) 800 mg PO BID [facility] Last Admin: 04/27/17 09:53 Dose: 800 mg Heparin Sodium (Porcine) (Heparin -) 5,000 unit SQ TID [facility] Last Admin: 04/27/17 05:08 Dose: 5,000 unit CEFTRIAXONE 1 G/50 ML PREMIX (Ceftriaxone 1 Gm-D5w Bag) 50 mls @ 100 mls/hr IVPB DAILY [facility] Last Admin: 04/27/17 10:09 Dose: 100 mls/hr Potassium Chloride (Potassium Chloride 10 Meq Premix Ivpb -) 10 meq in 100 mls @ 100 mls/hr IVPB Q60M [facility] Stop: 04/27/17 13:14 Magnesium Sulfate/Dextrose (Magnesium 1gm/D5w -) 1 gm in 100 mls @ 100 mls/hr IVPB ONCE ONE Stop: 04/27/17 12:14 Insulin Aspart (Novolog Vial Sliding Scale -) 1 vial SQ ACHS [facility] PRN Reason: Protocol Last Admin: 04/27/17 07:26 Dose: Not Given Loratadine (Claritin -) 10 mg PO DAILY [facility] Last Admin: 04/27/17 09:54 Dose: 10 mg Methylprednisolone (Medrol -) 2 mg PO Q48H [facility] Last Admin: 04/26/17 10:15 Dose: 2 mg Methylprednisolone (Medrol -) 1 mg PO Q48H [facility] Last Admin: 04/27/17 10:00 Dose: 1 mg Metoprolol Succinate (Toprol Xl -) 25 mg PO DAILY [facility] Last Admin: 04/27/17 09:53 Dose: 25 mg Non-Formulary Medication (Brinzolamide/Brimonidine Tart [Simbrinza 1%-0.2% Eye Drops]) 1 drop OS BID [facility] Last Admin: 04/27/17 10:03 Dose: 1 drop Travoprost Eye Drops (0.004%) 1 each OU HS [facility] Last Admin: 04/26/17 21:31 Dose: 1 each Pantoprazole Sodium (Protonix -) 40 mg PO DAILY [facility] Last Admin: 04/27/17 09:53 Dose: 40 mg Rosuvastatin Calcium (Crestor -) 5 mg PO HS [facility] Last Admin: 04/26/17 21:29 Dose: 5 mg Tamsulosin HCl (Flomax -) 0.4 mg PO DAILY@0830 [facility] Last Admin: 04/27/17 08:48 Dose: 0.4 mg V/S Period Temp Pulse Resp BP Sys/Jeffrey Pulse Ox Last 24 Hr 97.6 F-100.9 F 71-88 16-22 92-140/45-66 96-98 Intake & Output 04/24/17 04/25/17 04/26/17 04/27/17 23:59 23:59 23:59 23:59 Intake Total 539.5 250 770 350 Output Total 225 1280 225 Balance 314.5 250 -510 125 Weight 73.9 kg 74.4 kg GEN: Elderly man in bed, CA+OX3, in NAD HEEN: PERRL, an-icteric, scar on nose from recent facial MOHS micrographic surgery (Basal Cell) PULM: Diminished in the bases CV: nml S1 S2, RR, unable to appreciate any G/M/R ABD: + BS S/S N/T N/D X 4Q EXT: + Pulses, WWPX4, (-) edema CBC, BMP 04/27/17 06:10 04/27/17 06:10 Microbiology 04/25/17 21:30 Blood - Peripheral Venous Blood Culture - Preliminary NO GROWTH OBTAINED AFTER 24 HOURS, INCUBATION TO CONTINUE FOR 4 DAYS. 04/25/17 21:30 Blood - Peripheral Venous Blood Culture - Preliminary NO GROWTH OBTAINED AFTER 24 HOURS, INCUBATION TO CONTINUE FOR 4 DAYS. 04/26/17 17:45 Nasopharyngeal Swab Influenza Types A,B Antigen (SONNY) - Final 04/26/17 17:45 Nasopharyngeal Swab - Final 04/21/17 17:06 Blood - Peripheral Venous Blood Culture - Final NO GROWTH AFTER 5 DAYS INCUBATION 04/21/17 17:13 Blood - Peripheral Venous Blood Culture - Final NO GROWTH AFTER 5 DAYS INCUBATION 04/21/17 21:00 Urine - Urine Clean Catch Urine Culture - Final NO GROWTH OBTAINED ASSESS: This is an 81 y/o man w/ CAD (s/p 11 stents), CHF, HTN, HLD, DM, RA (on steroids & methotrexate), GERD, & Galvin's admitted to the hospital on 04/21 for N/V in the setting of increased Renexa dosing, transferred now to the ICU for sudden AMS c/f CVA --> (m/l SIRS-delerium in the setting of HAP). Pt now w/ marked improvement on big gun Abx, all NEURO S & S resolved, no NEURO issues on extensive imaging, clxrs underwhelming, Abx de-esclalated --> Ceftriax. Pt has no ICU requirements @ this time. PLAN: -FiO2 for an SpO2 > 92% -Nebs -F/u Redman-Clxr -Cont Ceftriax X 7 Days -ID -Hold off on methotrexate -Can cont low dose Steroids -RHEUM -Stict I's & O's -Trend BUN/Cr -Monitor UOP -Replete e-lytes prn -Cont ASA -Cont BB -Cont Zetia -Cont Folic Acid -Low dose Lasix -CARDS -SQH -SCDs -PPI (GERD Alcides's, etc) -Transfer to Tele immediately. TODAY. TRANSFER NOW. -PT/OT DGL, ACNP-[facility] ICU PULM/CCM [id number] Critical Care Total Critical Care Time (in minutes): 39 Critical Care Statement: The care of this patient involved high complexity decision making to prevent further life threatening deterioration of the patient 's condition and/or to evaluate & treat vital organ system(s) failure or risk of failure. Problem List - Problems (1) Pneumonia Code(s): J18.9 - PNEUMONIA, UNSPECIFIED ORGANISM (2) Rheumatoid arthritis Code(s): M06.9 - RHEUMATOID ARTHRITIS, UNSPECIFIED (3) CHF (congestive heart failure) Code(s): I50.9 - HEART FAILURE, UNSPECIFIED (4) CAD (coronary artery disease) Code(s): I25.10 - ATHSCL HEART DISEASE OF [place] CORONARY ARTERY W/O ANG PCTRS Qualifiers: Coronary Disease-Associated Artery/Lesion type: unspecified vessel or lesion type [place] vs. transplanted heart: [place] heart Associated angina: with unspecified angina Qualified Code(s): I25.119 - Atherosclerotic heart disease of [place] coronary artery with unspecified angina pectoris (5) DM2 (diabetes mellitus, type 2) Code(s): E11.9 - TYPE 2 DIABETES MELLITUS WITHOUT COMPLICATIONS Qualifiers: Diabetes mellitus complication status: with circulatory complication
[2017-04-27] MEDS ORDERED: MAGNESIUM SULF 50% (8.12 MEQ/2 ML-1 GM VIAL) IVPB ONE (11:07)
--- NOTE | 2017-04-27 11:07 | PN ---
Progress Note, Physician History of Present Illness: feels better - Current Medication List Current Medications: Active Medications Acetaminophen (Tylenol -) 650 mg PO Q4H PRN PRN Reason: FEVER Last Admin: 04/26/17 23:42 Dose: 650 mg Aspirin (Asa -) 81 mg PO DAILY [facility] Last Admin: 04/27/17 09:54 Dose: 81 mg Ezetimibe (Zetia -) 10 mg PO DAILY [facility] Last Admin: 04/27/17 10:01 Dose: 10 mg Folic Acid (Folic Acid -) 1 mg PO DAILY [facility] Last Admin: 04/27/17 09:54 Dose: 1 mg Gabapentin (Neurontin -) 800 mg PO BID [facility] Last Admin: 04/27/17 09:53 Dose: 800 mg Heparin Sodium (Porcine) (Heparin -) 5,000 unit SQ TID [facility] Last Admin: 04/27/17 05:08 Dose: 5,000 unit CEFTRIAXONE 1 G/50 ML PREMIX (Ceftriaxone 1 Gm-D5w Bag) 50 mls @ 100 mls/hr IVPB DAILY [facility] Last Admin: 04/27/17 10:09 Dose: 100 mls/hr Insulin Aspart (Novolog Vial Sliding Scale -) 1 vial SQ ACHS [facility] PRN Reason: Protocol Last Admin: 04/27/17 07:26 Dose: Not Given Loratadine (Claritin -) 10 mg PO DAILY [facility] Last Admin: 04/27/17 09:54 Dose: 10 mg Methylprednisolone (Medrol -) 2 mg PO Q48H [facility] Last Admin: 04/26/17 10:15 Dose: 2 mg Methylprednisolone (Medrol -) 1 mg PO Q48H [facility] Last Admin: 04/27/17 10:00 Dose: 1 mg Metoprolol Succinate (Toprol Xl -) 25 mg PO DAILY [facility] Last Admin: 04/27/17 09:53 Dose: 25 mg Non-Formulary Medication (Brinzolamide/Brimonidine Tart [Simbrinza 1%-0.2% Eye Drops]) 1 drop OS BID [facility] Last Admin: 04/27/17 10:03 Dose: 1 drop Travoprost Eye Drops (0.004%) 1 each OU HS [facility] Last Admin: 04/26/17 21:31 Dose: 1 each Pantoprazole Sodium (Protonix -) 40 mg PO DAILY [facility] Last Admin: 04/27/17 09:53 Dose: 40 mg Rosuvastatin Calcium (Crestor -) 5 mg PO HS [facility] Last Admin: 04/26/17 21:29 Dose: 5 mg Tamsulosin HCl (Flomax -) 0.4 mg PO DAILY@0830 [facility] Last Admin: 04/27/17 08:48 Dose: 0.4 mg - Objective Vital Signs: Vital Signs Temperature 99.0 F 04/27/17 10:00 Pulse Rate 84 04/27/17 10:00 Respiratory Rate 19 04/27/17 10:00 Blood Pressure 117/66 04/27/17 10:00 O2 Sat by Pulse Oximetry (%) 98 04/27/17 09:00 Cardiovascular: Yes: S1, S2 Respiratory: Yes: Rales Gastrointestinal: Yes: Normal Bowel Sounds, Soft Edema: No Labs: CBC, BMP 04/27/17 06:10 04/27/17 06:10 INR, PTT INR 1.32 (0.82-1.09) H D 04/21/17 17:06 Problem List - Problems (1) TIA (transient ischemic attack) Assessment/Plan: resolved ct of head and mri negative on asa neuro appreciated cardio f/u Code(s): G45.9 - TRANSIENT CEREBRAL ISCHEMIC ATTACK, UNSPECIFIED (2) Change in mental status Assessment/Plan: resolved as above on iv abx cultures id Code(s): R41.82 - ALTERED MENTAL STATUS, UNSPECIFIED (3) GERD (gastroesophageal reflux disease) Code(s): K21.9 - GASTRO-ESOPHAGEAL REFLUX DISEASE WITHOUT ESOPHAGITIS (4) Atelectasis of both lungs Assessment/Plan: CXR NOTED--POSSIBLE LL INFILTRATE ID CONSULT APPRECIATED IMPROVED INCENTIVE SPIROMETRY ABX Code(s): J98.11 - ATELECTASIS (5) CAD (coronary artery disease) Assessment/Plan: same meds cardio consult noted for cath--to discuss with cardio timing Code(s): I25.10 - ATHSCL HEART DISEASE OF [place] CORONARY ARTERY W/O ANG PCTRS Qualifiers: Coronary Disease-Associated Artery/Lesion type: unspecified vessel or lesion type [place] vs. transplanted heart: [place] heart Associated angina: with unspecified angina Qualified Code(s): I25.119 - Atherosclerotic heart disease of [place] coronary artery with unspecified angina pectoris (6) CHF (congestive heart failure) Assessment/Plan: continue with lasix Code(s): I50.9 - HEART FAILURE, UNSPECIFIED (7) Pneumonia Assessment/Plan: IV ABX CXR AM Code(s): J18.9 - PNEUMONIA, UNSPECIFIED ORGANISM
[2017-04-27] MEDS ORDERED: MAGNESIUM 1GM/D5W - 1 GM/100 ML IVPB IVPB ONE (11:15)
[2017-04-27] MEDS ORDERED: ACETAMINOPHEN 325 MG TABLET (FP) PO PRN (11:35)
[2017-04-27] MEDS: KCL 10 MEQ IVPB 10 MEQ/100 ML INFUS.BAG IVPB SCH ×2 (11:55→13:11)
--- NOTE | 2017-04-27 12:22 | EKG ---
Test Reason : Blood Pressure : / mmHG Vent. Rate : 077 BPM Atrial Rate : 077 BPM P-R Int : 170 ms QRS Dur : 096 ms QT Int : 448 ms P-R-T Axes : 011 -41 034 degrees QTc Int : 506 ms SINUS RHYTHM WITH MARKED SINUS ARRHYTHMIA LEFT AXIS DEVIATION INFERIOR INFARCT (CITED ON OR BEFORE 22-APR-2017) ANTERIOR INFARCT , AGE UNDETERMINED PROLONGED QT ABNORMAL ECG Confirmed by MD ANNABEL, RICHY ([id number]) on 04/27/2017 12:22:02 PM Referred By: JEISON SINCLAIR DR Confirmed By:RICHY JIN MD
--- NOTE | 2017-04-27 15:39 | PN ---
Progress Note (short form) - Note Progress Note: Chief Complaint: cp History of Present Illness: S: transferred to tele today. AMS resolved. no chest pain. sob, dizziness, palps. ex cigs Current Medications Acetaminophen (Tylenol -) 650 mg PO Q4H PRN PRN Reason: FEVER Aspirin (Asa -) 81 mg PO DAILY [facility] Ezetimibe (Zetia -) 10 mg PO DAILY [facility] Folic Acid (Folic Acid -) 1 mg PO DAILY [facility] Gabapentin (Neurontin -) 800 mg PO BID [facility] Heparin Sodium (Porcine) (Heparin -) 5,000 unit SQ TID [facility] Last Admin: 04/27/17 13:15 Dose: 5,000 unit CEFTRIAXONE 1 G/50 ML PREMIX (Ceftriaxone 1 Gm-D5w Bag) 50 mls @ 100 mls/hr IVPB DAILY [facility] Last Admin: 04/27/17 10:09 Dose: 100 mls/hr Insulin Aspart (Novolog Vial Sliding Scale -) 1 vial SQ ACHS [facility] PRN Reason: Protocol Loratadine (Claritin -) 10 mg PO DAILY [facility] Methylprednisolone (Medrol -) 2 mg PO Q48H [facility] Methylprednisolone (Medrol -) 1 mg PO Q48H [facility] Metoprolol Succinate (Toprol Xl -) 25 mg PO DAILY [facility] Non-Formulary Medication (Brinzolamide/Brimonidine Tart [Simbrinza 1%-0.2% Eye Drops]) 1 drop OS BID [facility] Non-Formulary Medication (Non-Formulary Med) 1 each OU HS [facility] Pantoprazole Sodium (Protonix -) 40 mg PO DAILY [facility] Rosuvastatin Calcium (Crestor -) 5 mg PO HS [facility] Tamsulosin HCl (Flomax -) 0.4 mg PO DAILY@0830 [facility] Vital Signs - 24 hr 04/26/17 04/26/17 04/26/17 16:00 16:34 18:00 Temperature 98 F Pulse Rate 77 82 Respiratory 16 18 Rate Blood Pressure 122/58 108/61 O2 Sat by Pulse 96 Oximetry (%) 04/26/17 04/26/17 04/26/17 19:38 19:39 20:00 Temperature Pulse Rate 88 Respiratory 22 Rate Blood Pressure 97/52 O2 Sat by Pulse 98 98 Oximetry (%) 04/26/17 04/26/17 04/27/17 22:00 23:39 00:00 Temperature 100.0 F H 100.9 F H Pulse Rate 79 77 Respiratory 20 20 Rate Blood Pressure 98/50 113/64 O2 Sat by Pulse Oximetry (%) 04/27/17 04/27/17 04/27/17 02:00 04:00 05:53 Temperature 99.3 F 98.5 F Pulse Rate 75 71 72 Respiratory 20 18 18 Rate Blood Pressure 92/45 102/55 102/55 O2 Sat by Pulse Oximetry (%) 04/27/17 04/27/17 04/27/17 08:00 09:00 10:00 Temperature 99.0 F Pulse Rate 72 84 Respiratory 18 19 19 Rate Blood Pressure 140/60 117/66 O2 Sat by Pulse 98 98 Oximetry (%) 04/27/17 04/27/17 11:48 14:14 Temperature 98.8 F Pulse Rate 76 76 Respiratory 17 17 Rate Blood Pressure 107/53 139/85 O2 Sat by Pulse Oximetry (%) Intake & Output 04/25/17 04/26/17 04/27/17 04/28/17 07:59 07:59 07:59 07:59 Intake Total 0 350 770 250 Output Total 225 800 705 Balance -225 -450 65 250 Weight 162 lb 14.746 oz 164 lb 0.383 oz Constitutional: Yes: Well Nourished, No Distress Eyes: No: Sclera Icterus Respiratory: Yes: LLL dullness. No: Accessory Muscle Use, Wheezes Gastrointestinal: Yes: Normal Bowel Sounds. No: Distention, Hepatomegaly, Palpable Mass, Tenderness Cardiovascular: Yes: Regular Rate and Rhythm JVD: No Heart Sounds: Yes: S1, S2. No: Gallop Murmur: No: Systolic Murmur, Diastolic Murmur Extremities: No: Cool, Cyanosis Edema: No Integumentary: No: Jaundice Neurological: Yes: Alert, Oriented (x3) Psychiatric: No: Agitated no carotid bruits - Other Data Labs, Other Data: CBC, BMP 04/27/17 06:10 04/27/17 06:10 Laboratory Tests 04/27/17 06:10 Magnesium 1.7 L Albumin 2.5 L 04/26/17 04/26/17 10:00 13:40 Creatine Kinase 45 56 Troponin I 0.69 H* D 0.53 H EKG 04/21 (16:22): NSR, diffuse ST-Ts anterior and inferior, new vs prior rpt 04/22 x 2: same as 04/21 EKG 04/26: t wave abnormalities improved, some loss of r wave voltage in lateral precordial leads. tele: sr Echo 04/2017: mild lvh, nl lv/rv, nl rvsp, no sig valve path CXR 04/21 images and report reviewed: decr inspiratory effort vs prior--? incr in prior baseline interstitial markings vs tissue crowding. vs 04/01, L base eff vs atx same, R small effusion present CT chest 04/18: bibasilar consolidation/air bronchogram, small bilat effusions MPI in [facility] 07/2016: No ekg changes or anginal sx's. mod sized mild intensity posterolateral ischemia. EF 81 % LHC 02/13: EDP 16, EF nl; patent stents: pRCA, dLAD (30-50%), OM1, OM2; 70-80% pLAD ISR--Promus; 70-80% D1 (moderate size)--PTCA; residual diffuse mild dz all 3 vessels Assessment/Plan 81 yo with h/o CAD s/p multiple stents, dCHF, HTN, HL, DM, RA, duodenal ulcers, GERD with esophagitis, BPH, here with nausea and vomiting (nonbloody and nonbilious) x 2 weeks, assoc with chest pressure. atypical CP, nausea and vomiting/hx GERD with Galvin's/h/o CAD with mult prior stents: - last cath 2014 with ISR of pLAD s/p Promus SRINIVAS, and stenosis of D1 s/p PTCA at that time (moderate sized diag vessel) - 07/2016 stress with low risk ischemia findings (mild posterolateral), equivocal sx's at that time, ? anginal. medically managed given >10 prior stents , including previous ISR's requiring re-intervention (ranexa incr'd, toprol added)--no angina since. - here with atyp cp in setting of nausea and vomiting, not like prior anginal sx 's. however diffuse, possibly ischemic ST-T changes vs prior. trop neg x 3 initially - CT abdomen 02/15 unremarkable. amylase/lipase wnl. egd done here today shows no significant abnormalities. - nausea/dry heaves > vomiting may be secondary to his described post-nasal drip. other possibility of sxs suggested by GI is side effect from ranexa. This was recently increased so timing is appropriate. Will dc ranexa (last dose 04/25 AM) and monitor. - will consider rpt cath in light of new ekg changes. however pt is clinically stable with no signif chf findings, no hypotension, no severe angina sx's, with negative troponins, so cath can be done electively. - 04/27: borderline intermediate troponin elevation (flat trend, nl ck) on 04/26 in setting of fever/ams. EKG with improvement in new t wave abnormalities but some loss of R wave voltage in lateral precordial leads. low suspicion for acs. ? demand in setting of underyling cad vs. 2/2 neurologic pathology (sz vs. tia). Continue to consider transfer for cath on this admission vs. electively depending on clinical course of pna. Will discuss with Dr. alanis on saturday - con't zetia. h/o statin myalgias with all prior regimens tried, complicates tx (incl crestor 10). con't crestor 5mg qd, tolerating. --if recurrent pains, will try livalo as outpt. - con't home regimen (ASA, toprol 25 qd, crestor, zetia 10) chronic diastolic dysfunction, venous ins'y with edema - uses prn low dose lasix (10-20mg qd) at home, no signs overload, not requiring lasix here. continue to defer HTN: -controlled/intermittently running low. monitor on toprol and flomax. AMS, RESOLVED: -acute ams 04/25 PM, evaluated by neuro and thought to be TIA vs metabolic vs seizure (head ct/brain mri unremarkable) . Sxs resolved now. Plan per neuro/ pmd. ? possible mra of head and neck.
--- NOTE | 2017-04-27 16:59 | PN ---
Progress Note (short form) - Note Progress Note: Pt. markedly improved, denies weakness/numbness. Exam- well oriented, no anguage d/o, has symmetric 5/5 strength,no sensory deficit. -Pt. is neurologically stable, please call us for further assistance. Thank you, Armani Peters MD.
[2017-04-27] MEDS: ROSUVASTATIN CA 5 MG TABLET (FP) PO SCH (22:19)
[2017-04-27] MEDS: NON-FORMULARY MED OU SCH (22:21)
[2017-04-28] MEDS: INSULIN SLIDING SCALE (NOVOLOG) 1 VIAL SQ SCH ×4 (06:16→21:58)
[2017-04-28] MEDS: HEPARIN NA (PORCINE) 5,000 UNITS/ML 1ML VIAL SQ SCH ×3 (06:36→22:04)
[2017-04-28 07:25] LABS: ANION GAP 6 (8-16); CALCIUM 7.6 mg/dL (8.5-10.1); CHLORIDE 100 mmol/L (98-107); CO2 28 mmol/L (21-32); CREATININE 1.1 mg/dL (0.7-1.3); GLUCOSE,RANDOM 90 mg/dL (74-106); POTASSIUM 3.7 mmol/L (3.5-5.1); SODIUM 134 mmol/L (136-145)
[2017-04-28 07:27] LABS: BLOOD UREA NITROGEN 22 mg/dL (7-18)
[2017-04-28] MEDS: TAMSULOSIN HCL 0.4 MG CAP.ER.24H (FP) PO SCH (08:23)
--- NOTE | 2017-04-28 09:54 | PN ---
Progress Note, Physician History of Present Illness: feels better - Current Medication List Current Medications: Active Medications Acetaminophen (Tylenol -) 650 mg PO Q4H PRN PRN Reason: FEVER Aspirin (Asa -) 81 mg PO DAILY [facility] Ezetimibe (Zetia -) 10 mg PO DAILY [facility] Folic Acid (Folic Acid -) 1 mg PO DAILY [facility] Gabapentin (Neurontin -) 800 mg PO BID [facility] Last Admin: 04/27/17 22:20 Dose: 800 mg Heparin Sodium (Porcine) (Heparin -) 5,000 unit SQ TID [facility] Last Admin: 04/28/17 06:36 Dose: 5,000 unit CEFTRIAXONE 1 G/50 ML PREMIX (Ceftriaxone 1 Gm-D5w Bag) 50 mls @ 100 mls/hr IVPB DAILY [facility] Last Admin: 04/27/17 10:09 Dose: 100 mls/hr Insulin Aspart (Novolog Vial Sliding Scale -) 1 vial SQ ACHS [facility] PRN Reason: Protocol Last Admin: 04/28/17 06:16 Dose: Not Given Loratadine (Claritin -) 10 mg PO DAILY [facility] Methylprednisolone (Medrol -) 2 mg PO Q48H [facility] Methylprednisolone (Medrol -) 1 mg PO Q48H [facility] Metoprolol Succinate (Toprol Xl -) 25 mg PO DAILY [facility] Non-Formulary Medication (Brinzolamide/Brimonidine Tart [Simbrinza 1%-0.2% Eye Drops]) 1 drop OS BID [facility] Last Admin: 04/27/17 22:19 Dose: 1 drop Non-Formulary Medication (Non-Formulary Med) 1 each OU HS [facility] Last Admin: 04/27/17 22:21 Dose: 1 each Pantoprazole Sodium (Protonix -) 40 mg PO DAILY [facility] Rosuvastatin Calcium (Crestor -) 5 mg PO HS [facility] Last Admin: 04/27/17 22:19 Dose: 5 mg Tamsulosin HCl (Flomax -) 0.4 mg PO DAILY@0830 [facility] Last Admin: 04/28/17 08:23 Dose: 0.4 mg - Objective Vital Signs: Vital Signs Temperature 99.3 F 04/28/17 09:48 Pulse Rate 68 04/28/17 09:48 Respiratory Rate 20 04/28/17 09:48 Blood Pressure 122/61 04/28/17 09:48 O2 Sat by Pulse Oximetry (%) 95 04/27/17 21:00 Cardiovascular: Yes: S1, S2 Respiratory: Yes: Rales (at the bases) Gastrointestinal: Yes: Normal Bowel Sounds, Soft Edema: No Neurological: Yes: Alert, Oriented Labs: CBC, BMP 04/27/17 06:10 04/28/17 06:15 INR, PTT INR 1.32 (0.82-1.09) H D 04/21/17 17:06 Problem List - Problems (1) TIA (transient ischemic attack) Assessment/Plan: resolved ct of head and mri negative on asa neuro appreciated cardio f/u Code(s): G45.9 - TRANSIENT CEREBRAL ISCHEMIC ATTACK, UNSPECIFIED (2) Change in mental status Assessment/Plan: resolved as above on iv abx cultures id Code(s): R41.82 - ALTERED MENTAL STATUS, UNSPECIFIED (3) GERD (gastroesophageal reflux disease) Assessment/Plan: as above Code(s): K21.9 - GASTRO-ESOPHAGEAL REFLUX DISEASE WITHOUT ESOPHAGITIS (4) Atelectasis of both lungs Assessment/Plan: CXR NOTED--POSSIBLE LL INFILTRATE ID CONSULT APPRECIATED IMPROVED INCENTIVE SPIROMETRY ABX Code(s): J98.11 - ATELECTASIS (5) CAD (coronary artery disease) Assessment/Plan: same meds cardio consult noted for cath--to discuss with cardio timing Code(s): I25.10 - ATHSCL HEART DISEASE OF [place] CORONARY ARTERY W/O ANG PCTRS Qualifiers: Coronary Disease-Associated Artery/Lesion type: unspecified vessel or lesion type [place] vs. transplanted heart: [place] heart Associated angina: with unspecified angina Qualified Code(s): I25.119 - Atherosclerotic heart disease of [place] coronary artery with unspecified angina pectoris (6) CHF (congestive heart failure) Assessment/Plan: continue with lasix Code(s): I50.9 - HEART FAILURE, UNSPECIFIED (7) Pneumonia Assessment/Plan: IV ABX CXR AM Code(s): J18.9 - PNEUMONIA, UNSPECIFIED ORGANISM
[2017-04-28] MEDS: CEFTRIAXONE 1 G/50 ML PREMIX 50 ML IVPB SCH (09:57)
[2017-04-28] MEDS: GABAPENTIN 400 MG CAPSULE (FP) PO SCH ×2 (10:02→22:04)
[2017-04-28] MEDS: FOLIC ACID 1 MG TABLET (FP) PO SCH (10:02)
[2017-04-28] MEDS: metoPROLOL SUCCINATE 25 MG TAB.SR.24H (FP) PO SCH (10:02)
[2017-04-28] MEDS: EZETIMIBE 10 MG TABLET (FP) PO SCH (10:03)
[2017-04-28] MEDS: methylPREDNISolone 2 MG TABLET PO SCH (10:03)
[2017-04-28] MEDS: PATIENT'S OWN MEDICATION (NON-FORMULARY) (Brinzolamide/Brimonidine Tart [Simbrinza 1%-0.2% OS SCH ×2 (10:03→22:11)
[2017-04-28] MEDS: ASPIRIN 81 MG CHEWABLE TABLETS PO SCH (10:03)
[2017-04-28] MEDS: LORATADINE 10 MG TABLET PO SCH (10:03)
[2017-04-28] MEDS: PANTOPRAZOLE 40 MG TABLET (FP) PO SCH (10:58)
--- NOTE | 2017-04-28 11:23 | PN ---
Progress Note, Physician Chief Complaint: Awake, alert Reports occasional cough No c/o chest pain/ dyspnea Temps down afebrile WBC WNL - Current Medication List Current Medications: Active Medications Acetaminophen (Tylenol -) 650 mg PO Q4H PRN PRN Reason: FEVER Aspirin (Asa -) 81 mg PO DAILY [facility] Last Admin: 04/28/17 10:03 Dose: 81 mg Ezetimibe (Zetia -) 10 mg PO DAILY [facility] Last Admin: 04/28/17 10:03 Dose: 10 mg Folic Acid (Folic Acid -) 1 mg PO DAILY [facility] Last Admin: 04/28/17 10:02 Dose: 1 mg Gabapentin (Neurontin -) 800 mg PO BID [facility] Last Admin: 04/28/17 10:02 Dose: 800 mg Heparin Sodium (Porcine) (Heparin -) 5,000 unit SQ TID [facility] Last Admin: 04/28/17 06:36 Dose: 5,000 unit CEFTRIAXONE 1 G/50 ML PREMIX (Ceftriaxone 1 Gm-D5w Bag) 50 mls @ 100 mls/hr IVPB DAILY [facility] Last Admin: 04/28/17 09:57 Dose: 100 mls/hr Insulin Aspart (Novolog Vial Sliding Scale -) 1 vial SQ ACHS [facility] PRN Reason: Protocol Last Admin: 04/28/17 06:16 Dose: Not Given Loratadine (Claritin -) 10 mg PO DAILY [facility] Last Admin: 04/28/17 10:03 Dose: 10 mg Methylprednisolone (Medrol -) 2 mg PO Q48H [facility] Last Admin: 04/28/17 10:03 Dose: 2 mg Methylprednisolone (Medrol -) 1 mg PO Q48H [facility] Metoprolol Succinate (Toprol Xl -) 25 mg PO DAILY [facility] Last Admin: 04/28/17 10:02 Dose: 25 mg Non-Formulary Medication (Brinzolamide/Brimonidine Tart [Simbrinza 1%-0.2% Eye Drops]) 1 drop OS BID [facility] Last Admin: 04/28/17 10:03 Dose: 1 drop Non-Formulary Medication (Non-Formulary Med) 1 each OU HS [facility] Last Admin: 04/27/17 22:21 Dose: 1 each Pantoprazole Sodium (Protonix -) 40 mg PO DAILY [facility] Last Admin: 04/28/17 10:58 Dose: 40 mg Rosuvastatin Calcium (Crestor -) 5 mg PO HS [facility] Last Admin: 04/27/17 22:19 Dose: 5 mg Tamsulosin HCl (Flomax -) 0.4 mg PO DAILY@0830 [facility] Last Admin: 04/28/17 08:23 Dose: 0.4 mg - Objective Vital Signs: Vital Signs Temperature 99.3 F 04/28/17 09:48 Pulse Rate 68 04/28/17 09:48 Respiratory Rate 20 04/28/17 09:48 Blood Pressure 122/61 04/28/17 09:48 O2 Sat by Pulse Oximetry (%) 95 04/27/17 21:00 Constitutional: Yes: No Distress Eyes: Yes: Conjunctiva Clear Cardiovascular: Yes: Regular Rate and Rhythm, S1, S2 Respiratory: Yes: Diminished Gastrointestinal: Yes: Normal Bowel Sounds, Soft. No: Tenderness Edema: No Labs: CBC, BMP 04/27/17 06:10 04/28/17 06:15 INR, PTT INR 1.32 (0.82-1.09) H D 04/21/17 17:06 Assessment/Plan LLL pneumonia RA Continue empiric ceftriaxone
--- NOTE | 2017-04-28 15:06 | PN ---
Progress Note (short form) - Note Progress Note: Chief Complaint: cp History of Present Illness: S: no chest pain. sob, dizziness, palps, n/v, confusion. ex cigs Current Medications Acetaminophen (Tylenol -) 650 mg PO Q4H PRN PRN Reason: FEVER Aspirin (Asa -) 81 mg PO DAILY [facility] Last Admin: 04/28/17 10:03 Dose: 81 mg Ezetimibe (Zetia -) 10 mg PO DAILY [facility] Last Admin: 04/28/17 10:03 Dose: 10 mg Folic Acid (Folic Acid -) 1 mg PO DAILY [facility] Last Admin: 04/28/17 10:02 Dose: 1 mg Gabapentin (Neurontin -) 800 mg PO BID [facility] Last Admin: 04/28/17 10:02 Dose: 800 mg Heparin Sodium (Porcine) (Heparin -) 5,000 unit SQ TID [facility] Last Admin: 04/28/17 14:43 Dose: 5,000 unit CEFTRIAXONE 1 G/50 ML PREMIX (Ceftriaxone 1 Gm-D5w Bag) 50 mls @ 100 mls/hr IVPB DAILY [facility] Last Admin: 04/28/17 09:57 Dose: 100 mls/hr Insulin Aspart (Novolog Vial Sliding Scale -) 1 vial SQ ACHS [facility] PRN Reason: Protocol Last Admin: 04/28/17 12:13 Dose: Not Given Loratadine (Claritin -) 10 mg PO DAILY [facility] Last Admin: 04/28/17 10:03 Dose: 10 mg Methylprednisolone (Medrol -) 2 mg PO Q48H [facility] Last Admin: 04/28/17 10:03 Dose: 2 mg Methylprednisolone (Medrol -) 1 mg PO Q48H [facility] Metoprolol Succinate (Toprol Xl -) 25 mg PO DAILY [facility] Last Admin: 04/28/17 10:02 Dose: 25 mg Non-Formulary Medication (Brinzolamide/Brimonidine Tart [Simbrinza 1%-0.2% Eye Drops]) 1 drop OS BID [facility] Last Admin: 04/28/17 10:03 Dose: 1 drop Non-Formulary Medication (Non-Formulary Med) 1 each OU HS [facility] Last Admin: 04/27/17 22:21 Dose: 1 each Pantoprazole Sodium (Protonix -) 40 mg PO DAILY [facility] Last Admin: 04/28/17 10:58 Dose: 40 mg Rosuvastatin Calcium (Crestor -) 5 mg PO HS [facility] Last Admin: 04/27/17 22:19 Dose: 5 mg Tamsulosin HCl (Flomax -) 0.4 mg PO DAILY@0830 [facility] Last Admin: 04/28/17 08:23 Dose: 0.4 mg Vital Signs - 24 hr 04/27/17 04/27/17 04/27/17 16:00 18:00 21:00 Temperature 99.3 F Pulse Rate 71 65 Respiratory 18 16 20 Rate Blood Pressure 126/78 97/56 O2 Sat by Pulse 95 Oximetry (%) 04/27/17 04/28/17 04/28/17 22:00 02:00 06:00 Temperature 98.7 F 99.0 F 98.7 F Pulse Rate 76 78 80 Respiratory 20 20 20 Rate Blood Pressure 114/48 122/51 116/62 O2 Sat by Pulse Oximetry (%) 04/28/17 04/28/17 09:48 13:29 Temperature 99.3 F 99.2 F Pulse Rate 68 70 Respiratory 20 20 Rate Blood Pressure 122/61 110/52 O2 Sat by Pulse Oximetry (%) Intake & Output 04/26/17 04/27/17 04/28/17 04/29/17 07:59 07:59 07:59 07:59 Intake Total 954 082 1390 Output Total 012 260 2288 Balance -450 65 50 Weight 162 lb 14.746 oz 164 lb 0.383 oz 161 lb 6.4 oz Constitutional: Yes: Well Nourished, No Distress Eyes: No: Sclera Icterus Respiratory: Yes: LLL dullness. No: Accessory Muscle Use, Wheezes Gastrointestinal: Yes: Normal Bowel Sounds. No: Distention, Hepatomegaly, Palpable Mass, Tenderness Cardiovascular: Yes: Regular Rate and Rhythm JVD: No Heart Sounds: Yes: S1, S2. No: Gallop Murmur: No: Systolic Murmur, Diastolic Murmur Extremities: No: Cool, Cyanosis Edema: No Integumentary: No: Jaundice Neurological: Yes: Alert, Oriented (x3) Psychiatric: No: Agitated no carotid bruits - Other Data Labs, Other Data: [facility] 04/28/17 06:15 EKG 04/21 (16:22): NSR, diffuse ST-Ts anterior and inferior, new vs prior rpt EKG 04/22 x 2: same as 1/21 EKG 04/26: t wave abnormalities improved, some loss of r wave voltage in lateral precordial leads. tele: sr Echo 04/2017: mild lvh, nl lv/rv, nl rvsp, no sig valve path CXR 04/21 images and report reviewed: decr inspiratory effort vs prior--? incr in prior baseline interstitial markings vs tissue crowding. vs 04/01, L base eff vs atx same, R small effusion present CT chest 04/18: bibasilar consolidation/air bronchogram, small bilat effusions MPI in [facility] 07/2016: No ekg changes or anginal sx's. mod sized mild intensity posterolateral ischemia. EF 81 % LHC 02/13: EDP 16, EF nl; patent stents: pRCA, dLAD (30-50%), OM1, OM2; 70-80% pLAD ISR--Promus; 70-80% D1 (moderate size)--PTCA; residual diffuse mild dz all 3 vessels Assessment/Plan 81 yo with h/o CAD s/p multiple stents, dCHF, HTN, HL, DM, RA, duodenal ulcers, GERD with esophagitis, BPH, here with nausea and vomiting (nonbloody and nonbilious) x 2 weeks, assoc with chest pressure, now with pna. atypical CP, nausea and vomiting/hx GERD with Galvin's/h/o CAD with mult prior stents: - last cath 2014 with ISR of pLAD s/p Promus SRINIVAS, and stenosis of D1 s/p PTCA at that time (moderate sized diag vessel) - 07/2016 stress with low risk ischemia findings (mild posterolateral), equivocal sx's at that time, ? anginal. medically managed given >10 prior stents , including previous ISR's requiring re-intervention (ranexa incr'd, toprol added)--no angina since. - here with atyp cp in setting of nausea and vomiting, not like prior anginal sx 's. however diffuse, possibly ischemic ST-T changes vs prior. trop neg x 3 initially - CT abdomen 02/15 unremarkable. amylase/lipase wnl. egd done here today shows no significant abnormalities. - nausea/dry heaves > vomiting may be secondary to his described post-nasal drip. other possibility of sxs suggested by GI is side effect from ranexa. This was recently increased so timing is appropriate. Will dc ranexa (last dose 04/25 AM) and monitor. - will consider rpt cath in light of new ekg changes. however pt is clinically stable with no signif chf findings, no hypotension, no severe angina sx's, with negative troponins, so cath can be done electively. - 04/27-04/28: borderline intermediate troponin elevation (flat trend, nl ck) on in setting of fever/ams. EKG with improvement in new t wave abnormalities but some loss of R wave voltage in lateral precordial leads. low suspicion for acs. ? demand in setting of underyling cad vs. 2/2 neurologic pathology (sz vs. tia). No anginal sx's. Continue to consider transfer for cath on this admission vs. electively depending on clinical course of pna. Will discuss with Dr. alanis on saturday - con't zetia. h/o statin myalgias with all prior regimens tried, complicates tx (incl crestor 10). con't crestor 5mg qd, tolerating. --if recurrent pains, will try livalo as outpt. - con't home regimen (ASA, toprol 25 qd, crestor, zetia 10) chronic diastolic dysfunction, venous ins'y with edema - uses prn low dose lasix (10-20mg qd) at home, no signs overload, not requiring lasix here. continue to defer HTN: -controlled/intermittently running low. monitor on toprol and flomax. AMS, RESOLVED: -acute ams 04/25 PM, evaluated by neuro and thought to be TIA vs metabolic vs seizure (head ct/brain mri unremarkable) . Sxs resolved now. Plan per neuro/ pmd. ? possible mra of head and neck.
[2017-04-28] MEDS: ROSUVASTATIN CA 5 MG TABLET (FP) PO SCH (22:04)
[2017-04-28] MEDS: NON-FORMULARY MED OU SCH (22:11)
[2017-04-29] MEDS: INSULIN SLIDING SCALE (NOVOLOG) 1 VIAL SQ SCH ×4 (06:19→21:44)
[2017-04-29 06:56] LABS: ANION GAP 6 (8-16); BLOOD UREA NITROGEN 24 mg/dL (7-18); CALCIUM 7.8 mg/dL (8.5-10.1); CHLORIDE 100 mmol/L (98-107); CO2 29 mmol/L (21-32); CREATININE 1.1 mg/dL (0.7-1.3); GLUCOSE,RANDOM 96 mg/dL (74-106); MAGNESIUM 1.9 mg/dL (1.8-2.4); SODIUM 135 mmol/L (136-145)
[2017-04-29] MEDS: HEPARIN NA (PORCINE) 5,000 UNITS/ML 1ML VIAL SQ SCH ×3 (06:57→21:24)
--- NOTE | 2017-04-29 08:11 | PN ---
Progress Note, Physician Chief Complaint: ID Ceftriaxone currently after previous Alexsandero and Evonne Denies SOB some dry couph No fever - Current Medication List Current Medications: Active Medications Acetaminophen (Tylenol -) 650 mg PO Q4H PRN PRN Reason: FEVER Aspirin (Asa -) 81 mg PO DAILY [facility] Last Admin: 04/28/17 10:03 Dose: 81 mg Ezetimibe (Zetia -) 10 mg PO DAILY [facility] Last Admin: 04/28/17 10:03 Dose: 10 mg Folic Acid (Folic Acid -) 1 mg PO DAILY [facility] Last Admin: 04/28/17 10:02 Dose: 1 mg Gabapentin (Neurontin -) 800 mg PO BID [facility] Last Admin: 04/28/17 22:04 Dose: 800 mg Heparin Sodium (Porcine) (Heparin -) 5,000 unit SQ TID [facility] Last Admin: 04/29/17 06:57 Dose: 5,000 unit CEFTRIAXONE 1 G/50 ML PREMIX (Ceftriaxone 1 Gm-D5w Bag) 50 mls @ 100 mls/hr IVPB DAILY [facility] Last Admin: 04/28/17 09:57 Dose: 100 mls/hr Insulin Aspart (Novolog Vial Sliding Scale -) 1 vial SQ ACHS [facility] PRN Reason: Protocol Last Admin: 04/29/17 06:19 Dose: Not Given Loratadine (Claritin -) 10 mg PO DAILY [facility] Last Admin: 04/28/17 10:03 Dose: 10 mg Methylprednisolone (Medrol -) 2 mg PO Q48H [facility] Last Admin: 04/28/17 10:03 Dose: 2 mg Methylprednisolone (Medrol -) 1 mg PO Q48H [facility] Metoprolol Succinate (Toprol Xl -) 25 mg PO DAILY [facility] Last Admin: 04/28/17 10:02 Dose: 25 mg Non-Formulary Medication (Brinzolamide/Brimonidine Tart [Simbrinza 1%-0.2% Eye Drops]) 1 drop OS BID [facility] Last Admin: 04/28/17 22:11 Dose: 1 drop Non-Formulary Medication (Non-Formulary Med) 1 each OU HS [facility] Last Admin: 04/28/17 22:11 Dose: 1 each Pantoprazole Sodium (Protonix -) 40 mg PO DAILY [facility] Last Admin: 04/28/17 10:58 Dose: 40 mg Rosuvastatin Calcium (Crestor -) 5 mg PO HS [facility] Last Admin: 04/28/17 22:04 Dose: 5 mg Tamsulosin HCl (Flomax -) 0.4 mg PO DAILY@0830 [facility] Last Admin: 04/28/17 08:23 Dose: 0.4 mg - Objective Vital Signs: Vital Signs Temperature 98.2 F 04/29/17 06:00 Pulse Rate 68 04/29/17 06:00 Respiratory Rate 20 04/29/17 06:00 Blood Pressure 107/48 04/29/17 06:00 O2 Sat by Pulse Oximetry (%) 97 04/28/17 21:00 Constitutional: Yes: Well Nourished, No Distress HENT: Yes: WNL, Atraumatic Neck: Yes: WNL, Supple Cardiovascular: Yes: S1, S2 Respiratory: Yes: WNL, Regular, CTA Bilaterally, Other (rales noted LLL) Gastrointestinal: Yes: WNL, Normal Bowel Sounds, Soft. No: Tenderness Edema: No Labs: CBC, BMP 04/27/17 06:10 04/29/17 05:45 INR, PTT INR 1.32 (0.82-1.09) H D 04/21/17 17:06 Problem List - Problems (1) Pneumonia Code(s): J18.9 - PNEUMONIA, UNSPECIFIED ORGANISM (2) Change in mental status Code(s): R41.82 - ALTERED MENTAL STATUS, UNSPECIFIED (3) CAD (coronary artery disease) Code(s): I25.10 - ATHSCL HEART DISEASE OF [place] CORONARY ARTERY W/O ANG PCTRS Qualifiers: Coronary Disease-Associated Artery/Lesion type: unspecified vessel or lesion type [place] vs. transplanted heart: [place] heart Associated angina: with unspecified angina Qualified Code(s): I25.119 - Atherosclerotic heart disease of [place] coronary artery with unspecified angina pectoris Assessment/Plan Microbiology 04/26/17 17:45 Nasopharyngeal Swab Influenza Types A,B Antigen (SONNY) - Final 04/26/17 17:45 Nasopharyngeal Swab - Final 04/21/17 21:00 Urine - Urine Clean Catch Urine Culture - Final NO GROWTH OBTAINED 04/21/17 17:13 Blood - Peripheral Venous Blood Culture - Final NO GROWTH AFTER 5 DAYS INCUBATION 04/21/17 17:06 Blood - Peripheral Venous Blood Culture - Final NO GROWTH AFTER 5 DAYS INCUBATION 04/25/17 21:30 Blood - Peripheral Venous Blood Culture - Preliminary NO GROWTH OBTAINED AFTER 72 HOURS, INCUBATION TO CONTINUE FOR 2 DAYS. 04/25/17 21:30 Blood - Peripheral Venous Blood Culture - Preliminary NO GROWTH OBTAINED AFTER 72 HOURS, INCUBATION TO CONTINUE FOR 2 DAYS. Laboratory Tests 04/27/17 04/29/17 06:10 05:45 WBC 6.6 Hgb 11.7 Hct 35.2 L Plt Count 225 BUN 24 H Creatinine 1.1 Assessment Treatment for Pneumonia unspecified Plan Can be switched to an oral antibiotic for few more days Levofloxacin 500mg daily
--- NOTE | 2017-04-29 08:31 | PN ---
Progress Note, Physician Chief Complaint: vomiting History of Present Illness: does not recall confusional episode last week says naus/vomiting/dry heaves resolved denies any sob, orthopnea, cp, palpit no cigs - Current Medication List Current Medications: Active Medications Acetaminophen (Tylenol -) 650 mg PO Q4H PRN PRN Reason: FEVER Amoxicillin/Clavulanate Potassium (Augmentin - 875mg Tablet) 1 tab PO BID@0800, 1730 [facility] Aspirin (Asa -) 81 mg PO DAILY [facility] Last Admin: 04/28/17 10:03 Dose: 81 mg Ezetimibe (Zetia -) 10 mg PO DAILY [facility] Last Admin: 04/28/17 10:03 Dose: 10 mg Folic Acid (Folic Acid -) 1 mg PO DAILY [facility] Last Admin: 04/28/17 10:02 Dose: 1 mg Gabapentin (Neurontin -) 800 mg PO BID [facility] Last Admin: 04/28/17 22:04 Dose: 800 mg Heparin Sodium (Porcine) (Heparin -) 5,000 unit SQ TID [facility] Last Admin: 04/29/17 06:57 Dose: 5,000 unit CEFTRIAXONE 1 G/50 ML PREMIX (Ceftriaxone 1 Gm-D5w Bag) 50 mls @ 100 mls/hr IVPB DAILY [facility] Last Admin: 04/28/17 09:57 Dose: 100 mls/hr Insulin Aspart (Novolog Vial Sliding Scale -) 1 vial SQ ACHS [facility] PRN Reason: Protocol Last Admin: 04/29/17 06:19 Dose: Not Given Loratadine (Claritin -) 10 mg PO DAILY [facility] Last Admin: 04/28/17 10:03 Dose: 10 mg Methylprednisolone (Medrol -) 2 mg PO Q48H [facility] Last Admin: 04/28/17 10:03 Dose: 2 mg Methylprednisolone (Medrol -) 1 mg PO Q48H [facility] Metoprolol Succinate (Toprol Xl -) 25 mg PO DAILY [facility] Last Admin: 04/28/17 10:02 Dose: 25 mg Non-Formulary Medication (Brinzolamide/Brimonidine Tart [Simbrinza 1%-0.2% Eye Drops]) 1 drop OS BID [facility] Last Admin: 04/28/17 22:11 Dose: 1 drop Non-Formulary Medication (Non-Formulary Med) 1 each OU HS [facility] Last Admin: 04/28/17 22:11 Dose: 1 each Pantoprazole Sodium (Protonix -) 40 mg PO DAILY [facility] Last Admin: 04/28/17 10:58 Dose: 40 mg Rosuvastatin Calcium (Crestor -) 5 mg PO HS [facility] Last Admin: 04/28/17 22:04 Dose: 5 mg Tamsulosin HCl (Flomax -) 0.4 mg PO DAILY@0830 [facility] Last Admin: 04/28/17 08:23 Dose: 0.4 mg - Objective Vital Signs: Vital Signs Temperature 98.2 F 04/29/17 08:16 Pulse Rate 72 04/29/17 08:16 Respiratory Rate 20 04/29/17 08:18 Blood Pressure 123/74 04/29/17 08:16 O2 Sat by Pulse Oximetry (%) 97 04/29/17 08:18 Constitutional: Yes: No Distress, Calm Eyes: No: Sclera Icterus HENT: No: Nasal Congestion Cardiovascular: Yes: Regular Rate and Rhythm, S1, S2, Other (PMI non diplaced). No: JVD, Gallop, Murmur Respiratory: Yes: CTA Bilaterally, Diminished (bases), Rales (bases). No: Accessory Muscle Use Gastrointestinal: Yes: Normal Bowel Sounds, Soft. No: Tenderness Musculoskeletal: Yes: Other (No kyphosis) Extremities: No: Cold Edema: No Integumentary: No: Jaundice Neurological: Yes: Alert, Oriented (x3) Psychiatric: No: Agitated Labs: CBC, BMP 04/27/17 06:10 04/29/17 05:45 INR, PTT INR 1.32 (0.82-1.09) H D 04/21/17 17:06 - ....Imaging EKG: Other (tele: NSR) Assessment/Plan EKG 04/21 (16:22): NSR, diffuse ST-Ts anterior and inferior, new vs prior EKG 04/26: t wave abnormalities improved. Echo 04/2017: mild lvh, nl lv/rv, nl rvsp, no sig valve path CXR 04/21 images and report reviewed: decr inspiratory effort vs prior--? incr in prior baseline interstitial markings vs tissue crowding. vs 04/01, L base eff vs atx same, R small effusion present CT chest 04/22: bibasilar opacities likely atx, can't exclude superimposed PNA. small bilat effusions incr'd size vs prior MPI in [facility] 07/2016: No ekg changes or anginal sx's. mod sized mild intensity posterolateral ischemia. EF 81 % LHC 02/13: EDP 16, EF nl; patent stents: pRCA, dLAD (30-50%), OM1, OM2; 70-80% pLAD ISR--Promus; 70-80% D1 (moderate size)--PTCA; residual diffuse mild dz all 3 vessels Assessment/Plan 81 yo with h/o CAD s/p multiple stents, dCHF, HTN, HL, DM, RA, duodenal ulcers, GERD with esophagitis, BPH, here with nausea and vomiting (nonbloody and nonbilious) x 2 weeks, assoc with chest pressure, now with pna. atypical CP, nausea and vomiting/GERD/h/o CAD with mult prior stents: - last cath 2014 with ISR of pLAD s/p Promus SRINIVAS, and stenosis of D1 s/p PTCA at that time (moderate sized diag vessel) - 07/2016 stress with low risk ischemia findings (mild posterolateral), equivocal sx's at that time, ? anginal. medically managed given >10 prior stents , including previous ISR's requiring re-intervention (ranexa incr'd, toprol added)--no angina since. - here with atyp cp in setting of nausea and vomiting, not like prior anginal sx 's. however diffuse, possibly ischemic ST-T changes vs prior. trop neg x 3 initially - CT abdomen 02/15 unremarkable. amylase/lipase wnl. egd done here today shows no significant abnormalities. - nausea/dry heaves > vomiting may be secondary to his described post-nasal drip. other possibility of sxs suggested by GI is side effect from ranexa. This was recently increased so timing is appropriate. Will dc ranexa (last dose 04/25 AM) and monitor. - will consider rpt cath in light of new ekg changes. however pt is clinically stable with no signif chf findings, no hypotension, no severe angina sx's, with negative troponins, so cath can be done electively. - 04/26 troponin 0.69->(3.5 hrs later) 0.53-->-->0.09, with nonspecific changes on ekg. trend now c/w ACS. occurred in setting of fever and acute MS changes. - con't zetia. h/o statin myalgias with all prior regimens tried, complicates tx (incl crestor 10). con't crestor 5mg qd, tolerating. --if recurrent pains, will try livalo as outpt. - con't home regimen (ASA, toprol 25 qd, crestor, zetia 10) - holding ranexa (? cause of nausea, which resolved) - will plan elective cath once acute infectious issue resolves (being tx'd for PNA)--can do either as inpt immediately prior to discharge, or as outpt if remains without s/sx of cardiac ischemia chronic diastolic dysfunction, venous ins'y with edema - uses prn low dose lasix (10-20mg qd) at home, no signs overload, not requiring lasix here. continue to defer HTN: -controlled/intermittently running low. monitor on toprol and flomax. fever, AMS: -acute ams 04/25 PM, evaluated by neuro and thought to be TIA vs metabolic ? seizure (brain mri unremarkable). Sxs completely resolved now. -fever to 101.6 on day of events, now afebrile (BCx's negative, no urine done) -on abx -Plan per neuro/pmd/ID
[2017-04-29] MEDS: metoPROLOL SUCCINATE 25 MG TAB.SR.24H (FP) PO SCH (08:59)
[2017-04-29] MEDS: GABAPENTIN 400 MG CAPSULE (FP) PO SCH ×2 (08:59→21:24)
[2017-04-29] MEDS: ASPIRIN 81 MG CHEWABLE TABLETS PO SCH (08:59)
[2017-04-29] MEDS: TAMSULOSIN HCL 0.4 MG CAP.ER.24H (FP) PO SCH (08:59)
[2017-04-29] MEDS: PANTOPRAZOLE 40 MG TABLET (FP) PO SCH (09:00)
[2017-04-29] MEDS: CEFTRIAXONE 1 G/50 ML PREMIX 50 ML IVPB SCH (09:00)
[2017-04-29] MEDS: LORATADINE 10 MG TABLET PO SCH (09:00)
[2017-04-29] MEDS: FOLIC ACID 1 MG TABLET (FP) PO SCH (09:00)
[2017-04-29] MEDS: EZETIMIBE 10 MG TABLET (FP) PO SCH (09:03)
[2017-04-29] MEDS: PATIENT'S OWN MEDICATION (NON-FORMULARY) (Brinzolamide/Brimonidine Tart [Simbrinza 1%-0.2% OS SCH ×2 (09:06→21:28)
[2017-04-29] MEDS ORDERED: methylPREDNISolone 2 MG TABLET PO SCH (10:00)
--- NOTE | 2017-04-29 12:14 | DS ---
Physical Examination Vital Signs: Vital Signs Temperature 98.2 F 04/29/17 08:16 Pulse Rate 72 04/29/17 08:16 Respiratory Rate 20 04/29/17 08:18 Blood Pressure 123/74 04/29/17 08:16 O2 Sat by Pulse Oximetry (%) 97 04/29/17 08:18 Constitutional: Yes: Calm Cardiovascular: Yes: Regular Rate and Rhythm, S1, S2 Respiratory: Yes: CTA Bilaterally Gastrointestinal: Yes: Normal Bowel Sounds, Soft Labs: CBC, BMP 04/27/17 06:10 04/29/17 05:45 Discharge Summary Reason For Visit: INTRACTABLE VOMITING W NAUSEA Current Active Problems BPH (benign prostatic hyperplasia) (Acute) CVA (cerebral vascular accident) (Acute) Change in mental status (Acute) GERD (gastroesophageal reflux disease) (Acute) Intractable nausea and vomiting (Acute) Pneumonia (Acute) TIA (transient ischemic attack) (Acute) Hospital Course: Pt is an 81 year old man with PMH CAD (s/p 11 stents), CHF, HTN, HLD, DM who presents to ED with nausea and vomiting since 10 Apr 2017 and with chest pressure today. Pt states he was admitted to [facility] with PNA on Apr and went home with 7d ABx. 2 days after finishing the ABx he began feeling SOB, nauseated , and has been vomiting since then. Vomit has been nonbloody and nonbilious. Pt has been able to eat and drink small amounts and had some food today. His chest pressure started today while he was lying down and has been constant, nonradiating, and unrelated to activity. He states he has had cardiac symptoms in the past, and this chest pressure feels different. No other complaints. Pt denies diarrhea, fever, chills, cough, headache, body aches. ER course was notable for: (1) WBC 9.1, Hb 11.6, Tn neg (2) CXR: large cardiac shadow, hilar fullness, ? L pleural effusion, EKG: lateral TWI (3) ASA 325 given in hospital: on telemtry ranexa dose decreased and stopped secondary to GI symptoms for pna to get iv abx last dose tonight then dc home in AM HLD on zetia/crestor TIA was seen by neuro CT and MRI negative for new infarcts on statin ok to go home on augmentin in AM Condition: Stable - Instructions Referrals: Varghese Barakat MD [Primary Care Provider] - - Home Medications Comprehensive Discharge Medication List: Ambulatory Orders Aspirin [ASA -] 81 mg PO DAILY 08/14/16 Folic Acid - 1 mg PO ASDIR 08/14/16 Furosemide [Lasix -] 20 mg PO ASDIR 08/14/16 Gabapentin 800 mg PO BID 08/14/16 Methotrexate Sodium [Methotrexate] 6 tab PO WEEKLY 08/14/16 Methylprednisolone [Medrol -] 2 mg PO ASDIR 08/14/16 Tamsulosin HCl [Flomax] 0.4 mg PO HS 08/14/16 Travoprost [Travatan Z] 1 drop OU HS 08/14/16 Ranolazine [Ranexa -] 1,000 mg PO BID #60 tab 08/16/16 Brinzolamide/Brimonidine Tart [Simbrinza 1%-0.2% Eye Drops] 1 drop OS BID Levomefolate/B6/B12/Algal Oil [Foltanx Rf Capsule] 1 each PO BID 03/31/17 Acetaminophen [Tylenol .Regular Strength -] 650 mg PO Q4H PRN tablet 04/05/17 Pantoprazole Sodium [Protonix -] 40 mg PO DAILY #30 tablet.ec 04/05/17 Metoprolol Succinate [Toprol Xl] 25 mg PO DAILY 04/21/17 Rabeprazole Sodium [Aciphex] 20 mg PO DAILY 04/21/17 Antiox.mv No.10/Omeg3s/Lut/Melissa [I-Caps with Lutein-Lee 3 Sfg] 1 each PO DAILY 04/23/17 Beta-Carotene(A)-Vits C and E [E-400 C-500 & Beta Carotene] 1 tab PO DAILY 04/23 Cyanocobalamin [Vitamin B12 -] 1,000 mcg PO DAILY 04/23/17 Ezetimibe [Zetia] 10 mg PO HS 04/23/17 Magnesium Oxide [Mag-Ox -] 400 mg PO DAILY 04/23/17 Methylprednisolone [Medrol -] 1 mg PO ASDIR 04/23/17 Rosuvastatin Calcium [Crestor] 2.5 mg PO HS 04/23/17 Vitamin B Complex Vit C No.4 [Super B Complex] 1 tab PO DAILY 04/23/17
[2017-04-29] MEDS: ROSUVASTATIN CA 5 MG TABLET (FP) PO SCH (21:24)
[2017-04-29] MEDS: NON-FORMULARY MED OU SCH (21:27)
[2017-04-30] MEDS: HEPARIN NA (PORCINE) 5,000 UNITS/ML 1ML VIAL SQ SCH (06:15)
[2017-04-30] MEDS: INSULIN SLIDING SCALE (NOVOLOG) 1 VIAL SQ SCH ×2 (06:15→11:34)
[2017-04-30] MEDS ORDERED: AMOX TR/POT CLAV 875MG/125MG TABLETS (FP) PO SCH (08:00)
[2017-04-30] MEDS: TAMSULOSIN HCL 0.4 MG CAP.ER.24H (FP) PO SCH (08:54)
[2017-04-30] MEDS: GABAPENTIN 400 MG CAPSULE (FP) PO SCH (08:59)
[2017-04-30] MEDS: FOLIC ACID 1 MG TABLET (FP) PO SCH (09:00)
[2017-04-30] MEDS: metoPROLOL SUCCINATE 25 MG TAB.SR.24H (FP) PO SCH (09:00)
[2017-04-30] MEDS: EZETIMIBE 10 MG TABLET (FP) PO SCH (09:00)
[2017-04-30] MEDS: methylPREDNISolone 2 MG TABLET PO SCH (09:00)
[2017-04-30] MEDS: ASPIRIN 81 MG CHEWABLE TABLETS PO SCH (09:00)
[2017-04-30] MEDS: LORATADINE 10 MG TABLET PO SCH (09:00)
[2017-04-30] MEDS: PANTOPRAZOLE 40 MG TABLET (FP) PO SCH (09:00)
[2017-04-30] MEDS: PATIENT'S OWN MEDICATION (NON-FORMULARY) (Brinzolamide/Brimonidine Tart [Simbrinza 1%-0.2% OS SCH (09:00)
--- NOTE | 2017-04-30 10:10 | PN ---
Progress Note (short form) - Note Progress Note: Chief Complaint: vomiting History of Present Illness: BP improving denies any sob, orthopnea, cp, palpit. possible plan for d/c today no cigs Current Medications Acetaminophen (Tylenol -) 650 mg PO Q4H PRN PRN Reason: FEVER Amoxicillin/Clavulanate Potassium (Augmentin - 875mg Tablet) 1 tab PO BID@0800, 1730 [facility] Last Admin: 04/30/17 08:54 Dose: 1 tab Aspirin (Asa -) 81 mg PO DAILY [facility] Last Admin: 04/30/17 09:00 Dose: 81 mg Ezetimibe (Zetia -) 10 mg PO DAILY [facility] Last Admin: 04/30/17 09:00 Dose: 10 mg Folic Acid (Folic Acid -) 1 mg PO DAILY [facility] Last Admin: 04/30/17 09:00 Dose: 1 mg Gabapentin (Neurontin -) 800 mg PO BID [facility] Last Admin: 04/30/17 08:59 Dose: 800 mg Heparin Sodium (Porcine) (Heparin -) 5,000 unit SQ TID [facility] Last Admin: 04/30/17 06:15 Dose: 5,000 unit Insulin Aspart (Novolog Vial Sliding Scale -) 1 vial SQ ACHS [facility] PRN Reason: Protocol Last Admin: 04/30/17 06:15 Dose: Not Given Loratadine (Claritin -) 10 mg PO DAILY [facility] Last Admin: 04/30/17 09:00 Dose: 10 mg Methylprednisolone (Medrol -) 2 mg PO Q48H [facility] Last Admin: 04/30/17 09:00 Dose: 2 mg Methylprednisolone (Medrol -) 1 mg PO Q48H [facility] Last Admin: 04/29/17 09:03 Dose: 1 mg Metoprolol Succinate (Toprol Xl -) 25 mg PO DAILY [facility] Last Admin: 04/30/17 09:00 Dose: 25 mg Non-Formulary Medication (Brinzolamide/Brimonidine Tart [Simbrinza 1%-0.2% Eye Drops]) 1 drop OS BID [facility] Last Admin: 04/30/17 09:00 Dose: 1 drop Non-Formulary Medication (Non-Formulary Med) 1 each OU HS [facility] Last Admin: 04/29/17 21:27 Dose: 1 each Pantoprazole Sodium (Protonix -) 40 mg PO DAILY [facility] Last Admin: 04/30/17 09:00 Dose: 40 mg Rosuvastatin Calcium (Crestor -) 5 mg PO HS [facility] Last Admin: 04/29/17 21:24 Dose: 5 mg Tamsulosin HCl (Flomax -) 0.4 mg PO DAILY@0830 [facility] Last Admin: 04/30/17 08:54 Dose: 0.4 mg - Objective Vital Signs: Vital Signs - 24 hr 04/29/17 04/29/17 04/29/17 18:00 21:00 22:00 Temperature 98.2 F Pulse Rate 80 69 Respiratory 20 20 14 Rate Blood Pressure 108/57 111/51 O2 Sat by Pulse 97 97 Oximetry (%) 04/30/17 04/30/17 04/30/17 02:00 04:00 06:30 Temperature 98.0 F 97.6 F Pulse Rate 73 72 68 Respiratory 19 13 18 Rate Blood Pressure 110/54 134/64 128/57 O2 Sat by Pulse Oximetry (%) Intake & Output 04/28/17 04/29/17 04/30/17 05/01/17 07:59 07:59 07:59 07:59 Intake Total 2703 747 1077 Output Total 6902 213 6332 Balance 50 -100 90 Weight 161 lb 6.4 oz 160 lb 6 oz 161 lb Constitutional: Yes: Well Nourished, No Distress Eyes: No: Sclera Icterus Respiratory: Yes: LLL dullness. No: Accessory Muscle Use, Wheezes Gastrointestinal: Yes: Normal Bowel Sounds. No: Distention, Hepatomegaly, Palpable Mass, Tenderness Cardiovascular: Yes: Regular Rate and Rhythm JVD: No Heart Sounds: Yes: S1, S2. No: Gallop Murmur: No: Systolic Murmur, Diastolic Murmur Extremities: No: Cool, Cyanosis Edema: No Integumentary: + skin ecchymosis No: Jaundice Neurological: Yes: Alert, Oriented (x3) Psychiatric: No: Agitated no carotid bruits Labs: no CBC, BMP - ....Imaging EKG: Other (tele: NSR) Assessment/Plan EKG 04/21 (16:22): NSR, diffuse ST-Ts anterior and inferior, new vs prior EKG 04/26: t wave abnormalities improved. Echo 04/2017: mild lvh, nl lv/rv, nl rvsp, no sig valve path CXR 04/21 images and report reviewed: decr inspiratory effort vs prior--? incr in prior baseline interstitial markings vs tissue crowding. vs 04/01, L base eff vs atx same, R small effusion present CT chest 04/22: bibasilar opacities likely atx, can't exclude superimposed PNA. small bilat effusions incr'd size vs prior MPI in [facility] 07/2016: No ekg changes or anginal sx's. mod sized mild intensity posterolateral ischemia. EF 81 % LHC 02/13: EDP 16, EF nl; patent stents: pRCA, dLAD (30-50%), OM1, OM2; 70-80% pLAD ISR--Promus; 70-80% D1 (moderate size)--PTCA; residual diffuse mild dz all 3 vessels Assessment/Plan 81 yo with h/o CAD s/p multiple stents, dCHF, HTN, HL, DM, RA, duodenal ulcers, GERD with esophagitis, BPH, here with nausea and vomiting (nonbloody and nonbilious) x 2 weeks, assoc with chest pressure, now with pna. atypical CP, nausea and vomiting/GERD/h/o CAD with mult prior stents: - last cath 2014 with ISR of pLAD s/p Promus SRINIVAS, and stenosis of D1 s/p PTCA at that time (moderate sized diag vessel) - 07/2016 stress with low risk ischemia findings (mild posterolateral), equivocal sx's at that time, ? anginal. medically managed given >10 prior stents , including previous ISR's requiring re-intervention (ranexa incr'd, toprol added)--no angina since. - here with atyp cp in setting of nausea and vomiting, not like prior anginal sx 's. however diffuse, possibly ischemic ST-T changes vs prior. trop neg x [address] initially - [address] abdomen 02/15 unremarkable. amylase/lipase wnl. egd done here today shows no significant abnormalities. - nausea/dry heaves > vomiting may be secondary to his described post-nasal drip. other possibility of sxs suggested by GI is side effect from ranexa. This was recently increased so timing is appropriate. Will dc ranexa (last dose 25 AM) and monitor. - will consider rpt cath in light of new ekg changes. however pt is clinically stable with no signif chf findings, no hypotension, no severe angina sx's, with negative troponins, so cath can be done electively. - 04/26 troponin 0.69->(3.5 hrs later) 0.53-->-->0.09, with nonspecific changes on ekg. trend now c/w ACS. occurred in setting of fever and acute MS changes. - con't zetia. h/o statin myalgias with all prior regimens tried, complicates tx (incl crestor 10). con't crestor 5mg qd, tolerating. --if recurrent pains, will try livalo as outpt. - con't home regimen (ASA, toprol 25 qd, crestor, zetia 10) - holding ranexa (? cause of nausea, which resolved) - will plan elective cath once acute infectious issue resolves (being tx'd for PNA)--can do either as inpt immediately prior to discharge, or as outpt if remains without s/sx of cardiac ischemia chronic diastolic dysfunction, venous ins'y with edema - s/p IVF - uses prn low dose lasix (10-20mg qd) at home, no signs overload weight stable. not requiring lasix here. continue to defer HTN: -controlled/intermittently running low (now improving). monitor on toprol and flomax. fever, AMS: -acute ams 04/25 PM, evaluated by neuro and thought to be TIA vs metabolic ? seizure (brain mri unremarkable). Sxs completely resolved now. -fever to 101.6 on day of events, now afebrile (BCx's negative, no urine done) -on abx -Plan per neuro/pmd/ID If d/c today, patient states he has f/u ricky't with Dr. Wynne next week.
[2017-04-30 10:26] VITALS: BP 119/63; PULSE 69; TEMP 98.1
--- NOTE | 2017-04-30 10:31 | PN ---
Progress Note, Physician Chief Complaint: patient seen and examined ready to go home today no cp no fever - Current Medication List Current Medications: Active Medications Acetaminophen (Tylenol -) 650 mg PO Q4H PRN PRN Reason: FEVER Amoxicillin/Clavulanate Potassium (Augmentin - 875mg Tablet) 1 tab PO BID@0800, 1730 [facility] Last Admin: 04/30/17 08:54 Dose: 1 tab Aspirin (Asa -) 81 mg PO DAILY [facility] Last Admin: 04/30/17 09:00 Dose: 81 mg Ezetimibe (Zetia -) 10 mg PO DAILY [facility] Last Admin: 04/30/17 09:00 Dose: 10 mg Folic Acid (Folic Acid -) 1 mg PO DAILY [facility] Last Admin: 04/30/17 09:00 Dose: 1 mg Gabapentin (Neurontin -) 800 mg PO BID [facility] Last Admin: 04/30/17 08:59 Dose: 800 mg Heparin Sodium (Porcine) (Heparin -) 5,000 unit SQ TID [facility] Last Admin: 04/30/17 06:15 Dose: 5,000 unit Insulin Aspart (Novolog Vial Sliding Scale -) 1 vial SQ ACHS [facility] PRN Reason: Protocol Last Admin: 04/30/17 06:15 Dose: Not Given Loratadine (Claritin -) 10 mg PO DAILY [facility] Last Admin: 04/30/17 09:00 Dose: 10 mg Methylprednisolone (Medrol -) 2 mg PO Q48H [facility] Last Admin: 04/30/17 09:00 Dose: 2 mg Methylprednisolone (Medrol -) 1 mg PO Q48H [facility] Last Admin: 04/29/17 09:03 Dose: 1 mg Metoprolol Succinate (Toprol Xl -) 25 mg PO DAILY [facility] Last Admin: 04/30/17 09:00 Dose: 25 mg Non-Formulary Medication (Brinzolamide/Brimonidine Tart [Simbrinza 1%-0.2% Eye Drops]) 1 drop OS BID [facility] Last Admin: 04/30/17 09:00 Dose: 1 drop Non-Formulary Medication (Non-Formulary Med) 1 each OU HS [facility] Last Admin: 04/29/17 21:27 Dose: 1 each Pantoprazole Sodium (Protonix -) 40 mg PO DAILY [facility] Last Admin: 04/30/17 09:00 Dose: 40 mg Rosuvastatin Calcium (Crestor -) 5 mg PO HS [facility] Last Admin: 04/29/17 21:24 Dose: 5 mg Tamsulosin HCl (Flomax -) 0.4 mg PO DAILY@0830 [facility] Last Admin: 04/30/17 08:54 Dose: 0.4 mg - Objective Vital Signs: Vital Signs Temperature 98.1 F 04/30/17 10:00 Pulse Rate 69 04/30/17 10:00 Respiratory Rate 20 04/30/17 10:00 Blood Pressure 119/63 04/30/17 10:00 O2 Sat by Pulse Oximetry (%) 96 04/30/17 10:00 Constitutional: Yes: Calm Cardiovascular: Yes: Regular Rate and Rhythm, S1, S2 Respiratory: Yes: CTA Bilaterally Gastrointestinal: Yes: Normal Bowel Sounds, Soft Edema: No Neurological: Yes: Alert, Oriented Labs: CBC, BMP 04/27/17 06:10 04/29/17 05:45 INR, PTT INR 1.32 (0.82-1.09) H D 04/21/17 17:06 Problem List - Problems (1) Intractable nausea and vomiting Assessment/Plan: GI evaluation noted and ranexa stopped ,symptoms maybe secondary to ranexa amylase lipase orderd- low ct unremarkable h/o gerd and barrets to get GI to see him for EGD prior to angio post nasal drip start claritin Code(s): R11.2 - NAUSEA WITH VOMITING, UNSPECIFIED Qualifiers: Vomiting type: unspecified Qualified Code(s): R11.2 - Nausea with vomiting , unspecified (2) CAD (coronary artery disease) Assessment/Plan: aspirin,toprol,crestor and zetia Code(s): I25.10 - ATHSCL HEART DISEASE OF [place] CORONARY ARTERY W/O ANG PCTRS Qualifiers: Coronary Disease-Associated Artery/Lesion type: unspecified vessel or lesion type [place] vs. transplanted heart: [place] heart Associated angina: with unspecified angina Qualified Code(s): I25.119 - Atherosclerotic heart disease of [place] coronary artery with unspecified angina pectoris (3) BPH (benign prostatic hyperplasia) Assessment/Plan: flomax Code(s): N40.0 - BENIGN PROSTATIC HYPERPLASIA WITHOUT LOWER URINRY TRACT SYMP (4) GERD (gastroesophageal reflux disease) Assessment/Plan: ppi Code(s): K21.9 - GASTRO-ESOPHAGEAL REFLUX DISEASE WITHOUT ESOPHAGITIS (5) Pneumonia Assessment/Plan: got iv abx now changed to augmentin for 5 days no levaquin bc of prolong QTc interval Code(s): J18.9 - PNEUMONIA, UNSPECIFIED ORGANISM (6) HTN (hypertension) Assessment/Plan: decrease coreg to 6.25 mg Code(s): I10 - ESSENTIAL (PRIMARY) HYPERTENSION
== END 2017-04-30 12:26 | disposition home or self-care (01) | DRG 291 ==
LOC: JER 15:39 → JERBED 19:26 → J4S 04-22 23:37 → JICU 04-25 19:59 → J2W 04-27 10:55
PROVIDERS: ADMIT Internal Medicine; ATTEND Family Medicine
PROC: 0DB78ZX Excision of Stomach, Pylorus, Via Natural or Artificial Opening Endoscopic, Diagnostic (ICD-10-PCS; 2017-04-24)
PROC: 0DB38ZX Excision of Lower Esophagus, Via Natural or Artificial Opening Endoscopic, Diagnostic (ICD-10-PCS; 2017-04-24)
PROC: 0DB98ZX Excision of Duodenum, Via Natural or Artificial Opening Endoscopic, Diagnostic (ICD-10-PCS; principal; 2017-04-24 11:15)
DX: I50.31 Acute diastolic (congestive) heart failure (principal); J18.9 Pneumonia, unspecified organism; J98.11 Atelectasis; G45.9 Transient cerebral ischemic attack, unspecified; I25.10 Atherosclerotic heart disease of native coronary artery without angina pectoris; Z95.5 Presence of coronary angioplasty implant and graft; E11.9 Type 2 diabetes mellitus without complications; I10 Essential (primary) hypertension; E78.5 Hyperlipidemia, unspecified; N40.0 Benign prostatic hyperplasia without lower urinary tract symptoms; Z87.891 Personal history of nicotine dependence; K21.9 Gastro-esophageal reflux disease without esophagitis
CPT/HCPCS: 36415; 36600; 70450-TC; 70551-TC; 71045-TC; 71046-TC-FY; 71250-TC; 73030-TC-LT-FY; 80048; 80053; 80061; 81003; 82150; 82375; 82550; 82803; 82962; 83050; 83605; 83690; 83721; 83735; 83880; 84100; 84443; 84484; 85025; 85610; 85730; 86850; 86900; 86901; 87040; 87086; 87804; 93005; 93010; 97116-GP; 97161-GP; 99285-25; J1644

== ENCOUNTER 2017-10-11 08:46 | Inpatient (IN) | payer OTHER, BC ==
[2017-10-11] MEDS ORDERED: morphine CARPU-JECT 4 MG/1 ML DISP.SYRIN IVPUSH ONE (09:05)
[2017-10-11] MEDS ORDERED: VANCOMYCIN 1,000 MG in DEXTROSE 5%-WATER - 250 ML IVPB ONE (09:12)
[2017-10-11] MEDS ORDERED: PIPERACILLIN/TAZOB 3.375 GM 3.375 GM in DEXTROSE 5%-WATER - 50 ML IVPB ONE (09:12)
[2017-10-11] MEDS ORDERED: morphine SULFATE 4 MG/ML VIAL ONE (09:16)
[2017-10-11] MEDS ORDERED: PIPERACILLIN/TAZOB 3.375 GM 3.375 GM/50 ML BAG IVPB ONE (09:17)
[2017-10-11] MEDS ORDERED: VANCOMYCIN 1 GRAM (PRE-DOCKED) 1,000 MG/250 ML BAG IVPB ONE (09:17)
--- NOTE | 2017-10-11 09:29 | PDOC ---
History of Present Illness - General Chief Complaint: Pain Stated Complaint: FEVER Time Seen by Provider: 10/11/17 08:47 History Source: Patient Exam Limitations: No Limitations - History of Present Illness Initial Comments: 10/11/17 09:20 The patient is an 81M with a PMH of PMH of RA on methotrexate, OA, CAD (11 stents), CHF, DM, HTN, HLD, BPH, [place] BIBA today for R wrist pain. The patient states that he was in his normal state of health Saturday night. morning he woke up with sharp/dull R wrist pain that has been worsening until today. He admits to chills, nausea, vomiting, and diarrhea but denies fevers, numbness, tingling, and weakness in his hand. Past History - Past Medical History Allergies/Adverse Reactions: Allergies Allergy/AdvReac Type Severity Reaction Status Date / Time No Known Allergies Allergy Verified 10/11/17 08:58 Home Medications: Ambulatory Orders Aspirin [ASA -] 81 mg PO DAILY 08/14/16 Folic Acid - 1 mg PO ASDIR 08/14/16 Methotrexate Sodium [Methotrexate] 6 tab PO WEEKLY 08/14/16 Tamsulosin HCl [Flomax] 0.4 mg PO HS 08/14/16 Travoprost [Travatan Z] 1 drop OU HS 08/14/16 Metoprolol Succinate [Toprol Xl] 25 mg PO DAILY 04/21/17 Rabeprazole Sodium [Aciphex] 20 mg PO DAILY 04/21/17 Cyanocobalamin [Vitamin B12 -] 1,000 mcg PO DAILY 04/23/17 Ezetimibe [Zetia] 10 mg PO HS 04/23/17 Vitamin B Complex Vit C No.4 [Super B Complex] 1 tab PO DAILY 04/23/17 Ezetimibe [Zetia -] 10 mg PO DAILY #30 tablet MDD 1 04/30/17 Gabapentin [Neurontin -] 800 mg PO BID #60 capsule MDD 2 04/30/17 Anemia: No Asthma: No Cancer: Yes (Basal Cell) Cardiac Disorders: Yes (CAD, angina, [place]) CVA: No COPD: No CHF: Yes Dementia: No Diabetes: Yes (NIDDM) GI Disorders: Yes (GERD, Galvin's esophagus, Esophagitis, hemrroids, PUD) Disorders: Yes (BPH) HTN: Yes Hypercholesterolemia: Yes Kidney Stones: Yes Liver Disease: No Seizures: No Thyroid Disease: No - Surgical History Abdominal Surgery: No Appendectomy: No Cardiac Surgery: Yes (CARDIAC STENTS X 11, 1 stent on 02/09/15) Cholecystectomy: No Gastric Stapling: No GI Surgery: No Lung Surgery: No Neurologic Surgery: No Orthopedic Surgery: Yes (Left 4th/5th finger amp;) - Immunization History Immunization Up to Date: Yes - Suicide/Smoking/Psychosocial Hx Smoking History: Never smoked Have you smoked in the past 12 months: No Number of Cigarettes Smoked Daily: 50 If you are a former smoker, when did you quit?: 45 yrs ago Cigars Per Day: 1 Information on smoking cessation initiated: No 'Breaking Loose' booklet given: 05/01/15 Hx Alcohol Use: No Drug/Substance Use Hx: No Substance Use Type: None Hx Substance Use Treatment: No Review of Systems - Review of Systems Able to Perform ROS?: Yes Comments:: 10/11/17 09:33 GENERAL/CONSTITUTIONAL: No fever or chills. No weakness. HEAD, EYES, EARS, NOSE AND THROAT: No change in vision. No ear pain or discharge. No sore throat. CARDIOVASCULAR: No chest pain, palpitations, or lightheadedness. RESPIRATORY: No cough, wheezing, shortness of breath, or hemoptysis. GASTROINTESTINAL: No nausea, vomiting, diarrhea, constipation, or abdominal pain. GENITOURINARY: No dysuria, frequency, hematuria, or change in urination. MUSCULOSKELETAL: Positive for pain in R wrist. No neck or back pain. SKIN: No rash or lesions. NEUROLOGIC: No headache, numbness, tingling, weakness, loss of consciousness, or change in strength/sensation. ENDOCRINE: No increased thirst. No abnormal weight change. HEMATOLOGIC/LYMPHATIC: No anemia, easy bleeding, or history of blood clots. ALLERGIC/IMMUNOLOGIC: No hives or skin allergy. Is the patient limited Portuguese proficient: No *Physical Exam - Vital Signs Last Vital Signs Temp Pulse Resp BP Pulse Ox 98.9 F 73 18 147/99 100 10/11/17 08:53 10/11/17 08:53 10/11/17 08:53 10/11/17 08:53 10/11/17 08:53 - Physical Exam Comments: 10/11/17 09:33 GENERAL: Well developed, well nourished. Awake and alert. No acute distress. HEENT: Normocephalic, atraumatic. Hearing grossly normal. Moist mucous membranes. PERRLA, EOMI. No conjunctival pallor. Sclera are non-icteric. NECK: Supple. Full ROM. No JVD. CARDIOVASCULAR: Regular rate and rhythm. No murmurs, rubs, or gallops. PULMONARY: No evidence of respiratory distress. Lungs clear to auscultation bilaterally. No wheezing, rales or rhonchi. ABDOMINAL: Soft. Non-tender. Non-distended. No rebound or guarding. GENITOURINARY: No CVA tenderness bilaterally. MUSCULOSKELETAL: Decreased ROM in R wrist with warm to touch, TTP, radial pulse 2+, sensation intact in R hand. No crepitus or streaking on flexor surface. Decreased flexion in hand. EXTREMITIES: No cyanosis. No clubbing. No edema. No calf tenderness or swelling. SKIN: Warm and dry. Normal capillary refill. No rashes. No jaundice. NEUROLOGICAL: Alert, awake, appropriate. Cranial nerves 2-12 intact. No deficits to light touch and temperature in face, upper extremities and lower extremities. Normal speech. Gait is normal without ataxia. PSYCHIATRIC: Cooperative. Good eye contact. Appropriate mood and affect. ED Treatment Course - LABORATORY CBC & Chemistry Diagram: 10/11/17 09:55 10/11/17 09:59 - RADIOLOGY Radiology Studies Ordered: Category Date Time Status FOREARM- RIGHT [RAD] Stat Radiology 10/11/17 09:04 Ordered WRIST W/HAND-RIGHT* [RAD] Stat Radiology 10/11/17 09:04 Ordered Medical Decision Making - Medical Decision Making 10/11/17 09:36 The patient is an 81M with a PMH of RA on methotrexate and OA, along with extensive cardiac history, who presents to the ER with a swollen wrist. DDX: septic arthritis vs inflammatory arthritis vs flexor tenosynovitis. I did not appreciate any streaking on the flexor surface of his arm. No crepitus was appreciated. Giving broad spectrum abx to cover presumed infection. Pending labs and XR of wrist. 10/11/17 11:05 Preliminary read of XR negative for acute pathology. I have endorsed the patient to Dr. Frey for admission under Dr. Barakat. [facility] paged for recs. 10/11/17 12:48 Dr. Rasheed at bedside who agrees of possible infectious vs gout. Will give indocin 25 and colchicine per his recs. *DC/Admit/Observation/Transfer Diagnosis at time of Disposition: Septic arthritis Qualifiers: Septic arthritis location: wrist Septic arthritis organism: due to unspecified organism Laterality: right Qualified Code(s): M00.9 - Pyogenic arthritis, unspecified - Discharge Dispostion Condition at time of disposition: Guarded Decision to Admit order: Yes - Referrals - Patient Instructions - Post Discharge Activity
[2017-10-11 09:58] LABS: BASO % 0.7 % (0-2.0); HEMATOCRIT 36.4 % (35.4-49); HEMOGLOBIN 12.1 GM/dL (11.7-16.9); LYMPH % 14.6 % (8-40); MCH 28.4 pg (25.7-33.7); MCHC 33.2 g/dl (32.0-35.9); MEAN CELL VOLUME 85.5 fl (80-96); MEAN PLT VOLUME 8.7 fl (7.5-11.1); MONO % 10.2 % (3.8-10.2); NEUT % 74.5 % (42.8-82.8); PLATELET COUNT 161 K/MM3 (134-434); RBC 4.26 M/mm3 (4.00-5.60); RDW 18.9 % (11.9-15.9)
[2017-10-11 10:23] LABS: INR 1.29 (0.82-1.09); PROTHROMBIN TIME (PATIENT) 14.6 SEC (9.7-13.0)
[2017-10-11 10:38] LABS: ALBUMIN 3.1 g/dl (3.4-5.0); ALK PHOS 79 U/L (45-117); ANION GAP 10 (8-16); BILIRUBIN,TOTAL 1.3 mg/dL (0.2-1.0); BLOOD UREA NITROGEN 19 mg/dL (7-18); CALCIUM 8.1 mg/dL (8.5-10.1); CHLORIDE 103 mmol/L (98-107); CO2 24 mmol/L (21-32); CREATININE 0.9 mg/dL (0.7-1.3); GLUCOSE,RANDOM 117 mg/dL (74-106); POTASSIUM 3.3 mmol/L (3.5-5.1); SGOT/AST 16 U/L (15-37); SGPT/ALT 20 U/L (12-78); SODIUM 137 mmol/L (136-145); TOT PROT 6.2 g/dl (6.4-8.2)
--- NOTE | 2017-10-11 10:38 | PDOC ---
Attending Attestation - Resident Resident Name: Pelon Herman - ED Attending Attestation I have performed the following: I have examined & evaluated the patient, The case was reviewed & discussed with the resident, I agree w/resident's findings & plan, Exceptions are as noted - HPI HPI: 10/11/17 10:22 81 M with h/o RA on methotrexate, OA, CAD/HI (11 stents), CHF, DM, HTN, HLD, BPH , presenting to ED with 2days of R wrist swelling and pain. Pt states that he awoke from sleep yesterday with severe pain in his wrist. He states that it was also swollen and red. He endorses subjective fevers. Denies any injury to the area. Pt states that his ROM is severely limited 2/2 pain. Denies any previous similar episodes. - Physicial Exam PE: 10/11/17 10:38 "GENERAL: Awake, alert, and fully oriented, in no acute distress. HEAD: No signs of trauma EYES: PERRLA, EOMI, sclera anicteric, conjunctiva clear ENT: Auricles normal inspection, hearing grossly normal, nares patent, oropharynx clear without exudates. Moist mucosa NECK: Nontender, no stepoffs, Normal ROM, supple, no lymphadenopathy, JVD, or masses LUNGS: Breath sounds equal, clear to auscultation bilaterally. No wheezes, and no crackles HEART: Regular rate and rhythm, normal S1 and S2, no murmurs, rubs or gallops ABDOMEN: Soft, nontender, normoactive bowel sounds. No guarding, no rebound. No masses EXTREMITIES: R wrist with + erythema, edema, TTP, very limited ROM, distal pulses and sensation intact NEUROLOGICAL: Cranial nerves II through XII intact. 5/5 strength and sensation in all extremities, Normal speech, normal gait, normal cerebellar function SKIN: Warm, Dry, normal turgor, no rashes or lesions noted. " - Medical Decision Making 10/11/17 10:39 81 M with 2 days of R wrist swelling, pain, redness. Exam with significant pain and erythema as well as edema. Concerning for septic arthritis. Also consider gout flare though pt with no prior episodes. - Labs, cultures - XR R wrist - IV abx - Ortho consult - Admit
--- NOTE | 2017-10-11 12:13 | HP ---
Admitting History and Physical - Primary Care Physician PCP: Varghese Barakat - Admission Chief Complaint: right wrist swelling for one day History of Present Illness: The patient is an 81M with a PMH of PMH of RA on methotrexate, OA, CAD (11 stents), CHF, DM, HTN, HLD, BPH, [place] BIBA today for R wrist pain. The patient states that he was in his normal state of health Saturday night. morning he woke up with sharp/dull R wrist pain that has been worsening until today. He admits to chills, nausea, vomiting, and diarrhea but denies fevers, numbness, tingling, and weakness in his hand. per he was on yard all day on saturday. no change in diet no new meds started no trauma in ERpatient got vanco and zosyn hand xray History Source: Patient, Family Member - Past Medical History Cardiovascular: Yes: CAD (s/p multiple stenting), CHF, HTN, Hyperlipdemia, [place] Gastrointestinal: Yes: Constipation, Diverticulosis, GERD (esophagitis), Hemorrhoids, Other (RECTAL INCONTINENCE THAT HAS RESOLVED WITH FIBER, duodenal ulcer, gastritis, esophagitis, Tubular adenoma of the colon 04/14) Renal/: Yes: BPH, Renal Calculi Heme/Onc: Yes: Cancer, Other (Recent facial MOHS micrographic surgery (Basal Cell).) Musculoskeletal: Yes: Chronic low back pain (Spinal Stenosis), Osteoarthritis, Other (, left humerus fracture) Rheumatology: Yes: Rheumatoid Arthritis Endocrine: Yes: Diabetes Mellitus (? glucose intolerance) Dermatology: Yes: Basal Cell - Past Surgical History Past Surgical History: Yes: Appendectomy, Stent (x 11), Tonsillectomy, Vein Stripping/Ligation - Smoking History Smoking history: Never smoked Have you smoked in the past 12 months: No Aproximately how many cigarettes per day: 50 If you are a former smoker, when did you quit?: 45 yrs ago - Alcohol/Substance Use Hx Alcohol Use: No History of Substance Use: reports: None - Social History ADL: Support Services History of Recent Travel: No Home Medications - Allergies Allergies/Adverse Reactions: Allergies Allergy/AdvReac Type Severity Reaction Status Date / Time No Known Allergies Allergy Verified 10/11/17 08:58 - Home Medications Home Medications: Ambulatory Orders Aspirin [ASA -] 81 mg PO DAILY 08/14/16 Folic Acid - 1 mg PO ASDIR 08/14/16 Methotrexate Sodium [Methotrexate] 6 tab PO WEEKLY 08/14/16 Tamsulosin HCl [Flomax] 0.4 mg PO HS 08/14/16 Travoprost [Travatan Z] 1 drop OU HS 08/14/16 Metoprolol Succinate [Toprol Xl] 25 mg PO DAILY 04/21/17 Rabeprazole Sodium [Aciphex] 20 mg PO DAILY 04/21/17 Cyanocobalamin [Vitamin B12 -] 1,000 mcg PO DAILY 04/23/17 Ezetimibe [Zetia] 10 mg PO HS 04/23/17 Vitamin B Complex Vit C No.4 [Super B Complex] 1 tab PO DAILY 04/23/17 Ezetimibe [Zetia -] 10 mg PO DAILY #30 tablet MDD 1 04/30/17 Gabapentin [Neurontin -] 800 mg PO BID #60 capsule MDD 2 04/30/17 Family Disease History - Family Disease History Family Disease History: Heart Disease: Father ( 82: [place]), Mother ( 99: HTN, HYPERLIPIDEMIA, DEMENTIA), Other: Mother, Sister (2, spinal stenosis), Son (1, healthy), Daughter (1, healthy) Review of Systems - Review of Systems Musculoskeletal: reports: Decreased ROM (right hand and wrist), Extremity Pain, Joint Pain, Other Physical Examination Vital Signs: Vital Signs Temperature 98.9 F 10/11/17 08:53 Pulse Rate 73 10/11/17 08:53 Respiratory Rate 18 10/11/17 08:53 Blood Pressure 147/99 10/11/17 08:53 O2 Sat by Pulse Oximetry (%) 100 10/11/17 08:53 right wrist and hand pain Constitutional: Yes: Mild Distress Cardiovascular: Yes: Regular Rate and Rhythm, S1, S2 Respiratory: Yes: CTA Bilaterally Gastrointestinal: Yes: Normal Bowel Sounds, Soft Extremities: Yes: Erythema, Other (right wrist and hand swollen erythematous, warm and tender to touch not able to make a wrist /flex his fingers or move his wrist) Labs: CBC, BMP 10/11/17 09:55 10/11/17 09:59 Imaging - Results X-ray: Report Reviewed Problem List - Problems (1) Septic arthritis Assessment/Plan: ortho/ ID consult- check esr,crp, uric acid level,to check for gout ? lyme serologies abx per ID ct scan of hand and wrist w/o contrast analgesic pain control dvt ppx Code(s): M00.9 - PYOGENIC ARTHRITIS, UNSPECIFIED Qualifiers: Septic arthritis location: wrist Septic arthritis organism: due to unspecified organism Laterality: right Qualified Code(s): M00.9 - Pyogenic arthritis, unspecified (2) BPH (benign prostatic hyperplasia) Assessment/Plan: flomax Code(s): N40.0 - BENIGN PROSTATIC HYPERPLASIA WITHOUT LOWER URINRY TRACT SYMP (3) HLD (hyperlipidemia) Assessment/Plan: zetia lipid panel Code(s): E78.5 - HYPERLIPIDEMIA, UNSPECIFIED (4) HTN (hypertension) Assessment/Plan: toprol xl Code(s): I10 - ESSENTIAL (PRIMARY) HYPERTENSION Assessment/Plan potassium repleted
[2017-10-11] MEDS ORDERED: COLCHICINE 0.6 MG TABLET (FP) PO ONE (12:48)
[2017-10-11] MEDS ORDERED: INDOMETHACIN 25 MG CAPSULE PO ONE (12:49)
--- NOTE | 2017-10-11 13:09 | CONSULT ---
Consult - text type - Consultation Consultation Note: FULL CONSULT DICTATED IMP: R WRIST CELLULITIS V GOUT PLAN: 1. CONTINUE ABX PER ID, ADD ESR TO LABS 2. TREAT FOR GOUT WITH COLCHICINE AND INDOCIN, AND URIC ACID TO LABS 3. VOLAR SPLINT
[2017-10-11] MEDS ORDERED: POTASSIUM CHLORIDE TABS 20 MEQ TABLET.ER (FP) PO ONE (13:30)
[2017-10-11] MEDS: ACETAMINOPHEN 325 MG TABLET (FP) PO PRN ×2 (14:49→23:33)
--- NOTE | 2017-10-11 15:57 | CONS ---
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 Patient now presents to the office with atraumatic complaints of pain, swelling, and redness to his right wrist, again no recent history of fall or trauma, no fever or chills. Patient is . He also gives a history of a gouty attack many, many years ago, but nothing recent. No fever or chills. PHYSICAL EXAMINATION: He has some redness on the dorsal radial aspect of his wrist with very sensitive to the touch and very sensitive to any range of motion of his right wrist. There is good motion of his fingers, otherwise brisk capillary refill, 2+ pulses. He has discoloration, dark discoloration of both distal forearms and radiuses bilaterally. No fluctuance. No lymphangitis. Negative lymphadenopathy. Excellent range of motion elbow and shoulder. X-rays of his left wrist show diffuse DJD, especially on the basilar joint and radial carpal joint. IMPRESSION: An 81-year-old rheumatoid arthritic patient on methotrexate with a history of gout, now with a 2-day history of pain, redness to his right wrist. Impression: cellulitis versus gouty flare-up to the right wrist. PLAN: 1. As patient is already on IV antibiotics, we should continue that as per ID. Check blood cultures, add sedimentation rate to the orders of his blood. 2. Treat for gout, i.e. adding colchicine and Indocin, send off a uric acid. 3. Volar splint for comfort and to immobilize wrist to allow the wrist to calm down. GRETA CARVALHO M.D. [id number]
--- NOTE | 2017-10-11 15:59 | PN ---
Progress Note (short form) - Note Progress Note: ID consult dictated 81 yo man with NIDDM and RA with cellulitis of the right wrist- r/o gout, r/o septic arthritis ortho eval imaging pending continue vancomycin add cefepime for GN coverage IVF analgesia Problem List - Problems (1) Cellulitis Code(s): L03.90 - CELLULITIS, UNSPECIFIED (2) Septic arthritis Code(s): M00.9 - PYOGENIC ARTHRITIS, UNSPECIFIED Qualifiers: Septic arthritis location: wrist Septic arthritis organism: due to unspecified organism Laterality: right Qualified Code(s): M00.9 - Pyogenic arthritis, unspecified
[2017-10-11] MEDS: SODIUM CHLORIDE 1,000 ML IV SCH (16:29)
--- NOTE | 2017-10-11 17:30 | CONS ---
INFECTIOUS DISEASE CONSULTATION DATE OF CONSULTATION: 10/11/2017 REQUESTING PHYSICIAN: Varghese Barakat MD This is an 81-year-old man with past medical history of rheumatoid arthritis, coronary artery disease, who had been doing well. Saturday night noted some wrist discomfort. morning, his wrist was noted to be erythematous. It continued all day. He spent the day in bed. He had chills and nausea. He took oxycodone because the pain was so bad, and finally, he presented this morning to the emergency room with complaints of severe pain in his right wrist. He reports chills and nausea. He has not been eating. He reports the oxycodone has not helped. He has a remote history of gout of his toe many, many years ago. He has rheumatoid arthritis and takes methotrexate and prednisone. He denies any bug bite, mosquito bites. He does not work at the garden. He sits sometimes on the patio. He is otherwise awake and alert but very fatigued. He has not had any scratches from any pets. He has a pet dog. There is no history of any travel out of [facility]. He has not had any waterborne exposure. He has not been swimming. He has not been preparing foods of any sort with any cuts on his hands. PAST MEDICAL HISTORY: Notable for coronary artery disease, CHF, hypertension, hyperlipidemia, [place]. He has a history of constipation, GERD with esophagitis, BPH, renal calculi, skin cancer, osteoarthritis, rheumatoid arthritis, diabetes, appendectomy. He has had multiple stents, tonsillectomy, and he has had amputations of several fingers of his hand. He has had a left humeral fracture as well. SOCIAL HISTORY: He is , lives with his spouse. He is a former smoker. He quit over 40 years ago. Rare social alcohol. ALLERGIES: STATINS. MEDICATIONS: Include vitamin B complex, Travoprost eye drops, tamsulosin, AcipHex, Toprol-XL, methotrexate weekly, gabapentin, folic acid, Zetia, B12, and aspirin. REVIEW OF SYSTEMS: As per HPI. PHYSICAL EXAMINATION: Vital Signs: His current temperature is 101.3, pulse of 90, blood pressure 163/87, respiratory rate is 18. HEENT: He is normocephalic. His eyes are anicteric. He is flushed. Neck: Supple. Lungs: Clear to auscultation. Heart: Regular rate and rhythm. Extremities: His right wrist is from the dorsum of his hand extending to a gerry past his wrist is erythematous and swollen. He has pain on movement of the hand. He has a strong pulse. He has no lymphangitis. He has no axillary nodes. X-ray shows DJD. He has a CAT scan of the arm pending. His labs are notable for white count of 10,000, hemoglobin 12.1, platelets of 161. Sedimentation rate is 14. Chemistries: BUN is 19 and creatinine 0.9. Blood cultures are pending. In summary, this is an 81-year-old man with what appears to be a soft tissue infection of the right wrist, possible gout, possible septic arthritis as well with evaluation in progress. Imaging is pending. I would continue vancomycin, add cefepime for gram-negative coverage, IV fluids and analgesia as needed. Further recommendations to follow. Gricelda [id number]
[2017-10-11] MEDS: CEFEPIME HCL/D5W 1 GM/50 ML BAG IVPB SCH (17:34)
[2017-10-11] MEDS: GABAPENTIN 400 MG CAPSULE (FP) PO SCH (23:31)
[2017-10-12] MEDS: CEFEPIME HCL/D5W 1 GM/50 ML BAG IVPB SCH ×3 (01:23→18:43)
--- NOTE | 2017-10-12 05:05 | HOSP ---
Physical Examination Vital Signs: Vital Signs Temperature 97.3 F L 10/12/17 02:00 Pulse Rate 59 L 10/12/17 02:00 Respiratory Rate 20 10/12/17 03:32 Blood Pressure 122/57 10/12/17 02:00 O2 Sat by Pulse Oximetry (%) 94 L 10/12/17 03:32 Labs: CBC, BMP 10/11/17 09:55 10/11/17 09:59 Hospitalist Encounter Assessment: I was called for critical value for positive blood culture for gram positive cocci in clusters, pairs. Ordered 1g of vancmycin IV. This positive value may be a contaminant as well.
[2017-10-12] MEDS: SODIUM CHLORIDE 1,000 ML IV SCH ×2 (06:16→14:00)
[2017-10-12 07:05] LABS: BASO % 0.3 % (0-2.0); HEMATOCRIT 35.3 % (35.4-49); HEMOGLOBIN 11.9 GM/dL (11.7-16.9); LYMPH % 11.8 % (8-40); MCH 29.1 pg (25.7-33.7); MCHC 33.7 g/dl (32.0-35.9); MEAN CELL VOLUME 86.5 fl (80-96); MEAN PLT VOLUME 8.9 fl (7.5-11.1); MONO % 7.2 % (3.8-10.2); NEUT % 79.7 % (42.8-82.8); PLATELET COUNT 133 K/MM3 (134-434); RBC 4.08 M/mm3 (4.00-5.60); RDW 19.4 % (11.9-15.9); WHITE BLOOD COUNT 8.1 K/mm3 (4.0-10.0)
[2017-10-12 07:30] LABS: ALBUMIN 2.9 g/dl (3.4-5.0); ANION GAP 9 (8-16); BLOOD UREA NITROGEN 23 mg/dL (7-18); CALCIUM 8.3 mg/dL (8.5-10.1); CHLORIDE 103 mmol/L (98-107); CO2 25 mmol/L (21-32); GLUCOSE,RANDOM 95 mg/dL (74-106); MAGNESIUM 2.1 mg/dL (1.8-2.4); POTASSIUM 3.6 mmol/L (3.5-5.1); SODIUM 137 mmol/L (136-145)
[2017-10-12 07:34] LABS: ALK PHOS 74 U/L (45-117); BILIRUBIN,TOTAL 1.4 mg/dL (0.2-1.0); CREATININE 1.1 mg/dL (0.7-1.3); PHOSPHOROUS 3.4 mg/dL (2.5-4.9); SGOT/AST 19 U/L (15-37); SGPT/ALT 18 U/L (12-78)
--- NOTE | 2017-10-12 08:48 | PN ---
Progress Note (short form) - Note Progress Note: much more alert positive blood cultures 4/4 bottles gpc clusters wrist remains swollen and painful Vital Signs Period Temp Pulse Resp BP Sys/Jeffrey Pulse Ox Last 24 Hr 97.3 F-101.3 F 59-90 18-20 122-163/54-99 94-100 cor-rrr lungs clear abd soft,nt ext right wrist remains painful and swollen CBC, BMP 10/12/17 06:15 10/12/17 06:15 Microbiology 10/11/17 09:55 Blood - Peripheral Venous Blood Culture - Preliminary Pending Organism 10/11/17 10:00 Blood - Peripheral Venous Blood Culture - Preliminary Pending Organism a/p gram positive bacteremia septic arthritis of the wrist continue vancomycin and cefeipime repeat blood cultures in am echo ortho followup today-d/w with ortho - they willl re-evaluate patient today-? drainage IVF analgesia Problem List - Problems (1) Cellulitis Code(s): L03.90 - CELLULITIS, UNSPECIFIED (2) Septic arthritis Code(s): M00.9 - PYOGENIC ARTHRITIS, UNSPECIFIED Qualifiers: Septic arthritis location: wrist Septic arthritis organism: due to unspecified organism Laterality: right Qualified Code(s): M00.9 - Pyogenic arthritis, unspecified
[2017-10-12] MEDS: TAMSULOSIN HCL 0.4 MG CAP.ER.24H (FP) PO SCH (08:55)
[2017-10-12] MEDS: GABAPENTIN 400 MG CAPSULE (FP) PO SCH ×2 (09:10→21:47)
[2017-10-12] MEDS: ASPIRIN COATED 81 MG TABLET.EC PO SCH (09:10)
[2017-10-12] MEDS: EZETIMIBE 10 MG TABLET (FP) PO SCH (09:11)
[2017-10-12] MEDS: PANTOPRAZOLE 20 MG TABLET (FP) PO SCH (09:11)
[2017-10-12] MEDS: metoPROLOL SUCCINATE 25 MG TAB.SR.24H (FP) PO SCH (09:11)
[2017-10-12] MEDS: VANCOMYCIN 1 GM PREMIX - 1 GM/200 ML BAG IVPB SCH ×2 (09:55→21:47)
[2017-10-12] MEDS ORDERED: VANCOMYCIN 1 GM PREMIX - 1 GM/200 ML BAG IVPB SCH (10:00)
--- NOTE | 2017-10-12 10:50 | PN ---
Progress Note, Physician Chief Complaint: PATIENT SEEN THIS MORNING AND WAS ASLEEP AND COMFORTABLE C/O RIGHT ARM/HAND PAIN DENIES FEVER OR CHILLS NO CHEST PAIN OR SOB - Current Medication List Current Medications: Active Medications Acetaminophen (Tylenol -) 650 mg PO Q4H PRN PRN Reason: FEVER Last Admin: 10/11/17 23:33 Dose: 650 mg Aspirin (Ecotrin -) 81 mg PO DAILY [facility] Last Admin: 10/12/17 09:10 Dose: 81 mg Ezetimibe (Zetia -) 10 mg PO DAILY [facility] Last Admin: 10/12/17 09:11 Dose: 10 mg Gabapentin (Neurontin -) 800 mg PO BID [facility] Last Admin: 10/12/17 09:10 Dose: 800 mg Cefepime HCl (Maxipime 1 Gm Premix Ivpb) 1 gm in 50 mls @ 100 mls/hr IVPB Q8H- IV [facility]; Protocol Last Admin: 10/12/17 09:06 Dose: 100 mls/hr Sodium Chloride (Normal Saline -) 1,000 mls @ 75 mls/hr IV ASDIR [facility] Last Admin: 10/12/17 06:16 Dose: 75 mls/hr Vancomycin HCl (Vancomycin 1 Gm Premix -) 1 gm in 200 mls @ 133.333 mls/hr IVPB Q12H [facility]; Protocol Last Admin: 10/12/17 09:55 Dose: 133.333 mls/hr Metoprolol Succinate (Toprol Xl -) 25 mg PO DAILY [facility] Last Admin: 10/12/17 09:11 Dose: 25 mg Morphine Sulfate (Morphine Sulfate) 4 mg IVPUSH Q6H PRN PRN Reason: PAIN LEVEL 7 - 10 Pantoprazole Sodium (Protonix -) 20 mg PO DAILY [facility] Last Admin: 10/12/17 09:11 Dose: 20 mg Tamsulosin HCl (Flomax -) 0.4 mg PO DAILY@0830 [facility] Last Admin: 10/12/17 08:55 Dose: 0.4 mg - Objective Vital Signs: Vital Signs Temperature 98.1 F 10/12/17 09:13 Pulse Rate 69 10/12/17 09:13 Respiratory Rate 18 10/12/17 09:13 Blood Pressure 146/70 10/12/17 09:13 O2 Sat by Pulse Oximetry (%) 94 L 10/12/17 03:32 Constitutional: Yes: Mild Distress Eyes: Yes: WNL HENT: Yes: WNL Neck: Yes: WNL Cardiovascular: Yes: WNL Respiratory: Yes: WNL Gastrointestinal: Yes: WNL Genitourinary: Yes: WNL Musculoskeletal: Yes: Joint Stiffness, Joint Swelling, Muscle Pain Extremities: Yes: Erythema Edema: Yes Edema: RUE: 2+ Peripheral Pulses WNL: Yes Integumentary: Yes: Erythema Wound/Incision: Yes: Open to air, Excoriated, Unapproximated Neurological: Yes: WNL ...Motor Strength: RUE Psychiatric: Yes: Other Labs: CBC, BMP 10/12/17 06:15 10/12/17 06:15 INR, PTT INR 1.29 (0.82-1.09) H 10/11/17 09:55 Problem List - Problems (1) Cellulitis Code(s): L03.90 - CELLULITIS, UNSPECIFIED (2) Septic arthritis Code(s): M00.9 - PYOGENIC ARTHRITIS, UNSPECIFIED Qualifiers: Septic arthritis location: wrist Septic arthritis organism: due to unspecified organism Laterality: right Qualified Code(s): M00.9 - Pyogenic arthritis, unspecified (3) Anemia Code(s): D64.9 - ANEMIA, UNSPECIFIED Qualifiers: Anemia type: unspecified type Qualified Code(s): D64.9 - Anemia, unspecified (4) Atelectasis of both lungs Code(s): J98.11 - ATELECTASIS (5) BPH (benign prostatic hyperplasia) Code(s): N40.0 - BENIGN PROSTATIC HYPERPLASIA WITHOUT LOWER URINRY TRACT SYMP (6) CAD (coronary artery disease) Code(s): I25.10 - ATHSCL HEART DISEASE OF [place] CORONARY ARTERY W/O ANG PCTRS Qualifiers: Coronary Disease-Associated Artery/Lesion type: unspecified vessel or lesion type [place] vs. transplanted heart: [place] heart Associated angina: with unspecified angina Qualified Code(s): I25.119 - Atherosclerotic heart disease of [place] coronary artery with unspecified angina pectoris Assessment/Plan IV ABX PER ID AWAIT CX AND SENS OOB TO CHAIR INCENTIVE SPIROMETRY WOUND CARE]ORTHOPEDIC F/U IF SEPTIC ARTHRITIS SUSPECTED ESR/CRP F/U DVT PROPHYLAXIS
[2017-10-12] MEDS ORDERED: PT OWN MED DRAWER 7, Y5N ONE ×3 (11:04→23:29)
[2017-10-12] MEDS ORDERED: ACETAMINOPHEN 1000 MG/100 ML VIAL (NON FORMULARY) IVPB ONE (12:45)
[2017-10-12] MEDS ORDERED: ONDANSETRON 4 MG/2 ML VIAL IVPUSH PRN (15:51)
[2017-10-12] MEDS: morphine SULFATE 4 MG/ML VIAL IVPUSH PRN (15:52)
--- NOTE | 2017-10-12 16:56 | PN ---
Progress Note (short form) - Note Progress Note: Ortho Pt seen and examined- states that his wrist is feeling much better, more than 50 % better Selected Entries 10/12/17 15:32 Temperature 98.4 F Pulse Rate 78 Respiratory 20 Rate Blood Pressure 107/53 Laboratory Tests 10/12/17 06:15 WBC 8.1 Hgb 11.9 Hct 35.3 L Plt Count 133 L Laboratory Tests 10/11/17 09:59 Uric Acid 6.0 PE- no fluctuance/fluid pockets appreciated, decr erythema, decr swelling, decr ttp, incr rom nvi a/p Continue abx continue colchicine ROM exercises strict elevation no surgical intervention at this point but will continue to monitor d/w Dr. Rasheed
[2017-10-12] MEDS: ACETAMINOPHEN 1000 MG/100 ML VIAL (NON FORMULARY) IVPB PRN (20:30)
[2017-10-12] MEDS: TRAVATAN Z 0.004% OU SCH (21:51)
[2017-10-12] MEDS: SIMBRINZA OS SCH (21:51)
[2017-10-13] MEDS: CEFEPIME HCL/D5W 1 GM/50 ML BAG IVPB SCH ×2 (01:30→09:32)
[2017-10-13] MEDS: SODIUM CHLORIDE 1,000 ML IV SCH (02:01)
[2017-10-13 07:25] LABS: HEMATOCRIT 30.6 % (35.4-49); MCH 28.7 pg (25.7-33.7); MCHC 32.8 g/dl (32.0-35.9); MEAN CELL VOLUME 87.3 fl (80-96); MEAN PLT VOLUME 8.9 fl (7.5-11.1); PLATELET COUNT 127 K/MM3 (134-434); RDW 19.6 % (11.9-15.9); WHITE BLOOD COUNT 5.9 K/mm3 (4.0-10.0)
[2017-10-13 07:59] LABS: ALBUMIN 2.1 g/dl (3.4-5.0); ALK PHOS 60 U/L (45-117); ANION GAP 11 (8-16); BILIRUBIN,TOTAL 0.9 mg/dL (0.2-1.0); BLOOD UREA NITROGEN 19 mg/dL (7-18); CHLORIDE 111 mmol/L (98-107); CO2 20 mmol/L (21-32); CREATININE 0.9 mg/dL (0.7-1.3); GLUCOSE,RANDOM 75 mg/dL (74-106); SGOT/AST 21 U/L (15-37); SGPT/ALT 16 U/L (12-78); SODIUM 142 mmol/L (136-145); TOT PROT 4.8 g/dl (6.4-8.2)
[2017-10-13 08:34] LABS: CALCIUM 6.6 mg/dL (8.5-10.1)
--- NOTE | 2017-10-13 09:26 | PN ---
Progress Note, Physician Chief Complaint: AWAKE ALERT FEELS BETTER TODAY LESS N/V TRIAL OF LIQUIDS TODAY - Current Medication List Current Medications: Active Medications Acetaminophen (Tylenol -) 650 mg PO Q4H PRN PRN Reason: FEVER Last Admin: 10/11/17 23:33 Dose: 650 mg Acetaminophen (Ofirmev Injection -) 1,000 mg IVPB Q6H PRN PRN Reason: FEVER Last Admin: 10/12/17 20:30 Dose: 1,000 mg Amino Acids (Prosource No Carb Liquid Pkt) 30 ml PO BID@0800,1730 [facility] Aspirin (Ecotrin -) 81 mg PO DAILY [facility] Last Admin: 10/12/17 09:10 Dose: 81 mg Ezetimibe (Zetia -) 10 mg PO DAILY [facility] Last Admin: 10/12/17 09:11 Dose: 10 mg Gabapentin (Neurontin -) 800 mg PO BID [facility] Last Admin: 10/12/17 21:47 Dose: Not Given Cefepime HCl (Maxipime 1 Gm Premix Ivpb) 1 gm in 50 mls @ 100 mls/hr IVPB Q8H- IV [facility]; Protocol Last Admin: 10/13/17 01:30 Dose: 100 mls/hr Sodium Chloride (Normal Saline -) 1,000 mls @ 75 mls/hr IV ASDIR [facility] Last Admin: 10/13/17 02:01 Dose: 75 mls/hr Vancomycin HCl (Vancomycin 1 Gm Premix -) 1 gm in 200 mls @ 133.333 mls/hr IVPB Q12H [facility]; Protocol Last Admin: 10/12/17 21:47 Dose: 133.333 mls/hr Potassium Chloride 10 meq/ (Sodium Chloride) 105 mls @ 105 mls/hr IVPB ONCE ONE Stop: 10/13/17 10:29 Metoprolol Succinate (Toprol Xl -) 25 mg PO DAILY [facility] Last Admin: 10/12/17 09:11 Dose: 25 mg Morphine Sulfate (Morphine Sulfate) 4 mg IVPUSH Q6H PRN PRN Reason: PAIN LEVEL 7 - 10 Last Admin: 10/12/17 15:52 Dose: 4 mg Patient's Own Medication (Non- Formulary)Simbrinza 1%/0.2% 1 each OS BID [facility] Last Admin: 10/12/17 21:51 Dose: 1 each Patient's Own Medication (Non- Formulary)Travatan Z 0.004% 1 each OU HS [facility] Last Admin: 10/12/17 21:51 Dose: 1 each Ondansetron HCl (Zofran Injection) 4 mg IVPUSH Q6H PRN PRN Reason: NAUSEA Pantoprazole Sodium (Protonix -) 20 mg PO DAILY [facility] Last Admin: 10/12/17 09:11 Dose: 20 mg Potassium Chloride (Potassium Chloride Oral Liquid) 40 meq PO ONCE ONE Stop: 10/13/17 10:01 Tamsulosin HCl (Flomax -) 0.4 mg PO DAILY@0830 [facility] Last Admin: 10/12/17 08:55 Dose: 0.4 mg - Objective Vital Signs: Vital Signs Temperature 98.1 F 10/13/17 08:51 Pulse Rate 73 10/13/17 08:51 Respiratory Rate 18 10/13/17 08:51 Blood Pressure 150/73 10/13/17 08:51 O2 Sat by Pulse Oximetry (%) 96 10/13/17 00:00 Constitutional: Yes: Moderate Distress Eyes: Yes: WNL HENT: Yes: WNL Neck: Yes: WNL Cardiovascular: Yes: WNL Respiratory: Yes: WNL Gastrointestinal: Yes: WNL Genitourinary: Yes: WNL Musculoskeletal: Yes: Joint Swelling, Muscle Weakness Extremities: Yes: Erythema Edema: Yes Edema: RUE: 2+ Peripheral Pulses WNL: Yes Integumentary: Yes: Erythema, Pressure Ulcer Wound/Incision: Yes: Open to air, Reddened, Excoriated Neurological: Yes: WNL ...Motor Strength: LUE (AMPUTATED FINGERS) Psychiatric: Yes: WNL Labs: CBC, BMP 10/13/17 06:00 10/13/17 06:00 INR, PTT INR 1.29 (0.82-1.09) H 10/11/17 09:55 Problem List - Problems (1) Cellulitis Code(s): L03.90 - CELLULITIS, UNSPECIFIED (2) Septic arthritis Code(s): M00.9 - PYOGENIC ARTHRITIS, UNSPECIFIED Qualifiers: Septic arthritis location: wrist Septic arthritis organism: due to unspecified organism Laterality: right Qualified Code(s): M00.9 - Pyogenic arthritis, unspecified (3) Anemia Code(s): D64.9 - ANEMIA, UNSPECIFIED Qualifiers: Anemia type: unspecified type Qualified Code(s): D64.9 - Anemia, unspecified (4) Atelectasis of both lungs Code(s): J98.11 - ATELECTASIS (5) BPH (benign prostatic hyperplasia) Code(s): N40.0 - BENIGN PROSTATIC HYPERPLASIA WITHOUT LOWER URINRY TRACT SYMP (6) CAD (coronary artery disease) Code(s): I25.10 - ATHSCL HEART DISEASE OF [place] CORONARY ARTERY W/O ANG PCTRS Qualifiers: Coronary Disease-Associated Artery/Lesion type: unspecified vessel or lesion type [place] vs. transplanted heart: [place] heart Associated angina: with unspecified angina Qualified Code(s): I25.119 - Atherosclerotic heart disease of [place] coronary artery with unspecified angina pectoris Assessment/Plan IV ABX MRSA RIGHT ARM LIKELY SEPTIC ARTHRITIS ORTHOPEDIC AND RHEUM CONSULT OOB TO CHAIR LIQUID DIET TODAY ABD XRAY NO ILEUS ZOFRAN PRN AWAIT SENSITIVITY TO CX AND WILL NEED PICC LINE AND IV ABX AT SNF
[2017-10-13] MEDS ORDERED: KCL 10 MEQ IVPB 10 MEQ/100 ML INFUS.BAG IVPB SCH (09:30)
[2017-10-13] MEDS ORDERED: POTASSIUM CHLORIDE 10 MEQ in SODIUM CHLORIDE 100 ML IVPB ONE (09:30)
[2017-10-13] MEDS: GABAPENTIN 400 MG CAPSULE (FP) PO SCH ×2 (09:32→21:47)
[2017-10-13] MEDS: PANTOPRAZOLE 20 MG TABLET (FP) PO SCH (09:32)
[2017-10-13] MEDS: ASPIRIN COATED 81 MG TABLET.EC PO SCH (09:32)
[2017-10-13] MEDS: metoPROLOL SUCCINATE 25 MG TAB.SR.24H (FP) PO SCH (09:32)
[2017-10-13] MEDS: TAMSULOSIN HCL 0.4 MG CAP.ER.24H (FP) PO SCH (09:32)
[2017-10-13] MEDS: EZETIMIBE 10 MG TABLET (FP) PO SCH (09:34)
--- NOTE | 2017-10-13 09:57 | CONSULT ---
Consult - text type - Consultation Consultation Note: Renal consult for hypokalemia and hypocalcemia This is a 81 year old gentleman with PMhx of RA on methrotrexate, CAD s/p PCI and stenting, CHF, Hypertension, BPH who presented with wrist pain and found to have septic arthritis with MSSA bacteremia and now with hypokalemia and hypocalcemia. PT denies any N/V/D. NO chest pain, sob, abd pain. No mucle spasms or weakness. No confusion or lethargy. Making urine. On clear liquid diet. Has signifincat pain in right hand and arm. On IV Abx. PMhx: as above Allergies: NKDA Family hx: NC Social Hx: No T/A/D ROS: As per HPI Home Medications Medication Instructions Recorded Aspirin [ASA -] 81 mg PO DAILY 08/14/16 Folic Acid - 1 mg PO ASDIR 08/14/16 Methotrexate Sodium [Methotrexate] 6 tab PO WEEKLY 08/14/16 Tamsulosin HCl [Flomax] 0.4 mg PO HS 08/14/16 Travoprost [Travatan Z] 1 drop OU HS 08/14/16 Metoprolol Succinate [Toprol Xl] 25 mg PO DAILY 04/21/17 Rabeprazole Sodium [Aciphex] 20 mg PO DAILY 04/21/17 Cyanocobalamin [Vitamin B12 -] 1,000 mcg PO DAILY 04/23/17 Ezetimibe [Zetia] 10 mg PO HS 04/23/17 Vitamin B Complex Vit C No.4 1 tab PO DAILY 04/23/17 [Super B Complex] Ezetimibe [Zetia -] 10 mg PO DAILY #30 tablet MDD 1 04/30/17 Gabapentin [Neurontin -] 800 mg PO BID #60 capsule MDD 2 04/30/17 Vital Signs Temperature 98.1 F 10/13/17 08:51 Pulse Rate 73 10/13/17 08:51 Respiratory Rate 18 10/13/17 08:51 Blood Pressure 150/73 10/13/17 08:51 O2 Sat by Pulse Oximetry (%) 96 10/13/17 00:00 Intake & Output 10/10/17 10/11/17 10/12/17 10/13/17 23:59 23:59 23:59 23:59 Intake Total 310 1400 Output Total 400 400 250 Balance -90 1000 -250 Weight 76.793 kg 81.193 kg MIld distress from pain MMM, no JVD RRR, no M/R CTA soft NT/ND right hand/arm swelling and warmth no LE edema CBC, BMP 10/13/17 06:00 10/13/17 06:00 Current Medications Acetaminophen (Tylenol -) 650 mg PO Q4H PRN PRN Reason: FEVER Last Admin: 10/11/17 23:33 Dose: 650 mg Acetaminophen (Ofirmev Injection -) 1,000 mg IVPB Q6H PRN PRN Reason: FEVER Last Admin: 10/12/17 20:30 Dose: 1,000 mg Amino Acids (Prosource No Carb Liquid Pkt) 30 ml PO BID@0800,1730 [facility] Aspirin (Ecotrin -) 81 mg PO DAILY [facility] Last Admin: 10/13/17 09:32 Dose: 81 mg Ezetimibe (Zetia -) 10 mg PO DAILY [facility] Last Admin: 10/13/17 09:34 Dose: 10 mg Gabapentin (Neurontin -) 800 mg PO BID [facility] Last Admin: 10/13/17 09:32 Dose: 800 mg Cefepime HCl (Maxipime 1 Gm Premix Ivpb) 1 gm in 50 mls @ 100 mls/hr IVPB Q8H- IV [facility]; Protocol Last Admin: 10/13/17 09:32 Dose: 100 mls/hr Sodium Chloride (Normal Saline -) 1,000 mls @ 75 mls/hr IV ASDIR [facility] Last Admin: 10/13/17 02:01 Dose: 75 mls/hr Vancomycin HCl (Vancomycin 1 Gm Premix -) 1 gm in 200 mls @ 133.333 mls/hr IVPB Q12H [facility]; Protocol Last Admin: 10/12/17 21:47 Dose: 133.333 mls/hr Potassium Chloride 10 meq/ (Sodium Chloride) 105 mls @ 105 mls/hr IVPB ONCE ONE Stop: 10/13/17 10:29 Metoprolol Succinate (Toprol Xl -) 25 mg PO DAILY [facility] Last Admin: 10/13/17 09:32 Dose: 25 mg Morphine Sulfate (Morphine Sulfate) 4 mg IVPUSH Q6H PRN PRN Reason: PAIN LEVEL 7 - 10 Last Admin: 10/12/17 15:52 Dose: 4 mg Patient's Own Medication (Non- Formulary)Simbrinza 1%/0.2% 1 each OS BID [facility] Last Admin: 10/12/17 21:51 Dose: 1 each Patient's Own Medication (Non- Formulary)Travatan Z 0.004% 1 each OU HS [facility] Last Admin: 10/12/17 21:51 Dose: 1 each Ondansetron HCl (Zofran Injection) 4 mg IVPUSH Q6H PRN PRN Reason: NAUSEA Pantoprazole Sodium (Protonix -) 20 mg PO DAILY [facility] Last Admin: 10/13/17 09:32 Dose: 20 mg Polyethylene Glycol (Miralax (For Daily Use) -) 17 gm PO DAILY [facility] Potassium Chloride (Potassium Chloride Oral Liquid) 40 meq PO ONCE ONE Stop: 10/13/17 10:01 Last Admin: 10/13/17 09:38 Dose: 40 meq Senna (Senna -) 2 tab PO HS PRN PRN Reason: CONSTIPATION Tamsulosin HCl (Flomax -) 0.4 mg PO DAILY@0830 [facility] Last Admin: 10/13/17 09:32 Dose: 0.4 mg 81 year old gentleman with PMhx of RA on methrotrexate, CAD s/p PCI and stenting , CHF, Hypertension, BPH who presented with wrist pain and found to have septic arthritis with MSSA bacteremia and now with hypokalemia and hypocalcemia #Hypokalemia #Hypocalcemia #Non-anion gap metabolic acidosis #Septic arthritis #MSSA Bacteremia Agree wit K supplementation check Mg levels to ensure > 2, supplement as needed Corrected Ca is 8.1, no need for IV calcium can start oral calcium if levels Remain < 8.4 change IVF to 1/2 NS with 40 meq KCL Pain control Abx as per ID Thank you for this referral will follow Juan M Murcia DO
[2017-10-13] MEDS ORDERED: POTASSIUM CHLORIDE ORAL LIQUID 20 MEQ/15 ML PO ONE (10:00)
[2017-10-13] MEDS: VANCOMYCIN 1 GM PREMIX - 1 GM/200 ML BAG IVPB SCH ×2 (10:04→21:47)
[2017-10-13 10:30] LABS: MAGNESIUM 1.8 mg/dL (1.8-2.4)
[2017-10-13] MEDS: POLYETHYLENE GLYCOL 3350 119 GM BTL PO SCH (11:16)
[2017-10-13] MEDS: SIMBRINZA OS SCH ×2 (11:16→21:48)
[2017-10-13] MEDS: POTASSIUM CHLORIDE 40 MEQ in SODIUM CHLORIDE 0.45% 1,000 ML IVPB SCH (11:16)
--- NOTE | 2017-10-13 12:39 | PN ---
Progress Note (short form) - Note Progress Note: much more alert still with painful wrist Vital Signs Period Temp Pulse Resp BP Sys/Jeffrey Pulse Ox Last 24 Hr 98.1 F-102.8 F 69-104 18-20 104-155/53-99 96 cor-rrr lungs clear abd soft,nt ext +erythema and warmth with swelling of the wrist, able to move his fingers + pulse CBC, BMP 10/13/17 06:00 10/13/17 06:00 Microbiology 10/11/17 10:00 Blood - Peripheral Venous Blood Culture - Preliminary Presumptive Mssa (Pbp2a Neg) 10/11/17 09:55 Blood - Peripheral Venous Blood Culture - Preliminary Presumptive Mssa (Pbp2a Neg) Laboratory Tests 10/11/17 10/13/17 09:55 09:10 ESR 14 Vancomycin Pre-Dose 12.32 H crp 27 a/p staph bacteremia septic arthritis of the wrist continue vancomycin/cefazolin until final cultures are back ortho f/u- ?drainage repeat blood cultures sent echo in am d/w Dr Preciado d/w ortho yesterday Problem List - Problems (1) Cellulitis Code(s): L03.90 - CELLULITIS, UNSPECIFIED (2) Septic arthritis Code(s): M00.9 - PYOGENIC ARTHRITIS, UNSPECIFIED Qualifiers: Septic arthritis location: wrist Septic arthritis organism: due to unspecified organism Laterality: right Qualified Code(s): M00.9 - Pyogenic arthritis, unspecified
[2017-10-13 16:31] LABS: URINE APPEARANCE CLOUDY; URINE BILIRUBIN NEGATIVE (<2.0 mg/dL); URINE COLOR AMBER; URINE GLUCOSE (UA) NEGATIVE (NEGATIVE); URINE KETONE TRACE (NEGATIVE); URINE LEUK ESTERASE NEGATIVE (NEGATIVE); URINE NITRITE NEGATIVE (NEGATIVE); URINE UROBILINOGEN NEGATIVE mg/dL (0.2-1.0)
[2017-10-13 16:38] LABS: URINE PROTEIN 1+ (NEGATIVE)
[2017-10-13 16:48] LABS: URINE MUCUS RARE
[2017-10-13 17:26] LABS: ALBUMIN 2.8 g/dl (3.4-5.0); ANION GAP 10 (8-16); BLOOD UREA NITROGEN 22 mg/dL (7-18); CALCIUM 8.3 mg/dL (8.5-10.1); CHLORIDE 105 mmol/L (98-107); CO2 21 mmol/L (21-32); GLUCOSE,RANDOM 88 mg/dL (74-106); MAGNESIUM 2.1 mg/dL (1.8-2.4); POTASSIUM 4.4 mmol/L (3.5-5.1); SGOT/AST 33 U/L (15-37); SGPT/ALT 21 U/L (12-78); SODIUM 136 mmol/L (136-145); TOT PROT 6.6 g/dl (6.4-8.2)
[2017-10-13] MEDS: ACETAMINOPHEN 1000 MG/100 ML VIAL (NON FORMULARY) IVPB PRN (17:29)
[2017-10-13 17:30] LABS: ALK PHOS 78 U/L (45-117); BILIRUBIN,TOTAL 0.8 mg/dL (0.2-1.0)
[2017-10-13] MEDS: CEFAZOLIN 2 GM/D5W 2 GM/50 ML ML IVPB SCH (17:31)
[2017-10-13] MEDS: AMINO ACIDS/PROTEIN HYDROLYS 30 ML LIQUID.PKT PO SCH (17:31)
[2017-10-13] MEDS: SENNOSIDES 8.6MG TABLET (FP) PO PRN (21:47)
[2017-10-13] MEDS: TRAVATAN Z 0.004% OU SCH (21:48)
[2017-10-13] MEDS ORDERED: PT OWN MED DRAWER 7, Y5N ONE (22:34)
[2017-10-14] MEDS: POTASSIUM CHLORIDE 40 MEQ in SODIUM CHLORIDE 0.45% 1,000 ML IVPB SCH ×3 (00:27→13:01)
[2017-10-14] MEDS: CEFAZOLIN 2 GM/D5W 2 GM/50 ML ML IVPB SCH ×3 (01:06→17:28)
[2017-10-14 07:49] LABS: HEMATOCRIT 32.8 % (35.4-49); HEMOGLOBIN 10.9 GM/dL (11.7-16.9); MCH 28.8 pg (25.7-33.7); MCHC 33.3 g/dl (32.0-35.9); MEAN CELL VOLUME 86.7 fl (80-96); MEAN PLT VOLUME 8.8 fl (7.5-11.1); PLATELET COUNT 155 K/MM3 (134-434); RBC 3.79 M/mm3 (4.00-5.60); RDW 19.8 % (11.9-15.9)
--- NOTE | 2017-10-14 08:05 | PN ---
Progress Note, Physician - Current Medication List Current Medications: Active Medications Acetaminophen (Tylenol -) 650 mg PO Q4H PRN PRN Reason: FEVER Last Admin: 10/11/17 23:33 Dose: 650 mg Acetaminophen (Ofirmev Injection -) 1,000 mg IVPB Q6H PRN PRN Reason: FEVER Last Admin: 10/13/17 17:29 Dose: 1,000 mg Amino Acids (Prosource No Carb Liquid Pkt) 30 ml PO BID@0800,1730 [facility] Last Admin: 10/13/17 17:31 Dose: 30 ml Aspirin (Ecotrin -) 81 mg PO DAILY [facility] Last Admin: 10/13/17 09:32 Dose: 81 mg Ezetimibe (Zetia -) 10 mg PO DAILY [facility] Last Admin: 10/13/17 09:34 Dose: 10 mg Gabapentin (Neurontin -) 800 mg PO BID [facility] Last Admin: 10/13/17 21:47 Dose: 800 mg Vancomycin HCl (Vancomycin 1 Gm Premix -) 1 gm in 200 mls @ 133.333 mls/hr IVPB Q12H [facility]; Protocol Last Admin: 10/13/17 21:47 Dose: 133.333 mls/hr Potassium Chloride 40 meq/ (Sodium Chloride) 1,020 mls @ 75 mls/hr IVPB Q13H [facility] Last Admin: 10/14/17 06:33 Dose: 75 mls/hr Cefazolin Sodium/Dextrose (Ancef 2 Gm Premixed Ivpb -) 2 gm in 50 mls @ 100 mls /hr IVPB Q8H-IV [facility] Last Admin: 10/14/17 01:06 Dose: 100 mls/hr Metoprolol Succinate (Toprol Xl -) 25 mg PO DAILY [facility] Last Admin: 10/13/17 09:32 Dose: 25 mg Morphine Sulfate (Morphine Sulfate) 4 mg IVPUSH Q6H PRN PRN Reason: PAIN LEVEL 7 - 10 Last Admin: 10/12/17 15:52 Dose: 4 mg Patient's Own Medication (Non- Formulary)Simbrinza 1%/0.2% 1 each OS BID [facility] Last Admin: 10/13/17 21:48 Dose: 1 each Patient's Own Medication (Non- Formulary)Travatan Z 0.004% 1 each OU HS [facility] Last Admin: 10/13/17 21:48 Dose: 1 each Ondansetron HCl (Zofran Injection) 4 mg IVPUSH Q6H PRN PRN Reason: NAUSEA Last Admin: 10/13/17 10:10 Dose: 4 mg Pantoprazole Sodium (Protonix -) 20 mg PO DAILY [facility] Last Admin: 10/13/17 09:32 Dose: 20 mg Polyethylene Glycol (Miralax (For Daily Use) -) 17 gm PO DAILY [facility] Last Admin: 10/13/17 11:16 Dose: 17 gm Senna (Senna -) 2 tab PO HS PRN PRN Reason: CONSTIPATION Last Admin: 10/13/17 21:47 Dose: 2 tab Tamsulosin HCl (Flomax -) 0.4 mg PO DAILY@0830 [facility] Last Admin: 10/13/17 09:32 Dose: 0.4 mg - Objective Vital Signs: Vital Signs Temperature 98.5 F 10/14/17 05:58 Pulse Rate 71 10/14/17 05:58 Respiratory Rate 20 10/14/17 05:58 Blood Pressure 150/76 10/14/17 05:58 O2 Sat by Pulse Oximetry (%) 96 10/13/17 20:25 Cardiovascular: Yes: S1, S2 Respiratory: Yes: Regular, CTA Bilaterally Gastrointestinal: Yes: Normal Bowel Sounds, Soft Musculoskeletal: Yes: Joint Stiffness, Joint Swelling Extremities: Yes: Erythema Labs: CBC, BMP 10/14/17 06:30 INR, PTT INR 1.29 (0.82-1.09) H 10/11/17 09:55 Assessment/Plan - Problems (1) Septic arthritis Assessment/Plan: ortho/ ID consult- Microbiology 10/13/17 06:00 Blood Culture - Preliminary Blood - Peripheral Venous NO GROWTH OBTAINED AFTER 24 HOURS, INCUBATION TO CONTINUE FOR 4 DAYS. 10/13/17 06:15 Blood Culture - Preliminary Blood - Peripheral Venous NO GROWTH OBTAINED AFTER 24 HOURS, INCUBATION TO CONTINUE FOR 4 DAYS. 10/11/17 10:00 Blood Culture - Preliminary Blood - Peripheral Venous Presumptive Mssa (Pbp2a Neg) 10/11/17 09:55 Blood Culture - Preliminary Blood - Peripheral Venous Presumptive Mssa (Pbp2a Neg) abx per ID Echo ct scan of hand and wrist w/o contrast analgesic pain control dvt ppx Code(s): M00.9 - PYOGENIC ARTHRITIS, UNSPECIFIED Qualifiers: Septic arthritis location: wrist Septic arthritis organism: due to unspecified organism Laterality: right Qualified Code(s): M00.9 - Pyogenic arthritis, unspecified (2) BPH (benign prostatic hyperplasia) Assessment/Plan: flomax Code(s): N40.0 - BENIGN PROSTATIC HYPERPLASIA WITHOUT LOWER URINRY TRACT SYMP (3) HLD (hyperlipidemia) Assessment/Plan: zetia lipid panel Code(s): E78.5 - HYPERLIPIDEMIA, UNSPECIFIED (4) HTN (hypertension) Assessment/Plan: toprol xl Code(s): I10 - ESSENTIAL (PRIMARY) HYPERTENSION Assessment/Plan
[2017-10-14 08:09] LABS: ALBUMIN 2.3 g/dl (3.4-5.0); ANION GAP 8 (8-16); BILIRUBIN,TOTAL 0.5 mg/dL (0.2-1.0); BLOOD UREA NITROGEN 18 mg/dL (7-18); CALCIUM 8.2 mg/dL (8.5-10.1); CHLORIDE 107 mmol/L (98-107); CO2 23 mmol/L (21-32); GLUCOSE,RANDOM 99 mg/dL (74-106); MAGNESIUM 2.1 mg/dL (1.8-2.4); PHOSPHOROUS 2.6 mg/dL (2.5-4.9); POTASSIUM 4.3 mmol/L (3.5-5.1); SGOT/AST 28 U/L (15-37); SGPT/ALT 20 U/L (12-78); SODIUM 138 mmol/L (136-145); TOT PROT 5.4 g/dl (6.4-8.2)
[2017-10-14 08:10] LABS: ALK PHOS 67 U/L (45-117)
[2017-10-14] MEDS ORDERED: PT OWN MED DRAWER 7, Y5N ONE ×2 (08:32→19:05)
[2017-10-14] MEDS: TAMSULOSIN HCL 0.4 MG CAP.ER.24H (FP) PO SCH (08:49)
[2017-10-14] MEDS: AMINO ACIDS/PROTEIN HYDROLYS 30 ML LIQUID.PKT PO SCH ×2 (08:49→17:29)
[2017-10-14] MEDS: VANCOMYCIN 1 GM PREMIX - 1 GM/200 ML BAG IVPB SCH (09:10)
--- NOTE | 2017-10-14 09:13 | PN ---
Progress Note (short form) - Note Progress Note: Ortho Pt seen and examined- feeling better but still c/o pain Selected Entries 10/14/17 05:58 Temperature 98.5 F Pulse Rate 71 Respiratory 20 Rate Blood Pressure 150/76 Laboratory Tests 10/14/17 06:30 WBC 5.0 Hgb 10.9 L Hct 32.8 L Plt Count 155 D PE- more ttp today, no fluctuance/fluid pockets appreciated, decr erythema, decr swelling, incr rom nvi a/p MRI of right wrist Continue abx continue colchicine ROM exercises strict elevation d/w Dr. Rasheed
--- NOTE | 2017-10-14 10:20 | PN ---
Progress Note, Physician Chief Complaint: ID Right wrist pain Vanco and now Cefazolin - Current Medication List Current Medications: Active Medications Acetaminophen (Tylenol -) 650 mg PO Q4H PRN PRN Reason: FEVER Last Admin: 10/11/17 23:33 Dose: 650 mg Acetaminophen (Ofirmev Injection -) 1,000 mg IVPB Q6H PRN PRN Reason: FEVER Last Admin: 10/13/17 17:29 Dose: 1,000 mg Amino Acids (Prosource No Carb Liquid Pkt) 30 ml PO BID@0800,1730 [facility] Last Admin: 10/14/17 08:49 Dose: 30 ml Aspirin (Ecotrin -) 81 mg PO DAILY [facility] Last Admin: 10/13/17 09:32 Dose: 81 mg Ezetimibe (Zetia -) 10 mg PO DAILY [facility] Last Admin: 10/13/17 09:34 Dose: 10 mg Gabapentin (Neurontin -) 800 mg PO BID [facility] Last Admin: 10/13/17 21:47 Dose: 800 mg Vancomycin HCl (Vancomycin 1 Gm Premix -) 1 gm in 200 mls @ 133.333 mls/hr IVPB Q12H [facility]; Protocol Last Admin: 10/14/17 09:10 Dose: 133.333 mls/hr Potassium Chloride 40 meq/ (Sodium Chloride) 1,020 mls @ 75 mls/hr IVPB Q13H [facility] Last Admin: 10/14/17 06:33 Dose: 75 mls/hr Cefazolin Sodium/Dextrose (Ancef 2 Gm Premixed Ivpb -) 2 gm in 50 mls @ 100 mls /hr IVPB Q8H-IV [facility] Last Admin: 10/14/17 01:06 Dose: 100 mls/hr Metoprolol Succinate (Toprol Xl -) 25 mg PO DAILY [facility] Last Admin: 10/13/17 09:32 Dose: 25 mg Morphine Sulfate (Morphine Sulfate) 4 mg IVPUSH Q6H PRN PRN Reason: PAIN LEVEL 7 - 10 Last Admin: 10/12/17 15:52 Dose: 4 mg Patient's Own Medication (Non- Formulary)Simbrinza 1%/0.2% 1 each OS BID [facility] Last Admin: 10/13/17 21:48 Dose: 1 each Patient's Own Medication (Non- Formulary)Travatan Z 0.004% 1 each OU HS [facility] Last Admin: 10/13/17 21:48 Dose: 1 each Ondansetron HCl (Zofran Injection) 4 mg IVPUSH Q6H PRN PRN Reason: NAUSEA Last Admin: 10/13/17 10:10 Dose: 4 mg Pantoprazole Sodium (Protonix -) 20 mg PO DAILY [facility] Last Admin: 10/13/17 09:32 Dose: 20 mg Polyethylene Glycol (Miralax (For Daily Use) -) 17 gm PO DAILY [facility] Last Admin: 10/13/17 11:16 Dose: 17 gm Senna (Senna -) 2 tab PO HS PRN PRN Reason: CONSTIPATION Last Admin: 10/13/17 21:47 Dose: 2 tab Tamsulosin HCl (Flomax -) 0.4 mg PO DAILY@0830 [facility] Last Admin: 10/14/17 08:49 Dose: 0.4 mg - Objective Vital Signs: Vital Signs Temperature 98.5 F 10/14/17 05:58 Pulse Rate 71 10/14/17 05:58 Respiratory Rate 20 10/14/17 05:58 Blood Pressure 150/76 10/14/17 05:58 O2 Sat by Pulse Oximetry (%) 96 10/13/17 20:25 Constitutional: Yes: No Distress HENT: Yes: WNL, Atraumatic Neck: Yes: WNL, Supple Cardiovascular: Yes: Regular Rate and Rhythm, S1, S2. No: Murmur Respiratory: Yes: WNL, Regular, CTA Bilaterally Gastrointestinal: Yes: WNL, Normal Bowel Sounds, Soft. No: Tenderness, Tenderness, Epigastrium Extremities: Yes: Other (Right srist tendernes with swelling limited ROM) Labs: CBC, BMP 10/14/17 06:30 10/14/17 06:30 INR, PTT INR 1.29 (0.82-1.09) H 10/11/17 09:55 Assessment/Plan Microbiology 10/13/17 06:15 Blood - Peripheral Venous Blood Culture - Preliminary NO GROWTH OBTAINED AFTER 24 HOURS, INCUBATION TO CONTINUE FOR 4 DAYS. 10/13/17 06:00 Blood - Peripheral Venous Blood Culture - Preliminary NO GROWTH OBTAINED AFTER 24 HOURS, INCUBATION TO CONTINUE FOR 4 DAYS. 10/11/17 10:00 Blood - Peripheral Venous Blood Culture - Preliminary Presumptive Mssa (Pbp2a Neg) 10/11/17 09:55 Blood - Peripheral Venous Blood Culture - Preliminary Presumptive Mssa (Pbp2a Neg) Laboratory Tests 10/11/17 10/12/17 10/13/17 09:55 06:15 06:00 WBC Hgb Plt Count ESR 14 BUN Creatinine Calcium 6.6 L* D C-Reactive Protein 27.0 H Urine WBC (Auto) Urine RBC (Auto) Vancomycin Pre-Dose 10/13/17 10/13/17 10/13/17 09:10 15:40 16:00 WBC Hgb Plt Count ESR BUN Creatinine Calcium 8.3 L D C-Reactive Protein Urine WBC (Auto) 2 Urine RBC (Auto) 6 Vancomycin Pre-Dose 12.32 H 10/14/17 10/14/17 06:30 06:30 WBC 5.0 Hgb 10.9 L Plt Count 155 D ESR BUN 18 Creatinine 1.0 Calcium 8.2 L C-Reactive Protein Urine WBC (Auto) Urine RBC (Auto) Vancomycin Pre-Dose Assessment MSSA bacteremia with suspected involvement of the right wrist possible septic arthritis Gout alos conidered with high urine acid. Repeat blood culture no growth Plan 1. Continue Cefazolin 2. STOP Vancomycin 3. MRI of the wrist 4. Needs ECHO rule out endocarditis Martin CONTE
[2017-10-14] MEDS: GABAPENTIN 400 MG CAPSULE (FP) PO SCH ×2 (10:29→22:19)
[2017-10-14] MEDS: ASPIRIN COATED 81 MG TABLET.EC PO SCH (10:29)
[2017-10-14] MEDS: metoPROLOL SUCCINATE 25 MG TAB.SR.24H (FP) PO SCH (10:29)
[2017-10-14] MEDS: PANTOPRAZOLE 20 MG TABLET (FP) PO SCH (10:30)
[2017-10-14] MEDS: EZETIMIBE 10 MG TABLET (FP) PO SCH (10:30)
[2017-10-14] MEDS: POLYETHYLENE GLYCOL 3350 119 GM BTL PO SCH (10:30)
[2017-10-14] MEDS: SIMBRINZA OS SCH ×2 (10:31→22:19)
--- NOTE | 2017-10-14 17:35 | CONSULT ---
Consult Consult Specialty:: Rhyeumatology - History of Present Illness History of Present Illness: 81 year old male with a PMH of PMH of RA on Methotrexate, OA, CAD (11 stents), CHF, DM, HTN, HLD, BPH, CA BIBA admitted with acute right wrist arthritis. HPI. Five days ago he developed acute pain and swelling of the right wrist in the middle of the night. The previous day he had venipuncture and he had been working in his yard, however he denies trauma. On admission the WBC was 10.0 and improved to 5.0. ESR 14, creatinine 1.0. Urine with protein 1+ and no blood. Blood cultures were positive for S. aureus, probably MSSA. He was started on antibiotics resulting in partial improvement, The pain is less severe, however it is still significant and he has difficulty in moving the hand or fingers. Rheumatoid arthritis. Diagnosed 10 years ago and treated with Methotrexate 15 mg once per week. Apparently he never required higher dose or biologicals and the disease has been in remission. X rays of the right hand revealed mild degenerative changes in carpus and midl narrowing of the 5th MCP. Significant degenerative changes in PIPs and DIPs. There was no chondrocalcinosis and no changes suggestive of rheumatoid arthritis. - History Source History Provided By: Patient, Medical Record Limitations to Obtaining History: No Limitations - Past Medical History Cardio/Vascular: Yes: CAD (s/p multiple stenting), CHF, HTN, Hyperlipdemia, CA Gastrointestinal: Yes: Constipation, Diverticulosis, GERD (esophagitis), Hemorrhoids, Other (RECTAL INCONTINENCE THAT HAS RESOLVED WITH FIBER, duodenal ulcer, gastritis, esophagitis, Tubular adenoma of the colon 04/14) Renal/: Yes: BPH, Renal Calculi Musculoskeletal: Yes: Chronic low back pain (Spinal Stenosis), Osteoarthritis, Other (See HPI) Rheumatology: Yes: Rheumatoid Arthritis Endocrine: Yes: Diabetes Mellitus (? glucose intolerance) Dermatology: Yes: Basal Cell - Past Surgical History Past Surgical History: Yes: Appendectomy, Stent (x 11), Tonsillectomy, Vein Stripping/Ligation - Alcohol/Substance Use Hx Alcohol Use: No History of Substance Use: reports: None - Smoking History Smoking history: Never smoked Have you smoked in the past 12 months: No Aproximately how many cigarettes per day: 50 If you are a former smoker, when did you quit?: 45 yrs ago - Social History Usual Living Arrangement: With Spouse ADL: Support Services History of Recent Travel: No Home Medications - Allergies Allergies/Adverse Reactions: Allergies Allergy/AdvReac Type Severity Reaction Status Date / Time No Known Allergies Allergy Verified 10/11/17 08:58 - Home Medications Home Medications: Ambulatory Orders Aspirin [ASA -] 81 mg PO DAILY 08/14/16 Folic Acid - 1 mg PO ASDIR 08/14/16 Methotrexate Sodium [Methotrexate] 6 tab PO WEEKLY 08/14/16 Tamsulosin HCl [Flomax] 0.4 mg PO HS 08/14/16 Travoprost [Travatan Z] 1 drop OU HS 08/14/16 Metoprolol Succinate [Toprol Xl] 25 mg PO DAILY 04/21/17 Rabeprazole Sodium [Aciphex] 20 mg PO DAILY 04/21/17 Cyanocobalamin [Vitamin B12 -] 1,000 mcg PO DAILY 04/23/17 Ezetimibe [Zetia] 10 mg PO HS 04/23/17 Vitamin B Complex Vit C No.4 [Super B Complex] 1 tab PO DAILY 04/23/17 Ezetimibe [Zetia -] 10 mg PO DAILY #30 tablet MDD 1 04/30/17 Gabapentin [Neurontin -] 800 mg PO BID #60 capsule MDD 2 04/30/17 Family Disease History - Family Disease History Family Disease History: Heart Disease: Father ( 82: CA), Mother ( 99: HTN, HYPERLIPIDEMIA, DEMENTIA), Other: Mother, Sister (2, spinal stenosis), Son (1, healthy), Daughter (1, healthy) Review of Systems - Review of Systems Constitutional: reports: Malaise Eyes: reports: No Symptoms HENT: reports: No Symptoms Neck: reports: No Symptoms Cardiovascular: reports: No Symptoms Respiratory: reports: No Symptoms Gastrointestinal: reports: No Symptoms Genitourinary: reports: No Symptoms Musculoskeletal: reports: Other (See HPI) Neurological: reports: No Symptoms Physical Exam Vital Signs: Vital Signs Temperature 98.9 F 10/14/17 15:23 Pulse Rate 74 10/14/17 15:23 Respiratory Rate 18 10/14/17 15:23 Blood Pressure 138/65 10/14/17 15:23 O2 Sat by Pulse Oximetry (%) 93 L 10/14/17 09:00 Constitutional: Yes: Moderate Distress Eyes: Yes: WNL HENT: Yes: WNL Neck: Yes: WNL Cardiovascular: Yes: WNL Respiratory: Yes: WNL Gastrointestinal: Yes: WNL Musculoskeletal: Yes: Other (Significant tenderness in the right wrist and small effusion. He also hafd significant tenderness proximal and distal to the wrist with no other joint involvement. Decreased flexion of fingers due to the pain.) Labs: CBC, BMP 10/14/17 06:30 10/14/17 06:30 Laboratory Tests 10/11/17 10/13/17 10/14/17 09:55 15:40 06:30 ESR 14 Calcium 8.2 L Phosphorus 2.6 D Magnesium 2.1 Total Bilirubin 0.5 AST 28 ALT 20 Alkaline Phosphatase 67 D Total Protein 5.4 L Albumin 2.3 L Urine Color Guerita Urine Appearance Cloudy Urine pH 5.0 Ur Specific [place] 1.023 Urine Protein 1+ H Urine Glucose (UA) Negative Urine Ketones Trace H Urine Blood Negative Urine Nitrite Negative Urine Bilirubin Negative Urine Urobilinogen Negative Ur Leukocyte Esterase Negative Urine WBC (Auto) 2 Urine RBC (Auto) 6 Problem List - Problems (1) Septic arthritis Assessment/Plan: Based on a positive blood culture it is likely that the patient has septic arthritis in the wrist. Rheumatoid arthritis is in remission, asnd other etiologies are unlikely. The patient was started on antibiotics - he will have to complete 6 weeks of therapy. In the future evaluatif he can tolerate tapering down Methotrexate. l Code(s): M00.9 - PYOGENIC ARTHRITIS, UNSPECIFIED Qualifiers: Septic arthritis location: wrist Septic arthritis organism: due to unspecified organism Laterality: right Qualified Code(s): M00.9 - Pyogenic arthritis, unspecified
--- NOTE | 2017-10-14 20:32 | EKG ---
Test Reason : Blood Pressure : / mmHG Vent. Rate : 074 BPM Atrial Rate : 074 BPM P-R Int : 184 ms QRS Dur : 080 ms QT Int : 368 ms P-R-T Axes : -01 -32 -08 degrees QTc Int : 408 ms POOR DATA QUALITY, INTERPRETATION MAY BE ADVERSELY AFFECTED NORMAL SINUS RHYTHM INFERIOR INFARCT (CITED ON OR BEFORE 22-APR-2017) ABNORMAL ECG WHEN COMPARED WITH ECG OF 26-APR-2017 09:19, T WAVE INVERSION NO LONGER EVIDENT IN ANTEROLATERAL LEADS QT HAS SHORTENED Confirmed by MD JUAN, JERRY ([id number]) on 10/14/2017 8:32:20 PM Referred By: Confirmed By:JERRY MARTINEZ MD
[2017-10-14] MEDS: morphine SULFATE 4 MG/ML VIAL IVPUSH PRN (22:18)
[2017-10-14] MEDS: TRAVATAN Z 0.004% OU SCH (22:19)
[2017-10-14] MEDS: SENNOSIDES 8.6MG TABLET (FP) PO PRN (22:19)
[2017-10-15] MEDS: POTASSIUM CHLORIDE 40 MEQ in SODIUM CHLORIDE 0.45% 1,000 ML IVPB SCH ×3 (00:21→21:45)
[2017-10-15] MEDS: CEFAZOLIN 2 GM/D5W 2 GM/50 ML ML IVPB SCH ×3 (02:32→23:04)
--- NOTE | 2017-10-15 08:09 | PN ---
Progress Note, Physician - Current Medication List Current Medications: Active Medications Acetaminophen (Tylenol -) 650 mg PO Q4H PRN PRN Reason: FEVER Last Admin: 10/11/17 23:33 Dose: 650 mg Acetaminophen (Ofirmev Injection -) 1,000 mg IVPB Q6H PRN PRN Reason: FEVER Last Admin: 10/13/17 17:29 Dose: 1,000 mg Amino Acids (Prosource No Carb Liquid Pkt) 30 ml PO BID@0800,1730 [facility] Last Admin: 10/14/17 17:29 Dose: 30 ml Aspirin (Ecotrin -) 81 mg PO DAILY [facility] Last Admin: 10/14/17 10:29 Dose: 81 mg Ezetimibe (Zetia -) 10 mg PO DAILY [facility] Last Admin: 10/14/17 10:30 Dose: 10 mg Gabapentin (Neurontin -) 800 mg PO BID [facility] Last Admin: 10/14/17 22:19 Dose: 800 mg Potassium Chloride 40 meq/ (Sodium Chloride) 1,020 mls @ 75 mls/hr IVPB Q13H [facility] Last Admin: 10/15/17 00:21 Dose: 75 mls/hr Cefazolin Sodium/Dextrose (Ancef 2 Gm Premixed Ivpb -) 2 gm in 50 mls @ 100 mls /hr IVPB Q8H-IV [facility] Last Admin: 10/15/17 02:32 Dose: 100 mls/hr Metoprolol Succinate (Toprol Xl -) 25 mg PO DAILY [facility] Last Admin: 10/14/17 10:29 Dose: 25 mg Morphine Sulfate (Morphine Sulfate) 4 mg IVPUSH Q6H PRN PRN Reason: PAIN LEVEL 7 - 10 Last Admin: 10/14/17 22:18 Dose: 4 mg Patient's Own Medication (Non- Formulary)Simbrinza 1%/0.2% 1 each OS BID [facility] Last Admin: 10/14/17 22:19 Dose: 1 each Patient's Own Medication (Non- Formulary)Travatan Z 0.004% 1 each OU HS [facility] Last Admin: 10/14/17 22:19 Dose: 1 each Ondansetron HCl (Zofran Injection) 4 mg IVPUSH Q6H PRN PRN Reason: NAUSEA Last Admin: 10/13/17 10:10 Dose: 4 mg Pantoprazole Sodium (Protonix -) 20 mg PO DAILY [facility] Last Admin: 10/14/17 10:30 Dose: 20 mg Polyethylene Glycol (Miralax (For Daily Use) -) 17 gm PO DAILY [facility] Last Admin: 10/14/17 10:30 Dose: 17 gm Senna (Senna -) 2 tab PO HS PRN PRN Reason: CONSTIPATION Last Admin: 10/14/17 22:19 Dose: 2 tab Tamsulosin HCl (Flomax -) 0.4 mg PO DAILY@0830 [facility] Last Admin: 10/14/17 08:49 Dose: 0.4 mg - Objective Vital Signs: Vital Signs Temperature 98.1 F 10/15/17 04:57 Pulse Rate 69 10/15/17 04:57 Respiratory Rate 20 10/15/17 04:57 Blood Pressure 151/79 10/15/17 04:57 O2 Sat by Pulse Oximetry (%) 98 10/14/17 21:00 Cardiovascular: Yes: S1, S2 Respiratory: Yes: Regular, CTA Bilaterally Gastrointestinal: Yes: Normal Bowel Sounds, Soft Labs: CBC, BMP 10/14/17 06:30 10/14/17 06:30 INR, PTT INR 1.29 (0.82-1.09) H 10/11/17 09:55 Assessment/Plan - Problems (1) Septic arthritis Assessment/Plan: ortho/ ID consult- Microbiology 10/13/17 06:00 Blood Culture - Preliminary Blood - Peripheral Venous NO GROWTH OBTAINED AFTER 24 HOURS, INCUBATION TO CONTINUE FOR 4 DAYS. 10/13/17 06:15 Blood Culture - Preliminary Blood - Peripheral Venous NO GROWTH OBTAINED AFTER 24 HOURS, INCUBATION TO CONTINUE FOR 4 DAYS. 10/11/17 10:00 Blood Culture - Preliminary Blood - Peripheral Venous Presumptive Mssa (Pbp2a Neg) 10/11/17 09:55 Blood Culture - Preliminary Blood - Peripheral Venous Presumptive Mssa (Pbp2a Neg) abx per ID Echo pending mri results pending ct scan of hand and wrist w/o contrast analgesic pain control dvt ppx Code(s): M00.9 - PYOGENIC ARTHRITIS, UNSPECIFIED Qualifiers: Septic arthritis location: wrist Septic arthritis organism: due to unspecified organism Laterality: right Qualified Code(s): M00.9 - Pyogenic arthritis, unspecified (2) BPH (benign prostatic hyperplasia) Assessment/Plan: flomax Code(s): N40.0 - BENIGN PROSTATIC HYPERPLASIA WITHOUT LOWER URINRY TRACT SYMP (3) HLD (hyperlipidemia) Assessment/Plan: zetia lipid panel Code(s): E78.5 - HYPERLIPIDEMIA, UNSPECIFIED (4) HTN (hypertension) Assessment/Plan: toprol xl Code(s): I10 - ESSENTIAL (PRIMARY) HYPERTENSION Assessment/Plan
[2017-10-15] MEDS: ASPIRIN COATED 81 MG TABLET.EC PO SCH (09:03)
[2017-10-15] MEDS: AMINO ACIDS/PROTEIN HYDROLYS 30 ML LIQUID.PKT PO SCH ×2 (09:03→18:43)
[2017-10-15] MEDS: POLYETHYLENE GLYCOL 3350 119 GM BTL PO SCH (09:03)
[2017-10-15] MEDS: PANTOPRAZOLE 20 MG TABLET (FP) PO SCH (09:05)
[2017-10-15] MEDS: metoPROLOL SUCCINATE 25 MG TAB.SR.24H (FP) PO SCH (09:05)
[2017-10-15] MEDS: TAMSULOSIN HCL 0.4 MG CAP.ER.24H (FP) PO SCH (09:05)
[2017-10-15] MEDS: EZETIMIBE 10 MG TABLET (FP) PO SCH (09:05)
[2017-10-15] MEDS: GABAPENTIN 400 MG CAPSULE (FP) PO SCH ×2 (09:05→21:47)
[2017-10-15] MEDS: SIMBRINZA OS SCH ×2 (09:06→21:47)
[2017-10-15] MEDS: ACETAMINOPHEN 325 MG TABLET (FP) PO PRN (14:52)
--- NOTE | 2017-10-15 15:57 | PN ---
Progress Note (short form) - Note Progress Note: Pt seen and examined, In summary he has a recent history of a few days of increasing pain, and swelling of the dorsum of the right hand. Since being admitted and put on antibiotics it has improved dramatically, as per the patient and his sister. They state the swelling, redness, and pain have all improved significantly. AVSS Labs WBC down to 5.0 ESR was 14 MRI Shows a large wrist joint effusion, tenosynovitis, carpal cystic erosions more consistent with an inflammatory arthropathy than an infection PE Left hand stiff, + tender over the dorsum + mildly swollen over the dorsal aspect of the hand and carpus + mod sized carpal joint effusion No drainage No overtly obvious signs of infection. Looks more like resolving cellulitis Imp Left hand intra articular joint effusion with overlying dorsal cellulitis , overall improving dramatically. Rec No surgical I&D needed at this time. Strict elevation Start active and passive ROM exercises Con't antibiotic regimen Will follow. Will check again tomorrow to see if he needs an open I&D
--- NOTE | 2017-10-15 16:56 | ECHO ---
Name: PETER, SABRINA Exam:Adult Echocardiogram Study Date: 10/15/2017 09:54 AM Reason For Study: BACTEREMIA R/O ENDOCARDITIA Height: 66 in Weight: 179 lb BSA: 1.9 m2 MMode/2D Measurements & Calculations IVSd: 0.92 cm Ao root diam: 2.8 cm LVIDd: 4.5 cm LA dimension: 4.0 cm LVIDs: 3.0 cm LVPWd: 0.87 cm EDV(Teich): 90.2 ml RV S Jasper: 10.9 cm/sec ESV(Teich): 35.0 ml Doppler Measurements & Calculations MV E max jasper: 56.8 cm/sec Ao V2 max: 138.1 cm/sec MV A max jasper: 71.1 cm/sec Ao max P.6 mmHg MV E/A: 0.80 Ao V2 mean: 112.3 cm/sec MV dec time: 0.25 sec Ao mean P.3 mmHg Ao V2 VTI: 37.5 cm LV V1 max P.1 mmHg MR max jasper: 262.7 cm/sec LV V1 mean P.0 mmHg MR max P.6 mmHg LV V1 max: 101.2 cm/sec LV V1 mean: 65.6 cm/sec LV V1 VTI: 21.0 cm TR max jasper: 216.8 cm/sec Med Peak E' Jasper: 5.2 cm/sec TR max P.8 mmHg Med E/e': 11.0 Lat Peak E' Jasper: 10.1 cm/sec Lat E/e': 5.6 Left Ventricle The left ventricular size, thickness and function are normal. LVEF = 60%. The transmitral spectral Do ppler flow pattern is suggestive of impaired LV relaxation. Apical traceculae. Right Ventricle The right ventricle is normal in size and function. Atria The left atrium is mildly dilated. Right atrial size is normal. Mitral Valve There is moderate mitral annular calcification. There is mild mitral regurgitation. Tricuspid Valve There was insufficient TR detected to calculate RV systolic pressure. Aortic Valve There is moderate aortic sclerosis.;. No hemodynamically significant valvular aortic stenosis. Trace to mild aortic regurgitation. Pulmonic Valve The pulmonic valve is not well visualized. Great Vessels The aortic root is normal size. Pericardium/Pleura There is no pericardial effusion. Interpretation Summary The left ventricular size, thickness and function are normal. LVEF = 60%. Apical traceculae. The right ventricle is normal in size and function. The left atrium is mildly dilated. Right atrial size is normal. There is moderate mitral annular calcification. There is mild mitral regurgitation. There is moderate aortic sclerosis.; No hemodynamically significant valvular aortic stenosis. Trace t o mild aortic regurgitation. MD Whit Voss 10/15/2017 04:56 PM
[2017-10-15] MEDS: TRAVATAN Z 0.004% OU SCH (21:47)
[2017-10-16] MEDS: CEFAZOLIN 2 GM/D5W 2 GM/50 ML ML IVPB SCH ×3 (03:00→19:08)
[2017-10-16] MEDS: POTASSIUM CHLORIDE 40 MEQ in SODIUM CHLORIDE 0.45% 1,000 ML IVPB SCH ×4 (04:14→23:49)
--- NOTE | 2017-10-16 07:50 | PN ---
Progress Note, Physician - Current Medication List Current Medications: Active Medications Acetaminophen (Tylenol -) 650 mg PO Q4H PRN PRN Reason: FEVER Last Admin: 10/15/17 14:52 Dose: 650 mg Acetaminophen (Ofirmev Injection -) 1,000 mg IVPB Q6H PRN PRN Reason: FEVER Last Admin: 10/13/17 17:29 Dose: 1,000 mg Amino Acids (Prosource No Carb Liquid Pkt) 30 ml PO BID@0800,1730 [facility] Last Admin: 10/15/17 18:43 Dose: Not Given Aspirin (Ecotrin -) 81 mg PO DAILY [facility] Last Admin: 10/15/17 09:03 Dose: Not Given Ezetimibe (Zetia -) 10 mg PO DAILY [facility] Last Admin: 10/15/17 09:05 Dose: 10 mg Gabapentin (Neurontin -) 800 mg PO BID [facility] Last Admin: 10/15/17 21:47 Dose: 800 mg Potassium Chloride 40 meq/ (Sodium Chloride) 1,020 mls @ 75 mls/hr IVPB Q13H [facility] Last Admin: 10/16/17 04:14 Dose: Not Given Cefazolin Sodium/Dextrose (Ancef 2 Gm Premixed Ivpb -) 2 gm in 50 mls @ 100 mls /hr IVPB Q8H-IV [facility] Last Admin: 10/16/17 03:00 Dose: 100 mls/hr Metoprolol Succinate (Toprol Xl -) 25 mg PO DAILY [facility] Last Admin: 10/15/17 09:05 Dose: 25 mg Patient's Own Medication (Non- Formulary)Simbrinza 1%/0.2% 1 each OS BID [facility] Last Admin: 10/15/17 21:47 Dose: 1 each Patient's Own Medication (Non- Formulary)Travatan Z 0.004% 1 each OU HS [facility] Last Admin: 10/15/17 21:47 Dose: 1 each Ondansetron HCl (Zofran Injection) 4 mg IVPUSH Q6H PRN PRN Reason: NAUSEA Last Admin: 10/13/17 10:10 Dose: 4 mg Pantoprazole Sodium (Protonix -) 20 mg PO DAILY [facility] Last Admin: 10/15/17 09:05 Dose: 20 mg Polyethylene Glycol (Miralax (For Daily Use) -) 17 gm PO DAILY [facility] Last Admin: 10/15/17 09:03 Dose: Not Given Senna (Senna -) 2 tab PO HS PRN PRN Reason: CONSTIPATION Last Admin: 10/14/17 22:19 Dose: 2 tab Tamsulosin HCl (Flomax -) 0.4 mg PO DAILY@0830 [facility] Last Admin: 10/15/17 09:05 Dose: 0.4 mg - Objective Vital Signs: Vital Signs Temperature 98.2 F 10/16/17 05:45 Pulse Rate 69 10/16/17 05:45 Respiratory Rate 18 10/16/17 05:45 Blood Pressure 160/83 10/16/17 05:45 O2 Sat by Pulse Oximetry (%) 96 10/15/17 21:00 Cardiovascular: Yes: S1, S2 Respiratory: Yes: Regular, CTA Bilaterally Gastrointestinal: Yes: Normal Bowel Sounds, Soft Musculoskeletal: Yes: Joint Stiffness, Joint Swelling Extremities: Yes: Erythema Labs: CBC, BMP 10/14/17 06:30 10/14/17 06:30 INR, PTT INR 1.29 (0.82-1.09) H 10/11/17 09:55 Assessment/Plan - Problems (1) Septic arthritis Assessment/Plan: ortho/ ID consult- Microbiology 10/13/17 06:00 Blood Culture - Preliminary Blood - Peripheral Venous NO GROWTH OBTAINED AFTER 72 HOURS, INCUBATION TO CONTINUE FOR 2 DAYS. 10/13/17 06:15 Blood Culture - Preliminary Blood - Peripheral Venous NO GROWTH OBTAINED AFTER 72 HOURS, INCUBATION TO CONTINUE FOR 2 DAYS. 10/11/17 10:00 Blood Culture - Final Blood - Peripheral Venous Staphylococcus Aureus 10/13/17 16:00 Urine Culture - Final Urine - Urine Clean Catch NO GROWTH OBTAINED abx per ID Echo noted mri results noted ct scan of hand and wrist w/o contrast analgesic pain control dvt ppx Code(s): M00.9 - PYOGENIC ARTHRITIS, UNSPECIFIED Qualifiers: Septic arthritis location: wrist Septic arthritis organism: due to unspecified organism Laterality: right Qualified Code(s): M00.9 - Pyogenic arthritis, unspecified (2) BPH (benign prostatic hyperplasia) Assessment/Plan: flomax Code(s): N40.0 - BENIGN PROSTATIC HYPERPLASIA WITHOUT LOWER URINRY TRACT SYMP (3) HLD (hyperlipidemia) Assessment/Plan: zetia lipid panel Code(s): E78.5 - HYPERLIPIDEMIA, UNSPECIFIED (4) HTN (hypertension) Assessment/Plan: heath page Code(s): I10 - ESSENTIAL (PRIMARY) HYPERTENSION Assessment/Plan
[2017-10-16] MEDS: PANTOPRAZOLE 20 MG TABLET (FP) PO SCH (09:50)
[2017-10-16] MEDS: TAMSULOSIN HCL 0.4 MG CAP.ER.24H (FP) PO SCH (09:50)
[2017-10-16] MEDS: AMINO ACIDS/PROTEIN HYDROLYS 30 ML LIQUID.PKT PO SCH ×2 (09:50→19:08)
[2017-10-16] MEDS: ASPIRIN COATED 81 MG TABLET.EC PO SCH (09:50)
[2017-10-16] MEDS: GABAPENTIN 400 MG CAPSULE (FP) PO SCH ×2 (09:51→21:56)
[2017-10-16] MEDS: SIMBRINZA OS SCH ×2 (09:51→21:57)
[2017-10-16] MEDS: EZETIMIBE 10 MG TABLET (FP) PO SCH (09:51)
--- NOTE | 2017-10-16 09:51 | PN ---
Progress Note (short form) - Note Progress Note: SWELLING, REDNESS AND PAIN MARKEDLY IMPROVED PLAN: CONTINUE ABX AND GOUT MEDICATION, ENCOURAGE ROM WRIST AND FINGERS
--- NOTE | 2017-10-16 11:45 | PN ---
Progress Note, Physician Chief Complaint: ID Cefazolin Afebrile - Current Medication List Current Medications: Active Medications Acetaminophen (Tylenol -) 650 mg PO Q4H PRN PRN Reason: FEVER Last Admin: 10/15/17 14:52 Dose: 650 mg Acetaminophen (Ofirmev Injection -) 1,000 mg IVPB Q6H PRN PRN Reason: FEVER Last Admin: 10/13/17 17:29 Dose: 1,000 mg Amino Acids (Prosource No Carb Liquid Pkt) 30 ml PO BID@0800,1730 [facility] Last Admin: 10/16/17 09:50 Dose: 30 ml Aspirin (Ecotrin -) 81 mg PO DAILY [facility] Last Admin: 10/16/17 09:50 Dose: 81 mg Ezetimibe (Zetia -) 10 mg PO DAILY [facility] Last Admin: 10/16/17 09:51 Dose: 10 mg Gabapentin (Neurontin -) 800 mg PO BID [facility] Last Admin: 10/16/17 09:51 Dose: 800 mg Potassium Chloride 40 meq/ (Sodium Chloride) 1,020 mls @ 75 mls/hr IVPB Q13H [facility] Last Admin: 10/16/17 04:14 Dose: Not Given Cefazolin Sodium/Dextrose (Ancef 2 Gm Premixed Ivpb -) 2 gm in 50 mls @ 100 mls /hr IVPB Q8H-IV [facility] Last Admin: 10/16/17 09:49 Dose: 100 mls/hr Metoprolol Succinate (Toprol Xl -) 25 mg PO DAILY [facility] Last Admin: 10/15/17 09:05 Dose: 25 mg Patient's Own Medication (Non- Formulary)Simbrinza 1%/0.2% 1 each OS BID [facility] Last Admin: 10/16/17 09:51 Dose: 1 each Patient's Own Medication (Non- Formulary)Travatan Z 0.004% 1 each OU HS [facility] Last Admin: 10/15/17 21:47 Dose: 1 each Ondansetron HCl (Zofran Injection) 4 mg IVPUSH Q6H PRN PRN Reason: NAUSEA Last Admin: 10/13/17 10:10 Dose: 4 mg Pantoprazole Sodium (Protonix -) 20 mg PO DAILY [facility] Last Admin: 10/16/17 09:50 Dose: 20 mg Polyethylene Glycol (Miralax (For Daily Use) -) 17 gm PO DAILY [facility] Last Admin: 10/15/17 09:03 Dose: Not Given Senna (Senna -) 2 tab PO HS PRN PRN Reason: CONSTIPATION Last Admin: 10/14/17 22:19 Dose: 2 tab Tamsulosin HCl (Flomax -) 0.4 mg PO DAILY@0830 [facility] Last Admin: 10/16/17 09:50 Dose: 0.4 mg - Objective Vital Signs: Vital Signs Temperature 98.2 F 10/16/17 05:45 Pulse Rate 69 10/16/17 05:45 Respiratory Rate 18 10/16/17 05:45 Blood Pressure 160/83 10/16/17 05:45 O2 Sat by Pulse Oximetry (%) 96 10/15/17 21:00 Extremities: Yes: Other (sweling erythema right wrist) Labs: CBC, BMP 10/14/17 06:30 10/14/17 06:30 INR, PTT INR 1.29 (0.82-1.09) H 10/11/17 09:55 Assessment/Plan Microbiology 10/11/17 10:00 Blood - Peripheral Venous Blood Culture - Final Staphylococcus Aureus 10/13/17 06:15 Blood - Peripheral Venous Blood Culture - Preliminary NO GROWTH OBTAINED AFTER 72 HOURS, INCUBATION TO CONTINUE FOR 2 DAYS. 10/13/17 06:00 Blood - Peripheral Venous Blood Culture - Preliminary NO GROWTH OBTAINED AFTER 72 HOURS, INCUBATION TO CONTINUE FOR 2 DAYS. 10/11/17 09:55 Blood - Peripheral Venous Blood Culture - Preliminary Presumptive Mssa (Pbp2a Neg) Laboratory Tests 10/11/17 10/14/17 10/14/17 09:55 06:30 06:30 WBC 5.0 Hgb 10.9 L Hct 32.8 L Plt Count 155 D ESR 14 BUN 18 Creatinine 1.0 Creat Clearance w eGFR > 60 Assessment MSSA bacteremia ? septic arthritis wrist Plan Continue antibiotic total 6 weeks Follow the CRP Martin CONTE
[2017-10-16] MEDS: metoPROLOL SUCCINATE 25 MG TAB.SR.24H (FP) PO SCH (13:23)
[2017-10-16] MEDS: POLYETHYLENE GLYCOL 3350 119 GM BTL PO SCH (19:08)
[2017-10-16] MEDS: ACETAMINOPHEN 325 MG TABLET (FP) PO PRN (21:56)
[2017-10-16] MEDS: TRAVATAN Z 0.004% OU SCH (21:57)
[2017-10-17] MEDS: CEFAZOLIN 2 GM/D5W 2 GM/50 ML ML IVPB SCH ×3 (01:30→17:40)
[2017-10-17] MEDS: POTASSIUM CHLORIDE 40 MEQ in SODIUM CHLORIDE 0.45% 1,000 ML IVPB SCH (06:02)
--- NOTE | 2017-10-17 08:23 | PN ---
Progress Note, Physician Chief Complaint: ID Afebrile but major complaint severe right wrist pain with limited ROM due to swelling and pain - Current Medication List Current Medications: Active Medications Acetaminophen (Tylenol -) 650 mg PO Q4H PRN PRN Reason: FEVER Last Admin: 10/16/17 21:56 Dose: 650 mg Acetaminophen (Ofirmev Injection -) 1,000 mg IVPB Q6H PRN PRN Reason: FEVER Last Admin: 10/13/17 17:29 Dose: 1,000 mg Amino Acids (Prosource No Carb Liquid Pkt) 30 ml PO BID@0800,1730 [facility] Last Admin: 10/16/17 19:08 Dose: 30 ml Aspirin (Ecotrin -) 81 mg PO DAILY [facility] Last Admin: 10/16/17 09:50 Dose: 81 mg Ezetimibe (Zetia -) 10 mg PO DAILY [facility] Last Admin: 10/16/17 09:51 Dose: 10 mg Gabapentin (Neurontin -) 800 mg PO BID [facility] Last Admin: 10/16/17 21:56 Dose: 800 mg Potassium Chloride 40 meq/ (Sodium Chloride) 1,020 mls @ 75 mls/hr IVPB Q13H [facility] Last Admin: 10/17/17 06:02 Dose: Not Given Cefazolin Sodium/Dextrose (Ancef 2 Gm Premixed Ivpb -) 2 gm in 50 mls @ 100 mls /hr IVPB Q8H-IV [facility] Last Admin: 10/17/17 01:30 Dose: 100 mls/hr Metoprolol Succinate (Toprol Xl -) 25 mg PO DAILY [facility] Last Admin: 10/16/17 13:23 Dose: Not Given Patient's Own Medication (Non- Formulary)Simbrinza 1%/0.2% 1 each OS BID [facility] Last Admin: 10/16/17 21:57 Dose: 1 each Patient's Own Medication (Non- Formulary)Travatan Z 0.004% 1 each OU HS [facility] Last Admin: 10/16/17 21:57 Dose: 1 each Ondansetron HCl (Zofran Injection) 4 mg IVPUSH Q6H PRN PRN Reason: NAUSEA Last Admin: 10/13/17 10:10 Dose: 4 mg Pantoprazole Sodium (Protonix -) 20 mg PO DAILY [facility] Last Admin: 10/16/17 09:50 Dose: 20 mg Polyethylene Glycol (Miralax (For Daily Use) -) 17 gm PO DAILY [facility] Last Admin: 10/16/17 19:08 Dose: Not Given Senna (Senna -) 2 tab PO HS PRN PRN Reason: CONSTIPATION Last Admin: 10/14/17 22:19 Dose: 2 tab Tamsulosin HCl (Flomax -) 0.4 mg PO DAILY@0830 [facility] Last Admin: 10/16/17 09:50 Dose: 0.4 mg - Objective Vital Signs: Vital Signs Temperature 97.8 F 10/17/17 06:00 Pulse Rate 61 10/17/17 06:00 Respiratory Rate 18 10/17/17 06:00 Blood Pressure 152/71 10/17/17 06:00 O2 Sat by Pulse Oximetry (%) 95 10/16/17 21:00 Constitutional: Yes: No Distress Neck: Yes: WNL, Supple Extremities: Yes: Other (Right wrist swollen tender) Labs: CBC, BMP 10/14/17 06:30 10/14/17 06:30 INR, PTT INR 1.29 (0.82-1.09) H 10/11/17 09:55 Assessment/Plan Microbiology 10/13/17 16:00 Urine - Urine Clean Catch Urine Culture - Final NO GROWTH OBTAINED 10/11/17 10:00 Blood - Peripheral Venous Blood Culture - Final Staphylococcus Aureus 10/13/17 06:15 Blood - Peripheral Venous Blood Culture - Preliminary NO GROWTH OBTAINED AFTER 96 HOURS, INCUBATION TO CONTINUE FOR 1 DAYS. 10/13/17 06:00 Blood - Peripheral Venous Blood Culture - Preliminary NO GROWTH OBTAINED AFTER 96 HOURS, INCUBATION TO CONTINUE FOR 1 DAYS. 10/11/17 09:55 Blood - Peripheral Venous Blood Culture - Preliminary Presumptive Mssa (Pbp2a Neg) Laboratory Tests 10/11/17 10/12/17 10/14/17 09:55 06:15 06:30 WBC 5.0 Hgb 10.9 L Hct 32.8 L Plt Count 155 D ESR 14 C-Reactive Protein 27.0 H Assessment MSSA bacteremia I am of the opinion this right wrist pain cold be inflammatory secondary to gout as monarticular arthritis ( rather then RA related) CRP is high Plan Continue Cefazolin as ordered Will need a PICC line Discussed with rheumatology will give Prednisone 40mg for few days and see how he responds Martin CONTE
--- NOTE | 2017-10-17 09:22 | PN ---
Progress Note (short form) - Note Progress Note: Ortho Pt seen and examined- improving Selected Entries 10/17/17 06:00 Temperature 97.8 F Pulse Rate 61 Respiratory 18 Rate Blood Pressure 152/71 Laboratory Tests 10/14/17 06:30 WBC 5.0 Hgb 10.9 L Hct 32.8 L Plt Count 155 D decr ttp, decr erythema, decr swelling, incr rom nvi a/p Continue abx continue colchicine ROM exercises strict elevation d/w Dr. Rasheed
[2017-10-17] MEDS: TAMSULOSIN HCL 0.4 MG CAP.ER.24H (FP) PO SCH (09:33)
[2017-10-17] MEDS: AMINO ACIDS/PROTEIN HYDROLYS 30 ML LIQUID.PKT PO SCH ×2 (09:34→17:40)
[2017-10-17] MEDS: ASPIRIN COATED 81 MG TABLET.EC PO SCH (09:34)
[2017-10-17] MEDS: GABAPENTIN 400 MG CAPSULE (FP) PO SCH ×2 (09:34→21:20)
[2017-10-17] MEDS: metoPROLOL SUCCINATE 25 MG TAB.SR.24H (FP) PO SCH (09:34)
[2017-10-17] MEDS: PANTOPRAZOLE 20 MG TABLET (FP) PO SCH (09:34)
[2017-10-17] MEDS: EZETIMIBE 10 MG TABLET (FP) PO SCH (09:35)
[2017-10-17] MEDS: predniSONE 20 MG TABLET (UD) PO SCH (09:35)
[2017-10-17] MEDS: POLYETHYLENE GLYCOL 3350 119 GM BTL PO SCH (09:36)
[2017-10-17] MEDS: SIMBRINZA OS SCH ×2 (09:36→21:20)
--- NOTE | 2017-10-17 11:46 | PN ---
Progress Note, Physician Chief Complaint: patient seen and examined stat labs ordered ivf stopped right wrist swelling and erythema decreased but it carding utility tender to touch - Current Medication List Current Medications: Active Medications Acetaminophen (Tylenol -) 650 mg PO Q4H PRN PRN Reason: FEVER Last Admin: 10/16/17 21:56 Dose: 650 mg Acetaminophen (Ofirmev Injection -) 1,000 mg IVPB Q6H PRN PRN Reason: FEVER Last Admin: 10/13/17 17:29 Dose: 1,000 mg Amino Acids (Prosource No Carb Liquid Pkt) 30 ml PO BID@0800,1730 [facility] Last Admin: 10/17/17 09:34 Dose: 30 ml Aspirin (Ecotrin -) 81 mg PO DAILY [facility] Last Admin: 10/17/17 09:34 Dose: 81 mg Ezetimibe (Zetia -) 10 mg PO DAILY [facility] Last Admin: 10/17/17 09:35 Dose: 10 mg Gabapentin (Neurontin -) 800 mg PO BID [facility] Last Admin: 10/17/17 09:34 Dose: 800 mg Cefazolin Sodium/Dextrose (Ancef 2 Gm Premixed Ivpb -) 2 gm in 50 mls @ 100 mls /hr IVPB Q8H-IV [facility] Last Admin: 10/17/17 09:37 Dose: 100 mls/hr Metoprolol Succinate (Toprol Xl -) 25 mg PO DAILY [facility] Last Admin: 10/17/17 09:34 Dose: 25 mg Patient's Own Medication (Non- Formulary)Simbrinza 1%/0.2% 1 each OS BID [facility] Last Admin: 10/17/17 09:36 Dose: 1 each Patient's Own Medication (Non- Formulary)Travatan Z 0.004% 1 each OU HS [facility] Last Admin: 10/16/17 21:57 Dose: 1 each Ondansetron HCl (Zofran Injection) 4 mg IVPUSH Q6H PRN PRN Reason: NAUSEA Last Admin: 10/13/17 10:10 Dose: 4 mg Pantoprazole Sodium (Protonix -) 20 mg PO DAILY [facility] Last Admin: 10/17/17 09:34 Dose: 20 mg Polyethylene Glycol (Miralax (For Daily Use) -) 17 gm PO DAILY [facility] Last Admin: 10/17/17 09:36 Dose: Not Given Prednisone (Deltasone -) 40 mg PO DAILY [facility] Last Admin: 10/17/17 09:35 Dose: 40 mg Senna (Senna -) 2 tab PO HS PRN PRN Reason: CONSTIPATION Last Admin: 10/14/17 22:19 Dose: 2 tab Tamsulosin HCl (Flomax -) 0.4 mg PO DAILY@0830 [facility] Last Admin: 10/17/17 09:33 Dose: 0.4 mg - Objective Vital Signs: Vital Signs Temperature 97.8 F 10/17/17 06:00 Pulse Rate 61 10/17/17 06:00 Respiratory Rate 18 10/17/17 06:00 Blood Pressure 152/71 10/17/17 06:00 O2 Sat by Pulse Oximetry (%) 95 10/16/17 21:00 Constitutional: Yes: Calm Cardiovascular: Yes: Regular Rate and Rhythm, S1, S2 Respiratory: Yes: CTA Bilaterally Gastrointestinal: Yes: Normal Bowel Sounds, Soft Extremities: Yes: Other (right wrist swelling decreased,tender to touch) Labs: CBC, BMP 10/14/17 06:30 10/14/17 06:30 INR, PTT INR 1.29 (0.82-1.09) H 10/11/17 09:55 Problem List - Problems (1) Septic arthritis Assessment/Plan: ortho/ ID consult- noted on iv abx will need for total of 6 weeks via picc line( bacteremia) prednisone started today for a few days to help inflammation( possible gout) ppi Microbiology 10/11/17 10:00 Blood - Peripheral Venous Blood Culture - Final Staphylococcus Aureus 10/11/17 09:55 Blood - Peripheral Venous Blood Culture - Preliminary Presumptive Mssa (Pbp2a Neg) echo noted rheum consult appreciate off mtx for now Code(s): M00.9 - PYOGENIC ARTHRITIS, UNSPECIFIED Qualifiers: Septic arthritis location: wrist Septic arthritis organism: due to unspecified organism Laterality: right Qualified Code(s): M00.9 - Pyogenic arthritis, unspecified (2) BPH (benign prostatic hyperplasia) Assessment/Plan: flomax Code(s): N40.0 - BENIGN PROSTATIC HYPERPLASIA WITHOUT LOWER URINRY TRACT SYMP (3) HLD (hyperlipidemia) Assessment/Plan: zetia lipid panel Code(s): E78.5 - HYPERLIPIDEMIA, UNSPECIFIED (4) HTN (hypertension) Assessment/Plan: toprol xl Code(s): I10 - ESSENTIAL (PRIMARY) HYPERTENSION Assessment/Plan PT evaluation will need snf placement for iv abx
[2017-10-17 13:06] LABS: BASO % 0.8 % (0-2.0); EOS % 1.1 % (0-4.5); HEMATOCRIT 37.3 % (35.4-49); HEMOGLOBIN 12.2 GM/dL (11.7-16.9); LYMPH % 21.3 % (8-40); MCH 28.5 pg (25.7-33.7); MCHC 32.7 g/dl (32.0-35.9); MEAN CELL VOLUME 87.2 fl (80-96); MEAN PLT VOLUME 9.1 fl (7.5-11.1); MONO % 9.1 % (3.8-10.2); NEUT % 67.7 % (42.8-82.8); PLATELET COUNT 252 K/MM3 (134-434); RBC 4.28 M/mm3 (4.00-5.60); RDW 19.7 % (11.9-15.9); WHITE BLOOD COUNT 7.8 K/mm3 (4.0-10.0)
[2017-10-17 13:09] LABS: ALBUMIN 2.9 g/dl (3.4-5.0); ANION GAP 11 (8-16); BILIRUBIN,TOTAL 0.6 mg/dL (0.2-1.0); BLOOD UREA NITROGEN 17 mg/dL (7-18); CALCIUM 8.8 mg/dL (8.5-10.1); CHLORIDE 103 mmol/L (98-107); CO2 24 mmol/L (21-32); CREATININE 1.1 mg/dL (0.7-1.3); GLUCOSE,RANDOM 113 mg/dL (74-106); POTASSIUM 4.3 mmol/L (3.5-5.1); SGOT/AST 40 U/L (15-37); SGPT/ALT 28 U/L (12-78); SODIUM 138 mmol/L (136-145)
[2017-10-17 13:10] LABS: ALK PHOS 116 U/L (45-117)
[2017-10-17] MEDS: ACETAMINOPHEN 325 MG TABLET (FP) PO PRN ×2 (16:18→21:23)
--- NOTE | 2017-10-17 19:37 | PN ---
Progress Note (short form) - Note Progress Note: The patient has slightly less pain and swelling of the right wrist, however he continues having significant tenderness and limitation of range of movement due to the pain. He has not have fever for the last 4 days. On the physical examination lungs are clear, significant tenderness in the right wrist with small effusion. No other active joint. MRI of the wrist reported with large effusion, loss of cartilage and faint bone marrow edema of carpal bones, cystic or erosions in hamate and triquetral. Bone scan reported with no RSDS. Increase uptake suggestive of septic of inflammatory arthritis. Rheumatoid factor was 113.4. Impression. Septic arthritis of the right wrist. Only partial improvement with antibiotics. The patient does not have other active joints. It is unlikely that he had flare-up of rheumatoid arthritis and he has low probability of gouty arthritis, however as he has had only mild improvement, I agreed with Dr. Salazar to try management with Prednisone 40 mg/d. I will follow up response. Problem List - Problems (1) Septic arthritis Code(s): M00.9 - PYOGENIC ARTHRITIS, UNSPECIFIED Qualifiers: Septic arthritis location: wrist Septic arthritis organism: due to unspecified organism Laterality: right Qualified Code(s): M00.9 - Pyogenic arthritis, unspecified
[2017-10-17] MEDS: TRAVATAN Z 0.004% OU SCH (21:20)
[2017-10-18] MEDS: CEFAZOLIN 2 GM/D5W 2 GM/50 ML ML IVPB SCH ×3 (01:32→17:23)
[2017-10-18] MEDS: AMINO ACIDS/PROTEIN HYDROLYS 30 ML LIQUID.PKT PO SCH ×2 (08:00→17:22)
[2017-10-18] MEDS: TAMSULOSIN HCL 0.4 MG CAP.ER.24H (FP) PO SCH (08:00)
[2017-10-18] MEDS ORDERED: PT OWN MED DRAWER 7, Y5N ONE (08:02)
[2017-10-18] MEDS: predniSONE 20 MG TABLET (UD) PO SCH (09:20)
[2017-10-18] MEDS: PANTOPRAZOLE 20 MG TABLET (FP) PO SCH (09:20)
[2017-10-18] MEDS: GABAPENTIN 400 MG CAPSULE (FP) PO SCH ×2 (09:20→22:45)
[2017-10-18] MEDS: metoPROLOL SUCCINATE 25 MG TAB.SR.24H (FP) PO SCH (09:20)
[2017-10-18] MEDS: ASPIRIN COATED 81 MG TABLET.EC PO SCH (09:21)
[2017-10-18] MEDS: EZETIMIBE 10 MG TABLET (FP) PO SCH (09:22)
[2017-10-18] MEDS: POLYETHYLENE GLYCOL 3350 119 GM BTL PO SCH (09:23)
[2017-10-18] MEDS: SIMBRINZA OS SCH ×2 (09:26→22:45)
--- NOTE | 2017-10-18 09:40 | PN ---
Progress Note, Physician - Current Medication List Current Medications: Active Medications Acetaminophen (Tylenol -) 650 mg PO Q4H PRN PRN Reason: FEVER Last Admin: 10/17/17 21:23 Dose: 650 mg Acetaminophen (Ofirmev Injection -) 1,000 mg IVPB Q6H PRN PRN Reason: FEVER Last Admin: 10/13/17 17:29 Dose: 1,000 mg Amino Acids (Prosource No Carb Liquid Pkt) 30 ml PO BID@0800,1730 [facility] Last Admin: 10/18/17 08:00 Dose: 30 ml Aspirin (Ecotrin -) 81 mg PO DAILY [facility] Last Admin: 10/18/17 09:21 Dose: 81 mg Ezetimibe (Zetia -) 10 mg PO DAILY [facility] Last Admin: 10/18/17 09:22 Dose: 10 mg Gabapentin (Neurontin -) 800 mg PO BID [facility] Last Admin: 10/18/17 09:20 Dose: 800 mg Cefazolin Sodium/Dextrose (Ancef 2 Gm Premixed Ivpb -) 2 gm in 50 mls @ 100 mls /hr IVPB Q8H-IV [facility] Last Admin: 10/18/17 09:25 Dose: 100 mls/hr Metoprolol Succinate (Toprol Xl -) 25 mg PO DAILY [facility] Last Admin: 10/18/17 09:20 Dose: 25 mg Patient's Own Medication (Non- Formulary)Simbrinza 1%/0.2% 1 each OS BID [facility] Last Admin: 10/18/17 09:26 Dose: 1 each Patient's Own Medication (Non- Formulary)Travatan Z 0.004% 1 each OU HS [facility] Last Admin: 10/17/17 21:20 Dose: 1 each Ondansetron HCl (Zofran Injection) 4 mg IVPUSH Q6H PRN PRN Reason: NAUSEA Last Admin: 10/13/17 10:10 Dose: 4 mg Pantoprazole Sodium (Protonix -) 20 mg PO DAILY [facility] Last Admin: 10/18/17 09:20 Dose: 20 mg Polyethylene Glycol (Miralax (For Daily Use) -) 17 gm PO DAILY [facility] Last Admin: 10/18/17 09:23 Dose: Not Given Prednisone (Deltasone -) 40 mg PO DAILY [facility] Last Admin: 10/18/17 09:20 Dose: 40 mg Senna (Senna -) 2 tab PO HS PRN PRN Reason: CONSTIPATION Last Admin: 10/14/17 22:19 Dose: 2 tab Tamsulosin HCl (Flomax -) 0.4 mg PO DAILY@0830 [facility] Last Admin: 10/18/17 08:00 Dose: 0.4 mg - Objective Vital Signs: Vital Signs Temperature 97.6 F 10/18/17 05:38 Pulse Rate 62 10/18/17 05:38 Respiratory Rate 18 10/18/17 05:38 Blood Pressure 149/72 10/18/17 05:38 O2 Sat by Pulse Oximetry (%) 96 10/17/17 21:28 Cardiovascular: Yes: S1, S2 Respiratory: Yes: Regular, CTA Bilaterally Gastrointestinal: Yes: Normal Bowel Sounds, Soft Extremities: Yes: Other (less redness and less tenderness) Labs: CBC, BMP 10/17/17 12:20 10/17/17 12:20 INR, PTT INR 1.29 (0.82-1.09) H 10/11/17 09:55 Assessment/Plan - Problems (1) Septic arthritis Assessment/Plan: ortho/ ID consult- noted on iv abx will need for total of 6 weeks via picc line( bacteremia) prednisone started today for a few days to help inflammation( possible gout) ppi Microbiology 10/11/17 10:00 Blood - Peripheral Venous Blood Culture - Final Staphylococcus Aureus 10/11/17 09:55 Blood - Peripheral Venous Blood Culture - Preliminary Presumptive Mssa (Pbp2a Neg) echo noted rheum consult appreciate off mtx for now Code(s): M00.9 - PYOGENIC ARTHRITIS, UNSPECIFIED Qualifiers: Septic arthritis location: wrist Septic arthritis organism: due to unspecified organism Laterality: right Qualified Code(s): M00.9 - Pyogenic arthritis, unspecified (2) BPH (benign prostatic hyperplasia) Assessment/Plan: flomax Code(s): N40.0 - BENIGN PROSTATIC HYPERPLASIA WITHOUT LOWER URINRY TRACT SYMP (3) HLD (hyperlipidemia) Assessment/Plan: zetia lipid panel Code(s): E78.5 - HYPERLIPIDEMIA, UNSPECIFIED (4) HTN (hypertension) Assessment/Plan: toprol xl Code(s): I10 - ESSENTIAL (PRIMARY) HYPERTENSION Assessment/Plan PT evaluation Refuses snf placement --home with iv abx
[2017-10-18] MEDS ORDERED: PICC LINE 8 ML FLUSH PROTOCOL IVPUSH PRN (10:27)
--- NOTE | 2017-10-18 11:01 | PN ---
Progress Note (short form) - Note Progress Note: Ortho Pt seen and examined- feeling much better Selected Entries 10/18/17 05:38 Temperature 97.6 F Pulse Rate 62 Respiratory 18 Rate Blood Pressure 149/72 Laboratory Tests 10/17/17 12:20 WBC 7.8 Hgb 12.2 Hct 37.3 Plt Count 252 D decr ttp, decr erythema, decr swelling, incr rom nvi a/p Continue abx continue colchicine ROM exercises strict elevation d/c planning d/w Dr. Rasheed
--- NOTE | 2017-10-18 13:44 | PN ---
Progress Note, Physician Chief Complaint: ID Cefazolin day 7 therapy Since addition of Prednisone marked improvement of wrist - Current Medication List Current Medications: Active Medications Acetaminophen (Tylenol -) 650 mg PO Q4H PRN PRN Reason: FEVER Last Admin: 10/17/17 21:23 Dose: 650 mg Acetaminophen (Ofirmev Injection -) 1,000 mg IVPB Q6H PRN PRN Reason: FEVER Last Admin: 10/13/17 17:29 Dose: 1,000 mg Amino Acids (Prosource No Carb Liquid Pkt) 30 ml PO BID@0800,1730 [facility] Last Admin: 10/18/17 08:00 Dose: 30 ml Aspirin (Ecotrin -) 81 mg PO DAILY [facility] Last Admin: 10/18/17 09:21 Dose: 81 mg Ezetimibe (Zetia -) 10 mg PO DAILY [facility] Last Admin: 10/18/17 09:22 Dose: 10 mg Gabapentin (Neurontin -) 800 mg PO BID [facility] Last Admin: 10/18/17 09:20 Dose: 800 mg IV Flush (Picc Line Flush) 8 ml IVPUSH PRN PRN PRN Reason: Protocol Cefazolin Sodium/Dextrose (Ancef 2 Gm Premixed Ivpb -) 2 gm in 50 mls @ 100 mls /hr IVPB Q8H-IV [facility] Last Admin: 10/18/17 09:25 Dose: 100 mls/hr Metoprolol Succinate (Toprol Xl -) 25 mg PO DAILY [facility] Last Admin: 10/18/17 09:20 Dose: 25 mg Patient's Own Medication (Non- Formulary)Simbrinza 1%/0.2% 1 each OS BID [facility] Last Admin: 10/18/17 09:26 Dose: 1 each Patient's Own Medication (Non- Formulary)Travatan Z 0.004% 1 each OU HS [facility] Last Admin: 10/17/17 21:20 Dose: 1 each Ondansetron HCl (Zofran Injection) 4 mg IVPUSH Q6H PRN PRN Reason: NAUSEA Last Admin: 10/13/17 10:10 Dose: 4 mg Pantoprazole Sodium (Protonix -) 20 mg PO DAILY [facility] Last Admin: 10/18/17 09:20 Dose: 20 mg Polyethylene Glycol (Miralax (For Daily Use) -) 17 gm PO DAILY [facility] Last Admin: 10/18/17 09:23 Dose: Not Given Prednisone (Deltasone -) 40 mg PO DAILY [facility] Last Admin: 10/18/17 09:20 Dose: 40 mg Senna (Senna -) 2 tab PO HS PRN PRN Reason: CONSTIPATION Last Admin: 10/14/17 22:19 Dose: 2 tab Tamsulosin HCl (Flomax -) 0.4 mg PO DAILY@0830 [facility] Last Admin: 10/18/17 08:00 Dose: 0.4 mg - Objective Vital Signs: Vital Signs Temperature 98.0 F 10/18/17 10:00 Pulse Rate 67 10/18/17 10:00 Respiratory Rate 18 10/18/17 10:00 Blood Pressure 148/64 10/18/17 10:00 O2 Sat by Pulse Oximetry (%) 97 10/18/17 09:00 Constitutional: Yes: Well Nourished, No Distress Extremities: Yes: Other (Swelling of right wrist ROM improved) Labs: CBC, BMP 10/17/17 12:20 10/17/17 12:20 INR, PTT INR 1.29 (0.82-1.09) H 10/11/17 09:55 Assessment/Plan Laboratory Tests 10/11/17 10/12/17 10/17/17 09:55 06:15 12:20 WBC Hgb Plt Count ESR 14 BUN 17 Creat Clearance w eGFR > 60 C-Reactive Protein 27.0 H 10/17/17 12:20 WBC 7.8 Hgb 12.2 Plt Count 252 D ESR BUN Creat Clearance w eGFR C-Reactive Protein Assessment MSSA bacteremia ? source ? endocardititis Swollen wrist ? septic vs inflammatory Much better on steroids Plan Continue steroids over the next week then taper Cefazolin total of 6 weeks Martin CONTE
[2017-10-18] MEDS: TRAVATAN Z 0.004% OU SCH (22:45)
[2017-10-18] MEDS: ACETAMINOPHEN 325 MG TABLET (FP) PO PRN (23:28)
[2017-10-19] MEDS: CEFAZOLIN 2 GM/D5W 2 GM/50 ML ML IVPB SCH ×3 (01:41→17:24)
[2017-10-19] MEDS: TAMSULOSIN HCL 0.4 MG CAP.ER.24H (FP) PO SCH (08:14)
[2017-10-19] MEDS: AMINO ACIDS/PROTEIN HYDROLYS 30 ML LIQUID.PKT PO SCH ×2 (08:14→17:24)
[2017-10-19] MEDS: EZETIMIBE 10 MG TABLET (FP) PO SCH (09:02)
[2017-10-19] MEDS: predniSONE 20 MG TABLET (UD) PO SCH (09:03)
[2017-10-19] MEDS: ASPIRIN COATED 81 MG TABLET.EC PO SCH (09:03)
[2017-10-19] MEDS: GABAPENTIN 400 MG CAPSULE (FP) PO SCH ×2 (09:03→21:31)
[2017-10-19] MEDS: metoPROLOL SUCCINATE 25 MG TAB.SR.24H (FP) PO SCH (09:03)
[2017-10-19] MEDS: PANTOPRAZOLE 20 MG TABLET (FP) PO SCH (09:03)
[2017-10-19] MEDS: SIMBRINZA OS SCH ×2 (09:04→21:32)
[2017-10-19] MEDS: POLYETHYLENE GLYCOL 3350 119 GM BTL PO SCH (09:18)
--- NOTE | 2017-10-19 12:47 | PN ---
Progress Note, Physician History of Present Illness: OOB in chair Reports less R wrist swelling/ pain No c/o fever/ chills - Current Medication List Current Medications: Active Medications Acetaminophen (Tylenol -) 650 mg PO Q4H PRN PRN Reason: FEVER Last Admin: 10/18/17 23:28 Dose: 650 mg Acetaminophen (Ofirmev Injection -) 1,000 mg IVPB Q6H PRN PRN Reason: FEVER Last Admin: 10/13/17 17:29 Dose: 1,000 mg Amino Acids (Prosource No Carb Liquid Pkt) 30 ml PO BID@0800,1730 [facility] Last Admin: 10/19/17 08:14 Dose: 30 ml Aspirin (Ecotrin -) 81 mg PO DAILY [facility] Last Admin: 10/19/17 09:03 Dose: 81 mg Ezetimibe (Zetia -) 10 mg PO DAILY [facility] Last Admin: 10/19/17 09:02 Dose: 10 mg Gabapentin (Neurontin -) 800 mg PO BID [facility] Last Admin: 10/19/17 09:03 Dose: 800 mg IV Flush (Picc Line Flush) 8 ml IVPUSH PRN PRN PRN Reason: Protocol Cefazolin Sodium/Dextrose (Ancef 2 Gm Premixed Ivpb -) 2 gm in 50 mls @ 100 mls /hr IVPB Q8H-IV [facility] Last Admin: 10/19/17 09:03 Dose: 100 mls/hr Metoprolol Succinate (Toprol Xl -) 25 mg PO DAILY [facility] Last Admin: 10/19/17 09:03 Dose: 25 mg Patient's Own Medication (Non- Formulary)Simbrinza 1%/0.2% 1 each OS BID [facility] Last Admin: 10/19/17 09:04 Dose: 1 each Patient's Own Medication (Non- Formulary)Travatan Z 0.004% 1 each OU HS [facility] Last Admin: 10/18/17 22:45 Dose: 1 each Ondansetron HCl (Zofran Injection) 4 mg IVPUSH Q6H PRN PRN Reason: NAUSEA Last Admin: 10/13/17 10:10 Dose: 4 mg Pantoprazole Sodium (Protonix -) 20 mg PO DAILY [facility] Last Admin: 10/19/17 09:03 Dose: 20 mg Polyethylene Glycol (Miralax (For Daily Use) -) 17 gm PO DAILY [facility] Last Admin: 10/19/17 09:18 Dose: Not Given Prednisone (Deltasone -) 40 mg PO DAILY [facility] Last Admin: 10/19/17 09:03 Dose: 40 mg Senna (Senna -) 2 tab PO HS PRN PRN Reason: CONSTIPATION Last Admin: 10/14/17 22:19 Dose: 2 tab Tamsulosin HCl (Flomax -) 0.4 mg PO DAILY@0830 [facility] Last Admin: 10/19/17 08:14 Dose: 0.4 mg - Objective Vital Signs: Vital Signs Temperature 97.4 F L 10/19/17 10:00 Pulse Rate 59 L 10/19/17 10:00 Respiratory Rate 18 10/19/17 10:00 Blood Pressure 136/55 10/19/17 10:00 O2 Sat by Pulse Oximetry (%) 96 10/19/17 09:00 Constitutional: Yes: No Distress Cardiovascular: Yes: Regular Rate and Rhythm, S1, S2 Respiratory: Yes: CTA Bilaterally Gastrointestinal: Yes: Normal Bowel Sounds, Soft. No: Tenderness Extremities: Yes: Other (+ R wrist swelling/ tenderness) Labs: CBC, BMP 10/17/17 12:20 10/17/17 12:20 INR, PTT INR 1.29 (0.82-1.09) H 10/11/17 09:55 Assessment/Plan MSSA bacteremia, possible endocarditis Possible septic arthritis R wrist Continue cefazolin
[2017-10-19] MEDS: ACETAMINOPHEN 325 MG TABLET (FP) PO PRN ×2 (12:51→21:31)
--- NOTE | 2017-10-19 13:28 | PN ---
Progress Note, Physician - Current Medication List Current Medications: Active Medications Acetaminophen (Tylenol -) 650 mg PO Q4H PRN PRN Reason: FEVER Last Admin: 10/19/17 12:51 Dose: 650 mg Acetaminophen (Ofirmev Injection -) 1,000 mg IVPB Q6H PRN PRN Reason: FEVER Last Admin: 10/13/17 17:29 Dose: 1,000 mg Amino Acids (Prosource No Carb Liquid Pkt) 30 ml PO BID@0800,1730 [facility] Last Admin: 10/19/17 08:14 Dose: 30 ml Aspirin (Ecotrin -) 81 mg PO DAILY [facility] Last Admin: 10/19/17 09:03 Dose: 81 mg Ezetimibe (Zetia -) 10 mg PO DAILY [facility] Last Admin: 10/19/17 09:02 Dose: 10 mg Gabapentin (Neurontin -) 800 mg PO BID [facility] Last Admin: 10/19/17 09:03 Dose: 800 mg IV Flush (Picc Line Flush) 8 ml IVPUSH PRN PRN PRN Reason: Protocol Cefazolin Sodium/Dextrose (Ancef 2 Gm Premixed Ivpb -) 2 gm in 50 mls @ 100 mls /hr IVPB Q8H-IV [facility] Last Admin: 10/19/17 09:03 Dose: 100 mls/hr Metoprolol Succinate (Toprol Xl -) 25 mg PO DAILY [facility] Last Admin: 10/19/17 09:03 Dose: 25 mg Patient's Own Medication (Non- Formulary)Simbrinza 1%/0.2% 1 each OS BID [facility] Last Admin: 10/19/17 09:04 Dose: 1 each Patient's Own Medication (Non- Formulary)Travatan Z 0.004% 1 each OU HS [facility] Last Admin: 10/18/17 22:45 Dose: 1 each Ondansetron HCl (Zofran Injection) 4 mg IVPUSH Q6H PRN PRN Reason: NAUSEA Last Admin: 10/13/17 10:10 Dose: 4 mg Pantoprazole Sodium (Protonix -) 20 mg PO DAILY [facility] Last Admin: 10/19/17 09:03 Dose: 20 mg Polyethylene Glycol (Miralax (For Daily Use) -) 17 gm PO DAILY [facility] Last Admin: 10/19/17 09:18 Dose: Not Given Prednisone (Deltasone -) 40 mg PO DAILY [facility] Last Admin: 10/19/17 09:03 Dose: 40 mg Senna (Senna -) 2 tab PO HS PRN PRN Reason: CONSTIPATION Last Admin: 10/14/17 22:19 Dose: 2 tab Tamsulosin HCl (Flomax -) 0.4 mg PO DAILY@0830 [facility] Last Admin: 10/19/17 08:14 Dose: 0.4 mg - Objective Vital Signs: Vital Signs Temperature 97.4 F L 10/19/17 10:00 Pulse Rate 59 L 10/19/17 10:00 Respiratory Rate 18 10/19/17 10:00 Blood Pressure 136/55 10/19/17 10:00 O2 Sat by Pulse Oximetry (%) 96 10/19/17 09:00 Cardiovascular: Yes: S1, S2 Respiratory: Yes: Regular, CTA Bilaterally Gastrointestinal: Yes: Normal Bowel Sounds, Soft Labs: CBC, BMP 10/17/17 12:20 10/17/17 12:20 INR, PTT INR 1.29 (0.82-1.09) H 10/11/17 09:55 Assessment/Plan - Problems (1) Septic arthritis Assessment/Plan: ortho/ ID consult- noted on iv abx will need for total of 6 weeks via picc line( bacteremia) prednisone started today for a few days to help inflammation( possible gout) ppi Microbiology 10/11/17 10:00 Blood - Peripheral Venous Blood Culture - Final Staphylococcus Aureus 10/11/17 09:55 Blood - Peripheral Venous Blood Culture - Preliminary Presumptive Mssa (Pbp2a Neg) echo noted rheum consult appreciate off mtx for now Code(s): M00.9 - PYOGENIC ARTHRITIS, UNSPECIFIED Qualifiers: Septic arthritis location: wrist Septic arthritis organism: due to unspecified organism Laterality: right Qualified Code(s): M00.9 - Pyogenic arthritis, unspecified (2) BPH (benign prostatic hyperplasia) Assessment/Plan: flomax Code(s): N40.0 - BENIGN PROSTATIC HYPERPLASIA WITHOUT LOWER URINRY TRACT SYMP (3) HLD (hyperlipidemia) Assessment/Plan: zetia lipid panel Code(s): E78.5 - HYPERLIPIDEMIA, UNSPECIFIED (4) HTN (hypertension) Assessment/Plan: toprol xl Code(s): I10 - ESSENTIAL (PRIMARY) HYPERTENSION Assessment/Plan PT evaluation Refuses snf placement --home with iv abx
[2017-10-19] MEDS: TRAVATAN Z 0.004% OU SCH (21:32)
[2017-10-20] MEDS: CEFAZOLIN 2 GM/D5W 2 GM/50 ML ML IVPB SCH ×3 (01:52→17:08)
[2017-10-20] MEDS: TAMSULOSIN HCL 0.4 MG CAP.ER.24H (FP) PO SCH (08:16)
[2017-10-20] MEDS: AMINO ACIDS/PROTEIN HYDROLYS 30 ML LIQUID.PKT PO SCH ×2 (08:16→17:08)
[2017-10-20] MEDS: GABAPENTIN 400 MG CAPSULE (FP) PO SCH ×2 (09:29→22:06)
[2017-10-20] MEDS: metoPROLOL SUCCINATE 25 MG TAB.SR.24H (FP) PO SCH (09:29)
[2017-10-20] MEDS: ASPIRIN COATED 81 MG TABLET.EC PO SCH (09:30)
[2017-10-20] MEDS: PANTOPRAZOLE 20 MG TABLET (FP) PO SCH (09:30)
[2017-10-20] MEDS: predniSONE 20 MG TABLET (UD) PO SCH (09:30)
[2017-10-20] MEDS: EZETIMIBE 10 MG TABLET (FP) PO SCH (09:30)
[2017-10-20] MEDS: POLYETHYLENE GLYCOL 3350 119 GM BTL PO SCH (09:31)
[2017-10-20] MEDS ORDERED: PT OWN MED DRAWER 7, Y5N ONE (09:39)
--- NOTE | 2017-10-20 10:08 | PN ---
Progress Note, Physician - Current Medication List Current Medications: Active Medications Acetaminophen (Tylenol -) 650 mg PO Q4H PRN PRN Reason: FEVER Last Admin: 10/19/17 21:31 Dose: 650 mg Acetaminophen (Ofirmev Injection -) 1,000 mg IVPB Q6H PRN PRN Reason: FEVER Last Admin: 10/13/17 17:29 Dose: 1,000 mg Amino Acids (Prosource No Carb Liquid Pkt) 30 ml PO BID@0800,1730 [facility] Last Admin: 10/20/17 08:16 Dose: 30 ml Aspirin (Ecotrin -) 81 mg PO DAILY [facility] Last Admin: 10/20/17 09:30 Dose: 81 mg Ezetimibe (Zetia -) 10 mg PO DAILY [facility] Last Admin: 10/20/17 09:30 Dose: 10 mg Gabapentin (Neurontin -) 800 mg PO BID [facility] Last Admin: 10/20/17 09:29 Dose: 800 mg IV Flush (Picc Line Flush) 8 ml IVPUSH PRN PRN PRN Reason: Protocol Cefazolin Sodium/Dextrose (Ancef 2 Gm Premixed Ivpb -) 2 gm in 50 mls @ 100 mls /hr IVPB Q8H-IV [facility] Last Admin: 10/20/17 09:29 Dose: 100 mls/hr Metoprolol Succinate (Toprol Xl -) 25 mg PO DAILY [facility] Last Admin: 10/20/17 09:29 Dose: 25 mg Patient's Own Medication (Non- Formulary)Simbrinza 1%/0.2% 1 each OS BID [facility] Last Admin: 10/19/17 21:32 Dose: 1 each Patient's Own Medication (Non- Formulary)Travatan Z 0.004% 1 each OU HS [facility] Last Admin: 10/19/17 21:32 Dose: 1 each Ondansetron HCl (Zofran Injection) 4 mg IVPUSH Q6H PRN PRN Reason: NAUSEA Last Admin: 10/13/17 10:10 Dose: 4 mg Pantoprazole Sodium (Protonix -) 20 mg PO DAILY [facility] Last Admin: 10/20/17 09:30 Dose: 20 mg Polyethylene Glycol (Miralax (For Daily Use) -) 17 gm PO DAILY [facility] Last Admin: 10/20/17 09:31 Dose: Not Given Prednisone (Deltasone -) 40 mg PO DAILY [facility] Last Admin: 10/20/17 09:30 Dose: 40 mg Senna (Senna -) 2 tab PO HS PRN PRN Reason: CONSTIPATION Last Admin: 10/14/17 22:19 Dose: 2 tab Tamsulosin HCl (Flomax -) 0.4 mg PO DAILY@0830 [facility] Last Admin: 10/20/17 08:16 Dose: 0.4 mg - Objective Vital Signs: Vital Signs Temperature 97.8 F 10/20/17 05:37 Pulse Rate 59 L 10/20/17 05:37 Respiratory Rate 18 10/20/17 05:37 Blood Pressure 146/69 10/20/17 05:37 O2 Sat by Pulse Oximetry (%) 97 10/19/17 21:00 Cardiovascular: Yes: S1, S2 Respiratory: Yes: Regular, CTA Bilaterally Gastrointestinal: Yes: Normal Bowel Sounds, Soft Extremities: Yes: Other (less swelling of rt wrist) Labs: CBC, BMP 10/17/17 12:20 10/17/17 12:20 INR, PTT INR 1.29 (0.82-1.09) H 10/11/17 09:55 Assessment/Plan - Problems (1) Septic arthritis Assessment/Plan: ortho/ ID consult- noted on iv abx will need for total of 6 weeks via picc line( bacteremia) prednisone started today for a few days to help inflammation( possible gout) ppi Microbiology 10/11/17 10:00 Blood - Peripheral Venous Blood Culture - Final Staphylococcus Aureus 10/11/17 09:55 Blood - Peripheral Venous Blood Culture - Preliminary Presumptive Mssa (Pbp2a Neg) echo noted rheum consult appreciate off mtx for now Code(s): M00.9 - PYOGENIC ARTHRITIS, UNSPECIFIED Qualifiers: Septic arthritis location: wrist Septic arthritis organism: due to unspecified organism Laterality: right Qualified Code(s): M00.9 - Pyogenic arthritis, unspecified (2) BPH (benign prostatic hyperplasia) Assessment/Plan: flomax Code(s): N40.0 - BENIGN PROSTATIC HYPERPLASIA WITHOUT LOWER URINRY TRACT SYMP (3) HLD (hyperlipidemia) Assessment/Plan: zetia lipid panel Code(s): E78.5 - HYPERLIPIDEMIA, UNSPECIFIED (4) HTN (hypertension) Assessment/Plan: toprol xl Code(s): I10 - ESSENTIAL (PRIMARY) HYPERTENSION Assessment/Plan PT evaluation Refuses snf placement --home with iv abx
[2017-10-20] MEDS: SIMBRINZA OS SCH ×2 (11:03→22:11)
--- NOTE | 2017-10-20 13:39 | PN ---
Progress Note (short form) - Note Progress Note: MARKEDLY IMPROVED NO REDNESS OR TENDERNESS IMPROVED ROM FINGERS STILL WITH SOME DICOMFORT WHEN RANGINR R WRIST IMP: RESPONDING TO CURRENT TREATMENT PLAN: DC WHEN MEDICALLY OK ON PO ABX AND ANTIINFLAMMATORY MEDICATION
[2017-10-20] MEDS: TRAVATAN Z 0.004% OU SCH (22:11)
[2017-10-20] MEDS: ACETAMINOPHEN 325 MG TABLET (FP) PO PRN (22:49)
[2017-10-21] MEDS: CEFAZOLIN 2 GM/D5W 2 GM/50 ML ML IVPB SCH ×3 (01:26→17:01)
[2017-10-21] MEDS ORDERED: PT OWN MED DRAWER 7, Y5N ONE (09:16)
[2017-10-21] MEDS: GABAPENTIN 400 MG CAPSULE (FP) PO SCH (09:24)
[2017-10-21] MEDS: TAMSULOSIN HCL 0.4 MG CAP.ER.24H (FP) PO SCH (09:24)
[2017-10-21] MEDS: PANTOPRAZOLE 20 MG TABLET (FP) PO SCH (09:24)
[2017-10-21] MEDS: predniSONE 20 MG TABLET (UD) PO SCH (09:25)
[2017-10-21] MEDS: AMINO ACIDS/PROTEIN HYDROLYS 30 ML LIQUID.PKT PO SCH ×2 (09:25→17:01)
[2017-10-21] MEDS: EZETIMIBE 10 MG TABLET (FP) PO SCH (09:25)
[2017-10-21] MEDS: metoPROLOL SUCCINATE 25 MG TAB.SR.24H (FP) PO SCH (09:25)
[2017-10-21] MEDS: POLYETHYLENE GLYCOL 3350 119 GM BTL PO SCH (09:26)
[2017-10-21] MEDS: SIMBRINZA OS SCH (09:26)
--- NOTE | 2017-10-21 11:49 | DS ---
Physical Examination Vital Signs: Vital Signs Temperature 97.9 F 10/21/17 10:00 Pulse Rate 73 10/21/17 10:00 Respiratory Rate 20 10/21/17 10:00 Blood Pressure 137/60 10/21/17 10:00 O2 Sat by Pulse Oximetry (%) 96 10/21/17 09:00 Constitutional: Yes: Calm Cardiovascular: Yes: Regular Rate and Rhythm, S1, S2 Respiratory: Yes: CTA Bilaterally Gastrointestinal: Yes: Normal Bowel Sounds, Soft Extremities: Yes: Other (wrist swelling much reduced and has some ROM tenderness reduced) Neurological: Yes: Alert, Oriented Labs: CBC, BMP 10/17/17 12:20 10/17/17 12:20 Discharge Summary Reason For Visit: SEPTIC ARTHRITIS Current Active Problems Cellulitis (Acute) Septic arthritis (Acute) Other Procedures: echo: no vegetation noted. upper extremity MRI large joint effusin tensosynovitis noted Hospital Course: PCP: Varghese Barakat - Admission Chief Complaint: right wrist swelling for one day History of Present Illness: The patient is an 81M with a PMH of PMH of RA on methotrexate, OA, CAD (11 stents), CHF, DM, HTN, HLD, BPH, RI BIBA today for R wrist pain. The patient states that he was in his normal state of health Saturday night. morning he woke up with sharp/dull R wrist pain that has been worsening until today. He admits to chills, nausea, vomiting, and diarrhea but denies fevers, numbness, tingling, and weakness in his hand. per he was on yard all day on saturday. no change in diet no new meds started no trauma in ERpatient got vanco and zosyn hand xray History Source: Patient, Family Member - Past Medical History Cardiovascular: Yes: CAD (s/p multiple stenting), CHF, HTN, Hyperlipdemia, RI Gastrointestinal: Yes: Constipation, Diverticulosis, GERD (esophagitis), Hemorrhoids, Other (RECTAL INCONTINENCE THAT HAS RESOLVED WITH FIBER, duodenal ulcer, gastritis, esophagitis, Tubular adenoma of the colon 04/14) Renal/: Yes: BPH, Renal Calculi Heme/Onc: Yes: Cancer, Other (Recent facial MOHS micrographic surgery (Basal Cell).) Musculoskeletal: Yes: Chronic low back pain (Spinal Stenosis), Osteoarthritis, Other (, left humerus fracture) Rheumatology: Yes: Rheumatoid Arthritis Endocrine: Yes: Diabetes Mellitus (? glucose intolerance) Dermatology: Yes: Basal Cell Hospital course: septic arthitis/ MSSA bacteremia iv abx also started on prednisone for inflammation needs total 6 weeks of iv abx and prednisone taper seen by ortho, ID and rheum. Microbiology 10/11/17 10:00 Blood - Peripheral Venous Blood Culture - Final Staphylococcus Aureus 10/11/17 09:55 Blood - Peripheral Venous Blood Culture - Preliminary Presumptive Mssa (Pbp2a Neg) Condition: Guarded - Instructions Diet, Activity, Other Instructions: continue iv abx for 5 weeks weekly labwork follow up with PCP Referrals: Varghese Barakat MD [Primary Care Provider] - Disposition: [facility]NS/HOME HEALTH CARE - Home Medications Comprehensive Discharge Medication List: Ambulatory Orders Aspirin [ASA -] 81 mg PO DAILY 08/14/16 Folic Acid - 1 mg PO ASDIR 08/14/16 Methotrexate Sodium [Methotrexate] 6 tab PO WEEKLY 08/14/16 Tamsulosin HCl [Flomax] 0.4 mg PO HS 08/14/16 Travoprost [Travatan Z] 1 drop OU HS 08/14/16 Metoprolol Succinate [Toprol Xl] 25 mg PO DAILY 04/21/17 Rabeprazole Sodium [Aciphex] 20 mg PO DAILY 04/21/17 Cyanocobalamin [Vitamin B12 -] 1,000 mcg PO DAILY 04/23/17 Ezetimibe [Zetia] 10 mg PO HS 04/23/17 Vitamin B Complex Vit C No.4 [Super B Complex] 1 tab PO DAILY 04/23/17 Ezetimibe [Zetia -] 10 mg PO DAILY #30 tablet MDD 1 04/30/17 Gabapentin [Neurontin -] 800 mg PO BID #60 capsule MDD 2 04/30/17
[2017-10-21 12:42] VITALS: BMI 29.2
[2017-10-21] MEDS: ASPIRIN COATED 81 MG TABLET.EC PO SCH (14:22)
--- NOTE | 2017-10-21 16:15 | PN ---
Progress Note, Physician History of Present Illness: OOB in chair Reports less R wrist swelling/ pain. Increased ROM No c/o fever/ chills - Current Medication List Current Medications: Active Medications Acetaminophen (Tylenol -) 650 mg PO Q4H PRN PRN Reason: FEVER Last Admin: 10/20/17 22:49 Dose: 650 mg Acetaminophen (Ofirmev Injection -) 1,000 mg IVPB Q6H PRN PRN Reason: FEVER Last Admin: 10/13/17 17:29 Dose: 1,000 mg Amino Acids (Prosource No Carb Liquid Pkt) 30 ml PO BID@0800,1730 [facility] Last Admin: 10/21/17 09:25 Dose: 30 ml Aspirin (Ecotrin -) 81 mg PO DAILY [facility] Last Admin: 10/21/17 14:22 Dose: 81 mg Ezetimibe (Zetia -) 10 mg PO DAILY [facility] Last Admin: 10/21/17 09:25 Dose: 10 mg Gabapentin (Neurontin -) 800 mg PO BID [facility] Last Admin: 10/21/17 09:24 Dose: 800 mg IV Flush (Picc Line Flush) 8 ml IVPUSH PRN PRN PRN Reason: Protocol Cefazolin Sodium/Dextrose (Ancef 2 Gm Premixed Ivpb -) 2 gm in 50 mls @ 100 mls /hr IVPB Q8H-IV [facility] Last Admin: 10/21/17 09:25 Dose: 100 mls/hr Metoprolol Succinate (Toprol Xl -) 25 mg PO DAILY [facility] Last Admin: 10/21/17 09:25 Dose: 25 mg Patient's Own Medication (Non- Formulary)Simbrinza 1%/0.2% 1 each OS BID [facility] Last Admin: 10/21/17 09:26 Dose: 1 each Patient's Own Medication (Non- Formulary)Travatan Z 0.004% 1 each OU HS [facility] Last Admin: 10/20/17 22:11 Dose: 1 each Ondansetron HCl (Zofran Injection) 4 mg IVPUSH Q6H PRN PRN Reason: NAUSEA Last Admin: 10/13/17 10:10 Dose: 4 mg Pantoprazole Sodium (Protonix -) 20 mg PO DAILY [facility] Last Admin: 10/21/17 09:24 Dose: 20 mg Polyethylene Glycol (Miralax (For Daily Use) -) 17 gm PO DAILY [facility] Last Admin: 10/21/17 09:26 Dose: Not Given Prednisone (Deltasone -) 40 mg PO DAILY [facility] Last Admin: 10/21/17 09:25 Dose: 40 mg Senna (Senna -) 2 tab PO HS PRN PRN Reason: CONSTIPATION Last Admin: 10/14/17 22:19 Dose: 2 tab Tamsulosin HCl (Flomax -) 0.4 mg PO DAILY@0830 [facility] Last Admin: 10/21/17 09:24 Dose: 0.4 mg - Objective Vital Signs: Vital Signs Temperature 97.7 F 10/21/17 14:49 Pulse Rate 62 10/21/17 14:49 Respiratory Rate 20 10/21/17 14:49 Blood Pressure 117/69 10/21/17 14:49 O2 Sat by Pulse Oximetry (%) 96 10/21/17 09:00 Constitutional: Yes: No Distress Cardiovascular: Yes: Regular Rate and Rhythm, S1, S2 Respiratory: Yes: CTA Bilaterally Gastrointestinal: Yes: Normal Bowel Sounds, Soft. No: Tenderness Extremities: Yes: Other (decreased R wrist/ hand swelling. Increased ROM) Labs: CBC, BMP 10/17/17 12:20 10/17/17 12:20 INR, PTT INR 1.29 (0.82-1.09) H 10/11/17 09:55 Assessment/Plan MSSA bacteremia, possible endocarditis Possible septic arthritis R wrist OK for discharge on cefazolin 2gm q8h additional 32 days Patient to follow up in our office 2weeks
[2017-10-21 18:00] VITALS: BP 148/78; PULSE 59; TEMP 97.9
== END 2017-10-21 18:30 | disposition home health service (06) | DRG 549 ==
LOC: JER 08:46 → JERBED 11:07 → J7W 13:30 → OBSVTOIN 10-13 11:00
PROVIDERS: ADMIT Family Medicine; ATTEND Family Medicine
DX: M00.031 Staphylococcal arthritis, right wrist (principal); E87.2 Acidosis; J98.11 Atelectasis; L03.113 Cellulitis of right upper limb; R78.81 Bacteremia; N40.0 Benign prostatic hyperplasia without lower urinary tract symptoms; E78.5 Hyperlipidemia, unspecified; I11.0 Hypertensive heart disease with heart failure; I50.9 Heart failure, unspecified; I25.10 Atherosclerotic heart disease of native coronary artery without angina pectoris; Z98.61 Coronary angioplasty status; E87.6 Hypokalemia; E83.51 Hypocalcemia; M06.9 Rheumatoid arthritis, unspecified; A49.01 Methicillin susceptible Staphylococcus aureus infection, unspecified site
CPT/HCPCS: 36415; 36569; 73090-TC-RT-FY; 73110-TC-RT-FY; 73130-TC-RT-FY; 73200-TC-RT; 73218-TC-RT; 74018-TC-FY; 77001-TC-FY; 78315-TC; 80048; 80053; 81003; 81015; 83036; 83605; 83735; 84100; 84550; 85025; 85027; 85610; 85651; 86140; 86431; 86850; 86900; 86901; 87040; 87086; 87186; 93005; 93010; 93306-TC; 97116-GP; 97162-GP; 99282-25; A9503; C1751; G0378; G0480; J0131; J7030

== ENCOUNTER 2020-09-02 05:15 | Day surgery (SDC) | payer OTHER, BC ==
[2020-08-31 15:41] VITALS: BMI 29.5
[2020-09-02 11:32] VITALS: TEMP 97.5
[2020-09-02 12:41] VITALS: BP 154/76; PULSE 56
== END 2020-09-02 12:50 | disposition home or self-care (01) ==
LOC: JASU-ENDO 05:15
PROVIDERS: ATTEND Internal Medicine Gastroenterology
PROC: 0DB98ZX Excision of Duodenum, Via Natural or Artificial Opening Endoscopic, Diagnostic (ICD-10-PCS; 2020-09-02)
PROC: 0DB78ZX Excision of Stomach, Pylorus, Via Natural or Artificial Opening Endoscopic, Diagnostic (ICD-10-PCS; 2020-09-02)
PROC: 0DJD8ZZ Inspection of Lower Intestinal Tract, Via Natural or Artificial Opening Endoscopic (ICD-10-PCS; principal; 2020-09-02 11:01)
DX: Z12.11 Encounter for screening for malignant neoplasm of colon (principal); K29.50 Unspecified chronic gastritis without bleeding; Z86.010 Personal history of colon polyps; D50.0 Iron deficiency anemia secondary to blood loss (chronic); K57.30 Diverticulosis of large intestine without perforation or abscess without bleeding; K59.00 Constipation, unspecified; K64.8 Other hemorrhoids
CPT/HCPCS: 43239; G0105; 88305-TC; 88342-TC

== ENCOUNTER 2021-05-17 21:31 | Inpatient (IN) | payer OTHER, BC ==
[2021-05-17] MEDS ORDERED: DIPHTH,PERTUSS(ACELL),TET 0.5 ML DISP.SYRIN IM ONE ×2 (22:13→23:32)
[2021-05-17 22:20] VITALS: BMI 28.7
[2021-05-17 22:40] LABS: BASO % 0.7 % (0-2.0); EOS % 0.4 % (0-4.5); HEMATOCRIT 40.5 % (35.4-49); HEMOGLOBIN 13.7 GM/dL (11.7-16.9); LYMPH % 14.9 % (8-40); MCH 30.4 pg (25.7-33.7); MCHC 33.9 g/dl (32.0-35.9); MEAN CELL VOLUME 89.6 fl (80-96); MEAN PLT VOLUME 8.7 fl (7.5-11.1); PLATELET COUNT 144 10^3/uL (134-434); RBC 4.52 M/mm3 (4.00-5.60); RDW 17.5 % (11.9-15.9); WHITE BLOOD COUNT 8.8 K/mm3 (4.0-10.0)
[2021-05-17 22:56] LABS: BLOOD UREA NITROGEN 20.7 mg/dL (7-18)
[2021-05-17 22:59] LABS: CREATININE 1.1 mg/dL (0.55-1.3); EPI CELLS 7 /uL (0-25.1); HYALINE CASTS 0 /uL (0-3.1); PH,URINE 7.5 (5.0-8.0); URINE APPEARANCE CLEAR; URINE BILIRUBIN NEGATIVE (NEGATIVE); URINE COLOR YELLOW; URINE GLUCOSE (UA) NEGATIVE (NEGATIVE); URINE KETONE NEGATIVE (NEGATIVE); URINE LEUK ESTERASE TRACE (NEGATIVE); URINE NITRITE POSITIVE (NEGATIVE); URINE PROTEIN NEGATIVE (NEGATIVE); URINE UROBILINOGEN 0.2 mg/dL (0.2-1.0); URINE WBC 30 /uL (0-25.8)
[2021-05-17 23:00] LABS: BILIRUBIN,TOTAL 0.5 mg/dL (0.2-1); TOT PROT 7.2 g/dl (6.4-8.2)
[2021-05-17] MEDS ORDERED: CEFTRIAXONE 1 GM in DEXTROSE 5%-WATER - 100 ML IVPB ONE (23:31)
[2021-05-17] MEDS ORDERED: ACETAMINOPHEN 1000 MG/100 ML BAG IVPB ONE (23:56)
[2021-05-18] MEDS ORDERED: CEFTRIAXONE 1 GM/50 ML BAG ONE (01:12)
[2021-05-18] MEDS ORDERED: ACETAMINOPHEN INJECTION 100 ML IVPB ONE (01:12)
[2021-05-18 01:40] LABS: INR 1.08 (0.83-1.09); PROTHROMBIN TIME (PATIENT) 12.4 SEC (9.7-13.0)
[2021-05-18 01:43] LABS: ACTIVATED PTT 26.6 SECONDS (25.2-36.5)
[2021-05-18 03:24] LABS: URINE RBC 16.4 /uL (0-23.9)
[2021-05-18] MEDS: SODIUM CHLORIDE 1,000 ML IV SCH ×2 (08:07→13:33)
[2021-05-18] MEDS: ACETAMINOPHEN 1000 MG/100 ML BAG IVPB PRN ×2 (08:07→13:33)
[2021-05-18 13:52] LABS: BASO % 0.6 % (0-2.0); EOS % 2.2 % (0-4.5); HEMATOCRIT 36.4 % (35.4-49); LYMPH % 17.7 % (8-40); MCH 30.1 pg (25.7-33.7); MEAN CELL VOLUME 91.3 fl (80-96); MEAN PLT VOLUME 8.8 fl (7.5-11.1); MONO % 7.1 % (3.8-10.2); NEUT % 72.4 % (42.8-82.8); PLATELET COUNT 121 10^3/uL (134-434); RBC 3.98 M/mm3 (4.00-5.60); RDW 17.4 % (11.9-15.9); WHITE BLOOD COUNT 7.3 K/mm3 (4.0-10.0)
[2021-05-18 14:14] LABS: CALCIUM 8.6 mg/dL (8.5-10.1)
[2021-05-18 14:15] LABS: ALBUMIN 3.2 g/dl (3.4-5.0); BLOOD UREA NITROGEN 27.9 mg/dL (7-18)
[2021-05-18 14:18] LABS: CREATININE 1.2 mg/dL (0.55-1.3)
[2021-05-18 14:20] LABS: BILIRUBIN,TOTAL 0.6 mg/dL (0.2-1); TOT PROT 5.9 g/dl (6.4-8.2)
[2021-05-18] MEDS ORDERED: SODIUM CHLORIDE 0.45% 1,000 ML IV SCH (16:15)
[2021-05-18] MEDS ORDERED: ENOXAPARIN NA (PORCINE) 80 MG/0.8 ML DISP.SYRIN SQ SCH (16:30)
[2021-05-18] MEDS: LIDOCAINE 5% TOPICAL PATCH TP SCH (18:37)
[2021-05-18] MEDS: NEBIVOLOL 2.5 MG TABLET (FP) PO SCH (18:38)
[2021-05-18] MEDS: PANTOPRAZOLE 40 MG TABLET PO SCH (18:38)
[2021-05-18] MEDS: GABAPENTIN 400 MG CAPSULE PO SCH (21:08)
[2021-05-18] MEDS: ACETAMINOPHEN 325 MG TABLET (FP) PO PRN (21:08)
[2021-05-18] MEDS: LIDOCAINE PATCH REMOVAL MC SCH (21:11)
[2021-05-18] MEDS ORDERED: LATANOPROST 0.005% OPHTH SOLN 2.5ML BOTTLE OD SCH (22:00)
[2021-05-18] MEDS: DORZOLAMIDE 2% HCL OPHTHALMIC SOLUTION 10 ML BOTTLE OD SCH (22:32)
[2021-05-19] MEDS: ACETAMINOPHEN 1000 MG/100 ML BAG IVPB PRN (06:40)
[2021-05-19] MEDS ORDERED: cefTRIAXone SODIUM 1 GM VIAL ONE (09:46)
[2021-05-19] MEDS ORDERED: DEXTROSE 5%-WATER - 50 ML IVPB ONE (09:46)
[2021-05-19 09:52] LABS: HEMATOCRIT 35.9 % (35.4-49); HEMOGLOBIN 11.8 GM/dL (11.7-16.9); MCH 29.9 pg (25.7-33.7); MEAN CELL VOLUME 90.6 fl (80-96); MEAN PLT VOLUME 9.1 fl (7.5-11.1); PLATELET COUNT 106 10^3/uL (134-434); RBC 3.96 M/mm3 (4.00-5.60); RDW 17.7 % (11.9-15.9); WHITE BLOOD COUNT 6.3 K/mm3 (4.0-10.0)
[2021-05-19] MEDS: CEFTRIAXONE 1 GM in DEXTROSE 5%-WATER - 50 ML IVPB SCH (09:58)
[2021-05-19] MEDS: ENOXAPARIN NA (PORCINE) 40 MG/0.4 ML DISP.SYRIN SQ SCH (09:58)
[2021-05-19] MEDS: FUROSEMIDE 20 MG TABLET (FP) PO SCH (09:59)
[2021-05-19] MEDS: TAMSULOSIN HCL 0.4 MG CAP PO SCH (09:59)
[2021-05-19] MEDS: FOLIC ACID 1 MG TABLET (FP) PO SCH (09:59)
[2021-05-19] MEDS: PANTOPRAZOLE 40 MG TABLET PO SCH (09:59)
[2021-05-19] MEDS: GABAPENTIN 400 MG CAPSULE PO SCH ×2 (09:59→21:22)
[2021-05-19] MEDS: ASPIRIN COATED 81 MG TABLET.EC PO SCH (10:00)
[2021-05-19] MEDS: EZETIMIBE 10 MG TABLET (FP) PO SCH (10:01)
[2021-05-19] MEDS: predniSONE 1 MG TABLET (FP) PO SCH (10:10)
[2021-05-19 10:13] LABS: ALBUMIN 2.9 g/dl (3.4-5.0); BLOOD UREA NITROGEN 25.2 mg/dL (7-18); CALCIUM 8.1 mg/dL (8.5-10.1)
[2021-05-19 10:18] LABS: BILIRUBIN,TOTAL 0.8 mg/dL (0.2-1); TOT PROT 5.5 g/dl (6.4-8.2)
[2021-05-19] MEDS: LIDOCAINE 5% TOPICAL PATCH TP SCH (10:19)
[2021-05-19] MEDS: DORZOLAMIDE 2% HCL OPHTHALMIC SOLUTION 10 ML BOTTLE OD SCH (10:22)
[2021-05-19] MEDS: NEBIVOLOL 2.5 MG TABLET (FP) PO SCH (15:20)
[2021-05-19] MEDS: EYE OD SCH ×2 (21:22→23:22)
[2021-05-19] MEDS: TRAVOPROST 0.004% OD SCH (21:22)
[2021-05-19] MEDS: LIDOCAINE PATCH REMOVAL MC SCH (23:21)
[2021-05-19] MEDS: SIMBRINZA OD SCH (23:22)
[2021-05-20] MEDS ORDERED: cefTRIAXone SODIUM 1 GM VIAL ONE (09:58)
[2021-05-20] MEDS ORDERED: DEXTROSE 5%-WATER - 50 ML IVPB ONE (09:59)
[2021-05-20] MEDS: ACETAMINOPHEN 325 MG TABLET (FP) PO PRN (10:28)
[2021-05-20] MEDS: LIDOCAINE 5% TOPICAL PATCH TP SCH (10:29)
[2021-05-20] MEDS: ENOXAPARIN NA (PORCINE) 40 MG/0.4 ML DISP.SYRIN SQ SCH (10:30)
[2021-05-20] MEDS: CEFTRIAXONE 1 GM in DEXTROSE 5%-WATER - 50 ML IVPB SCH (10:30)
[2021-05-20] MEDS: ASPIRIN COATED 81 MG TABLET.EC PO SCH (10:30)
[2021-05-20] MEDS: GABAPENTIN 400 MG CAPSULE PO SCH ×2 (10:31→21:31)
[2021-05-20] MEDS: FUROSEMIDE 20 MG TABLET (FP) PO SCH (10:31)
[2021-05-20] MEDS: FOLIC ACID 1 MG TABLET (FP) PO SCH (10:31)
[2021-05-20] MEDS: PANTOPRAZOLE 40 MG TABLET PO SCH (10:31)
[2021-05-20] MEDS: TAMSULOSIN HCL 0.4 MG CAP PO SCH (10:31)
[2021-05-20] MEDS: predniSONE 1 MG TABLET (FP) PO SCH (10:33)
[2021-05-20] MEDS: NEBIVOLOL 2.5 MG TABLET (FP) PO SCH (10:34)
[2021-05-20] MEDS: EZETIMIBE 10 MG TABLET (FP) PO SCH (10:34)
[2021-05-20] MEDS: SIMBRINZA OD SCH ×2 (10:36→21:38)
[2021-05-20] MEDS: EYE OD SCH ×3 (10:36→21:38)
[2021-05-20] MEDS ORDERED: METHOTREXATE 2.5 MG TABLET PO SCH (16:00)
[2021-05-20] MEDS: CYANOCOBALAMIN 1,000 MCG TABLET (FP) PO SCH (16:40)
[2021-05-20] MEDS: LIDOCAINE PATCH REMOVAL MC SCH (21:32)
[2021-05-20] MEDS: TRAVOPROST 0.004% OD SCH (21:38)
[2021-05-21 09:05] LABS: HEMOGLOBIN 12.1 GM/dL (11.7-16.9); MCH 30.6 pg (25.7-33.7); MCHC 34.5 g/dl (32.0-35.9); MEAN CELL VOLUME 88.7 fl (80-96); MEAN PLT VOLUME 8.5 fl (7.5-11.1); PLATELET COUNT 115 10^3/uL (134-434); RBC 3.95 M/mm3 (4.00-5.60); RDW 17.6 % (11.9-15.9); WHITE BLOOD COUNT 5.4 K/mm3 (4.0-10.0)
[2021-05-21 09:29] LABS: CALCIUM 8.1 mg/dL (8.5-10.1)
[2021-05-21 09:30] LABS: ALBUMIN 2.8 g/dl (3.4-5.0); BLOOD UREA NITROGEN 25.7 mg/dL (7-18)
[2021-05-21 09:34] LABS: BILIRUBIN,TOTAL 0.9 mg/dL (0.2-1); TOT PROT 5.6 g/dl (6.4-8.2)
[2021-05-21] MEDS ORDERED: POLYETHYLENE GLYCOL 3350 119 GM BTL PO SCH (10:30)
[2021-05-21] MEDS: LIDOCAINE 5% TOPICAL PATCH TP SCH (11:43)
[2021-05-21] MEDS: ENOXAPARIN NA (PORCINE) 40 MG/0.4 ML DISP.SYRIN SQ SCH (11:43)
[2021-05-21] MEDS: FUROSEMIDE 20 MG TABLET (FP) PO SCH (11:44)
[2021-05-21] MEDS: GABAPENTIN 400 MG CAPSULE PO SCH ×2 (11:44→22:18)
[2021-05-21] MEDS: SENNOSIDES 8.6MG TABLET (FP) PO SCH ×2 (11:45→22:18)
[2021-05-21] MEDS: CYANOCOBALAMIN 1,000 MCG TABLET (FP) PO SCH (11:45)
[2021-05-21] MEDS: EYE OD SCH ×3 (11:45→22:22)
[2021-05-21] MEDS: SIMBRINZA OD SCH ×2 (11:45→22:21)
[2021-05-21] MEDS: PANTOPRAZOLE 40 MG TABLET PO SCH (11:45)
[2021-05-21] MEDS: TAMSULOSIN HCL 0.4 MG CAP PO SCH (11:45)
[2021-05-21] MEDS: FOLIC ACID 1 MG TABLET (FP) PO SCH (11:45)
[2021-05-21] MEDS: ASPIRIN COATED 81 MG TABLET.EC PO SCH (11:45)
[2021-05-21] MEDS: EZETIMIBE 10 MG TABLET (FP) PO SCH (11:48)
[2021-05-21] MEDS: NEBIVOLOL 2.5 MG TABLET (FP) PO SCH (11:49)
[2021-05-21] MEDS: POLYETHYLENE GLYCOL (HEALTHYLAX) 3350 17 GM PACKET PO SCH (11:52)
[2021-05-21] MEDS: predniSONE 1 MG TABLET (FP) PO SCH (11:52)
[2021-05-21] MEDS: TRAVOPROST 0.004% OD SCH (22:22)
[2021-05-21] MEDS: LIDOCAINE PATCH REMOVAL MC SCH (22:26)
[2021-05-22] MEDS: TAMSULOSIN HCL 0.4 MG CAP PO SCH (09:46)
[2021-05-22] MEDS: FUROSEMIDE 20 MG TABLET (FP) PO SCH (09:47)
[2021-05-22] MEDS: CYANOCOBALAMIN 1,000 MCG TABLET (FP) PO SCH (09:47)
[2021-05-22] MEDS: NEBIVOLOL 2.5 MG TABLET (FP) PO SCH (09:47)
[2021-05-22] MEDS: EZETIMIBE 10 MG TABLET (FP) PO SCH (09:47)
[2021-05-22] MEDS: ASPIRIN COATED 81 MG TABLET.EC PO SCH (09:47)
[2021-05-22] MEDS: PANTOPRAZOLE 40 MG TABLET PO SCH (09:47)
[2021-05-22] MEDS: FOLIC ACID 1 MG TABLET (FP) PO SCH (09:47)
[2021-05-22] MEDS: GABAPENTIN 400 MG CAPSULE PO SCH (09:47)
[2021-05-22] MEDS: LIDOCAINE 5% TOPICAL PATCH TP SCH (09:48)
[2021-05-22] MEDS: POLYETHYLENE GLYCOL (HEALTHYLAX) 3350 17 GM PACKET PO SCH (09:48)
[2021-05-22] MEDS: predniSONE 1 MG TABLET (FP) PO SCH (09:48)
[2021-05-22] MEDS: SIMBRINZA OD SCH (09:48)
[2021-05-22] MEDS: EYE OD SCH (09:48)
[2021-05-22] MEDS: ENOXAPARIN NA (PORCINE) 40 MG/0.4 ML DISP.SYRIN SQ SCH (09:48)
[2021-05-22] MEDS: SENNOSIDES 8.6MG TABLET (FP) PO SCH (09:49)
[2021-05-22 14:46] VITALS: BP 114/50; PULSE 58; TEMP 97.7
== END 2021-05-22 16:53 | DRG 690 ==
LOC: JER 21:31 → JERBED 05-18 04:15 → J7W 05-18 09:50
PROVIDERS: ADMIT Internal Medicine; ATTEND Family Medicine
DX: N39.0 Urinary tract infection, site not specified (principal); J98.11 Atelectasis; B95.7 Other staphylococcus as the cause of diseases classified elsewhere; E78.5 Hyperlipidemia, unspecified; I25.10 Atherosclerotic heart disease of native coronary artery without angina pectoris; M06.9 Rheumatoid arthritis, unspecified; N40.0 Benign prostatic hyperplasia without lower urinary tract symptoms; I11.0 Hypertensive heart disease with heart failure; I50.9 Heart failure, unspecified; E11.51 Type 2 diabetes mellitus with diabetic peripheral angiopathy without gangrene; M25.552 Pain in left hip; K21.9 Gastro-esophageal reflux disease without esophagitis; M17.0 Bilateral primary osteoarthritis of knee; M48.00 Spinal stenosis, site unspecified; H66.90 Otitis media, unspecified, unspecified ear; M16.12 Unilateral primary osteoarthritis, left hip; K59.00 Constipation, unspecified; E86.0 Dehydration; R53.1 Weakness; I25.2 Old myocardial infarction; M19.012 Primary osteoarthritis, left shoulder; K64.9 Unspecified hemorrhoids; K57.90 Diverticulosis of intestine, part unspecified, without perforation or abscess without bleeding; S09.90XA Unspecified injury of head, initial encounter; W17.89XA Other fall from one level to another, initial encounter; Y92.098 Other place in other non-institutional residence as the place of occurrence of the external cause; Z95.5 Presence of coronary angioplasty implant and graft
CPT/HCPCS: 36415; 70450-TC; 71045-TC-FY; 71260-TC; 72125-TC; 72128-TC; 72131-TC; 72170-TC-FY; 73030-TC-LT-FY; 73502-TC-LT-FY; 73552-TC-LT-FY; 74177-TC; 80053; 81003; 84484; 85025; 85027; 85610; 85730; 86850; 86900; 86901; 87086; 87186; 90715; 93005; 93010; 97116-GP; 97162-GP; 99285-25; C9803; J8610; U0003; U0005

== ENCOUNTER 2021-10-29 13:30 | Inpatient (IN) | payer OTHER, BC ==
[2021-10-29 14:50] LABS: URINE APPEARANCE CLEAR; URINE BILIRUBIN NEGATIVE (NEGATIVE); URINE COLOR YELLOW; URINE GLUCOSE (UA) NEGATIVE (NEGATIVE); URINE KETONE NEGATIVE (NEGATIVE); URINE LEUK ESTERASE NEGATIVE (NEGATIVE); URINE NITRITE NEGATIVE (NEGATIVE); URINE PROTEIN NEGATIVE (NEGATIVE); URINE UROBILINOGEN 0.2 mg/dL (0.2-1.0)
[2021-10-29 15:00] LABS: BASO % 0.5 % (0-2.0); EOS % 0.7 % (0-4.5); HEMATOCRIT 36.5 % (35.4-49); HEMOGLOBIN 12.7 GM/dL (11.7-16.9); LYMPH % 22.8 % (8-40); MCH 30.7 pg (25.7-33.7); MCHC 34.8 g/dl (32.0-35.9); MEAN CELL VOLUME 88.3 fl (80-96); MEAN PLT VOLUME 8.5 fl (7.5-11.1); MONO % 9.9 % (3.8-10.2); NEUT % 66.1 % (42.8-82.8); PLATELET COUNT 190 10^3/uL (134-434); RBC 4.13 M/mm3 (4.00-5.60); RDW 17.1 % (11.9-15.9); WHITE BLOOD COUNT 6.9 K/mm3 (4.0-10.0)
[2021-10-29 15:09] LABS: INR 1.05 (0.83-1.09); PROTHROMBIN TIME (PATIENT) 12.1 SEC (9.7-13.0)
[2021-10-29 15:12] LABS: ACTIVATED PTT 26.6 SECONDS (25.2-36.5)
[2021-10-29 15:20] LABS: CHLORIDE 102 mmol/L (98-107); SODIUM 135 mmol/L (136-145)
[2021-10-29 15:22] LABS: CALCIUM 8.7 mg/dL (8.5-10.1)
[2021-10-29 15:23] LABS: ALBUMIN 3.4 g/dl (3.4-5.0); CO2 27 mmol/L (21-32); GLUCOSE,RANDOM 124 mg/dL (74-106)
[2021-10-29 15:26] LABS: CHOLESTEROL 144 mg/dL (50-200); CREATININE 1.1 mg/dL (0.55-1.3); SGOT/AST 78 U/L (15-37); TRIGLYCERIDES 254 mg/dL (0-150)
[2021-10-29 15:27] LABS: BILIRUBIN,TOTAL 0.6 mg/dL (0.2-1); LDL CHOLESTEROL (ONLY SJRH) 90 mg/dL (5-100)
[2021-10-29 15:28] LABS: ALK PHOS 76 U/L (45-117); HDL CHOLESTEROL 44 mg/dL (40-60)
[2021-10-29 15:31] LABS: ANION GAP 6 MMOL/L (8-16); SGPT/ALT 31 U/L (13-61)
[2021-10-29] MEDS ORDERED: ASPIRIN 325 MG TABLET PO ONE (15:55)
[2021-10-29] MEDS ORDERED: CLOPIDOGREL BISULFATE 75 MG TABLET (FP) PO ONE (15:56)
[2021-10-29] MEDS ORDERED: CLOPIDOGREL BISULFATE 300 MG TABLET ONE (16:08)
[2021-10-29] MEDS ORDERED: ASPIRIN 325 MG ENTERIC COATED TABLET (FP) ONE (16:08)
[2021-10-29 16:24] LABS: URINE APPEARANCE CLEAR; URINE BILIRUBIN NEGATIVE (NEGATIVE); URINE COLOR YELLOW; URINE GLUCOSE (UA) NEGATIVE (NEGATIVE); URINE KETONE NEGATIVE (NEGATIVE); URINE LEUK ESTERASE NEGATIVE (NEGATIVE); URINE NITRITE NEGATIVE (NEGATIVE); URINE PROTEIN NEGATIVE (NEGATIVE); URINE UROBILINOGEN 0.2 mg/dL (0.2-1.0)
[2021-10-29 16:39] LABS: CALCIUM 8.5 mg/dL (8.5-10.1)
[2021-10-29 16:40] LABS: ALBUMIN 3.7 g/dl (3.4-5.0); BLOOD UREA NITROGEN 24.2 mg/dL (7-18)
[2021-10-29 16:45] LABS: BILIRUBIN,TOTAL 0.5 mg/dL (0.2-1); TOT PROT 6.8 g/dl (6.4-8.2)
[2021-10-29] MEDS: ACETAMINOPHEN 325 MG TABLET (FP) PO PRN (20:30)
[2021-10-29] MEDS ORDERED: ACETAMINOPHEN 325 MG TABLET (FP) ONE (20:33)
[2021-10-29] MEDS ORDERED: ATORVASTATIN CA 10 MG TABLET (FP) ONE (21:51)
[2021-10-29] MEDS ORDERED: PATIENT'S OWN MEDICATION (NON-FORMULARY) (Diclofenac Sodium/Misoprostol [Diclofenac-Misopr PO SCH (22:00)
[2021-10-29] MEDS ORDERED: LATANOPROST 0.005% OPHTH SOLN 2.5ML BOTTLE OD SCH (22:00)
[2021-10-29] MEDS ORDERED: PATIENT'S OWN MEDICATION (NON-FORMULARY) (Brinzolamide/Brimonidine Tart [Simbrinza 1%-0.2% OD SCH (22:00)
[2021-10-29] MEDS: ATORVASTATIN CA 10 MG TABLET (FP) PO SCH (23:00)
[2021-10-29] MEDS: BRIMONIDINE TARTRATE 0.2% OPHTHALMIC 5 ML BOTTLE OD SCH (23:00)
[2021-10-29] MEDS: MISOPROSTOL 200 MCG TABLET PO SCH (23:00)
[2021-10-29] MEDS: EZETIMIBE 10 MG TABLET (FP) PO SCH (23:00)
[2021-10-29] MEDS: DICLOFENAC SODIUM 75 MG TABLET.DR PO SCH (23:00)
[2021-10-29] MEDS: DORZOLAMIDE 2% HCL OPHTHALMIC SOLUTION 10 ML BOTTLE OD SCH (23:00)
[2021-10-30] MEDS: INSULIN SLIDING SCALE (NOVOLOG) 1 VIAL SQ SCH ×3 (06:45→17:01)
[2021-10-30] MEDS: DORZOLAMIDE 2% HCL OPHTHALMIC SOLUTION 10 ML BOTTLE OD SCH ×3 (06:47→21:26)
[2021-10-30] MEDS: BRIMONIDINE TARTRATE 0.2% OPHTHALMIC 5 ML BOTTLE OD SCH ×3 (06:47→21:25)
[2021-10-30 07:22] LABS: BASO % 0.7 % (0-2.0); EOS % 1.2 % (0-4.5); HEMATOCRIT 39.6 % (35.4-49); HEMOGLOBIN 13.5 GM/dL (11.7-16.9); LYMPH % 29.3 % (8-40); MCH 30.6 pg (25.7-33.7); MCHC 34.1 g/dl (32.0-35.9); MEAN CELL VOLUME 89.8 fl (80-96); MEAN PLT VOLUME 8.6 fl (7.5-11.1); NEUT % 61.8 % (42.8-82.8); PLATELET COUNT 168 10^3/uL (134-434); RBC 4.41 M/mm3 (4.00-5.60); RDW 16.4 % (11.9-15.9); WHITE BLOOD COUNT 7.1 K/mm3 (4.0-10.0)
[2021-10-30] MEDS ORDERED: ASPIRIN 325 MG ENTERIC COATED TABLET (FP) PO SCH (10:00)
[2021-10-30] MEDS ORDERED: metoPROLOL SUCCINATE 25 MG TAB.SR.24H (FP) PO SCH (10:00)
[2021-10-30] MEDS: ENOXAPARIN NA (PORCINE) 40 MG/0.4 ML DISP.SYRIN SQ SCH (10:47)
[2021-10-30] MEDS: MISOPROSTOL 200 MCG TABLET PO SCH ×2 (10:50→21:23)
[2021-10-30] MEDS: DICLOFENAC SODIUM 75 MG TABLET.DR PO SCH ×2 (10:50→10:56)
[2021-10-30] MEDS: EZETIMIBE 10 MG TABLET (FP) PO SCH (21:22)
[2021-10-30] MEDS: ROSUVASTATIN CA 20 MG TABLET PO SCH (21:22)
[2021-10-30] MEDS: ATORVASTATIN CA 10 MG TABLET (FP) PO SCH (21:22)
[2021-10-30] MEDS: ASPIRIN/DIPYRIDAMOLE 25 MG/200 MG CAPSULE PO SCH (22:10)
[2021-10-30] MEDS: TRAVOPROST 0.004% OD SCH (22:10)
[2021-10-31] MEDS: BRIMONIDINE TARTRATE 0.2% OPHTHALMIC 5 ML BOTTLE OD SCH ×4 (06:08→22:09)
[2021-10-31] MEDS: DORZOLAMIDE 2% HCL OPHTHALMIC SOLUTION 10 ML BOTTLE OD SCH ×3 (06:09→22:09)
[2021-10-31] MEDS: INSULIN SLIDING SCALE (NOVOLOG) 1 VIAL SQ SCH ×3 (06:10→16:47)
[2021-10-31] MEDS: PANTOPRAZOLE 20 MG TABLET PO SCH (09:49)
[2021-10-31] MEDS: ENOXAPARIN NA (PORCINE) 40 MG/0.4 ML DISP.SYRIN SQ SCH (09:49)
[2021-10-31] MEDS ORDERED: ASPIRIN COATED 81 MG TABLET.EC PO SCH (10:00)
[2021-10-31] MEDS ORDERED: CLOPIDOGREL BISULFATE 75 MG TABLET (FP) PO SCH (10:00)
[2021-10-31] MEDS: ASPIRIN/DIPYRIDAMOLE 25 MG/200 MG CAPSULE PO SCH ×2 (11:32→21:52)
[2021-10-31] MEDS: MISOPROSTOL 200 MCG TABLET PO SCH ×2 (11:32→21:52)
[2021-10-31] MEDS: ACETAMINOPHEN 325 MG TABLET (FP) PO PRN (16:46)
[2021-10-31] MEDS: SIMETHICONE 80 MG TAB.CHEW (FP) PO PRN (17:43)
[2021-10-31] MEDS: EZETIMIBE 10 MG TABLET (FP) PO SCH (21:51)
[2021-10-31] MEDS: ROSUVASTATIN CA 20 MG TABLET PO SCH (21:51)
[2021-10-31] MEDS: SIMBRINZA OD SCH (22:01)
[2021-10-31] MEDS: TRAVOPROST 0.004% OD SCH (22:08)
[2021-11-01] MEDS: DORZOLAMIDE 2% HCL OPHTHALMIC SOLUTION 10 ML BOTTLE OD SCH ×3 (06:14→23:47)
[2021-11-01] MEDS: BRIMONIDINE TARTRATE 0.2% OPHTHALMIC 5 ML BOTTLE OD SCH ×3 (06:14→23:47)
[2021-11-01] MEDS: ACETAMINOPHEN 325 MG TABLET (FP) PO PRN (06:14)
[2021-11-01] MEDS: INSULIN SLIDING SCALE (NOVOLOG) 1 VIAL SQ SCH ×3 (06:15→17:55)
[2021-11-01] MEDS ORDERED: LASIX 20 MG PO PRN (08:57)
[2021-11-01] MEDS ORDERED: FUROSEMIDE 40 MG/4 ML INJECTABLE VIAL IVPUSH ONE (08:58)
[2021-11-01] MEDS: ENOXAPARIN NA (PORCINE) 40 MG/0.4 ML DISP.SYRIN SQ SCH (10:52)
[2021-11-01] MEDS: PANTOPRAZOLE 20 MG TABLET PO SCH (10:52)
[2021-11-01] MEDS: MISOPROSTOL 200 MCG TABLET PO SCH ×2 (10:53→23:47)
[2021-11-01] MEDS: ASPIRIN/DIPYRIDAMOLE 25 MG/200 MG CAPSULE PO SCH ×2 (10:53→23:23)
[2021-11-01] MEDS: SIMBRINZA OD SCH ×2 (10:56→23:23)
[2021-11-01] MEDS ORDERED: LOPERAMIDE HCL 2 MG CAPSULE PO PRN (14:45)
[2021-11-01] MEDS: SIMETHICONE 80 MG TAB.CHEW (FP) PO PRN (17:24)
[2021-11-01] MEDS: ROSUVASTATIN CA 20 MG TABLET PO SCH (23:22)
[2021-11-01] MEDS: EZETIMIBE 10 MG TABLET (FP) PO SCH (23:23)
[2021-11-01] MEDS: TRAVOPROST 0.004% OD SCH (23:23)
[2021-11-02 05:27] VITALS: RESP 16; TEMP 97.9
[2021-11-02] MEDS: INSULIN SLIDING SCALE (NOVOLOG) 1 VIAL SQ SCH ×2 (06:43→12:42)
[2021-11-02 07:40] LABS: BASO % 0.4 % (0-2.0); HEMATOCRIT 40.6 % (35.4-49); HEMOGLOBIN 13.6 GM/dL (11.7-16.9); LYMPH % 23.4 % (8-40); MCH 30.1 pg (25.7-33.7); MCHC 33.6 g/dl (32.0-35.9); MEAN CELL VOLUME 89.6 fl (80-96); MEAN PLT VOLUME 8.8 fl (7.5-11.1); MONO % 6.6 % (3.8-10.2); NEUT % 68.6 % (42.8-82.8); PLATELET COUNT 168 10^3/uL (134-434); RBC 4.53 M/mm3 (4.00-5.60); RDW 17.3 % (11.9-15.9); WHITE BLOOD COUNT 8.7 K/mm3 (4.0-10.0)
[2021-11-02 07:59] LABS: CALCIUM 8.6 mg/dL (8.5-10.1)
[2021-11-02 08:00] LABS: ALBUMIN 3.5 g/dl (3.4-5.0); BLOOD UREA NITROGEN 31.6 mg/dL (7-18)
[2021-11-02 08:03] LABS: CREATININE 1.2 mg/dL (0.55-1.3)
[2021-11-02 08:04] LABS: BILIRUBIN,TOTAL 0.8 mg/dL (0.2-1); TOT PROT 6.4 g/dl (6.4-8.2)
[2021-11-02] MEDS: ACETAMINOPHEN 325 MG TABLET (FP) PO PRN (09:08)
[2021-11-02 09:15] VITALS: BP 119/59; PULSE 75
[2021-11-02] MEDS ORDERED: FUROSEMIDE 20 MG TABLET (FP) PO SCH (10:00)
[2021-11-02] MEDS: PANTOPRAZOLE 20 MG TABLET PO SCH (10:25)
[2021-11-02] MEDS: ASPIRIN/DIPYRIDAMOLE 25 MG/200 MG CAPSULE PO SCH (10:25)
[2021-11-02] MEDS: SIMBRINZA OD SCH (10:26)
[2021-11-02] MEDS: SIMETHICONE 80 MG TAB.CHEW (FP) PO PRN (10:26)
[2021-11-02] MEDS: ENOXAPARIN NA (PORCINE) 40 MG/0.4 ML DISP.SYRIN SQ SCH (11:28)
[2021-11-02 11:42] VITALS: BMI 26.6
[2021-11-04] MEDS ORDERED: METHOTREXATE 2.5 MG TABLET PO SCH (10:00)
== END 2021-11-02 13:35 | DRG 66 ==
LOC: JER 13:30 → J4W 15:57 → OBSVTOIN 10-31 06:36 → J4W 10-31 14:09
PROVIDERS: ADMIT Internal Medicine; ATTEND Family Medicine
DX: I63.9 Cerebral infarction, unspecified (principal); I25.10 Atherosclerotic heart disease of native coronary artery without angina pectoris; I25.2 Old myocardial infarction; N40.0 Benign prostatic hyperplasia without lower urinary tract symptoms; I11.0 Hypertensive heart disease with heart failure; I50.9 Heart failure, unspecified; M06.9 Rheumatoid arthritis, unspecified; E11.9 Type 2 diabetes mellitus without complications; M54.50 Low back pain, unspecified
CPT/HCPCS: 0241U-QW; 36415; 70450-TC; 70551-TC; 71045-TC-FY; 80053; 80061; 81003; 82962; 83036; 84436; 84443; 84484; 85025; 85610; 85730; 87045; 87046; 87086; 87186; 87324; 87449; 93005; 93010; 93880-TC; 97116-GP; 97161-GP; 99285-25; C9803-CS; G0378; U0003; U0005

== ENCOUNTER 2022-01-13 10:52 | Inpatient (IN) | payer OTHER, BC ==
[2022-01-13] MEDS ORDERED: ACETAMINOPHEN 1000 MG/100 ML BAG IVPB ONE (11:47)
[2022-01-13] MEDS ORDERED: SODIUM CHLORIDE 0.9% 500 ML INFUS.BAG IV ONE (11:49)
[2022-01-13] MEDS ORDERED: ACETAMINOPHEN INJECTION 100 ML IVPB ONE (12:02)
[2022-01-13 12:43] LABS: VENOUS BASE EXCESS -1.9 mmol/L (-2-2); VENOUS O2 SATURATION 24.2 % (70-80); VENOUS PCO2 44.1 mmHg (38-52); VENOUS PH 7.349 (7.310-7.410)
[2022-01-13 13:01] LABS: BASO % 0.4 % (0-2.0); HEMATOCRIT 36.3 % (35.4-49); HEMOGLOBIN 11.9 GM/dL (11.7-16.9); LYMPH % 17.3 % (8-40); MCH 30.9 pg (25.7-33.7); MCHC 32.8 g/dl (32.0-35.9); MEAN CELL VOLUME 94.3 fl (80-96); MEAN PLT VOLUME 8.6 fl (7.5-11.1); NEUT % 68.3 % (42.8-82.8); PLATELET COUNT 122 10^3/uL (134-434); RBC 3.85 M/mm3 (4.00-5.60); RDW 18.1 % (11.9-15.9); WHITE BLOOD COUNT 4.4 K/mm3 (4.0-10.0)
[2022-01-13 13:03] LABS: URINE APPEARANCE CLEAR; URINE BILIRUBIN NEGATIVE (NEGATIVE); URINE COLOR YELLOW; URINE GLUCOSE (UA) NEGATIVE (NEGATIVE); URINE KETONE 1+ (NEGATIVE); URINE LEUK ESTERASE NEGATIVE (NEGATIVE); URINE NITRITE NEGATIVE (NEGATIVE); URINE PROTEIN TRACE (NEGATIVE); URINE UROBILINOGEN 0.2 mg/dL (0.2-1.0)
[2022-01-13 13:05] LABS: INR 1.17 (0.83-1.09); PROTHROMBIN TIME (PATIENT) 13.5 SEC (9.7-13.0)
[2022-01-13 13:08] LABS: ACTIVATED PTT 28.5 SECONDS (25.2-36.5); CALCIUM 8.6 mg/dL (8.5-10.1)
[2022-01-13 13:09] LABS: ALBUMIN 3.7 g/dl (3.4-5.0); BLOOD UREA NITROGEN 28.3 mg/dL (7-18)
[2022-01-13 13:12] LABS: CREATININE 1.2 mg/dL (0.55-1.3)
[2022-01-13 13:13] LABS: BILIRUBIN,TOTAL 0.5 mg/dL (0.2-1); TOT PROT 6.4 g/dl (6.4-8.2)
[2022-01-13] MEDS ORDERED: SIMETHICONE 80 MG TAB.CHEW (FP) PO PRN (16:15)
[2022-01-13] MEDS ORDERED: ACETAMINOPHEN 325 MG TABLET (FP) PO PRN (16:18)
[2022-01-13] MEDS: D5-1/2NS+20 MEQ KCL - 20 MEQ/1,000 ML INFUS.BAG IV SCH (16:35)
[2022-01-13] MEDS ORDERED: PATIENT'S OWN MEDICATION (NON-FORMULARY) (Icosapent Ethyl [Vascepa] 1 GM Capsule) PO SCH (22:00)
[2022-01-13] MEDS ORDERED: ASPIRIN/DIPYRIDAMOLE 25 MG/200 MG CAPSULE ONE (22:24)
[2022-01-13] MEDS ORDERED: ROSUVASTATIN CA 20 MG TABLET ONE (22:25)
[2022-01-13] MEDS ORDERED: TAMSULOSIN HCL 0.4 MG CAP ONE (22:26)
[2022-01-13] MEDS ORDERED: PANTOPRAZOLE 40 MG TABLET PO ONE (22:28)
[2022-01-13] MEDS: ASPIRIN/DIPYRIDAMOLE 25 MG/200 MG CAPSULE PO SCH (23:03)
[2022-01-13] MEDS: ROSUVASTATIN CA 20 MG TABLET PO SCH (23:03)
[2022-01-13] MEDS: MISOPROSTOL 200 MCG TABLET PO SCH (23:03)
[2022-01-13] MEDS: TAMSULOSIN HCL 0.4 MG CAP PO SCH (23:03)
[2022-01-13] MEDS: PANTOPRAZOLE 40 MG TABLET PO SCH (23:04)
[2022-01-13] MEDS: OMEGA-3 ACID ETHYL ESTERS (FATTY-ACIDS) 1 GM CAPSULE (FP) PO SCH (23:04)
[2022-01-14] MEDS: BENZOCAINE/MENTH/CETYLPYRD CL 1 EACH LOZENGE MM PRN ×2 (05:01→11:00)
[2022-01-14] MEDS ORDERED: PATIENT'S OWN MEDICATION (NON-FORMULARY) (Magnesium Oxide [Magnesium] 400 MG Tablet) PO SCH (10:00)
[2022-01-14] MEDS: EZETIMIBE 10 MG TABLET (FP) PO SCH (10:44)
[2022-01-14] MEDS: FOLIC ACID 1 MG TABLET (FP) PO SCH (10:44)
[2022-01-14] MEDS: OMEGA-3 ACID ETHYL ESTERS (FATTY-ACIDS) 1 GM CAPSULE (FP) PO SCH ×2 (10:44→23:21)
[2022-01-14] MEDS: ENOXAPARIN NA (PORCINE) 40 MG/0.4 ML DISP.SYRIN SQ SCH (10:44)
[2022-01-14] MEDS: MAGNESIUM OXIDE 400 MG TABLET (FP) PO SCH (10:44)
[2022-01-14] MEDS: MISOPROSTOL 200 MCG TABLET PO SCH ×2 (10:45→23:21)
[2022-01-14] MEDS: ASPIRIN/DIPYRIDAMOLE 25 MG/200 MG CAPSULE PO SCH ×2 (10:45→23:22)
[2022-01-14] MEDS: D5-1/2NS+20 MEQ KCL - 20 MEQ/1,000 ML INFUS.BAG IV SCH ×2 (10:48→18:00)
[2022-01-14] MEDS: CEFTRIAXONE 1 GM in DEXTROSE 5%-WATER - 50 ML IVPB SCH (12:32)
[2022-01-14] MEDS: REMDESIVIR 200 MG in SODIUM CHLORIDE 250 ML IVPB ONE ×2 (13:18→13:20)
[2022-01-14 13:36] LABS: CALCIUM 8.2 mg/dL (8.5-10.1)
[2022-01-14 13:37] LABS: ALBUMIN 3.2 g/dl (3.4-5.0); BASO % 0.2 % (0-2.0); BLOOD UREA NITROGEN 32.8 mg/dL (7-18); HEMATOCRIT 35.8 % (35.4-49); LYMPH % 13.2 % (8-40); MCH 31.2 pg (25.7-33.7); MCHC 33.5 g/dl (32.0-35.9); MEAN CELL VOLUME 93.1 fl (80-96); MEAN PLT VOLUME 8.6 fl (7.5-11.1); MONO % 8.1 % (3.8-10.2); NEUT % 78.5 % (42.8-82.8); PLATELET COUNT 123 10^3/uL (134-434); RBC 3.84 M/mm3 (4.00-5.60); WHITE BLOOD COUNT 8.1 K/mm3 (4.0-10.0)
[2022-01-14 13:40] LABS: CREATININE 1.3 mg/dL (0.55-1.3)
[2022-01-14 13:41] LABS: BILIRUBIN,TOTAL 0.6 mg/dL (0.2-1)
[2022-01-14] MEDS ORDERED: LIDOCAINE VISCOUS 2% ORAL/TOP 15 ML UNIT-DOSE CUP MM PRN (13:50)
[2022-01-14] MEDS ORDERED: ACETAMINOPHEN 325 MG TABLET (FP) PO PRN (17:55)
[2022-01-14] MEDS: TAMSULOSIN HCL 0.4 MG CAP PO SCH (23:20)
[2022-01-14] MEDS: ROSUVASTATIN CA 20 MG TABLET PO SCH (23:20)
[2022-01-14] MEDS: PANTOPRAZOLE 40 MG TABLET PO SCH (23:20)
[2022-01-15] MEDS: D5-1/2NS+20 MEQ KCL - 20 MEQ/1,000 ML INFUS.BAG IV SCH ×3 (02:54→21:25)
[2022-01-15] MEDS: OMEGA-3 ACID ETHYL ESTERS (FATTY-ACIDS) 1 GM CAPSULE (FP) PO SCH ×3 (12:02→21:37)
[2022-01-15] MEDS: EZETIMIBE 10 MG TABLET (FP) PO SCH (12:02)
[2022-01-15] MEDS: FOLIC ACID 1 MG TABLET (FP) PO SCH (12:02)
[2022-01-15] MEDS: ENOXAPARIN NA (PORCINE) 40 MG/0.4 ML DISP.SYRIN SQ SCH (12:03)
[2022-01-15] MEDS: MAGNESIUM OXIDE 400 MG TABLET (FP) PO SCH (12:03)
[2022-01-15] MEDS: ASPIRIN/DIPYRIDAMOLE 25 MG/200 MG CAPSULE PO SCH ×3 (12:04→21:31)
[2022-01-15] MEDS: MISOPROSTOL 200 MCG TABLET PO SCH ×2 (12:06→21:32)
[2022-01-15] MEDS: BENZOCAINE/MENTH/CETYLPYRD CL 1 EACH LOZENGE MM PRN (12:06)
[2022-01-15 12:31] LABS: CALCIUM 7.9 mg/dL (8.5-10.1)
[2022-01-15 12:32] LABS: ALBUMIN 2.7 g/dl (3.4-5.0); BLOOD UREA NITROGEN 35.9 mg/dL (7-18)
[2022-01-15 12:33] LABS: TOT PROT 5.4 g/dl (6.4-8.2)
[2022-01-15 12:36] LABS: BILIRUBIN,TOTAL 0.6 mg/dL (0.2-1)
[2022-01-15] MEDS: CEFTRIAXONE 1 GM in DEXTROSE 5%-WATER - 50 ML IVPB SCH (12:40)
[2022-01-15 12:43] LABS: BASO % 0.2 % (0-2.0); HEMATOCRIT 33.1 % (35.4-49); HEMOGLOBIN 11.6 GM/dL (11.7-16.9); LYMPH % 14.3 % (8-40); MCH 32.2 pg (25.7-33.7); MCHC 34.9 g/dl (32.0-35.9); MEAN CELL VOLUME 92.1 fl (80-96); MEAN PLT VOLUME 8.3 fl (7.5-11.1); MONO % 5.7 % (3.8-10.2); NEUT % 79.8 % (42.8-82.8); PLATELET COUNT 102 10^3/uL (134-434); RBC 3.59 M/mm3 (4.00-5.60); WHITE BLOOD COUNT 8.7 K/mm3 (4.0-10.0)
[2022-01-15] MEDS: REMDESIVIR 100 MG in SODIUM CHLORIDE 250 ML IVPB SCH (13:22)
[2022-01-15] MEDS ORDERED: LIDOCAINE VISCOUS 2% ORAL/TOP 15 ML UNIT-DOSE CUP MM PRN (16:26)
[2022-01-15] MEDS: LATANOPROST 0.005% OPHTH SOLN 2.5ML BOTTLE OD SCH ×3 (19:50→21:42)
[2022-01-15] MEDS: PREDNISOLONE PO SCH (19:51)
[2022-01-15] MEDS: PATIENT'S OWN MEDICATION (NON-FORMULARY) (Brinzolamide/Brimonidine Tart [Simbrinza 1%-0.2% OD SCH ×2 (19:51→19:52)
[2022-01-15] MEDS: PATIENT'S OWN MEDICATION (NON-FORMULARY) (Ubidecarenone/Vit E Acet [Co Q-10 100 Mg Softgel PO SCH (19:52)
[2022-01-15] MEDS: ROSUVASTATIN CA 20 MG TABLET PO SCH (21:31)
[2022-01-15] MEDS: PANTOPRAZOLE 40 MG TABLET PO SCH (21:32)
[2022-01-15] MEDS: TAMSULOSIN HCL 0.4 MG CAP PO SCH (21:32)
[2022-01-15] MEDS: BRIMONIDINE TARTRATE 0.2% OPHTHALMIC 5 ML BOTTLE OD SCH (21:41)
[2022-01-15] MEDS: DORZOLAMIDE 2% HCL OPHTHALMIC SOLUTION 10 ML BOTTLE OD SCH (21:42)
[2022-01-16] MEDS ORDERED: REMDESIVIR 100 MG in SODIUM CHLORIDE 250 ML IVPB SCH (10:00)
[2022-01-16] MEDS: D5-1/2NS+20 MEQ KCL - 20 MEQ/1,000 ML INFUS.BAG IV SCH ×2 (10:42→18:55)
[2022-01-16] MEDS: FOLIC ACID 1 MG TABLET (FP) PO SCH (10:43)
[2022-01-16] MEDS: OMEGA-3 ACID ETHYL ESTERS (FATTY-ACIDS) 1 GM CAPSULE (FP) PO SCH ×2 (10:43→21:44)
[2022-01-16] MEDS: EZETIMIBE 10 MG TABLET (FP) PO SCH (10:43)
[2022-01-16] MEDS: MISOPROSTOL 200 MCG TABLET PO SCH ×2 (10:43→21:31)
[2022-01-16] MEDS: ASPIRIN/DIPYRIDAMOLE 25 MG/200 MG CAPSULE PO SCH ×2 (10:43→21:30)
[2022-01-16] MEDS: MAGNESIUM OXIDE 400 MG TABLET (FP) PO SCH (10:43)
[2022-01-16] MEDS: ENOXAPARIN NA (PORCINE) 40 MG/0.4 ML DISP.SYRIN SQ SCH (10:44)
[2022-01-16] MEDS: BENZOCAINE/MENTH/CETYLPYRD CL 1 EACH LOZENGE MM PRN (10:45)
[2022-01-16] MEDS: REMDESIVIR 100 MG in SODIUM CHLORIDE 250 ML IVPB SCH (10:45)
[2022-01-16] MEDS: BRIMONIDINE TARTRATE 0.2% OPHTHALMIC 5 ML BOTTLE OD SCH ×2 (10:46→21:30)
[2022-01-16] MEDS: DORZOLAMIDE 2% HCL OPHTHALMIC SOLUTION 10 ML BOTTLE OD SCH ×2 (10:48→21:31)
[2022-01-16 11:05] LABS: BASO % 0.2 % (0-2.0); HEMATOCRIT 33.2 % (35.4-49); HEMOGLOBIN 11.1 GM/dL (11.7-16.9); LYMPH % 19.8 % (8-40); MCH 31.1 pg (25.7-33.7); MCHC 33.3 g/dl (32.0-35.9); MEAN CELL VOLUME 93.3 fl (80-96); MEAN PLT VOLUME 8.8 fl (7.5-11.1); MONO % 7.3 % (3.8-10.2); NEUT % 72.7 % (42.8-82.8); PLATELET COUNT 121 10^3/uL (134-434); RBC 3.56 M/mm3 (4.00-5.60); RDW 18.3 % (11.9-15.9); WHITE BLOOD COUNT 6.8 K/mm3 (4.0-10.0)
[2022-01-16 11:44] LABS: ALBUMIN 2.5 g/dl (3.4-5.0); BILIRUBIN,TOTAL 0.5 mg/dL (0.2-1); BLOOD UREA NITROGEN 41.9 mg/dL (7-18); CALCIUM 7.8 mg/dL (8.5-10.1); CREATININE 0.9 mg/dL (0.55-1.3); MAGNESIUM 2.2 mg/dL (1.8-2.4); PHOSPHOROUS 2.2 mg/dL (2.5-4.9); TOT PROT 5.1 g/dl (6.4-8.2)
[2022-01-16] MEDS ORDERED: NAPH,MB-DB/K PH,MBDB POWDER PACKET PO ONE (18:11)
[2022-01-16] MEDS: DEXAMETHASONE SOD PHOSPHATE 10 MG/1 ML VIAL IVPUSH SCH (19:46)
[2022-01-16] MEDS: PANTOPRAZOLE 40 MG TABLET PO SCH (21:31)
[2022-01-16] MEDS: LATANOPROST 0.005% OPHTH SOLN 2.5ML BOTTLE OD SCH (21:31)
[2022-01-16] MEDS: ROSUVASTATIN CA 20 MG TABLET PO SCH (21:31)
[2022-01-16] MEDS: TAMSULOSIN HCL 0.4 MG CAP PO SCH (21:31)
[2022-01-17] MEDS: D5-1/2NS+20 MEQ KCL - 20 MEQ/1,000 ML INFUS.BAG IV SCH ×2 (04:00→22:47)
[2022-01-17 10:39] LABS: BASO % 0.1 % (0-2.0); HEMATOCRIT 32.1 % (35.4-49); HEMOGLOBIN 10.9 GM/dL (11.7-16.9); MCH 31.2 pg (25.7-33.7); MCHC 33.9 g/dl (32.0-35.9); MEAN CELL VOLUME 92.3 fl (80-96); MEAN PLT VOLUME 8.8 fl (7.5-11.1); MONO % 7.6 % (3.8-10.2); NEUT % 75.3 % (42.8-82.8); PLATELET COUNT 139 10^3/uL (134-434); RBC 3.48 M/mm3 (4.00-5.60); RDW 18.1 % (11.9-15.9)
[2022-01-17] MEDS: EZETIMIBE 10 MG TABLET (FP) PO SCH (10:43)
[2022-01-17] MEDS: MAGNESIUM OXIDE 400 MG TABLET (FP) PO SCH (10:43)
[2022-01-17] MEDS: ASPIRIN/DIPYRIDAMOLE 25 MG/200 MG CAPSULE PO SCH ×2 (10:44→22:49)
[2022-01-17] MEDS: OMEGA-3 ACID ETHYL ESTERS (FATTY-ACIDS) 1 GM CAPSULE (FP) PO SCH ×2 (10:44→22:49)
[2022-01-17] MEDS: MISOPROSTOL 200 MCG TABLET PO SCH ×2 (10:44→22:49)
[2022-01-17] MEDS: FOLIC ACID 1 MG TABLET (FP) PO SCH (10:44)
[2022-01-17] MEDS: DEXAMETHASONE SOD PHOSPHATE 10 MG/1 ML VIAL IVPUSH SCH (10:45)
[2022-01-17] MEDS: BRIMONIDINE TARTRATE 0.2% OPHTHALMIC 5 ML BOTTLE OD SCH ×2 (10:45→23:06)
[2022-01-17] MEDS: REMDESIVIR 100 MG in SODIUM CHLORIDE 250 ML IVPB SCH (10:47)
[2022-01-17] MEDS: DORZOLAMIDE 2% HCL OPHTHALMIC SOLUTION 10 ML BOTTLE OD SCH ×2 (10:47→23:06)
[2022-01-17 11:00] LABS: MAGNESIUM 2.2 mg/dL (1.8-2.4)
[2022-01-17 11:02] LABS: CALCIUM 7.9 mg/dL (8.5-10.1)
[2022-01-17 11:03] LABS: ALBUMIN 2.4 g/dl (3.4-5.0); CREATININE 0.9 mg/dL (0.55-1.3); PHOSPHOROUS 2.6 mg/dL (2.5-4.9)
[2022-01-17 11:04] LABS: BILIRUBIN,TOTAL 0.6 mg/dL (0.2-1); TOT PROT 5.2 g/dl (6.4-8.2)
[2022-01-17] MEDS: ENOXAPARIN NA (PORCINE) 40 MG/0.4 ML DISP.SYRIN SQ SCH (13:30)
[2022-01-17] MEDS: TAMSULOSIN HCL 0.4 MG CAP PO SCH (22:49)
[2022-01-17] MEDS: PANTOPRAZOLE 40 MG TABLET PO SCH (22:49)
[2022-01-17] MEDS: ROSUVASTATIN CA 20 MG TABLET PO SCH (22:49)
[2022-01-17] MEDS: LATANOPROST 0.005% OPHTH SOLN 2.5ML BOTTLE OD SCH (23:06)
[2022-01-18] MEDS ORDERED: REMDESIVIR 100 MG in SODIUM CHLORIDE 250 ML IVPB SCH (10:00)
[2022-01-18] MEDS: FOLIC ACID 1 MG TABLET (FP) PO SCH (10:30)
[2022-01-18] MEDS: EZETIMIBE 10 MG TABLET (FP) PO SCH (10:30)
[2022-01-18] MEDS: OMEGA-3 ACID ETHYL ESTERS (FATTY-ACIDS) 1 GM CAPSULE (FP) PO SCH ×2 (10:30→21:34)
[2022-01-18] MEDS: ENOXAPARIN NA (PORCINE) 40 MG/0.4 ML DISP.SYRIN SQ SCH (10:31)
[2022-01-18] MEDS: MAGNESIUM OXIDE 400 MG TABLET (FP) PO SCH (10:31)
[2022-01-18] MEDS: ASPIRIN/DIPYRIDAMOLE 25 MG/200 MG CAPSULE PO SCH ×2 (10:32→21:38)
[2022-01-18] MEDS: MISOPROSTOL 200 MCG TABLET PO SCH ×2 (10:34→21:34)
[2022-01-18] MEDS: DEXAMETHASONE SOD PHOSPHATE 10 MG/1 ML VIAL IVPUSH SCH (10:34)
[2022-01-18] MEDS: REMDESIVIR 100 MG in SODIUM CHLORIDE 250 ML IVPB SCH (10:35)
[2022-01-18] MEDS: DORZOLAMIDE 2% HCL OPHTHALMIC SOLUTION 10 ML BOTTLE OD SCH ×2 (10:37→21:34)
[2022-01-18] MEDS: BRIMONIDINE TARTRATE 0.2% OPHTHALMIC 5 ML BOTTLE OD SCH ×2 (10:38→21:37)
[2022-01-18 12:04] LABS: BASO % 0.2 % (0-2.0); HEMATOCRIT 33.2 % (35.4-49); HEMOGLOBIN 11.1 GM/dL (11.7-16.9); LYMPH % 11.5 % (8-40); MCH 30.9 pg (25.7-33.7); MCHC 33.5 g/dl (32.0-35.9); MEAN CELL VOLUME 92.3 fl (80-96); MEAN PLT VOLUME 9.6 fl (7.5-11.1); MONO % 7.1 % (3.8-10.2); NEUT % 81.2 % (42.8-82.8); PLATELET COUNT 169 10^3/uL (134-434); RBC 3.59 M/mm3 (4.00-5.60); RDW 17.7 % (11.9-15.9); WHITE BLOOD COUNT 5.7 K/mm3 (4.0-10.0)
[2022-01-18 12:32] LABS: ALBUMIN 2.5 g/dl (3.4-5.0); BLOOD UREA NITROGEN 29.7 mg/dL (7-18)
[2022-01-18 12:34] LABS: BILIRUBIN,TOTAL 0.5 mg/dL (0.2-1); CREATININE 0.9 mg/dL (0.55-1.3); TOT PROT 5.1 g/dl (6.4-8.2)
[2022-01-18] MEDS: D5-1/2NS+20 MEQ KCL - 20 MEQ/1,000 ML INFUS.BAG IV SCH (15:48)
[2022-01-18] MEDS ORDERED: POTASSIUM PHOSPHATE 30 MM in DEXTROSE 5%-WATER - 500 ML IVPB ONE (16:37)
[2022-01-18] MEDS: ROSUVASTATIN CA 20 MG TABLET PO SCH (21:34)
[2022-01-18] MEDS: TAMSULOSIN HCL 0.4 MG CAP PO SCH (21:34)
[2022-01-18] MEDS: PANTOPRAZOLE 40 MG TABLET PO SCH (21:34)
[2022-01-18] MEDS: LATANOPROST 0.005% OPHTH SOLN 2.5ML BOTTLE OD SCH (21:37)
[2022-01-19 08:49] VITALS: BP 127/77; PULSE 62; RESP 18; TEMP 97.9
[2022-01-19] MEDS: DEXAMETHASONE SOD PHOSPHATE 10 MG/1 ML VIAL IVPUSH SCH (09:56)
[2022-01-19] MEDS: MAGNESIUM OXIDE 400 MG TABLET (FP) PO SCH (09:56)
[2022-01-19] MEDS: OMEGA-3 ACID ETHYL ESTERS (FATTY-ACIDS) 1 GM CAPSULE (FP) PO SCH (09:56)
[2022-01-19] MEDS: EZETIMIBE 10 MG TABLET (FP) PO SCH (09:56)
[2022-01-19] MEDS: FOLIC ACID 1 MG TABLET (FP) PO SCH (09:56)
[2022-01-19] MEDS: ENOXAPARIN NA (PORCINE) 40 MG/0.4 ML DISP.SYRIN SQ SCH (09:56)
[2022-01-19] MEDS: ASPIRIN/DIPYRIDAMOLE 25 MG/200 MG CAPSULE PO SCH (09:58)
[2022-01-19] MEDS: MISOPROSTOL 200 MCG TABLET PO SCH (09:58)
[2022-01-19] MEDS: DORZOLAMIDE 2% HCL OPHTHALMIC SOLUTION 10 ML BOTTLE OD SCH (09:59)
[2022-01-19] MEDS: BRIMONIDINE TARTRATE 0.2% OPHTHALMIC 5 ML BOTTLE OD SCH (09:59)
[2022-01-19 10:39] LABS: BASO % 0.1 % (0-2.0); HEMOGLOBIN 11.1 GM/dL (11.7-16.9); LYMPH % 17.1 % (8-40); MCH 31.5 pg (25.7-33.7); MCHC 34.7 g/dl (32.0-35.9); MEAN CELL VOLUME 90.8 fl (80-96); MEAN PLT VOLUME 8.8 fl (7.5-11.1); MONO % 13.3 % (3.8-10.2); NEUT % 69.5 % (42.8-82.8); PLATELET COUNT 186 10^3/uL (134-434); RBC 3.53 M/mm3 (4.00-5.60); RDW 17.6 % (11.9-15.9)
[2022-01-19 11:15] LABS: ALBUMIN 2.4 g/dl (3.4-5.0); BLOOD UREA NITROGEN 25.5 mg/dL (7-18)
[2022-01-19 11:16] LABS: BILIRUBIN,TOTAL 0.6 mg/dL (0.2-1); TOT PROT 4.9 g/dl (6.4-8.2)
[2022-01-19 11:17] LABS: CREATININE 0.8 mg/dL (0.55-1.3)
[2022-01-19 11:18] LABS: CALCIUM 7.7 mg/dL (8.5-10.1)
[2022-01-19 11:39] VITALS: BMI 27.2
[2022-01-20] MEDS ORDERED: METHOTREXATE 2.5 MG TABLET PO SCH (10:00)
== END 2022-01-19 12:40 | DRG 178 ==
LOC: JER 10:52 → JERBED 16:10 → J5S 01-14 00:44
PROVIDERS: ADMIT Internal Medicine; ATTEND Internal Medicine
PROC: XW033E5 Introduction of Remdesivir Anti-infective into Peripheral Vein, Percutaneous Approach, New Technology Group 5 (ICD-10-PCS; principal; 2022-01-13)
DX: U07.1 COVID-19 (principal); D84.9 Immunodeficiency, unspecified; R65.10 Systemic inflammatory response syndrome (SIRS) of non-infectious origin without acute organ dysfunction; M06.9 Rheumatoid arthritis, unspecified; I11.0 Hypertensive heart disease with heart failure; E11.9 Type 2 diabetes mellitus without complications; K21.9 Gastro-esophageal reflux disease without esophagitis; E78.5 Hyperlipidemia, unspecified; I25.10 Atherosclerotic heart disease of native coronary artery without angina pectoris; R62.7 Adult failure to thrive; J02.9 Acute pharyngitis, unspecified; M48.00 Spinal stenosis, site unspecified; I50.9 Heart failure, unspecified; N40.0 Benign prostatic hyperplasia without lower urinary tract symptoms; Z95.5 Presence of coronary angioplasty implant and graft; D69.6 Thrombocytopenia, unspecified
CPT/HCPCS: 0241U-QW; 36415; 71045-TC-FY; 80053; 81003; 82728; 82803; 83605; 83735; 84100; 85025; 85379; 85610; 85730; 86140; 86850; 86900; 86901; 87040; 87070; 87086; 87899; 93005; 93010; 94761; 97116-GP; 97162-GP; 99285-25; C9399; J1100

== ENCOUNTER 2023-07-08 01:14 | Inpatient (IN) | payer OTHER, BC ==
[2023-07-08] MEDS ORDERED: oxyCODONE HCL 5 MG TABLET ONE ×2 (01:52→02:26)
[2023-07-08] MEDS: oxyCODONE HCL 5 MG TABLET PO ONE ×2 (01:58→02:30)
[2023-07-08] MEDS ORDERED: ONDANSETRON *ODT* 4 MG TABLET ONE (02:26)
[2023-07-08] MEDS: ONDANSETRON *ODT* 4 MG TABLET SL ONE (02:31)
[2023-07-08] MEDS: morphine CARPU-JECT 2 MG/1 ML DISP.SYRIN IVPUSH ONE ×2 (03:04→04:24)
[2023-07-08 03:28] LABS: POTASSIUM 4.2 mmol/L (3.5-5.1)
[2023-07-08 03:30] LABS: CALCIUM 8.6 mg/dL (8.5-10.1)
[2023-07-08 03:31] LABS: ALBUMIN 3.3 g/dl (3.4-5.0); BLOOD UREA NITROGEN 32.2 mg/dL (7-18)
[2023-07-08 03:32] LABS: BASO % 0.8 % (0-2.0); EOS % 0.4 % (0-4.5); HEMATOCRIT 37.9 % (35.4-49); HEMOGLOBIN 12.7 GM/dL (11.7-16.9); LYMPH % 21.5 % (8-40); MCH 31.5 pg (25.7-33.7); MCHC 33.5 g/dl (32.0-35.9); MEAN CELL VOLUME 93.9 fl (80-96); MEAN PLT VOLUME 8.5 fl (7.5-11.1); MONO % 8.2 % (3.8-10.2); NEUT % 69.1 % (42.8-82.8); PLATELET COUNT 130 10^3/uL (134-434); RBC 4.04 M/mm3 (4.00-5.60); WHITE BLOOD COUNT 4.8 K/mm3 (4.0-10.0)
[2023-07-08 03:34] LABS: CREATININE 1.2 mg/dL (0.55-1.3)
[2023-07-08 03:35] LABS: BILIRUBIN,TOTAL 0.7 mg/dL (0.2-1); TOT PROT 6.1 g/dl (6.4-8.2)
[2023-07-08] MEDS ORDERED: PIPERACILLIN/TAZOB 4.5 GM 4.5 GM/100 ML BAG IVPB ONE ×3 (04:08→18:16)
[2023-07-08] MEDS: PIPERACILLIN/TAZOB 4.5 GM 4.5 GM in DEXTROSE 5%-WATER 100 ML IVPB ONE (04:16)
[2023-07-08] MEDS ORDERED: KETOROLAC TROMETHAMINE 15 MG/ML VIAL ONE (05:46)
[2023-07-08] MEDS: KETOROLAC TROMETHAMINE 15 MG/ML VIAL IVPUSH ONE (05:50)
[2023-07-08 07:10] LABS: ERYTHROCYTE SEDIMENTATION RATE 13 mm/hr (0-20)
[2023-07-08] MEDS ORDERED: PATIENT'S OWN MEDICATION (NON-FORMULARY) (Brinzolamide/Brimonidine Tart [Simbrinza 1%-0.2% OD SCH (10:00)
[2023-07-08] MEDS ORDERED: TAMSULOSIN HCL 0.4 MG CAP ONE (10:52)
[2023-07-08] MEDS ORDERED: FOLIC ACID 1 MG TABLET (FP) ONE (10:52)
[2023-07-08] MEDS ORDERED: amLODIPine BESYLATE 2.5 MG TABLET (FP) ONE (10:52)
[2023-07-08] MEDS ORDERED: ASPIRIN/DIPYRIDAMOLE 25 MG/200 MG CAPSULE ONE ×2 (10:52→22:40)
[2023-07-08] MEDS: TAMSULOSIN HCL 0.4 MG CAP PO SCH (10:53)
[2023-07-08] MEDS: ASPIRIN/DIPYRIDAMOLE 25 MG/200 MG CAPSULE PO SCH (10:54)
[2023-07-08] MEDS: FOLIC ACID 1 MG TABLET (FP) PO SCH (10:54)
[2023-07-08] MEDS: amLODIPine BESYLATE 2.5 MG TABLET (FP) PO SCH (10:54)
[2023-07-08] MEDS: PIPERACILLIN/TAZOB 4.5 GM 4.5 GM in DEXTROSE 5%-WATER 100 ML IVPB SCH (11:00)
[2023-07-08] MEDS: DORZOLAMIDE 2% HCL OPHTHALMIC SOLUTION 10 ML BOTTLE OD SCH (12:30)
[2023-07-08] MEDS: EZETIMIBE 10 MG TABLET (FP) PO SCH (12:30)
[2023-07-08] MEDS: BRIMONIDINE TARTRATE 0.2% OPHTHALMIC 5 ML BOTTLE OD SCH (12:31)
[2023-07-08] MEDS: valACYclovir HCL 500 MG TABLET (FP) PO SCH (13:05)
[2023-07-08] MEDS ORDERED: valACYclovir HCL 500 MG TABLET (FP) ONE ×2 (13:15→22:36)
[2023-07-08] MEDS ORDERED: ATORVASTATIN CA 20 MG TABLET (FP) ONE (22:36)
[2023-07-08] MEDS ORDERED: PANTOPRAZOLE 40 MG TABLET PO ONE (22:36)
[2023-07-08] MEDS: ATORVASTATIN CA 20 MG TABLET (FP) PO SCH (22:49)
[2023-07-08] MEDS: PANTOPRAZOLE 40 MG TABLET PO SCH (22:49)
[2023-07-08] MEDS: LATANOPROST 0.005% OPHTH SOLN 2.5ML BOTTLE OD SCH (22:51)
[2023-07-09] MEDS ORDERED: PIPERACILLIN/TAZOB 4.5 GM 4.5 GM/100 ML BAG IVPB ONE (03:05)
[2023-07-09 08:29] LABS: BASO % 0.8 % (0-2.0); EOS % 0.6 % (0-4.5); HEMOGLOBIN 12.7 GM/dL (11.7-16.9); MCH 31.6 pg (25.7-33.7); MCHC 33.3 g/dl (32.0-35.9); MEAN CELL VOLUME 94.9 fl (80-96); MEAN PLT VOLUME 8.5 fl (7.5-11.1); MONO % 8.8 % (3.8-10.2); NEUT % 77.8 % (42.8-82.8); PLATELET COUNT 116 10^3/uL (134-434); RBC 4.01 M/mm3 (4.00-5.60); RDW 16.2 % (11.9-15.9); WHITE BLOOD COUNT 4.2 K/mm3 (4.0-10.0)
[2023-07-09 09:32] LABS: POTASSIUM 4.2 mmol/L (3.5-5.1)
[2023-07-09 09:33] LABS: ALBUMIN 3.2 g/dl (3.4-5.0); CALCIUM 8.5 mg/dL (8.5-10.1)
[2023-07-09 09:34] LABS: BILIRUBIN,TOTAL 1.1 mg/dL (0.2-1); BLOOD UREA NITROGEN 30.3 mg/dL (7-18); CREATININE 1.2 mg/dL (0.55-1.3); TOT PROT 6.2 g/dl (6.4-8.2)
[2023-07-09] MEDS: ACETAMINOPHEN 500 MG TABLET (FP) PO PRN (11:36)
[2023-07-09] MEDS ORDERED: AMPICILLIN NA/SULBACTAM NA 3 GM in DEXTROSE 5%-WATER 100 ML IVPB SCH (17:00)
[2023-07-09] MEDS: CEFTRIAXONE 2 GM in DEXTROSE 5%-WATER 100 ML IVPB SCH (17:56)
[2023-07-09] MEDS ORDERED: PIPERACILLIN/TAZOB 4.5 GM 4.5 GM in DEXTROSE 5%-WATER 100 ML IVPB SCH (18:00)
[2023-07-09] MEDS: ACYCLOVIR SODIUM IVPB SCH (19:44)
[2023-07-09] MEDS: SODIUM CHLORIDE IVPB SCH (19:44)
[2023-07-09] MEDS ORDERED: ACYCLOVIR 500 MG (50MG/ML) VIAL IVPUSH ONE ×2 (20:00)
[2023-07-09] MEDS: POTASSIUM CHLORIDE 10 MEQ in SODIUM CHLORIDE 0.45% 1,000 ML IVPB SCH (20:21)
[2023-07-09] MEDS: ACETAMINOPHEN 325 MG TABLET (FP) PO PRN (23:14)
[2023-07-10] MEDS: ACYCLOVIR SODIUM IVPB SCH ×2 (00:49→10:27)
[2023-07-10] MEDS: SODIUM CHLORIDE IVPB SCH ×2 (00:49→10:27)
[2023-07-10] MEDS: PIPERACILLIN/TAZOB 4.5 GM 4.5 GM in DEXTROSE 5%-WATER 100 ML IVPB SCH (00:50)
[2023-07-10 09:48] LABS: BASO % 0.5 % (0-2.0); EOS % 0.1 % (0-4.5); HEMATOCRIT 37.6 % (35.4-49); HEMOGLOBIN 12.5 GM/dL (11.7-16.9); LYMPH % 10.3 % (8-40); MCH 31.4 pg (25.7-33.7); MCHC 33.1 g/dl (32.0-35.9); MEAN CELL VOLUME 94.8 fl (80-96); MONO % 6.2 % (3.8-10.2); NEUT % 82.9 % (42.8-82.8); PLATELET COUNT 103 10^3/uL (134-434); RBC 3.97 M/mm3 (4.00-5.60); RDW 16.4 % (11.9-15.9); WHITE BLOOD COUNT 5.6 K/mm3 (4.0-10.0)
[2023-07-10 10:09] LABS: CALCIUM 8.4 mg/dL (8.5-10.1)
[2023-07-10 10:10] LABS: BLOOD UREA NITROGEN 33.8 mg/dL (7-18)
[2023-07-10 10:13] LABS: CREATININE 1.3 mg/dL (0.55-1.3)
[2023-07-10 10:14] LABS: BILIRUBIN,TOTAL 1.5 mg/dL (0.2-1)
[2023-07-10] MEDS: PIPERACILLIN/TAZOB 3.375 GM 3.375 GM in DEXTROSE 5%-WATER - 50 ML IVPB SCH (16:20)
[2023-07-11 08:05] LABS: BASO % 0.4 % (0-2.0); EOS % 0.3 % (0-4.5); HEMATOCRIT 31.1 % (35.4-49); HEMOGLOBIN 10.7 GM/dL (11.7-16.9); LYMPH % 11.3 % (8-40); MCH 32.2 pg (25.7-33.7); MCHC 34.6 g/dl (32.0-35.9); MEAN PLT VOLUME 8.9 fl (7.5-11.1); MONO % 7.1 % (3.8-10.2); NEUT % 80.9 % (42.8-82.8); PLATELET COUNT 93 10^3/uL (134-434); RBC 3.34 M/mm3 (4.00-5.60); RDW 16.5 % (11.9-15.9); WHITE BLOOD COUNT 7.5 K/mm3 (4.0-10.0)
[2023-07-11 08:09] LABS: POTASSIUM 3.4 mmol/L (3.5-5.1)
[2023-07-11 08:19] LABS: CALCIUM 7.5 mg/dL (8.5-10.1)
[2023-07-11 08:20] LABS: BLOOD UREA NITROGEN 48.4 mg/dL (7-18)
[2023-07-11 08:23] LABS: CREATININE 1.9 mg/dL (0.55-1.3)
[2023-07-11 08:25] LABS: BILIRUBIN,TOTAL 1.6 mg/dL (0.2-1); TOT PROT 5.1 g/dl (6.4-8.2)
[2023-07-11 08:30] LABS: ALBUMIN 2.3 g/dl (3.4-5.0)
[2023-07-11] MEDS: GABAPENTIN 100 MG CAPSULE PO SCH (10:52)
[2023-07-11] MEDS: ACETAMINOPHEN 500 MG TABLET (FP) PO SCH (10:52)
[2023-07-11] MEDS: SODIUM CHLORIDE 500 ML IV STA (16:20)
[2023-07-11] MEDS: POTASSIUM CHLORIDE ORAL LIQUID 20 MEQ/15 ML PO ONE (16:21)
[2023-07-11] MEDS: SODIUM CHLORIDE 0.45% 1,000 ML IV SCH (17:26)
[2023-07-11] MEDS: ACYCLOVIR SODIUM IVPB SCH (22:42)
[2023-07-11] MEDS: SODIUM CHLORIDE IVPB SCH (22:42)
[2023-07-12 05:38] LABS: PH,URINE 5.5 (5.0-8.0); URINE APPEARANCE CLEAR; URINE BILIRUBIN NEGATIVE (NEGATIVE); URINE COLOR YELLOW; URINE GLUCOSE (UA) NEGATIVE (NEGATIVE); URINE KETONE NEGATIVE (NEGATIVE); URINE LEUK ESTERASE NEGATIVE (NEGATIVE); URINE NITRITE NEGATIVE (NEGATIVE); URINE PROTEIN TRACE (NEGATIVE)
[2023-07-12 09:54] LABS: BASO % 0.4 % (0-2.0); EOS % 1.8 % (0-4.5); HEMATOCRIT 34.9 % (35.4-49); HEMOGLOBIN 11.7 GM/dL (11.7-16.9); MCH 31.5 pg (25.7-33.7); MCHC 33.5 g/dl (32.0-35.9); MEAN CELL VOLUME 93.8 fl (80-96); MEAN PLT VOLUME 8.8 fl (7.5-11.1); MONO % 8.2 % (3.8-10.2); NEUT % 77.6 % (42.8-82.8); PLATELET COUNT 117 10^3/uL (134-434); RBC 3.73 M/mm3 (4.00-5.60); RDW 16.7 % (11.9-15.9); WHITE BLOOD COUNT 5.7 K/mm3 (4.0-10.0)
[2023-07-12 10:16] LABS: POTASSIUM 3.8 mmol/L (3.5-5.1)
[2023-07-12 10:22] LABS: ALBUMIN 2.4 g/dl (3.4-5.0)
[2023-07-12 10:23] LABS: BLOOD UREA NITROGEN 32.7 mg/dL (7-18)
[2023-07-12 10:26] LABS: CREATININE 1.2 mg/dL (0.55-1.3)
[2023-07-12 10:27] LABS: BILIRUBIN,TOTAL 1.2 mg/dL (0.2-1); TOT PROT 5.4 g/dl (6.4-8.2)
[2023-07-13 09:06] LABS: POTASSIUM 3.4 mmol/L (3.5-5.1)
[2023-07-13 09:11] LABS: ALBUMIN 2.2 g/dl (3.4-5.0); BLOOD UREA NITROGEN 20.2 mg/dL (7-18); CALCIUM 7.9 mg/dL (8.5-10.1)
[2023-07-13 09:16] LABS: BILIRUBIN,TOTAL 0.8 mg/dL (0.2-1); TOT PROT 4.9 g/dl (6.4-8.2)
[2023-07-13] MEDS: POTASSIUM CHLORIDE ORAL LIQUID 20 MEQ/15 ML PO ONE (17:38)
[2023-07-14 09:27] LABS: HEMATOCRIT 32.3 % (35.4-49); HEMOGLOBIN 11.1 GM/dL (11.7-16.9); MCHC 34.5 g/dl (32.0-35.9); MEAN PLT VOLUME 8.4 fl (7.5-11.1); PLATELET COUNT 152 10^3/uL (134-434); RBC 3.47 M/mm3 (4.00-5.60); RDW 16.8 % (11.9-15.9); WHITE BLOOD COUNT 5.8 K/mm3 (4.0-10.0)
[2023-07-14 09:59] LABS: POTASSIUM 3.4 mmol/L (3.5-5.1)
[2023-07-14 10:55] LABS: CALCIUM 7.8 mg/dL (8.5-10.1)
[2023-07-14 10:56] LABS: ALBUMIN 2.3 g/dl (3.4-5.0); BLOOD UREA NITROGEN 15.4 mg/dL (7-18)
[2023-07-14 10:59] LABS: CREATININE 0.9 mg/dL (0.55-1.3)
[2023-07-14 11:00] LABS: BILIRUBIN,TOTAL 0.8 mg/dL (0.2-1)
[2023-07-14 11:01] LABS: TOT PROT 5.1 g/dl (6.4-8.2)
[2023-07-14 11:08] LABS: ANISOCYTOSIS 0; HELMET CELLS 0; HOWELL-JOLLY BODIES 0; MACROCYTOSIS 0; OVALOCYTE 0; ROULEAU 0; SICKELED CELLS 0; TARGET CELLS 0; TEAR DROP CELLS 0; TOXIC GRANULATION 0
[2023-07-14 15:06] VITALS: BMI 26.2
[2023-07-15] MEDS: POTASSIUM CHLORIDE ORAL LIQUID 20 MEQ/15 ML PO ONE (15:49)
[2023-07-15] MEDS: valACYclovir HCL 500 MG TABLET (FP) PO SCH (15:49)
[2023-07-15 23:21] VITALS: BP 150/67; PULSE 72; RESP 18; TEMP 98.1
== END 2023-07-16 01:00 | DRG 596 ==
LOC: JER 01:14 → JERBED 03:51 → J8W 07-09 03:56
PROVIDERS: ADMIT Family Medicine; ATTEND Family Medicine
DX: B02.9 Zoster without complications (principal); N17.9 Acute kidney failure, unspecified; L03.114 Cellulitis of left upper limb; I25.10 Atherosclerotic heart disease of native coronary artery without angina pectoris; M06.9 Rheumatoid arthritis, unspecified; E11.9 Type 2 diabetes mellitus without complications; E78.5 Hyperlipidemia, unspecified; N40.0 Benign prostatic hyperplasia without lower urinary tract symptoms; H35.30 Unspecified macular degeneration; M48.00 Spinal stenosis, site unspecified; K21.9 Gastro-esophageal reflux disease without esophagitis; E86.0 Dehydration; I11.0 Hypertensive heart disease with heart failure; I50.9 Heart failure, unspecified; K57.90 Diverticulosis of intestine, part unspecified, without perforation or abscess without bleeding; M54.50 Low back pain, unspecified; H70.91 Unspecified mastoiditis, right ear; E87.6 Hypokalemia
CPT/HCPCS: 36415; 70450-TC; 70486-TC; 71045-TC-FY; 80053; 81003; 82436; 82570; 82728; 83540; 83550; 84133; 84300; 85025; 85651; 86140; 87040; 93005; 93010; 97116-GP; 97161-GP; 99285-25; Q0162